=== PATIENT | female | born 1940 | race Caucasian/White ===

== ENCOUNTER 2018-04-10 19:17 | Observation (INO) | payer MEDICAID, MEDICARE ==
[~2018-04-10 19:17] MED LIST: Iopamidol 370 76% 50 ML VIAL FS ONE
[2018-04-10 19:54] LABS: #Basophils 0.1 thou/uL (0.0-0.2); #Eosinphils 0.6 thou/uL (0.0-0.7); #Lymphocytes 1.7 thou/uL (1.20-3.40); #Monocytes 0.4 thou/uL (0.11-0.59); #Neutrophils 4.6 thou/uL (1.40-6.50); %Eosinophils 8.9 % (0.0-10.0); %Lymphocytes 22.7 % (21.0-51.0); %Monocytes 5.1 % (0.0-10.0); %Neutrophils 62.4 % (42.0-75.0); Hemoglobin 10.3 g/dL (12.0-16.0); Mean Corpuscular HGB CONC 33.5 g/dL (32.0-36.0); Mean Corpuscular Hemoglobin 29.3 pg (27.0-31.0); Mean Corpuscular Volume 87.4 fL (78.0-98.0); Platelet Count 318 thou/uL (130-400); RBC Distribution Width 13.7 % (11.5-14.5); White Blood Cell (WBC) Count 7.3 thou/uL (4.8-10.8)
--- NOTE | 2018-04-10 20:12 | RAD ---
RADIOGRAPH CHEST 1 VIEW: 04/10/18 HISTORY: 77-year-old female with acute chest pain. FINDINGS: There is hyperinflation of the lungs, consistent with COPD. There is no evidence of air space densit y, pneumothorax, or pulmonary edema. The lateral costophrenic angles are sharp. There is no cardiome alethea or mediastinal widening. IMPRESSION: 1) No acute pulmonary findings. 2) Emphysema. titi [place] POS: JULIO
[2018-04-10 20:17] LABS: ALT (SGPT) 7 U/L (8-55); AST (SGOT) 16 U/L (5-34); Alkaline Phosphatase 52 U/L (40-150); Anion Gap 16 mmol/L (10-20); BUN (Urea Nitrogen) 18 mg/dL (9.8-20.1); Bilirubin, Total 0.3 mg/dL (0.2-1.2); CK (CPK) 66 U/L (29-168); Calc. Creatinine Clearance 0 mL/min (70-130); Calcium 9.2 mg/dL (7.8-10.44); Carbon Dioxide 25 mmol/L (23-31); Chloride 96 mmol/L (98-107); Estimated GFR-MDRD 65; Globulin 3.7 g/dL (2.4-3.5); Glucose 165 mg/dL (83-110); Lipase 59 U/L (8-78); Potassium 4.1 mmol/L (3.5-5.1); Protein, Total 7.7 g/dL (6.0-8.3); Sodium 133 mmol/L (136-145)
[2018-04-10 20:19] LABS: CKMB 1.3 ng/mL (0-6.6); Troponin I Less than 0.010 ng/mL (< 0.028)
[2018-04-10] MEDS ORDERED: Ondansetron ODT 4 MG TAB ONE ×2 (20:45→23:08)
[2018-04-10 20:59] LABS: Bilirubin Negative (Negative); Blood, Urine Negative (Negative); Clarity CLEAR (Clear); Glucose, Urine (Dipstick) Negative (Negative); Leukocyte Negative (Negative); Nitrite Negative (Negative); Protein, Urine (Dipstick) Negative (Neg-Trace); Specific Gravity, Urine 1.013 (1.002-1.036); Urobilinogen 0.2 mg/dL (0.2-1.0)
--- NOTE | 2018-04-10 22:50 | CT ---
CT ABDOMEN NONCONTRAST CT PELVIS NONCONTRAST: DATE: 04/10/18 TIME: 9:45 p.m. HISTORY: 77-year-old female with left lower quadrant pain and nausea. COMPARISON: None. TECHNIQUE: IV contrast: Not administered. Oral contrast: Administered. FINDINGS: Numerous diverticula throughout the descending colon and sigmoid colon, without evidence of acute div erticulitis. No abscess. A large amount of gas distending the distal sigmoid colon. Rectum is decompr essed. No small bowel dilation. Appendix not visualized. Atherosclerotic calcification, but no aneury sm, of abdominal aorta. 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 3 x 3 x 3.5 cm exophytic cyst protruding from lateral aspect of right r enal lower pole parenchyma. Abutting its superior edge, there is a much smaller 1 cm lateral mid pole cortical cyst. No renal calculi. No hydronephrosis. Decompressed urinary bladder. No pericholecystic edema/fat stranding. Within the limitations of a noncontrast scan, no major pathology identified inv olving bilateral adrenals, pancreas, liver, or spleen. 2 cm lesion exophytically protruding from medi al parenchyma of left renal upper pole with density of 25 HU (i.e. higher than serous fluid attenuati on). No ascites or pneumoperitoneum. Lung bases are grossly clear. Pedicle screws at lower lumbar spi ne along with laminectomy defects. IMPRESSION: 1. Colonic diverticulosis without diverticulitis. 2. Postsurgical changes of lumbar spine. 3. A 2 cm indeterminate lesion at the left renal upper pole. Ideally, this would be evaluated wi multiphase CT of the abdomen with and without contrast. However, if there is decreased GFR or othe r contraindication to iodinated contrast, further evaluation can begin with renal ultrasound, and/or serial followup noncontrast CTs of the abdomen, beginning in six months. POS: JULIO
[2018-04-10] MEDS ORDERED: traMADol HCl 50 MG TAB ONE (23:08)
[2018-04-11 00:09] LABS: Troponin I Less than 0.010 ng/mL (< 0.028)
[2018-04-11] MEDS ORDERED: Bisacodyl 5 MG TAB PO PRN (00:55)
[2018-04-11] MEDS ORDERED: Dextrose 50% Abboject 50 ML SYRINGE SLOW IVP PRN (00:55)
[2018-04-11] MEDS ORDERED: Ondansetron HCl/PF 4 MG/2 ML Vial IVP PRN (00:55)
[2018-04-11] MEDS ORDERED: Mag-Al 1200 mg/1200 mg/30 ML UDCUP PO PRN (00:55)
[2018-04-11] MEDS ORDERED: Ondansetron ODT 4 MG TAB PO PRN (00:55)
[2018-04-11] MEDS ORDERED: HumaLOG 300 UNITS/3 ML VIAL SC PRN ×2 (00:55)
[2018-04-11] MEDS ORDERED: Dextrose 5% in Water 1,000 ML IV PRN (00:55)
[2018-04-11] MEDS ORDERED: Milk Of Magnesia 30 ML UDCUP PO PRN (00:55)
[2018-04-11] MEDS ORDERED: Sodium Chloride 0.9% 1,000 ML IV SCH (00:55)
[2018-04-11 01:04] VITALS: BMI 23.6
[2018-04-11 03:15] LABS: Hemoglobin 9.7 g/dL (12.0-16.0); Red Blood Cell (RBC) Count 3.39 mill/uL (4.20-5.40); White Blood Cell (WBC) Count 6.6 thou/uL (4.8-10.8)
[2018-04-11 03:16] LABS: #Basophils 0.1 thou/uL (0.0-0.2); #Eosinphils 0.7 thou/uL (0.0-0.7); #Lymphocytes 2.3 thou/uL (1.20-3.40); #Monocytes 0.6 thou/uL (0.11-0.59); #Neutrophils 2.9 thou/uL (1.40-6.50); %Basophils 1.4 % (0.0-1.0); %Lymphocytes 34.5 % (21.0-51.0); %Monocytes 8.4 % (0.0-10.0); %Neutrophils 44.6 % (42.0-75.0); Mean Corpuscular HGB CONC 32.8 g/dL (32.0-36.0); Mean Corpuscular Hemoglobin 28.6 pg (27.0-31.0); Mean Corpuscular Volume 87.2 fL (78.0-98.0); Mean Platelet Volume 8.7 fL (7.4-10.4); Platelet Count 307 thou/uL (130-400); RBC Distribution Width 13.7 % (11.5-14.5)
[2018-04-11 03:26] LABS: Troponin I Less than 0.010 ng/mL (< 0.028)
[2018-04-11 03:28] LABS: Anion Gap 12 mmol/L (10-20); BUN (Urea Nitrogen) 14 mg/dL (9.8-20.1); Calc. Creatinine Clearance 57 mL/min (70-130); Calcium 9.3 mg/dL (7.8-10.44); Carbon Dioxide 28 mmol/L (23-31); Cardiac Risk 2.5 (Less than 4.5); Chloride 99 mmol/L (98-107); Cholesterol 138 mg/dl (< 200 Desired); Estimated GFR-MDRD 71; Glucose 130 mg/dL (83-110); HDL Cholesterol 56 mg/dL (>60 Neg Risk); LDL Cholesterol, Calculated 68 mg/dL; Potassium 3.7 mmol/L (3.5-5.1); Sodium 135 mmol/L (136-145); Triglycerides 72 mg/dL (Less than 150)
[2018-04-11] MEDS: Acetaminophen 325 MG TAB PO PRN ×2 (03:29→09:03)
--- NOTE | 2018-04-11 05:41 | HP ---
PRIMARY CARE PHYSICIAN: Dr. Bart Irvin. CHIEF COMPLAINT: Nausea and chest pain. HISTORY OF PRESENT ILLNESS: Ms. Gaitan is a pleasant 77-year-old female who has a history of hype rtension, diabetes mellitus, as well as coronary artery disease. She says that on yesterday she had a CT scan done just as a routine checkup and had to drink some contrast. She says that she went home and did not feel very well after drinking the contrast and started getting very nauseated. She says she drank a lot of water, thinking this would help it get better, but it did not, got progressively worse and she started dry heaving, but not really throwing up much. She says after the dry heaving, she started having some pain in her chest. It was in the middle part of her chest and radiated to he r left shoulder. She felt dizzy, lightheaded, clammy, and cold as well and as a result, she said she came to the hospital to try to see what was going on. She also says she felt a bit short of breath during this time. She says that she was given some medication in the emergency room which has helped the chest pain, but she continues to have some of the nausea and in fact, she says the pain in her c hest actually went away after the dry heaving stopped. The patient also admits to feeling constipate d off and on and also complaining of some back pain. She denies any PND or orthopnea, and no lower e xtremity edema. She says that she has had a stress test back in November and says everything was fin e. 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 She also says that she do es not remember what sort of symptoms led her to seek medical attention with regard to when she had a heart attack a few years ago, she says she just remembers waking up in the hospital 6 days later. REVIEW OF SYSTEMS: All systems were reviewed and are negative except for that mentioned in the histo ry of present illness. PAST MEDICAL HISTORY: Significant for diabetes mellitus, hypertension, COPD, coronary artery disease , and cerebrovascular disease. PAST SURGICAL HISTORY: She had right foot surgery, . She says she has had 3 back surgeries including a lumbar fusion, appendectomy, hysterectomy, and a coronary stent. ALLERGIES: AMBIEN. SOCIAL HISTORY: She is . She just recently moved to [place], [place] about 3 weeks ago. She is a former smoker. She denies any alcohol use. CODE STATUS: FULL CODE. FAMILY HISTORY: Significant for heart disease in her mother and also hypertension. CURRENT MEDICATIONS: As taken from the emergency room records include valsartan 320/25 one tablet on ce a day, amlodipine 5 mg daily, aspirin 81 mg a day, carvedilol 25 mg twice a day, metformin 500 mg twice daily, atorvastatin 40 mg daily, Januvia 100 mg daily, Dexilant 60 mg daily, vitamin B12 and fo lic acid 500 mcg/400 mcg daily, Advair Diskus inhaler daily, tizanidine 4 mg as needed and vitamin D 1000 international units daily. PHYSICAL EXAMINATION: GENERAL: She is alert and oriented. She appears to be in no acute distress. VITAL SIGNS: Blood pressure was 160/79, heart rate 61, respiratory rate is 16, temperature is 98.1. HEENT: Pupils are equal, round, and reactive. Extraocular muscles are intact. Her sclerae are anic teric. Throat: There is no erythema, no exudates. NECK: No adenopathy, no bruits. LUNGS: Clear to auscultation. There is no wheezing, no rales, no rhonchi. CARDIOVASCULAR: She has a normal S1 and S2. I did not appreciate an S3 or S4. No murmurs, clicks, no rubs. ABDOMEN: Obese, it is soft, nontender, nondistended. Positive for bowel sounds. There is no reboun d, no guarding, no organomegaly. EXTREMITIES: There is no clubbing, cyanosis, no edema. She does have significant sized nevus under the left eye and also on her neck, but no other skin lesions. NEUROLOGIC: The exam is nonfocal. LABORATORY AND DIAGNOSTIC DATA: EKG showed sinus rhythm, the rate was 85. There were no ST wave bunny nges. She had a CT scan of the abdomen and pelvis, which was negative other than some diverticulosis and a possible indeterminate lesion in the left upper pole of the kidney and post-surgical changes o f the lumbar spine. Chest x-ray showed some hyperexpansion of the lungs, but no effusions or pulmona ry infiltrates noted. The heart size is normal. Her white blood cell count was 7.3, hemoglobin 10.3 , hematocrit is 30.6, platelet count is 318,000. Sodium 133, potassium 4.1, chloride is 96, CO2 is 2 5, BUN of 18, creatinine 0.85, glucose is 165. Urinalysis was negative except for some trace ketones . ASSESSMENT AND PLAN: 1. This is a 77-year-old female who presented to the emergency room with complaints of nausea and dr maryanne sharp as well as chest pain. It is unclear the etiology of the nausea; however, when I come to s ee the patient, she seems to be relatively stable and also appears to be quite comfortable. I suspec t it may have been due to the contrast like she mentioned or could possibly be a viral gastroenteriti s. Also suspect that the chest pain may have been related to the dry heaving. She states that she h as had a recent stress test in November, which was about 4 months ago, she says it was on 12/10 to be exact and this was negative. Therefore, we will monitor an observation, place her on low dose or ge ntle hydration. Trend her cardiac enzymes. Reevaluate her in the a.m., and if she is improved, then likely she can be discharged home. 2. Regarding diabetes mellitus, we will continue her usual medications including the Januvia as well as placed on a sliding scale insulin. 3. Continue her antihypertensives and p.r.n. medications if needed and treat the nausea symptomatica lly.
[2018-04-11 06:16] LABS: Troponin I 0.015 ng/mL (< 0.028)
[2018-04-11] MEDS ORDERED: Enoxaparin Sodium 40 MG/0.4 ML SYRINGE SC SCH (09:00)
[2018-04-11 12:05] VITALS: BP 127/50; TEMP 98.5
--- NOTE | 2018-04-11 12:34 | DIS ---
DATE OF ADMISSION: 04/10/2018 DATE OF DISCHARGE: 04/11/2018 DISCHARGE DIAGNOSES: 1. Nausea and vomiting, resolved. 2. Chest pain secondarily to #1, resolved. 3. Diabetes mellitus type 2, stable. 4. Hypertension, stable. 5. Coronary artery disease, chronic and stable. CONSULTATIONS: None. PERTINENT LABORATORY DATA AND X-RAY FINDINGS: Basic metabolic profile within normal limits. LFTs wi thin normal limits. Troponin I negative x3. Total cholesterol 130, triglycerides 72, HDL 56, LDL 68 , lipase 59. CBC showed hemoglobin ranging between 9.7-10.3. Urinalysis showed trace ketones. Port able chest x-ray dated 04/10/2018 showed no acute cardiopulmonary process. Chronic changes consisten t with emphysema noted. CT of the abdomen and pelvis dated 04/10/2018 showed diverticulosis without evidence of diverticulitis. Postsurgical changes in the lumbar spine. A 2-cm indeterminate lesion i n the left upper pole of the kidney. HOSPITAL COURSE: Patient was observed on the telemetry unit after initially presenting with protract ed nausea and vomiting after apparently receiving intravenous IV contrast for CT of the chest and the n taking home regimen of metformin. The patient was given general supportive measures to include IV fluids and antiemetics. Supportive measures were successful in alleviating patient's symptoms and rebeca mckeon had complete resolution of all nausea, vomiting prior to discharge. The patient underwent meta bolic and radiographic screening showing no acute process. Current recommendations are to hold metfo rmin for approximately 48 hours after exposure to contrast media. Then resume her regular outpatient medication regimen after discharge. Overall, patient remained clinically stable throughout the hosp ital course with telemetry monitoring showing sinus mechanism without evidence of acute arrhythmia or dysrhythmia. I have examined the patient's time of discharge and discussed pertinent laboratory fin dings and followup instructions. The patient verbalizes understanding and agreement and ready for di ana 04/11/2018. DISCHARGE MEDICATIONS: 1. Amlodipine 5 mg one tab p.o. daily. 2. Enteric-coated aspirin 81 mg 1 tab p.o. daily. 3. Lipitor 40 mg p.o. at bedtime daily. 4. Coreg 25 mg p.o. b.i.d. 5. Vitamin D3 1000 units p.o. daily. 6. Vitamin B12 1000 mcg p.o. daily. 7. Dexilant 60 mg p.o. daily. 8. Advair Diskus one inhalation b.i.d. 9. Metformin 250 mg p.o. b.i.d., resume on 04/13/2018. 10. Tizanidine 2 mg p.o. p.r.n. muscle spasms. 11. Valsartan/HCTZ 320/25 mg 1 tab p.o. daily. FOLLOWUP: Patient may follow up with her primary care provider, Dr. Bart Irvin in [place], [place] within 7 days of discharge. CONDITION ON DISCHARGE: Stable. ACTIVITY: Ad bang. DIET: Heart healthy and ADA. CODE STATUS: FULL. DISPOSITION: Home 04/11/2018.
--- NOTE | 2018-04-12 13:31 | EKG ---
Test Reason : Blood Pressure : / mmHG Vent. Rate : 074 BPM Atrial Rate : 074 BPM P-R Int : 132 ms QRS Dur : 090 ms QT Int : 414 ms P-R-T Axes : 097 006 -45 degrees QTc Int : 459 ms Sinus rhythm with Fusion complexes Abnormal ECG Confirmed by MOON LINDO ([id number]), scientific editor INDRA GUARDADO ([id number]) on 04/12/2018 1:31:13 PM Referred By: Confirmed By:MOON LINDO
== END 2018-04-11 12:36 | disposition home or self-care (01) ==
LOC: ERS 19:17 → INTOOBSV 04-11 00:36 → 2SE 04-11 00:36
PROVIDERS: ADMIT Internal Medicine; ATTEND Internal Medicine
DX: R11.2 Nausea with vomiting, unspecified (principal); R07.9 Chest pain, unspecified; E11.9 Type 2 diabetes mellitus without complications; I10 Essential (primary) hypertension; I25.10 Atherosclerotic heart disease of native coronary artery without angina pectoris; J44.9 Chronic obstructive pulmonary disease, unspecified; Z87.891 Personal history of nicotine dependence; Z79.84 Long term (current) use of oral hypoglycemic drugs; Z79.899 Other long term (current) drug therapy; Z88.8 Allergy status to other drugs, medicaments and biological substances
CPT/HCPCS: 71045; 74176; 80048; 80053; 80061; 81003; 82550; 82553; 82962; 83690; 84484 ×4; 85025 ×2; 93005; 96360; 96361; 96372; 99285; G0378; 36415; 36416; A4216; J1650; Q0162

== ENCOUNTER 2019-05-06 23:03 | Observation (INO) | payer MEDICARE, MEDICAID ==
[2019-05-06 23:43] LABS: #Basophils 0.1 thou/uL (0.0-0.2); #Lymphocytes 2.6 thou/uL (1.20-3.40); #Monocytes 0.7 thou/uL (0.11-0.59); #Neutrophils 4.5 thou/uL (1.40-6.50); %Lymphocytes 29.7 % (21.0-51.0); %Monocytes 8.2 % (0.0-10.0); %Neutrophils 50.2 % (42.0-75.0); Hemoglobin 10.4 g/dL (12.0-16.0); Mean Corpuscular HGB CONC 34.5 g/dL (32.0-36.0); Mean Corpuscular Hemoglobin 31.2 pg (27.0-31.0); Mean Corpuscular Volume 90.4 fL (78.0-98.0); Platelet Count 348 thou/uL (130-400); RBC Distribution Width 12.9 % (11.5-14.5); Red Blood Cell (RBC) Count 3.33 mill/uL (4.20-5.40); White Blood Cell (WBC) Count 8.9 thou/uL (4.8-10.8)
[2019-05-07 00:05] LABS: ALT (SGPT) Less than 7 U/L (8-55); AST (SGOT) 13 U/L (5-34); Albumin 3.9 g/dL (3.4-4.8); Alkaline Phosphatase 63 U/L (40-150); Anion Gap 14 mmol/L (10-20); BUN (Urea Nitrogen) 15 mg/dL (9.8-20.1); Bilirubin, Total 0.2 mg/dL (0.2-1.2); Calc. Creatinine Clearance 0 mL/min (70-130); Carbon Dioxide 25 mmol/L (23-31); Chloride 95 mmol/L (98-107); Estimated GFR-MDRD 61; Globulin 2.9 g/dL (2.4-3.5); Glucose 169 mg/dL (83-110); Potassium 3.8 mmol/L (3.5-5.1); Protein, Total 6.8 g/dL (6.0-8.3); Sodium 130 mmol/L (136-145)
[2019-05-07] MEDS ORDERED: Ondansetron ODT 4 MG TAB ONE (00:53)
[2019-05-07] MEDS ORDERED: Acetaminophen 325 MG TAB ONE (00:53)
[2019-05-07 00:54] LABS: Phosphorus 4.2 mg/dL (2.3-4.7)
[2019-05-07 03:21] LABS: #Eosinphils 0.8 thou/uL (0.0-0.7); #Lymphocytes 2.1 thou/uL (1.20-3.40); #Monocytes 0.7 thou/uL (0.11-0.59); #Neutrophils 3.8 thou/uL (1.40-6.50); %Basophils 0.6 % (0.0-1.0); %Eosinophils 11.2 % (0.0-10.0); %Lymphocytes 27.9 % (21.0-51.0); %Monocytes 8.7 % (0.0-10.0); %Neutrophils 51.6 % (42.0-75.0); Hemoglobin 10.4 g/dL (12.0-16.0); Mean Corpuscular Hemoglobin 31.1 pg (27.0-31.0); Mean Corpuscular Volume 91.3 fL (78.0-98.0); Mean Platelet Volume 7.5 fL (7.4-10.4); Platelet Count 327 thou/uL (130-400); RBC Distribution Width 12.9 % (11.5-14.5); Red Blood Cell (RBC) Count 3.36 mill/uL (4.20-5.40); White Blood Cell (WBC) Count 7.4 thou/uL (4.8-10.8)
[2019-05-07 03:37] LABS: Anion Gap 12 mmol/L (10-20); BUN (Urea Nitrogen) 13 mg/dL (9.8-20.1); Calc. Creatinine Clearance 0 mL/min (70-130); Calcium 9.2 mg/dL (7.8-10.44); Carbon Dioxide 29 mmol/L (23-31); Chloride 94 mmol/L (98-107); Estimated GFR-MDRD 66; Glucose 139 mg/dL (83-110); Magnesium 1.1 mg/dL (1.6-2.6); Potassium 3.6 mmol/L (3.5-5.1); Sodium 131 mmol/L (136-145)
[2019-05-07 04:04] VITALS: BMI 23.6
[2019-05-07] MEDS ORDERED: Acetaminophen 325 MG TAB PO PRN (04:13)
[2019-05-07] MEDS ORDERED: Ondansetron PF 4 MG/2 ML Vial IVP PRN (04:13)
[2019-05-07] MEDS ORDERED: Senokot S 8.6-50 MG TAB PO PRN (04:13)
[2019-05-07] MEDS ORDERED: Ondansetron ODT 4 MG TAB PO PRN (04:13)
[2019-05-07] MEDS ORDERED: Acetaminophen 650 MG Suppository PR PRN (04:13)
[2019-05-07] MEDS ORDERED: Magnesium 2 GM/50 ML 2 GM in Premix Bag 1 BAG IVPB SCH (04:30)
[2019-05-07] MEDS ORDERED: Acetaminophen/Codeine 30-300mg Tablet PO PRN (04:41)
[2019-05-07] MEDS ORDERED: Dextrose 50% Abboject 50 ML SYRINGE SLOW IVP PRN (04:42)
[2019-05-07] MEDS ORDERED: Dextrose 5% in Water 1,000 ML IV PRN (04:42)
[2019-05-07] MEDS ORDERED: HumaLOG 300 UNITS/3 ML VIAL SC PRN ×2 (04:42)
--- NOTE | 2019-05-07 05:12 | HP ---
CHIEF COMPLAINT: Syncope/collapse. HISTORY OF PRESENT ILLNESS: Ms. Gaitan is a 78-year-old woman, who presents after a sudden collapse yesterday evening. The patient states she was lying in bed watching TV. She got up to answer her phone and the next thing she remembers is waking up on the floor, face down with her phone in her hand. The patient states she had banged her right cheek on a piece of furniture and had knocked over her pedestal fan. She had some difficulty standing and was able to get herself up by pulling on the sheet of the bed. She denies experiencing any dizziness, lightheadedness, chest pain, or shortness of breath prior to the episode. She states she had absolutely no warning signs. Since the fall, she reports having pain to the right side of her cheek and eyebrow. The patient denies having any headaches or blurred vision. She suffers from chronic back pain and has had multiple surgeries in the past with associated right lower extremity pain and numbness. The patient states this is unchanged. Denies any neck pain. No abdominal pain or cramping. No recent nausea or vomiting. Reports having a cough which is chronic and nonproductive. She is known to have COPD, but does not use any oxygen at home. She does not currently smoke. At this present time, the patient states apart from the discomfort due to her injury in the side of her face and chronic back pain, she is asymptomatic. PAST MEDICAL HISTORY: 1. Previous CVA in 2015. 2. MD in 2015. 3. COPD. 4. Chronic back pain with muscle spasms. 5. Diabetes mellitus. 6. Hyperlipidemia. 7. Hypertension. PAST SURGICAL HISTORY: 1. Right foot surgery. 2. . 3. Back surgery x3. 4. Appendectomy. 5. Hysterectomy. SOCIAL HISTORY: The patient denies any tobacco use at present. She quit smoking more than 10 years ago. Denies any alcohol use or illicit drug use. ALLERGIES: AMBIEN. CURRENT MEDICATIONS: 1. Amlodipine. 2. Aspirin. 3. Carvedilol. 4. Metformin. 5. Atorvastatin. 6. Januvia. 7. Dexilant. 8. Vitamin B12. 9. Tizanidine. PHYSICAL EXAMINATION: GENERAL: The patient appears well developed, well nourished, in no acute distress. VITAL SIGNS: Temperature 98.6, blood pressure 110/65, pulse 60, O2 saturation 95% on room air. HEENT: Notable bruising to the right zygomatic arch, tender to palpation. No obvious bone deformity. NECK: Supple. No cervical spine tenderness. Full range of motion. LUNGS: Clear to auscultation bilaterally. CARDIAC: Regular rate and rhythm. ABDOMEN: Soft, nontender, nondistended. Normoactive bowel sounds present. No guarding or rigidity. EXTREMITIES: No lower leg swelling or edema. The patient reports chronic pain in her legs. Range of motion limited in the right leg due to pain across her back. MUSCULOSKELETAL: The patient with lower thoracic and lumbar spine discomfort with minimal palpation, which she states is chronic and unchanged with this recent fall. SKIN: Normal, warm and dry. NEUROLOGIC: Alert and oriented x3. No neuro deficits. Speech normal. No tongue deviation. LABORATORY DATA: White count 8.9, hemoglobin 10.4, hematocrit 30.1, platelets 348. Sodium 130, potassium 3.8, BUN 15, creatinine 0.89, GFR 61, glucose 169, calcium 9, magnesium 1.4, total bilirubin 0.2, AST 13, ALT less than 7, alkaline phosphatase 63. Troponin 0.023. Albumin 3.9. IMAGING DATA: CT of the brain, per ED physician, this was negative. No official report available yet. IMPRESSION AND PLAN: Ms. Gaitan is a 78-year-old woman who is being referred for management of the following. 1. Syncope and collapse. The patient without any warning signs or associated symptoms. She has sustained head injury and has a bruise to the right zygomatic arch with tenderness. No obvious bone deformities. She underwent a CT of the brain, report pending, but per ED physician, it was deemed negative. We will check orthostatic BPs. No evidence of dehydration. BNP normal. We will add D- dimer. We will order a chest x-ray. We will also add on BNP and TSH. We will check urinalysis to assess for any underlying urinary infection. 2. Hypomagnesemia. We will replace magnesium and recheck electrolytes. 3. Coronary artery disease. We will resume home medications. We will continue to monitor vital signs. We will continue to trend troponins. We will order an echocardiogram as well as carotid Dopplers. Further brain imaging pending results of the CT of the brain. 4. Diabetes mellitus. We will resume home medications. Initiate insulin sliding scale. Monitor glucose. 5. Hypertension. We will resume home medications and monitor blood pressure. 6. Gastrointestinal prophylaxis. 7. Deep venous thrombosis prophylaxis with ALESSANDRA hose stockings. No mechanical SCDs given the chronic lower leg pain. Awaiting D-dimer as mentioned above. 8. Code status full. Surrogate decision maker is her son, Andrew Dimas. The patient's case to be discussed with attending for further recommendations. Job ID: [id number] [facility]
[2019-05-07 05:15] LABS: Bilirubin Negative (Negative); Blood, Urine Negative (Negative); Clarity Clear (Clear); Glucose, Urine (Dipstick) Normal (Negative); Leukocyte 75 Leu/uL (Negative); Nitrite Negative (Negative); Protein, Urine (Dipstick) Negative (Neg-Trace); RBC/HPF 0-3 HPF (0-3); Squamous Epithelial 0-3 HPF (0-3); Urobilinogen Normal mg/dL (Less than 2); WBC/HPF 0-3 HPF (0-3)
[2019-05-07 05:32] LABS: Bacteria/HPF 1+ HPF (None Seen)
[2019-05-07 05:36] LABS: Urine Culture Reflex Yes Yes
[2019-05-07 06:43] LABS: Folate (Folic Acid) 10.8 ng/mL (7.0-31.4)
--- NOTE | 2019-05-07 07:38 | CT ---
PRELIMINARY REPORT/[facility]/EMERGENCY AFTER HOURS PROCEDURE: EXAM: CT Head Without Contrast EXAM DATE/TIME: 05/07/2019 12:06 AM CLINICAL HISTORY: 78 years old, female; Injury or trauma; Fall; Initial encounter; Blunt trauma (contusions or hematoma s); With loss of consciousness; Not specified; Patient HX: PT stated that she was laying down in bed and woke up to answer the phone. PT stated that the next thing she knew she was lying on the floor an d did not remember getting there. TECHNIQUE: Imaging protocol: Computed tomography images of the head without contrast. COMPARISON: No relevant prior studies available. FINDINGS: Brain: No intracrainal hemorrhage. No midline shift. The brain parenchyma appears normal for age. Probable left occipital infarct Ventricles: No ventriculomegaly. Bones/joints: Unremarkable. No acute fracture. Sinuses: Visualized sinuses are unremarkable. No fluid levels. Mastoid air cells: Visualized mastoid air cells are well aerated. No mastoid effusion. Soft tissues: Unremarkable. IMPRESSION: No acute intracranial abnormality. Thank you for allowing us to participate in the care of your patient. Dictated and Authenticated by: Car Justin MD 05/07/2019 12:21 AM Central Time ([place] & [place]) FINAL REPORT EMERGNCY AFTER HOURS CT BRAIN WITHOUT CONTRAST: Date: 05/06/19 FINDINGS/IMPRESSION: I agree with the findings and impression given in the preliminary report per [facility] physician. No evide nce of acute intracranial abnormality.
[2019-05-07] MEDS ORDERED: Non-Formulary Item 1 EACH (Valsartan/Hydrochlorothiazide [Valsartan-Hctz 320-25 Mg Tab] 1 PO SCH (09:00)
[2019-05-07] MEDS ORDERED: tiZANidine HCl 4 MG TAB PO PRN (09:00)
[2019-05-07] MEDS ORDERED: Valsartan 80 MG TAB PO SCH (09:00)
[2019-05-07] MEDS ORDERED: Hydrochlorothiazide 25 MG TAB PO SCH (09:00)
--- NOTE | 2019-05-07 09:06 | RAD ---
CHEST 2 VIEWS: INDICATION: History of CVA, hypertension. COMPARISON: Prior exam dated 09/02/2005. FINDINGS: There is prominent COPD change. No acute airspace opacity, pleural effusion, or pneumothorax evident . No acute osseous abnormality evident. IMPRESSION: No acute abnormality. POS: BH
[2019-05-07] MEDS: Carvedilol 25 MG TAB PO SCH ×2 (09:22→20:42)
[2019-05-07] MEDS: metFORMIN 500 MG TAB PO SCH ×2 (09:22→17:47)
[2019-05-07] MEDS: Amlodipine 5 MG TAB PO SCH (09:26)
[2019-05-07] MEDS: Aspirin Chewable 81 MG TAB PO SCH (09:26)
[2019-05-07] MEDS: Atorvastatin Calcium 40 MG TAB PO SCH (09:26)
[2019-05-07] MEDS: Famotidine/PF 20 mg/2ml Vial SLOW IVP SCH ×2 (09:27→09:32)
--- NOTE | 2019-05-07 09:37 | ULT ---
BILATERAL CAROTID DUPLEX ULTRASOUND: DATE: 05/07/19 HISTORY: Syncope. TECHNIQUE: Hansen scale ultrasound with color flow and spectral Doppler imaging of the extracranial carotid artery systems performed bilaterally. FINDINGS: There is plaque formation on both sides. The peak systolic velocity in the right ICA measures 70 cm/second with an end-diastolic velocity of 1 7 cm/second and a systolic ratio of 0.92. The peak systolic velocity in the left ICA measures 75 cm/second with an end-diastolic velocity of 20 cm/second and a systolic ratio of 1.03. Flow in both vertebral arteries remains antegrade. IMPRESSION: No evidence of hemodynamically significant stenosis. POS: TPC
--- NOTE | 2019-05-07 18:00 | PDOC.HOSPP ---
- Subjective Subjective: no dizziness or other complaint - Objective Vital Signs & Weight: Vital Signs (12 hours) Temp Pulse Pulse Pulse Pulse Pulse Resp 05/07/19 15:06 98.1 F 64 16 05/07/19 11:56 98.0 F 05/07/19 11:30 61 05/07/19 10:58 61 67 74 72 05/07/19 09:26 68 05/07/19 08:41 64 72 BP BP BP BP BP BP BP 05/07/19 15:06 05/07/19 11:56 05/07/19 11:30 129/59 L 122/57 L 05/07/19 10:58 129/59 L 122/57 L 122/56 L 136/80 05/07/19 09:26 153/67 H 05/07/19 08:41 142/67 H 139/72 BP Pulse Ox 05/07/19 15:06 129/66 94 L 05/07/19 11:56 94 L 05/07/19 11:30 122/56 L 05/07/19 10:58 05/07/19 09:26 05/07/19 08:41 Weight Admit Weight 133 lb Weight 133 lb 1.6 oz I&O: 05/06/19 05/07/19 05/08/19 06:59 06:59 06:59 Output Total 250 Balance -250 Result Diagrams: 05/07/19 03:13 05/07/19 03:13 Additional Labs: Accuchecks 05/07/19 05/07/19 15:42 12:35 POC Glucose 146 H 198 H Radiology Reviewed by me: Yes (carotid US no stenosis) ROS - Review of Systems All systems: All other ROS were reviewed and found negative. - Medication Medications: Active Medications Generic Name Dose Route Start Last Admin Trade Name Freq PRN Reason Stop Dose Admin Acetaminophen/Codeine Phosphate 1 tab 05/07/19 04:41 05/07/19 04:54 Tylenol #3 PO 1 tab Q4HR PRN Administration Moderate Pain (4-6) Amlodipine Besylate 5 mg 05/07/19 09:00 05/07/19 09:26 Norvasc PO 5 mg DAILY MIGNON Administration Aspirin 81 mg 05/07/19 09:00 05/07/19 09:26 Aspirin Chewable PO 81 mg DAILY MIGNON Administration Atorvastatin Calcium 40 mg 05/07/19 09:00 05/07/19 09:26 Lipitor PO 40 mg DAILY MIGNON Administration Carvedilol 25 mg 05/07/19 09:00 05/07/19 09:22 Coreg PO 25 mg BID MIGNON Administration Famotidine 20 mg 05/07/19 09:00 05/07/19 09:32 Pepcid SLOW IVP Not Given Q12HR MIGNON Hydrochlorothiazide 25 mg 05/07/19 09:00 05/07/19 09:26 Hydrochlorothiazide PO 25 mg DAILY MIGNON Administration Metformin HCl 250 mg 05/07/19 08:00 05/07/19 17:47 Glucophage PO 250 mg BID-WM MIGNON Administration Ondansetron HCl 4 mg 05/07/19 04:13 05/07/19 11:50 Zofran Odt PO 4 mg Q6H PRN Administration Nausea/Vomiting Pantoprazole Sodium 40 mg 05/07/19 09:00 05/07/19 09:22 Protonix PO 40 mg DAILY MIGNON Administration Valsartan 320 mg 05/07/19 09:00 05/07/19 09:21 Diovan PO 320 mg DAILY MIGNON Administration - Exam Neck: no JVD Heart: RRR, no murmur Respiratory: CTAB, no wheezes, no rales Gastrointestinal: soft, normal bowel sounds Extremities: no edema Hosp A/P (1) Syncope Code(s): R55 - SYNCOPE AND COLLAPSE Status: Acute Qualifiers: Syncope type: unspecified Qualified Code(s): R55 - Syncope and collapse (2) CAD (coronary artery disease) Code(s): I25.10 - ATHSCL HEART DISEASE OF [place] CORONARY ARTERY W/O ANG PCTRS Status: Acute Qualifiers: Coronary Disease-Associated Artery/Lesion type: [place] artery [place] vs. transplanted heart: [place] heart Associated angina: without angina Qualified Code(s): I25.10 - Atherosclerotic heart disease of [place] coronary artery without angina pectoris (3) HTN (hypertension) Code(s): I10 - ESSENTIAL (PRIMARY) HYPERTENSION Status: Acute Qualifiers: Hypertension type: essential hypertension Qualified Code(s): I10 - Essential (primary) hypertension (4) DM type 2 (diabetes mellitus, type 2) Status: Acute Qualifiers: Diabetes mellitus usp insulin use: without intermodal customer service use Diabetes mellitus complication status: without complication Qualified Code(s): E11.9 - Type 2 diabetes mellitus without complications - Plan RAYA for syncope neg so far cont meds for htn, DM, etc accu/ss/metformin ECHO pending, if ok and she is stable may DC home
[2019-05-07] MEDS: Famotidine 20 MG TAB PO SCH (20:42)
[2019-05-08 05:19] LABS: #Basophils 0.1 thou/uL (0.0-0.2); #Eosinphils 0.9 thou/uL (0.0-0.7); #Lymphocytes 2.4 thou/uL (1.20-3.40); #Monocytes 0.6 thou/uL (0.11-0.59); #Neutrophils 3.5 thou/uL (1.40-6.50); %Basophils 1.1 % (0.0-1.0); %Eosinophils 11.6 % (0.0-10.0); %Monocytes 8.5 % (0.0-10.0); %Neutrophils 46.9 % (42.0-75.0); Mean Corpuscular HGB CONC 34.4 g/dL (32.0-36.0); Mean Corpuscular Hemoglobin 31.5 pg (27.0-31.0); Mean Corpuscular Volume 91.5 fL (78.0-98.0); Mean Platelet Volume 7.5 fL (7.4-10.4); Platelet Count 343 thou/uL (130-400); RBC Distribution Width 12.8 % (11.5-14.5); White Blood Cell (WBC) Count 7.4 thou/uL (4.8-10.8)
[2019-05-08 05:41] LABS: Anion Gap 13 mmol/L (10-20); BUN (Urea Nitrogen) 11 mg/dL (9.8-20.1); Calc. Creatinine Clearance 46 mL/min (70-130); Calcium 9.4 mg/dL (7.8-10.44); Carbon Dioxide 31 mmol/L (23-31); Chloride 94 mmol/L (98-107); Estimated GFR-MDRD 56; Glucose 140 mg/dL (83-110); Potassium 4.7 mmol/L (3.5-5.1); Sodium 133 mmol/L (136-145)
[2019-05-08] MEDS: Aspirin Chewable 81 MG TAB PO SCH (08:57)
[2019-05-08] MEDS: Atorvastatin Calcium 40 MG TAB PO SCH (08:57)
[2019-05-08] MEDS: Carvedilol 25 MG TAB PO SCH (08:57)
[2019-05-08] MEDS: Amlodipine 5 MG TAB PO SCH (08:57)
[2019-05-08] MEDS: metFORMIN 500 MG TAB PO SCH (08:58)
[2019-05-08] MEDS: Famotidine 20 MG TAB PO SCH (08:58)
[2019-05-08] MEDS ORDERED: Magnesium Sulfate 4 GM in Sodium Chloride 0.9% 250 ML 250 ML IVPB SCH (11:00)
[2019-05-08] MEDS ORDERED: Magnesium Sulfate 3 GM in Sodium Chloride 0.9% 250 ML 250 ML IVPB SCH ×2 (11:00→11:45)
[2019-05-08] MEDS ORDERED: Magnesium 2 GM/50 ML 2 GM in Premix Bag 1 BAG IVPB SCH (11:00)
[2019-05-08] MEDS ORDERED: Magnesium Sulfate 2 GM in Sodium Chloride 0.9% 250 ML 250 ML IVPB SCH (11:00)
[2019-05-08 12:04] VITALS: BP 135/62; TEMP 97.6
--- NOTE | 2019-05-08 15:12 | DIS ---
DATE OF ADMISSION: 05/07/2019 DATE OF DISCHARGE: 05/08/2019 PRIMARY CARE PHYSICIAN: Dr. Elo Mei. DISCHARGE DISPOSITION: Home. PRIMARY DISCHARGE DIAGNOSES: 1. Syncope due to orthostatic hypotension. 2. Hypomagnesemia. 3. Urinary tract infection. SECONDARY DISCHARGE DIAGNOSES: 1. Coronary artery disease. 2. Diabetes type 2. 3. Hypertension. PRIMARY PROCEDURE/OPERATION: None. RADIOLOGICAL INVESTIGATION: CT brain normal. Chest x-ray normal. Carotid Doppler negative. Echocardiography, diastolic dysfunction. SIGNIFICANT LABORATORY DATA: Hemoglobin 11.0. D-dimer 0.38. Creatinine 0.96, magnesium 1.5. Urinalysis suggestive UTI. Urine culture grew Streptococcus. DISCHARGE MEDICATIONS: 1. Tylenol No. 3 one tablet q.4 hourly p.r.n. 2. Amlodipine 5 mg daily. 3. Aspirin 81 mg daily. 4. Lipitor 40 mg p.o. daily. 5. Coreg 25 mg p.o. b.i.d. 6. Vitamin D3 1000 units p.o. daily. 7. Vitamin B12 1000 mcg p.o. daily. 8. Dexilant 60 mg daily. 9. Tizanidine 2 mg p.r.n. 10. Metformin 250 mg b.i.d. 11. Cipro 500 mg b.i.d. for 5 days. CONTRAINDICATION: None. CODE STATUS: Full code. INPATIENT BIOINFORMATICS DEVELOPER: None. ALLERGY: Ambien. DISCHARGE PLAN: Posthospital, the patient will follow up with primary care physician in one week. HOSPITAL COURSE: A 78-year-old female with above-mentioned medical problem, who was admitted by ULISES Martínez. Please see her H and P for further details. This patient was having dizziness and her dizziness and syncope were related with orthostatic hypotension. She had mild dehydration. She had abnormal magnesium, which was replaced. She was given IV fluid while in hospital. Her vitals were positive for orthostatic vitals. She had syncope workup with CT brain, chest x-ray, and carotid Doppler, was normal. Echocardiography showed diastolic dysfunction. Necessary of nonpharmacological measure for orthostatic hypotension was discussed with the patient. We discontinued losartan with hydrochlorothiazide which she was taking for blood pressure during this admission. We started Cipro for her urinary tract infection. The patient is stable for discharge later on today. I have seen and examined the patient at bedside today. Plan of care discussed with the patient in detail. Review of systems is negative. Her examination is normal. Job ID: [id number]
== END 2019-05-08 15:29 | disposition home or self-care (01) ==
LOC: ERS 23:03 → 2SW 05-07 02:11
PROVIDERS: ADMIT Hospitalist; ATTEND Hospitalist
DX: I95.1 Orthostatic hypotension (principal); E83.42 Hypomagnesemia; N39.0 Urinary tract infection, site not specified; B95.5 Unspecified streptococcus as the cause of diseases classified elsewhere; I25.10 Atherosclerotic heart disease of native coronary artery without angina pectoris; E11.9 Type 2 diabetes mellitus without complications; I10 Essential (primary) hypertension; I25.2 Old myocardial infarction; J44.9 Chronic obstructive pulmonary disease, unspecified; M54.9 Dorsalgia, unspecified; G89.29 Other chronic pain; E78.5 Hyperlipidemia, unspecified; Z87.891 Personal history of nicotine dependence; Z88.8 Allergy status to other drugs, medicaments and biological substances; Z79.82 Long term (current) use of aspirin; Z79.84 Long term (current) use of oral hypoglycemic drugs; Z79.899 Other long term (current) drug therapy
CPT/HCPCS: 70450; 71046; 80048 ×2; 80053; 81001; 82607; 82746; 82962 ×2; 83735 ×3; 83880; 84100; 84443; 84484; 85025 ×3; 85379; 87086; 93005; 93306; 93880; 96365; 96366; 97116; 97139; 97530 ×3; 99285; G0378 ×3; 36415; 36416; J3475; J7050; Q0162; S0028

== ENCOUNTER 2020-03-08 08:48 | Outpatient (CLI) | payer MEDICARE, MEDICAID ==
--- NOTE | 2020-03-08 09:46 | CT ---
CT lumbar spine noncontrast HISTORY: Low back pain. Recent fall. Left leg radiculopathy. FINDINGS: Images including the retroperitoneum show prominent calcification throughout the arterial s tructures. Cysts arise from the cortex of each kidney. Vertebral body heights are maintained. There is reversal of the normal lordotic curvature. T12-L1, L1-2: Osteophytosis of the facets. Central canal and neural foramina are patent. L2-3: Loss of disc space height. Gas disc phenomenon. Grade 1 degenerative spondylolisthesis. Posteri or pseudo-bulge of the disc and circumferential degenerative changes. Severe stenosis of the central canal. Mild bilateral foraminal stenoses (based on the axial images). L3-4: Disc space narrowing with gas disc phenomenon. Prominent posterior disc bulge. Circumferential degenerative changes. Severe stenosis of the central canal. Moderate stenosis of each neural foramen based on the axial images. L4-5: Postoperative changes with metallic fixation hardware and interbody fusion material. Beam harde rg artifact obscures detail. Central canal and neural foramina are favored to be patent. L5-S1: Disc space narrowing and gas disc phenomenon. Posterior disc protrusion with slight inferior e xtension. Circumferential degenerative changes with moderate to severe stenosis of the central canal. Far right and lateral protrusion of the disc extends into the each neural foramen, compressing the nerve roots. IMPRESSION : Postoperative and prominent degenerative changes. Nerve root compression greatest at the lumbosacral junction bilaterally. Clinical correlation regarding each L5 dermatome is required. Central canal stenosis most severe at the L3-4 level. Atherosclerosis
== END 2020-03-08 08:49 | disposition home or self-care (01) ==
LOC: TBSIIMAG 08:48
PROVIDERS: ATTEND Neurological Surgery
DX: M54.16 Radiculopathy, lumbar region (principal); M47.26 Other spondylosis with radiculopathy, lumbar region; M48.061 Spinal stenosis, lumbar region without neurogenic claudication; I70.90 Unspecified atherosclerosis; G54.4 Lumbosacral root disorders, not elsewhere classified
CPT/HCPCS: 72131

== ENCOUNTER 2020-03-15 09:08 | Outpatient (CLI) | payer MEDICARE, MEDICAID ==
--- NOTE | 2020-03-15 13:41 | MRI ---
MR OF THE LUMBAR SPINE WITHOUT IV CONTRAST: 03/15/20 INDICATION: History of lumbar radiculopathy. COMPARISON: CT of the lumbar spine without contrast dated 03/08/20. FINDINGS: The postoperative changes consistent with interbody fusion at L4-5 is stable appearing. There is batsheva d osseous incorporation of the interbody bone graft. There is stable grade I anterolisthesis of L2 on L3. There is a 2.7 cm cyst involving the superior pole of the left kidney. There is a 1.7 cm cyst involvi ng the right mid kidney. There is a 3.2 cm cyst involving the inferior pole of the right kidney. At L5-S1, there is a broad based bulge with loss of disc space height and facet osteoarthritic change inducing severe right and moderate to severe left neural foraminal narrowing. There is also very mil d central canal narrowing at this level due to facet hypertrophy and the broad based disc bulge. Ther e is moderate bilateral lateral recess narrowing due to the facet hypertrophy and broad based disc bu lge. At L4-5, there is a residual osteophyte complex but no appreciable central canal or neural foraminal narrowing. At L3-4, there is a broad based disc osteophyte complex and facet hypertrophy inducing mild central c anal narrowing with mild bilateral neural foraminal narrowing. At L2-3, there is a broad based bulge facet hypertrophy inducing mild central canal narrowing and mil d bilateral neural foraminal narrowing. At L1-2, there is no appreciable central canal or neural foraminal narrowing. At T12-L1, there is no appreciable central canal or neural foraminal narrowing. IMPRESSION: Severe right and moderate to severe left neural foraminal narrowing at L5-S1 due to broad based disc bulge and facet hypertrophy. The broad based bulge in addition to the facet hypertrophy also induces at least moderate bilateral lateral recess narrowing. Mild central canal narrowing and mild bilateral neural foraminal narrowing at L2-3 and L3-4. POS: PADMINI
== END 2020-03-15 09:09 | disposition home or self-care (01) ==
LOC: TBSIIMAG 09:08
PROVIDERS: ATTEND Neurological Surgery
DX: M47.26 Other spondylosis with radiculopathy, lumbar region (principal); M48.07 Spinal stenosis, lumbosacral region; M48.061 Spinal stenosis, lumbar region without neurogenic claudication
CPT/HCPCS: 72148

== ENCOUNTER 2020-03-31 06:29 | Outpatient (CLI) | payer MEDICARE, MEDICAID, OTHER ==
[2020-03-31 14:15] LABS: Hemoglobin 11.6 g/dL (12.0-16.0); Mean Corpuscular HGB CONC 32.6 g/dL (32.0-36.0); Mean Corpuscular Volume 91.8 fL (78.0-98.0); Mean Platelet Volume 8.3 fL (7.4-10.4); Platelet Count 414 thou/uL (130-400); RBC Distribution Width 13.6 % (11.5-14.5); Red Blood Cell (RBC) Count 3.86 mill/uL (4.20-5.40); White Blood Cell (WBC) Count 7.2 thou/uL (4.8-10.8)
[2020-03-31 14:46] LABS: Anion Gap 13 mmol/L (10-20); BUN (Urea Nitrogen) 8 mg/dL (9.8-20.1); Calc. Creatinine Clearance 0 mL/min (70-130); Calcium 8.9 mg/dL (7.8-10.44); Carbon Dioxide 26 mmol/L (23-31); Chloride 98 mmol/L (98-107); Estimated GFR-MDRD 67; Glucose 145 mg/dL (83-110); Potassium 4.3 mmol/L (3.5-5.1); Sodium 133 mmol/L (136-145)
[2020-04-01 14:25] LABS: SARS-CoV-2 MS2 Positive; SARS-CoV-2 N Gene Negative; SARS-CoV-2 S Gene Negative; SARS-CoV-2 orf1ab Negative
== END 2020-03-31 06:30 | disposition home or self-care (01) ==
LOC: LABBT 06:29
PROVIDERS: ATTEND Neurological Surgery
DX: Z01.812 Encounter for preprocedural laboratory examination (principal); Z11.59 Encounter for screening for other viral diseases; M54.16 Radiculopathy, lumbar region
CPT/HCPCS: 80048; 85027; U0003; 87635

== ENCOUNTER 2020-04-05 09:37 | Day surgery (SDC) | payer MEDICARE, MEDICAID ==
[2020-03-30 10:21] VITALS: BMI 21.9
--- NOTE | 2020-04-04 21:44 | HP ---
HISTORY OF PRESENT ILLNESS: Ms. Gaitan is a 79-year-old woman referred to us for evaluation of severe lower back pain and right lower extremity L5-S1 pain with associated numbness that has been ongoing. However, she has had two falls over the last six months and each time, her pain has worsened. At the present, the pain is constant and severe. She has notable exquisitely area to the right lower back. She does have history of heart replacement many years ago and worries that she may have damaged the hardware. CT scan of this reveals well appearing non damaged hardware in the lumbar spine with no signs of lucency. MRI reveals right-sided focal disk extrusion at L5 impacting the descending S1 nerve root matching her symptoms well. Exam is deferred for telehealth visit. PAST MEDICAL HISTORY: Hypercholesterolemia, chronic pain, diabetes, lung disease, history of CVA, asthma. PAST SURGICAL HISTORY: Appendectomy, hysterectomy, unspecified foot surgery, three identified back surgeries, heart catheterization. CURRENT MEDICATIONS: 1. Metformin. 2. Aspirin. 3. Tylenol No. 3. 4. Atorvastatin. 5. Amlodipine. 6. Dexilant. 7. Carvedilol. 8. Albuterol. ALLERGIES: NO KNOWN DRUG ALLERGIES. ASSESSMENT: Lumbar radiculopathy and disk herniation. PLAN: Dr. Angulo met with the patient, reviewed imaging, and advocated for L5 diskectomy. He explained the patient risks, benefits, and alternatives to the procedure. The patient expressed understanding and elected to move forward with surgery as discussed. I do believe that the patient is mentally competent and capable of making medical decisions for herself. We will move forward with surgery as planned. Job ID: [id number]
[2020-04-05] MEDS ORDERED: Thrombin 5000 UNITS/5 ML VIAL ONE (09:54)
[2020-04-05] MEDS ORDERED: EPINEPHrine 1 MG/ML AMP ONE (09:54)
[2020-04-05] MEDS ORDERED: Bupivacaine PF 0.5% 30 ML VIAL ONE (09:54)
[2020-04-05] MEDS ORDERED: Fentanyl 100 MCG/2 ML VIAL ONE (10:16)
[2020-04-05] MEDS ORDERED: EPHEDRINE 25 MG/5 ML SYRINGE ONE (11:22)
[2020-04-05] MEDS ORDERED: PROPOFOL 200 MG/20 ML VIAL ONE (11:22)
[2020-04-05] MEDS ORDERED: Metoclopramide HCl 10 MG/2 ML VIAL ONE (11:22)
[2020-04-05] MEDS ORDERED: Rocuronium Bromide 10 MG/ML (10ML VIAL) ONE (11:22)
[2020-04-05] MEDS ORDERED: Ondansetron PF 4 MG/2 ML Vial ONE (11:22)
[2020-04-05] MEDS ORDERED: Lidocaine 1% PF 5 ML VIAL ONE (11:22)
--- NOTE | 2020-04-05 14:50 | OP ---
DATE OF PROCEDURE: 04/05/2020 PUBLIC HEALTH INSPECTOR: No airline pilot/first officer. INDICATION: Pain. DIAGNOSIS: Right S1 radiculopathy. PROCEDURE PERFORMED: Reoperation of right L5 decompression and diskectomy. ANESTHESIA: General. DESCRIPTION OF PROCEDURE: The patient was brought into the operating room and placed under general anesthesia. She was flipped from the supine to prone position on the operating room table. A linear incision was planned at the lower aspect of the previously placed incision. After prepping and draping and after an appropriate preoperative pause, the incision was created. The soft tissues were swept right of midline. A self-retaining retractor was placed. Ectopic bone from the patient's prior operative procedure was identified and carefully removed. Prior laminar defect at the L5-S1 segment was identified and extended laterally and inferiorly using a high-speed cutting drill bit as well as 2, 3, and 4 mm Kerrisons. The S1 pedicle as well as L5 disk space as well as the descending S1 nerve root were identified. After decompressing the lateral recesses, an annulotomy was performed in the L5 disk and protuberant as well as slightly inferiorly migrated disk material was removed. The wound was then irrigated. Hemostasis was maintained throughout. The wound was then closed in anatomic layers and a pressure dressing was applied. There were no known procedural complications. Job ID: [id number]
--- NOTE | 2020-04-07 17:39 | EKG ---
Test Reason : PREOP Blood Pressure : / mmHG Vent. Rate : 063 BPM Atrial Rate : 063 BPM P-R Int : 132 ms QRS Dur : 120 ms QT Int : 450 ms P-R-T Axes : 078 -36 011 degrees QTc Int : 460 ms Normal sinus rhythm Left axis deviation Right bundle branch block Abnormal ECG When compared with ECG of 06-MAY-2019 23:15, Right bundle branch block is now Present Criteria for Septal infarct are no longer Present Confirmed by DR. Bennie ELLER ([id number]) on 04/07/2020 5:39:37 PM Referred By: NATALIIA Confirmed By:DR. Bennie ELLER
== END 2020-04-05 14:43 | disposition home or self-care (01) ==
LOC: SDC 09:37
PROVIDERS: ATTEND Neurological Surgery
PROC: 0SB20ZZ Excision of Lumbar Vertebral Disc, Open Approach (ICD-10-PCS; principal; 2020-04-05)
DX: M51.16 Intervertebral disc disorders with radiculopathy, lumbar region (principal); E78.00 Pure hypercholesterolemia, unspecified; G89.29 Other chronic pain; E11.9 Type 2 diabetes mellitus without complications; J45.909 Unspecified asthma, uncomplicated; Z86.73 Personal history of transient ischemic attack (TIA), and cerebral infarction without residual deficits; Z79.82 Long term (current) use of aspirin; Z79.84 Long term (current) use of oral hypoglycemic drugs; Z79.899 Other long term (current) drug therapy; Z88.8 Allergy status to other drugs, medicaments and biological substances
CPT/HCPCS: 76000; 93005; 93010; J0171; J0690; J2001; J2405; J2704; J2765; J3010; S0020

== ENCOUNTER 2020-04-16 21:23 | Emergency (ER) | payer MEDICARE, MEDICAID | END 2020-04-16 23:53 | disposition home or self-care (01) | LOC: ERS 21:23 | DX: T81.31XA Disruption of external operation (surgical) wound, not elsewhere classified, initial encounter (principal); L76.34 Postprocedural seroma of skin and subcutaneous tissue following other procedure; E11.9 Type 2 diabetes mellitus without complications; E78.5 Hyperlipidemia, unspecified; I10 Essential (primary) hypertension; Z86.73 Personal history of transient ischemic attack (TIA), and cerebral infarction without residual deficits; Z87.891 Personal history of nicotine dependence; Z79.899 Other long term (current) drug therapy; Z79.82 Long term (current) use of aspirin; Z79.84 Long term (current) use of oral hypoglycemic drugs ==

== ENCOUNTER 2020-04-27 05:44 | Outpatient (CLI) | payer MEDICARE, MEDICAID, OTHER ==
[2020-04-28 13:25] LABS: SARS-CoV-2 MS2 Positive; SARS-CoV-2 N Gene Negative; SARS-CoV-2 S Gene Negative; SARS-CoV-2 orf1ab Negative
== END 2020-04-27 05:45 | disposition home or self-care (01) ==
LOC: LABBT 05:44
PROVIDERS: ATTEND Internal Medicine Gastroenterology
DX: Z01.812 Encounter for preprocedural laboratory examination (principal); Z11.59 Encounter for screening for other viral diseases; K59.00 Constipation, unspecified; M54.30 Sciatica, unspecified side; J44.9 Chronic obstructive pulmonary disease, unspecified; I25.10 Atherosclerotic heart disease of native coronary artery without angina pectoris; Z86.010 Personal history of colon polyps
CPT/HCPCS: 87635; U0003

== ENCOUNTER 2020-05-02 09:57 | Day surgery (SDC) | payer MEDICARE, MEDICAID ==
[2020-04-25 15:03] VITALS: BMI 21.2
[2020-05-02] MEDS ORDERED: PROPOFOL 200 MG/20 ML VIAL ONE (12:41)
--- NOTE | 2020-05-02 14:12 | OP ---
DATE OF PROCEDURE: 05/02/2020 PREPROCEDURE DIAGNOSES: 1. Chronic constipation. 2. Personal history of colon polyps. POSTPROCEDURE DIAGNOSES: 1. A 7 mm flat polyp in the cecum, removed by cold snare polypectomy and submitted to Pathology. 2. A 7 mm polyp, sessile in the ascending colon, removed by cold snare polypectomy and submitted to Pathology. 3. flat polyp at the proximal transverse colon, removed with saline assisted cushion and hot snare polypectomy. Hemoclip was placed to help prevent bleeding or perforation. 4. Severe diverticulosis. RECOMMENDATIONS: 1. Await histopathology. 2. High-fiber diet. 3. Continue bowel regimen. 4. Repeat colonoscopy depending on pathology results when they are available and timing will be decided. ANESTHESIA: TIVA. PROCEDURE IN DETAIL: The patient was informed of the risk, benefits, and possible complications including perforation, reaction to medication, aspiration, informed consent was obtained. The patient was brought to the endoscopy suite, where she was sedated in gradual fashion. Once she was comfortable, rectal examination was performed, which was normal. The endoscope was advanced through the anal canal through the colon to the cecum, which was identified by the ileocecal valve and appendiceal orifice. There was a flat polyp, about 7 mm in size, near the appendiceal orifice in the cecum, which was removed by cold snare polypectomy and submitted to Pathology. There was forrest diverticulosis throughout the colon. In the distal ascending colon, there was another polyp about 7 to 8 mm, sessile in size, that was removed by cold snare polypectomy and submitted to Pathology. In the transverse colon proximally, there was sessile polyp that was removed after saline injection to raise it and then with a hot snare polypectomy and hemoclip was used x1 to close the defect to help prevent any risk of perforation, as she is quite frail at 79 years old. The scope was then slowly removed through the remainder of the colon, diverticulosis was seen, but no other masses or lesions. Retroflexed view was normal. The scope was removed. The patient tolerated the procedure well. There were no other complications. Job ID: [id number]
== END 2020-05-02 13:00 | disposition home or self-care (01) ==
LOC: SDC 09:57
PROVIDERS: ATTEND Internal Medicine Gastroenterology
PROC: 3E0H8GC Introduction of Other Therapeutic Substance into Lower GI, Via Natural or Artificial Opening Endoscopic (ICD-10-PCS; principal; 2020-05-02)
PROC: 0DBK8ZX Excision of Ascending Colon, Via Natural or Artificial Opening Endoscopic, Diagnostic (ICD-10-PCS; 2020-05-02)
PROC: 0DBL8ZX Excision of Transverse Colon, Via Natural or Artificial Opening Endoscopic, Diagnostic (ICD-10-PCS; 2020-05-02)
PROC: 0DBH8ZX Excision of Cecum, Via Natural or Artificial Opening Endoscopic, Diagnostic (ICD-10-PCS; 2020-05-02)
DX: D12.0 Benign neoplasm of cecum (principal); D12.2 Benign neoplasm of ascending colon; D12.3 Benign neoplasm of transverse colon; K57.30 Diverticulosis of large intestine without perforation or abscess without bleeding; K59.09 Other constipation; M54.30 Sciatica, unspecified side; I25.10 Atherosclerotic heart disease of native coronary artery without angina pectoris; K21.9 Gastro-esophageal reflux disease without esophagitis; M19.90 Unspecified osteoarthritis, unspecified site; J44.9 Chronic obstructive pulmonary disease, unspecified; F32.9 Major depressive disorder, single episode, unspecified; E11.9 Type 2 diabetes mellitus without complications; E78.5 Hyperlipidemia, unspecified; I10 Essential (primary) hypertension; I25.2 Old myocardial infarction; Z86.010 Personal history of colon polyps; Z87.891 Personal history of nicotine dependence; Z79.2 Long term (current) use of antibiotics; Z79.84 Long term (current) use of oral hypoglycemic drugs; Z79.899 Other long term (current) drug therapy; Z88.8 Allergy status to other drugs, medicaments and biological substances; Z95.5 Presence of coronary angioplasty implant and graft
CPT/HCPCS: 88305; J2704

== ENCOUNTER 2020-06-17 07:01 | Day surgery (SDC) | payer MEDICARE, MEDICAID ==
--- NOTE | 2020-06-16 22:56 | HP ---
HISTORY OF PRESENT ILLNESS: Ms. Gaitan is known to us for recent lumbar diskectomy, who returns now with symptoms very convincing for cervical myelopathy. She has had many recent falls and has weakness and numbness in her hands. New MRI of the cervical spine reveals rather severe stenosis of the cervical spine at C4-C5 centrally with proximal area of T2 signal change. I feel like this certainly explains the symptoms that she is experiencing. I feel this may very well need surgical intervention. PAST MEDICAL HISTORY: Hypercholesterolemia, chronic pain, diabetes, lung disease, history of CVA, and asthma. PAST SURGICAL HISTORY: Appendectomy, hysterectomy, unspecified foot surgery for lumbar decompression, and left heart catheterization. CURRENT MEDICATIONS: 1. Metformin. 2. Aspirin. 3. Tylenol 3. 4. Atorvastatin. 5. Amlodipine. 6. Dexilant. 7. Carvedilol. 8. Albuterol. ALLERGIES: NO KNOWN DRUG ALLERGIES. ASSESSMENT: Cervical myelopathy. PLAN: Dr. Angulo met with the patient, reviewed imaging, advocated for C4-C5 ACDF. He explained to the patient the risks, benefits, and alternatives to the procedure. The patient expressed understanding, elected to move forward with surgery as discussed. I do believe the patient is mentally competent and capable of making medical decisions for herself. We will move forward with surgery as planned. Job ID: [id number]
[2020-06-17] MEDS ORDERED: Fentanyl 250 MCG/5 ML VIAL ONE (09:18)
[2020-06-17] MEDS ORDERED: Lidocaine 1% PF 5 ML VIAL ONE (09:42)
[2020-06-17] MEDS ORDERED: Glycopyrrolate 0.2 MG/ML 5 ML SYRINGE ONE (09:42)
[2020-06-17] MEDS ORDERED: PROPOFOL 200 MG/20 ML VIAL ONE (09:42)
[2020-06-17] MEDS ORDERED: Rocuronium Bromide 10 MG/ML (10ML VIAL) ONE (09:42)
[2020-06-17] MEDS ORDERED: Ondansetron PF 4 MG/2 ML Vial ONE (09:42)
[2020-06-17] MEDS ORDERED: PHENYLEPHRINE-NS 100 MCG/ML 10 ML SYRINGE ONE (09:42)
[2020-06-17] MEDS ORDERED: EPHEDRINE 25 MG/5 ML SYRINGE ONE (09:42)
[2020-06-17] MEDS ORDERED: Morphine 2 MG/ML VIAL ONE ×2 (11:01→11:23)
[2020-06-17] MEDS ORDERED: Fentanyl 100 MCG/2 ML VIAL ONE (11:08)
[2020-06-17] MEDS ORDERED: Acetaminophen/Codeine 30-300mg Tablet ONE (13:06)
--- NOTE | 2020-06-21 11:24 | OP ---
DATE OF PROCEDURE: 06/17/2020 LOGISTICS COORDINATOR: Arden Grullon PA-C INDICATION: Prevent neurologic decline. DIAGNOSIS: Cervical spondylotic myelopathy. PROCEDURE PERFORMED: Anterior cervical diskectomy and fusion, C4-C5. ANESTHESIA: General. DESCRIPTION OF PROCEDURE: The patient was brought into the operating room and placed under general anesthesia. She was placed on table in supine position. A transverse incision was planned over the lateral aspect of the neck on the right. After prepping and draping and after an appropriate preoperative pause, the incision was created. The underlying platysma muscle was identified and incised. A blunt tissue plane anterior to the sternocleidomastoid muscle was used to gain access to the prevertebral space. Self-retaining retractors were placed in the wound for optimal exposure. After confirming the appropriate level with C-arm fluoroscopy, an annulotomy was performed in the C4-5 disk space. All disk material as well as anterior and posterior osteophytes were removed. After completing the decompression, a 7-mm lordotic PEEK cage packed with allograft and autograft material was placed in the interbody space. A separate plate was affixed in front of the spine using four fixed screws. Midline and lateral structures were then inspected and found to be free from significant trauma. The wound was irrigated. Hemostasis was maintained throughout. The wound was then closed in anatomic layers, and a pressure dressing was applied. There were no known procedural complications. Job ID: [id number]
== END 2020-06-17 14:47 | disposition home or self-care (01) ==
LOC: SDC 07:01
PROVIDERS: ATTEND Neurological Surgery
PROC: 0RG10A0 Fusion of Cervical Vertebral Joint with Interbody Fusion Device, Anterior Approach, Anterior Column, Open Approach (ICD-10-PCS; principal; 2020-06-17)
PROC: 0RT30ZZ Resection of Cervical Vertebral Disc, Open Approach (ICD-10-PCS; 2020-06-17)
DX: M47.12 Other spondylosis with myelopathy, cervical region (principal); M50.021 Cervical disc disorder at C4-C5 level with myelopathy; M48.02 Spinal stenosis, cervical region; M54.16 Radiculopathy, lumbar region; E78.00 Pure hypercholesterolemia, unspecified; J45.909 Unspecified asthma, uncomplicated; G89.29 Other chronic pain; E11.9 Type 2 diabetes mellitus without complications; Z86.73 Personal history of transient ischemic attack (TIA), and cerebral infarction without residual deficits; Z79.82 Long term (current) use of aspirin; Z79.84 Long term (current) use of oral hypoglycemic drugs; Z79.899 Other long term (current) drug therapy; Z88.8 Allergy status to other drugs, medicaments and biological substances; Z95.5 Presence of coronary angioplasty implant and graft
CPT/HCPCS: 20930; 20936; 22551; 22853; 76000; C1713 ×2; C1776 ×2; J2270; J0690; J2405; J2704; J3010

== ENCOUNTER 2020-07-07 11:21 | Outpatient (CLI) | payer MEDICARE, MEDICAID ==
--- NOTE | 2020-07-07 12:11 | CT ---
CT lumbar spine noncontrast: 07/07/2020 HISTORY: 79-year-old female with lumbar radiculopathy FINDINGS: Vertebral body heights are maintained. There is reversal of curvature, with mild kyphosis centered at L3-4. T12-L1: Mild disc space narrowing. No high-grade central or neural foraminal stenosis. L1-2: Disc space maintained. No high-grade central or neural foraminal stenosis. L2-3: Severe disc space narrowing. Vacuum disc phenomenon. Grade 1 anterolisthesis of L2 on L3 due to moderate bilateral facet DJD. Prominent diffuse disc bulge. Mild-moderate bilateral neural foraminal stenosis. Moderate to severe central spinal canal stenosis. L3-4: Moderate to severe disc space narrowing. Vacuum disc phenomenon. Diffuse disc bulge. Mild-moder ate bilateral neural foraminal stenosis. Moderate to severe central spinal canal stenosis. L4-5: Successful ankylosis of the L4 and L5 vertebral bodies across the disc space. Successful ankylo sis of bilateral posterior elements. Bilateral pedicle screws at L4 and L5 without evidence of loosening. Midline laminectomy defect. No central spinal canal stenosis. No high-grade neural foramin al stenosis. L5-S1: Right hemilaminotomy defect which actually involves a portion of the right facet joint space. Diffuse disc bulge. Superimposed right paracentral and lateral disc herniation. High-grade lateral recess stenosis, especially on the right, with possible impingement on right S1 nerve root. Moderate- severe central spinal canal stenosis. High-grade bilateral facet DJD. IMPRESSION: 1.) Lumbar spondylosis with multilevel high-grade degenerative disc disease and facet osteoarthrosis. 2.) Status post posterior lumbar interbody fusion and midline laminectomy at L4-5, with hardware, and with successful ankylosis of vertebrae. 3) several levels of high-grade Central and high-grade neural foraminal stenosis. 4) grade 1 spondylolisthesis at L2-3.
== END 2020-07-07 11:22 | disposition home or self-care (01) ==
LOC: TBSIIMAG 11:21
PROVIDERS: ATTEND Neurological Surgery
DX: M51.16 Intervertebral disc disorders with radiculopathy, lumbar region (principal); M47.26 Other spondylosis with radiculopathy, lumbar region; M43.16 Spondylolisthesis, lumbar region; M48.061 Spinal stenosis, lumbar region without neurogenic claudication; M48.07 Spinal stenosis, lumbosacral region; Z98.1 Arthrodesis status; Z98.890 Other specified postprocedural states
CPT/HCPCS: 72131

== ENCOUNTER 2020-08-12 06:39 | Outpatient (CLI) | payer MEDICARE, MEDICAID, OTHER ==
[2020-08-12 17:49] LABS: SARS-CoV-2 MS2 Positive; SARS-CoV-2 N Gene Negative; SARS-CoV-2 S Gene Negative; SARS-CoV-2 by NAA Not Detected (NotDetected); SARS-CoV-2 orf1ab Negative
== END 2020-08-12 06:40 | disposition home or self-care (01) ==
LOC: LABBT 06:39
PROVIDERS: ATTEND Neurological Surgery
DX: M51.16 Intervertebral disc disorders with radiculopathy, lumbar region (principal); Z20.828 Contact with and (suspected) exposure to other viral communicable diseases
CPT/HCPCS: 87635; U0003

== ENCOUNTER 2020-08-17 05:53 | Day surgery (SDC) | payer MEDICARE, MEDICAID ==
[2020-08-16 14:01] VITALS: BMI 20.9
--- NOTE | 2020-08-16 21:28 | HP ---
HISTORY OF PRESENT ILLNESS: Ms. Gaitan is a known to us from prior lumbar decompression and ACDF, who returns now with unfortunate recurrent radicular pattern of pain that fits well components of mostly L5 on the right lower extremity. New MRI reveals disk herniation to the right at L4-L5 that impacts the descending L5 nerve root. She hopes to discuss surgical intervention. PAST MEDICAL HISTORY: Hypercholesterolemia, chronic pain syndrome, diabetes, lung disease, CVA, asthma. PAST SURGICAL HISTORY: Appendectomy, hysterectomy, foot surgery, lumbar decompression, ACDF, and left heart catheterization. CURRENT MEDICATIONS: Metformin, aspirin, Tylenol 3, atorvastatin, amlodipine, Dexilant, carvedilol, albuterol. ALLERGIES: NO KNOWN DRUG ALLERGIES. ASSESSMENT: Lumbar radiculopathy. PLAN: Dr. Angulo met with the patient, reviewed imaging, advocated for reoperation of right L4-5 diskectomy. He explained to the patient the risks, benefits, and alternatives to the procedure. The patient expressed understanding and elected to move forward with surgery as discussed. I do believe the patient is mentally competent and capable of making medical decisions for herself. We will move forward with surgery as planned. Job ID: [id number]
[2020-08-17] MEDS ORDERED: Thrombin 5000 UNITS/5 ML VIAL ONE (06:10)
[2020-08-17] MEDS ORDERED: Bupivacaine PF 0.5% 30 ML VIAL ONE (06:10)
[2020-08-17] MEDS ORDERED: EPINEPHrine 1 MG/ML AMP ONE (06:10)
[2020-08-17] MEDS ORDERED: Fentanyl 100 MCG/2 ML VIAL ONE ×2 (06:43→08:35)
--- NOTE | 2020-08-17 08:25 | OP ---
DATE OF PROCEDURE: 08/17/2020 SOLUTIONS MARKET CONSULTANT: Arden Grullon PA-C INDICATION: Pain. DIAGNOSIS: Right L5 radiculopathy. PROCEDURE PERFORMED: Right L5 nerve root decompression and reoperation of right L4-L5, right L5 foraminotomy. ANESTHESIA: General. DESCRIPTION OF PROCEDURE: The patient was brought into the operating room and placed under general anesthesia. She was flipped from the supine to prone position on the operating room table. A linear incision was planned at the location of a prior incision. After prepping and draping and after an appropriate preoperative pause, the incision was created. The soft tissues were swept right of midline. A self-retaining retractor was placed and a C-arm image obtained to confirm the appropriate level. High-speed cutting drill bit as well as 2, 3, and 4 mm Kerrisons were used to further decompress the inferior aspect of the L4-L5 interface. The L5 nerve root was identified and tracked out laterally, where a more generous facetectomy was performed over the exiting nerve root. There was a foraminal disk bulge in the lateral recess, which extended intraforaminally as well. This was decompressed with an 11-blade knife and disk punches. At the completion of the procedure, the descending and exiting L5 nerve root were well decompressed. I could also visualize the descending S1 nerve root, which was also free of compression. The wound was irrigated. Hemostasis was maintained throughout. The wound was then closed in anatomic layers, and a pressure dressing was applied. There were no known procedural complications. Job ID: [id number]
[2020-08-17] MEDS ORDERED: Promethazine HCl 25 MG/ML VIAL ONE (08:51)
[2020-08-17] MEDS ORDERED: Rocuronium Bromide 10 MG/ML (10ML VIAL) ONE (09:07)
[2020-08-17] MEDS ORDERED: Dexamethasone 20 MG/5 ML VIAL ONE (09:07)
[2020-08-17] MEDS ORDERED: EPHEDRINE 25 MG/5 ML SYRINGE ONE (09:07)
[2020-08-17] MEDS ORDERED: Ondansetron PF 4 MG/2 ML Vial ONE (09:07)
[2020-08-17] MEDS ORDERED: PROPOFOL 200 MG/20 ML VIAL ONE (09:07)
[2020-08-17] MEDS ORDERED: Glycopyrrolate 0.2 MG/ML 5 ML SYRINGE ONE (09:07)
[2020-08-17] MEDS ORDERED: Acetaminophen/Codeine 30-300mg Tablet ONE (09:50)
== END 2020-08-17 11:55 | disposition home or self-care (01) ==
LOC: SDC 05:53
PROVIDERS: ATTEND Neurological Surgery
PROC: 01NB0ZZ Release Lumbar Nerve, Open Approach (ICD-10-PCS; principal; 2020-08-17)
PROC: 0SB20ZZ Excision of Lumbar Vertebral Disc, Open Approach (ICD-10-PCS; 2020-08-17)
DX: M51.16 Intervertebral disc disorders with radiculopathy, lumbar region (principal); E78.00 Pure hypercholesterolemia, unspecified; G89.4 Chronic pain syndrome; E11.9 Type 2 diabetes mellitus without complications; J45.909 Unspecified asthma, uncomplicated; Z86.73 Personal history of transient ischemic attack (TIA), and cerebral infarction without residual deficits; Z79.82 Long term (current) use of aspirin; Z79.84 Long term (current) use of oral hypoglycemic drugs; Z79.899 Other long term (current) drug therapy; Z88.8 Allergy status to other drugs, medicaments and biological substances; Z98.1 Arthrodesis status
CPT/HCPCS: 76000; J0171; J0690; J1100; J2405; J2550; J2704; J3010; S0020

== ENCOUNTER 2020-08-21 18:37 | Inpatient (IN) | payer MEDICARE, MEDICAID ==
[~2020-08-21 18:37] MED LIST changes: +Heparin 1,000 UNITS/ML VIAL ONE; -Iopamidol 370 76% 50 ML VIAL FS ONE; +Iopamidol-370 76% 500 ML 1 ML ONE
[2020-08-21] MEDS ORDERED: Acetaminophen 325 MG TAB ONE (19:10)
[2020-08-21 19:19] LABS: Bilirubin Negative (Negative); Blood, Urine Negative (Negative); Clarity Clear (Clear); Glucose, Urine (Dipstick) Normal (Negative); Ketone, Urine Negative (Negative); Leukocyte Negative Leu/uL (Negative); Nitrite Negative (Negative); Protein, Urine (Dipstick) Negative (Neg-Trace); Specific Gravity, Urine 1.012 (1.002-1.036); Urobilinogen Normal mg/dL (Less than 2); pH, Urine 7.5 (5.0-9.0)
[2020-08-21 19:24] LABS: Hemoglobin 11.1 g/dL (12.0-16.0); Mean Corpuscular HGB CONC 34.3 g/dL (32.0-36.0); Mean Corpuscular Hemoglobin 31.5 pg (27.0-31.0); Mean Corpuscular Volume 91.7 fL (78.0-98.0); Mean Platelet Volume 8.4 fL (7.4-10.4); Platelet Count 337 thou/uL (130-400); RBC Distribution Width 13.6 % (11.5-14.5); Red Blood Cell (RBC) Count 3.53 mill/uL (4.20-5.40); White Blood Cell (WBC) Count 14.4 thou/uL (4.8-10.8)
--- NOTE | 2020-08-21 19:24 | RAD ---
XR Chest 1 View Portable HISTORY: Fever COMPARISON: 05/07/2019 FINDINGS: The heart size is normal. The aorta is tortuous. The lungs are well expanded without focal areas of consolidation, pneumothorax or pleural effusions. IMPRESSION: No radiographic evidence of acute cardiopulmonary process.
[2020-08-21 19:42] LABS: Band 19 % (5-11); Lymphocytes 3 % (21-51); MDiff Complete? YES; Monocytes 2 % (0-10); Neutrophil 76 % (42-75); Platelet Morphology Comment Appears Adequate; Polychromasia SLIGHT = 2-3 cells (100X) (0-2/hpf)
[2020-08-21 19:45] LABS: ALT (SGPT) Less than 7 U/L (8-55); AST (SGOT) 9 U/L (5-34); Albumin 3.8 g/dL (3.4-4.8); Alkaline Phosphatase 55 U/L (40-110); Anion Gap 16 mmol/L (10-20); BUN (Urea Nitrogen) 12 mg/dL (9.8-20.1); Bilirubin, Total 0.4 mg/dL (0.2-1.2); Calc. Creatinine Clearance 0 mL/min (70-130); Calcium 8.7 mg/dL (7.8-10.44); Carbon Dioxide 24 mmol/L (23-31); Chloride 94 mmol/L (98-107); Estimated GFR-MDRD 75; Glucose 222 mg/dL (83-110); Potassium 4.1 mmol/L (3.5-5.1); Protein, Total 7.8 g/dL (6.0-8.3); Sodium 130 mmol/L (136-145)
[2020-08-21] MEDS ORDERED: Cefepime 2 GM VIAL ONE (20:59)
[2020-08-21] MEDS ORDERED: Vancomycin 1 GM/200 ML BAG ONE (20:59)
[2020-08-21] MEDS ORDERED: diphenhydrAMINE 50 MG/ML VIAL ONE (20:59)
--- NOTE | 2020-08-21 21:13 | CT ---
CT LUMBAR SPINE WITH CONTRAST: Date: 08-21-2020 Time: 8:20 p.m. History: 79-year-old female status post lumbar surgery four days ago presents with low back pain and fever. Ev aluate for abscess. Comparison: Noncontrast CT of 07-07-2020. FINDINGS: Vertebral body heights are maintained. There is reversal of curvature with mild kyphosis centered at L3-4. T12-L1: Mild disc space narrowing. No high grade central or neural foraminal stenosis. L1-2: Disc space maintained. No high grade central or neural foraminal stenosis. L2-3: Severe disc space narrowing. Vacuum disc phenomenon. Grade I anterolisthesis of L2 on L3 due to moderate bilateral facet DJD. Prominent diffuse disc bulge. Mild/moderate bilateral neural foraminal stenosis. Moderate to severe central spinal canal stenosis. L3-4: Moderate to severe disc space narrowing. Vacuum disc phenomenon. Diffuse disc bulge. Mild/moder ate bilateral neural foraminal stenosis. Moderate to severe central spinal canal stenosis. L4-5: Bilateral pedicle screws at L4 and L5. Successfully ankylosis of the L4 and L5 vertebral bodies across the obliterated disc space. Midline laminectomy defect. No central spinal canal stenosis. No high grade neural foraminal stenosis. L5-S1: Previously, there was a right hemilaminotomy defect. Now, there is a much wider right hemilami nectomy defect, with resection of the entire right lamina and resection of the entire right facet com plex. Filling that laminectomy surgical defect, there is a moderately large, approximately 2.5 x 2 x 2 cm post operative fluid collection containing multiple foci of gas. This fluid collection displaces the thecal sac to the left, resulting in a somewhat narrowed thecal sac. There is also circumferenti al thickening and enhancement of the zimmerman of the thecal sac. Again noted is the diffuse disc bulge. There was previously a superimposed right paracentral and righ t lateral disc herniation causing high grade right lateral recess stenosis. There is currently still soft tissue density material in the right lateral recess, but it is not possible to determine whether this is residual herniated disc material or post surgical granulation tissue. The appearance is elva lar to that of the previous study. Severe bilateral neural foraminal stenosis is unchanged. IMPRESSION: 1. New interval conversion of the previous right hemilaminotomy to a right hemilaminectomy and r ight facetectomy, at L5-S1. 2. There is a moderately large post operative fluid collection within that laminectomy defect, w hich now narrows and mildly displaces the enhancing thecal sac. Unfortunately, this soon after surger y, it is not possible to distinguish routine, expected post operative hematoma from abscess. 3. Severe bilateral neural foraminal stenosis at L5-S1 is unchanged. 4. High grade lumbar spondylosis with multilevel high grade degenerative disc disease and facet osteoarthrosis. 5. Old posterior lumbar interbody fusion and midline laminectomy at L4-5, with hardware and succ essful ankylosis of vertebral bodies. 6. No interval change superior to the L5 level, since 07-07-2020. POS: JIN
[2020-08-21] MEDS ORDERED: Dextrose 50% Abboject 50 ML SYRINGE SLOW IVP PRN (23:19)
[2020-08-21] MEDS ORDERED: Dextrose 5% in Water 1,000 ML IV PRN (23:19)
[2020-08-22] VITALS: BMI 20.9
--- NOTE | 2020-08-22 01:46 | HP ---
REASON FOR ADMISSION: Back pain and fever. HISTORY OF PRESENT ILLNESS: This is a 79-year-old female patient who this year had three spine surgeries, first one on her back, then on her neck, and then at some point, she fell and she re-injured her back, so approximately 5 days ago, she underwent another lumbosacral spine surgery. She was discharged home at some point, did report persistence of her back pain that started radiating to both of her lower extremities. She contacted the Neurosurgery team, they prescribed her a tapering dose of steroids, which she started taking, but continued to have pain and today, she reported feeling feverish and her temperature was 103.4. She was brought to the emergency room. The patient denies being more short of breath than usual. She has history of chronic obstructive pulmonary disease also. She did report dysuria, but her urinalysis was negative for an infection. PAST MEDICAL HISTORY: 1. COPD, not on home oxygen. 2. Asthma. 3. Diabetes, type 2. 4. High blood pressure. 5. High cholesterol. 6. Coronary artery disease, status post TX, status post stent. 7. 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 8. TIA. 9. Transient low blood pressure. 10. High cholesterol. 11. Appendectomy. 12. Hysterectomy. ALLERGIES: NO NOTE OF ANY DRUG ALLERGY. SOCIAL HISTORY: He quit smoking 8 years ago. Does not drink alcohol. FAMILY HISTORY: Reviewed, found to be negative for premature coronary artery disease. ALLERGIES: IV DYE. AMBIEN DOES MAKE HER HALLUCINATE. REVIEW OF SYSTEMS: All systems reviewed except the above mentioned, found to be negative. PHYSICAL EXAMINATION: GENERAL: Awake, alert, oriented, does not appear in distress. VITAL SIGNS: Her blood pressure is 125/64, heart rate of 80, saturating 95% on room air. Repeat blood pressure shows systolic of 100. HEENT: Head is nontraumatic, normocephalic. Pupils equal, reactive. Extraocular movements are intact. Nonicteric sclerae. Well injected conjunctivae. Oral mucosa normal. Nasal mucosa normal. NECK: Supple. No adenopathy. No murmur. Thyroid is not palpable. Trachea is midline. No supraclavicular adenopathy. S1, S2 distant. No murmur. No gallops. No friction rubs. No displacement of PMI. LUNGS: Clear to auscultation bilaterally. No wheezes, rhonchi, or crackles. ABDOMEN: Bowel sounds are positive. Nontender abdomen. No hepatosplenomegaly. No lower extremity edema. No cyanosis. Examination of the incisional site reveals a well-healing incision in the lumbosacral area. NEUROLOGIC: She is moving all four extremities. Cranial nerves appeared to be intact. LABORATORY DATA: Blood work shows a WBC of 14.4, hemoglobin of 11.1, platelets of 337, bands of 19%. Sodium 130, potassium 4.1, bicarb 24, BUN 12, creatinine 0.74, glucose 222. CRP 5.89. Urinalysis does not show any evidence of infection. COVID-[address] A [address] of the lumbar spine shows new interval conversion of the previous right hemilaminectomy to right hemilaminectomy and right facetectomy at L5-S1. There is moderately large postoperative fluid collection with that laminectomy defect, which now narrows and mildly displaces the enhancing thecal sac. Unfortunately, this is soon after surgery, it is not possible to distinguish routine, expected postoperative hematoma from abscess. Severe bilateral neuroforaminal stenosis at L5-S1, is unchanged. High-grade lumbar spondylosis with multilevel high-grade degenerative disk disease and facet osteoarthrosis. All posterior lumbar interbody fusion and midline laminectomy at L4-5 with hardware and successful ankylosis of vertebral body. No interval changes. Chest x-ray shows no acute cardiopulmonary process. ASSESSMENT AND PLAN: This is a 79-year-old female patient, who is presenting with postoperative back pain and fever. She was started on prednisone a couple of days ago. No obvious source for her fever except the fluid collection seen on the CT of the lumbosacral spine. 1. ID: The patient will be started on vancomycin and cefepime. Awaiting neurosurgery input in the morning. We will provide her with pain control. 2. Pulmonary: The patient has history of chronic obstructive pulmonary disease. We will resume her neb treatments. 3. The patient is diabetic. She will be on insulin sliding scale. 4. She has high blood pressure, but now her blood pressure is on the low side. We will reconcile her medication as per her vital signs. 5. For DVT prophylaxis, she will be on SCDs. 6. Reassess macrolide. The patient does have hyponatremia. I will start her on normal saline. 7. I did discuss with her code status. She wishes to be a full code. 8. I am awaiting her med rec to be done, so I can reconcile her medication. Job ID: [id number]
[2020-08-22] MEDS: HYDROcodone/Acetaminophen 5/325 mg Tablet PO PRN ×4 (04:06→20:42)
[2020-08-22 06:35] LABS: Anion Gap 13 mmol/L (10-20); BUN (Urea Nitrogen) 9 mg/dL (9.8-20.1); Calc. Creatinine Clearance 52 mL/min (70-130); Carbon Dioxide 27 mmol/L (23-31); Chloride 97 mmol/L (98-107); Estimated GFR-MDRD 76; Glucose 166 mg/dL (83-110); Potassium 3.7 mmol/L (3.5-5.1); Sodium 133 mmol/L (136-145)
[2020-08-22 06:49] LABS: #Monocytes 1.2 thou/uL (0.11-0.59); #Neutrophils 15.8 thou/uL (1.40-6.50); %Basophils 0.2 % (0.0-1.0); %Eosinophils 0.2 % (0.0-10.0); %Lymphocytes 5.4 % (21.0-51.0); %Monocytes 6.8 % (0.0-10.0); %Neutrophils 87.3 % (42.0-75.0); Hemoglobin 9.6 g/dL (12.0-16.0); Mean Corpuscular HGB CONC 33.8 g/dL (32.0-36.0); Mean Corpuscular Hemoglobin 31.3 pg (27.0-31.0); Mean Corpuscular Volume 92.5 fL (78.0-98.0); Mean Platelet Volume 8.6 fL (7.4-10.4); Platelet Count 311 thou/uL (130-400); RBC Distribution Width 13.8 % (11.5-14.5); Red Blood Cell (RBC) Count 3.05 mill/uL (4.20-5.40)
[2020-08-22] MEDS ORDERED: Non-Formulary Item 1 EACH (Tizanidine Hcl [Tizanidine Hcl] 2 MG Tablet) PO PRN (08:44)
--- NOTE | 2020-08-22 08:47 | PDOC.HOSPP ---
- Subjective Encounter Date: 08/22/20 - Objective Vital Signs & Weight: Vital Signs (12 hours) Temp Pulse Resp BP Pulse Ox 08/22/20 08:12 101 H 20 92 L 08/22/20 07:10 98.4 F 93 16 136/76 93 L 08/22/20 03:15 101.1 F H 90 16 123/69 94 L 08/21/20 23:10 98.6 F 77 16 161/69 H 94 L Weight Weight 118 lb Result Diagrams: 08/22/20 05:25 08/22/20 05:25 Additional Labs: Accuchecks 08/22/20 05:46 POC Glucose 180 H Hospitalist ROS - Medication Medications: Active Medications Generic Name Dose Route Start Last Admin Trade Name Freq PRN Reason Stop Dose Admin Hydrocodone Bitart/Acetaminophen 1 tab 08/21/20 23:14 08/22/20 04:06 Hydrocodone/Acetaminophen 5/325 Mg Tablet PO 1 tab Q4H PRN Administration Moderate Pain (4-6) Albuterol/Ipratropium 3 ml 08/21/20 23:20 08/22/20 08:12 Ipratropium/Albuterol Sulfate 3 Ml Neb NEB 3 ml [id number] PRN Administration SOB &/or Wheezing Hosp A/P (1) Sepsis Code(s): A41.9 - SEPSIS, UNSPECIFIED ORGANISM Status: Acute (2) Status post lumbar surgery Code(s): Z98.890 - OTHER SPECIFIED POSTPROCEDURAL STATES Status: Acute (3) CAD (coronary artery disease) Code(s): I25.10 - ATHSCL HEART DISEASE OF [place] CORONARY ARTERY W/O ANG PCTRS Status: Chronic Qualifiers: (4) DM type 2 (diabetes mellitus, type 2) Status: Chronic Qualifiers: (5) HTN (hypertension) Code(s): I10 - ESSENTIAL (PRIMARY) HYPERTENSION Status: Chronic Qualifiers: (6) COPD (chronic obstructive pulmonary disease) Status: Chronic (7) HLD (hyperlipidemia) Code(s): E78.5 - HYPERLIPIDEMIA, UNSPECIFIED Status: Chronic - Plan Patient on Cefepime and Vanc since 08/21/2020. Blood and Urine Cx pending. Continued fever spikes, elevated WBC. Concern for postop infection vs. Covid vs. other hospital acquired infection.
[2020-08-22] MEDS ORDERED: Non-Formulary Item 1 EACH (Cholecalciferol (Vitamin D3) [Vitamin D] 1000 UNIT Capsule) PO SCH (09:00)
[2020-08-22] MEDS ORDERED: FLU VACC QS2020-21(65YR UP)/PF 240 MCG/0.7 ML SYRINGE IM ONE (09:00)
[2020-08-22] MEDS ORDERED: Cefepime 2 GM in Sodium Chloride 0.9% 100 ML IVPB SCH (09:00)
[2020-08-22] MEDS ORDERED: Non-Formulary Item 1 EACH (Dexlansoprazole [Dexilant] 60 MG Cap.Dr.Bp) PO SCH (09:00)
[2020-08-22] MEDS ORDERED: Non-Formulary Item 1 EACH (Linaclotide [Linzess] 72 MCG Capsule) PO SCH (09:00)
[2020-08-22] MEDS ORDERED: Non-Formulary Item 1 EACH (Magnesium Oxide [Magnesium] 400 MG Capsule) PO SCH (09:00)
[2020-08-22] MEDS ORDERED: Vancomycin 1.5 GRAM/300 ML BAG 1.5 GM in Premix Bag 1 BAG IVPB SCH (09:00)
[2020-08-22] MEDS ORDERED: tiZANidine HCl 4 MG TAB PO PRN (09:18)
[2020-08-22] MEDS: Cyanocobalamin (Vitamin B-12) 1,000 MCG TAB PO SCH (09:32)
[2020-08-22] MEDS: Amlodipine 5 MG TAB PO SCH (09:32)
[2020-08-22] MEDS: Ascorbic Acid 500 mg Chewable Tablet PO SCH (09:32)
[2020-08-22] MEDS: Carvedilol 25 MG TAB PO SCH ×2 (09:32→20:44)
[2020-08-22] MEDS: Cholecalciferol 1,000 UNITS (25 MCG) TAB PO SCH (09:32)
[2020-08-22] MEDS: HumaLOG 300 UNITS/3 ML VIAL SC PRN ×2 (11:01→22:19)
[2020-08-22 12:37] LABS: SARS-CoV-2 MS2 Positive; SARS-CoV-2 N Gene Negative; SARS-CoV-2 S Gene Negative; SARS-CoV-2 by NAA Not Detected (NotDetected); SARS-CoV-2 orf1ab Negative
--- NOTE | 2020-08-22 12:52 | PDOC.HOSPP ---
- Subjective Encounter Date: 08/22/20 Encounter Time: 12:44 Subjective: post rececent NS procedure, now with MRSA bacteremia - Objective Vital Signs & Weight: Vital Signs (12 hours) Temp Pulse Resp BP Pulse Ox 08/22/20 10:36 101.4 F H 79 16 97/57 L 90 L 08/22/20 08:12 101 H 20 92 L 08/22/20 07:10 98.4 F 93 16 136/76 93 L 08/22/20 03:15 101.1 F H 90 16 123/69 94 L Weight Weight 118 lb Result Diagrams: 08/22/20 05:25 08/22/20 05:25 Additional Labs: Accuchecks 08/22/20 08/22/20 10:40 05:46 POC Glucose 203 H 180 H Hospitalist ROS - Medication Medications: Active Medications Generic Name Dose Route Start Last Admin Trade Name Freq PRN Reason Stop Dose Admin Hydrocodone Bitart/Acetaminophen 1 tab 08/21/20 23:14 08/22/20 09:44 Hydrocodone/Acetaminophen 5/325 Mg Tablet PO 1 tab Q4H PRN Administration Moderate Pain (4-6) Albuterol/Ipratropium 3 ml 08/21/20 23:20 08/22/20 08:12 Ipratropium/Albuterol Sulfate 3 Ml Neb NEB 3 ml [id number] PRN Administration SOB &/or Wheezing Amlodipine Besylate 5 mg 08/22/20 09:00 08/22/20 09:32 Amlodipine 5 Mg Tab PO 5 mg DAILY MIGNON Administration Ascorbic Acid 500 mg 08/22/20 09:00 08/22/20 09:32 Ascorbic Acid 500 Mg Chewable Tablet PO 500 mg DAILY MIGNON Administration Carvedilol 25 mg 08/22/20 09:00 08/22/20 09:32 Carvedilol 25 Mg Tab PO 25 mg BID MIGNON Administration Cholecalciferol 2,000 units 08/22/20 09:00 08/22/20 09:32 Cholecalciferol 1,000 Units (25 Mcg) Tab PO 2,000 units DAILY MIGNON Administration Cyanocobalamin 1,000 mcg 08/22/20 09:00 08/22/20 09:32 Cyanocobalamin (Vitamin B-12) 1,000 Mcg Tab PO 1,000 mcg DAILY MIGNON Administration Cefepime HCl 2 gm/ Sodium 100 mls @ 200 mls/hr 08/22/20 09:00 08/22/20 09:31 Chloride IVPB 100 mls 0900,2100 MIGNON Administration Insulin Human Lispro 0 units 08/21/20 23:19 08/22/20 11:01 Humalog 300 Units/3 Ml Vial SC 4 unit .MODERATE SLIDING SC PRN Administration Moderate Correctional Scale Pantoprazole Sodium 40 mg 08/22/20 09:00 08/22/20 09:32 Pantoprazole 40 Mg Tab PO 40 mg DAILY MIGNON Administration Tizanidine HCl 4 mg 08/22/20 09:18 08/22/20 10:15 Tizanidine Hcl 4 Mg Tab PO 4 mg PRN PRN Administration MUSCLE SPASM - Exam General Appearance: awake alert Neck: no JVD Heart: RRR, no murmur Respiratory: CTAB Gastrointestinal: soft, no splenomegaly Extremities: no edema Hosp A/P (1) Bacteremia due to Gram-positive bacteria Code(s): R78.81 - BACTEREMIA Status: Acute (2) Post op infection Code(s): T81.40XA - INFECTION FOLLOWING A PROCEDURE, UNSPECIFIED, INIT Status: Acute Qualifiers: Encounter type: initial encounter Postoperative infection type: unspecified type Qualified Code(s): T81.40XA - Infection following a procedure, unspecified, initial encounter (3) COPD (chronic obstructive pulmonary disease) Status: Chronic Qualifiers: Emphysema type: unspecified (4) HLD (hyperlipidemia) Code(s): E78.5 - HYPERLIPIDEMIA, UNSPECIFIED Status: Chronic (5) CAD (coronary artery disease) Code(s): I25.10 - ATHSCL HEART DISEASE OF [place] CORONARY ARTERY W/O ANG PCTRS Status: Chronic Qualifiers: Coronary Disease-Associated Artery/Lesion type: [place] artery [place] vs. transplanted heart: [place] heart Associated angina: without angina Qualified Code(s): I25.10 - Atherosclerotic heart disease of [place] coronary artery without angina pectoris (6) DM type 2 (diabetes mellitus, type 2) Status: Chronic Qualifiers: Diabetes mellitus longterm insulin use: with filler leaf cutter long use Diabetes mellitus complication status: without complication Qualified Code(s): E11.9 - Type 2 diabetes mellitus without complications; Z79.4 - director long term care (current) use of insulin (7) HTN (hypertension) Code(s): I10 - ESSENTIAL (PRIMARY) HYPERTENSION Status: Chronic Qualifiers: Hypertension type: essential hypertension - Plan cont iv vancomycin DC cefepimi await NS opinion cont home meds
[2020-08-22] MEDS ORDERED: Acetaminophen 325 MG TAB PO PRN (17:27)
[2020-08-22] MEDS: tiZANidine HCl 4 MG TAB PO PRN (19:19)
[2020-08-22] MEDS: metFORMIN 500 MG TAB PO SCH (20:37)
[2020-08-22] MEDS: Atorvastatin Calcium 40 MG TAB PO SCH (20:37)
[2020-08-22] MEDS: Vancomycin 1 GM in Premix Bag 1 BAG IVPB SCH (20:43)
[2020-08-23] MEDS: HYDROcodone/Acetaminophen 5/325 mg Tablet PO PRN ×5 (00:35→22:23)
[2020-08-23] MEDS: Ondansetron ODT 4 MG TAB PO PRN ×2 (04:14→16:54)
[2020-08-23] MEDS: HumaLOG 300 UNITS/3 ML VIAL SC PRN ×3 (05:51→21:20)
[2020-08-23] MEDS: Carvedilol 25 MG TAB PO SCH ×2 (08:39→20:47)
[2020-08-23] MEDS: Amlodipine 5 MG TAB PO SCH (08:39)
[2020-08-23] MEDS: Cholecalciferol 1,000 UNITS (25 MCG) TAB PO SCH (08:40)
[2020-08-23] MEDS: Ascorbic Acid 500 mg Chewable Tablet PO SCH (08:40)
[2020-08-23] MEDS: tiZANidine HCl 4 MG TAB PO PRN ×2 (08:40→20:47)
[2020-08-23] MEDS: Cyanocobalamin (Vitamin B-12) 1,000 MCG TAB PO SCH (08:40)
[2020-08-23] MEDS: metFORMIN 500 MG TAB PO SCH ×2 (08:41→20:46)
[2020-08-23] MEDS: Magnesium Oxide 400 MG TAB PO SCH (08:41)
--- NOTE | 2020-08-23 11:07 | PDOC.HOSPP ---
- Subjective Encounter Date: 08/23/20 Encounter Time: 10:54 Subjective: back pain. recent surgery. more alert. - Objective Vital Signs & Weight: Vital Signs (12 hours) Temp Pulse Resp BP Pulse Ox 08/23/20 07:38 98.8 F 76 18 105/68 94 L 08/23/20 04:03 98.8 F 69 14 110/70 94 L 08/22/20 23:55 98.8 F 77 16 104/68 94 L Weight Weight 118 lb I&O: 08/22/20 08/23/20 08/24/20 06:59 06:59 06:59 Intake Total 1260 Balance 1260 Result Diagrams: 08/22/20 05:25 08/22/20 05:25 Additional Labs: Accuchecks 08/23/20 08/22/20 08/22/20 05:23 21:01 15:28 POC Glucose 174 H 194 H 142 H Hospitalist ROS - Medication Medications: Active Medications Generic Name Dose Route Start Last Admin Trade Name Freq PRN Reason Stop Dose Admin Acetaminophen 650 mg 08/22/20 17:27 08/22/20 18:34 Acetaminophen 325 Mg Tab PO 650 mg Q6H PRN Administration Fever Hydrocodone Bitart/Acetaminophen 1 tab 08/21/20 23:14 08/23/20 05:09 Hydrocodone/Acetaminophen 5/325 Mg Tablet PO 1 tab Q4H PRN Administration Moderate Pain (4-6) Albuterol/Ipratropium 3 ml 08/21/20 23:20 08/22/20 08:12 Ipratropium/Albuterol Sulfate 3 Ml Neb NEB 3 ml [id number] PRN Administration SOB &/or Wheezing Amlodipine Besylate 5 mg 08/22/20 09:00 08/23/20 08:39 Amlodipine 5 Mg Tab PO Not Given DAILY MIGNON Ascorbic Acid 500 mg 08/22/20 09:00 08/23/20 08:40 Ascorbic Acid 500 Mg Chewable Tablet PO 500 mg DAILY MIGNON Administration Atorvastatin Calcium 40 mg 08/22/20 21:00 08/22/20 20:37 Atorvastatin Calcium 40 Mg Tab PO 40 mg HS MIGNON Administration Carvedilol 25 mg 08/22/20 09:00 08/23/20 08:39 Carvedilol 25 Mg Tab PO Not Given BID [facility] Cholecalciferol 2,000 units 08/22/20 09:00 08/23/20 08:40 Cholecalciferol 1,000 Units (25 Mcg) Tab PO 2,000 units DAILY MIGNON Administration Cyanocobalamin 1,000 mcg 08/22/20 09:00 08/23/20 08:40 Cyanocobalamin (Vitamin B-12) 1,000 Mcg Tab PO 1,000 mcg DAILY MIGNON Administration Vancomycin HCl 1 gm/ Device 200 mls @ 200 mls/hr 08/22/20 20:00 08/22/20 20:43 IVPB 200 mls 2000 MIGNON Administration Insulin Human Lispro 0 units 08/21/20 23:19 08/23/20 05:51 Humalog 300 Units/3 Ml Vial SC 2 unit .MODERATE SLIDING SC PRN Administration Moderate Correctional Scale Magnesium Oxide 400 mg 08/23/20 09:00 08/23/20 08:41 Magnesium Oxide 400 Mg Tab PO 400 mg DAILY MIGNON Administration Metformin HCl 250 mg 08/22/20 21:00 08/23/20 08:41 Metformin 500 Mg Tab PO 250 mg BID MIGNON Administration Ondansetron HCl 4 mg 08/22/20 17:27 08/23/20 04:14 Ondansetron Odt 4 Mg Tab PO 4 mg Q4H PRN Administration Nausea Pantoprazole Sodium 40 mg 08/22/20 09:00 08/23/20 08:40 Pantoprazole 40 Mg Tab PO 40 mg DAILY MIGNON Administration Sodium Chloride 10 ml 08/22/20 21:00 08/23/20 08:42 Flush - Normal Saline 10 Ml Syringe IVF 10 ml Q12HR MIGNON Administration Tizanidine HCl 4 mg 08/22/20 18:57 08/23/20 08:40 Tizanidine Hcl 4 Mg Tab PO 4 mg Q8H PRN Administration MUSCLE SPASM - Exam General Appearance: awake alert Neck: no JVD Heart: RRR, no murmur Respiratory: CTAB Gastrointestinal: soft, non-distended, normal bowel sounds Extremities: no edema Hosp A/P (1) Bacteremia due to Gram-positive bacteria Code(s): R78.81 - BACTEREMIA Status: Acute (2) Post op infection Code(s): T81.40XA - INFECTION FOLLOWING A PROCEDURE, UNSPECIFIED, INIT Status: Acute Qualifiers: Encounter type: initial encounter Postoperative infection type: unspecified type Qualified Code(s): T81.40XA - Infection following a procedure, unspecified, initial encounter (3) COPD (chronic obstructive pulmonary disease) Status: Chronic Qualifiers: Emphysema type: unspecified (4) HLD (hyperlipidemia) Code(s): E78.5 - HYPERLIPIDEMIA, UNSPECIFIED Status: Chronic (5) CAD (coronary artery disease) Code(s): I25.10 - ATHSCL HEART DISEASE OF [place] CORONARY ARTERY W/O ANG PCTRS Status: Chronic Qualifiers: Coronary Disease-Associated Artery/Lesion type: [place] artery [place] vs. transplanted heart: [place] heart Associated angina: without angina Qualified Code(s): I25.10 - Atherosclerotic heart disease of [place] coronary artery without angina pectoris (6) DM type 2 (diabetes mellitus, type 2) Status: Chronic Qualifiers: Diabetes mellitus retirement insulin use: with retirement use Diabetes mellitus complication status: without complication Qualified Code(s): E11.9 - Type 2 diabetes mellitus without complications; Z79.4 - prison (current) use of insulin (7) HTN (hypertension) Code(s): I10 - ESSENTIAL (PRIMARY) HYPERTENSION Status: Chronic Qualifiers: Hypertension type: essential hypertension - Plan cont iv vancomycin await NS opinion cont home meds iv Morphine for pain
[2020-08-23] MEDS ORDERED: Morphine 2 MG/ML VIAL SLOW IVP PRN (11:08)
--- NOTE | 2020-08-23 15:17 | PRG ---
DATE OF SERVICE: 08/23/2020 Ms. Gaitan is a pleasant 79-year-old woman, known to us for prior evaluations and surgeries of the neck and low back, most recently last Saturday for lumbar decompression, who unfortunately returned over the weekend for a fever around 104. She was admitted by the Hospitalist Service for further workup, but she did not have a UTI identified in the Emergency Department and thought this could potentially relate to surgery. She was found to be bacteremic with MRSA identified on the blood culture and was initially started on vancomycin. Neurosurgery was consulted for additional recommendations. I am seeing the patient at bedside. She reports significant pain in her lower back and bilateral lower extremities, particularly with movement. She does have trouble while admitted with receiving pain medication dosages secondary to the fact that she has been hypotensive. She does not have any fluids running in the IV at the moment. On examination, the patient is very tender to the lower back and dimas-incisional region and is very slow to move secondary to pain in the same site. Inspection of the incision reveals normal-appearing postoperative incision. Steri-Strips in place with typical blood within them, but not all this is dried. There is no fresh drainage. No obvious purulent material per incision. No erythema, but she is tender as you would expect being 6 days out from lumbar decompression. Neurosurgery recommendation is definitively nonsurgical at this time. We would recommend a consultation for Infectious Disease to consider appropriate antibiotic treatment via PICC line and ultimately turned towards discharge home and continuation of antibiotic therapy there. I do believe it would be reasonable to start her on a low rate of normal saline to provide pressure support, so that she is able to receive more consistent narcotic medications and muscle relaxers given her continued pain. I also think that there is a place for steroids as well in the treatment of her back pain as long as this is not a contraindication for her underlying infection. We will restart SCDs. Neurosurgery will continue to follow along with you. Job ID: [id number]
--- NOTE | 2020-08-23 15:54 | PDOC.BPN ---
- Brief Progress Note Encounter Date: 08/23/20 Encounter Time: 15:[address] Barba will be back tomorrow for consult
[2020-08-23] MEDS: Sodium Chloride 0.9% 1,000 ML IV SCH (16:55)
[2020-08-23 19:36] LABS: Vancomycin, Trough 9.5 ug/mL
[2020-08-23] MEDS: Atorvastatin Calcium 40 MG TAB PO SCH (20:46)
[2020-08-23] MEDS: Vancomycin 1 GM in Premix Bag 1 BAG IVPB SCH (20:47)
[2020-08-24] MEDS: HYDROcodone/Acetaminophen 5/325 mg Tablet PO PRN ×5 (02:09→20:32)
[2020-08-24] MEDS: Sodium Chloride 0.9% 1,000 ML IV SCH ×2 (05:24→09:12)
[2020-08-24] MEDS: HumaLOG 300 UNITS/3 ML VIAL SC PRN ×4 (06:04→20:32)
[2020-08-24] MEDS: metFORMIN 500 MG TAB PO SCH ×2 (09:08→20:31)
[2020-08-24] MEDS: Cyanocobalamin (Vitamin B-12) 1,000 MCG TAB PO SCH (09:09)
[2020-08-24] MEDS: Amlodipine 5 MG TAB PO SCH (09:10)
[2020-08-24] MEDS: Cholecalciferol 1,000 UNITS (25 MCG) TAB PO SCH (09:10)
[2020-08-24] MEDS: Magnesium Oxide 400 MG TAB PO SCH (09:10)
[2020-08-24] MEDS: Carvedilol 25 MG TAB PO SCH ×2 (09:10→20:32)
[2020-08-24] MEDS: Ascorbic Acid 500 mg Chewable Tablet PO SCH (09:11)
[2020-08-24] MEDS: tiZANidine HCl 4 MG TAB PO PRN ×2 (09:17→17:04)
--- NOTE | 2020-08-24 11:55 | PDOC.HOSPP ---
- Subjective Encounter Date: 08/24/20 Encounter Time: 11:53 Subjective: no fever, chills. cont to have pain in LL back - Objective Vital Signs & Weight: Vital Signs (12 hours) Temp Pulse Resp BP BP Pulse Ox 08/24/20 11:45 98.9 F 78 12 99/64 94 L 08/24/20 09:10 73 119/71 96 08/24/20 07:58 98.5 F 73 16 119/71 96 08/24/20 03:13 98.5 F 71 14 125/72 93 L Weight Weight 118 lb I&O: 08/23/20 08/24/20 08/25/20 06:59 06:59 06:59 Intake Total 1260 1580 Balance 1260 1580 Result Diagrams: 08/22/20 05:25 08/22/20 05:25 Additional Labs: Accuchecks 08/24/20 08/24/20 08/23/20 11:13 06:02 21:13 POC Glucose 230 H 177 H 199 H 08/23/20 08/23/20 15:50 12:49 POC Glucose 83 208 H Hospitalist ROS - Medication Medications: Active Medications Generic Name Dose Route Start Last Admin Trade Name Freq PRN Reason Stop Dose Admin Acetaminophen 650 mg 08/22/20 17:27 08/22/20 18:34 Acetaminophen 325 Mg Tab PO 650 mg Q6H PRN Administration Fever Hydrocodone Bitart/Acetaminophen 1 tab 08/21/20 23:14 08/24/20 11:29 Hydrocodone/Acetaminophen 5/325 Mg Tablet PO 1 tab Q4H PRN Administration Moderate Pain (4-6) Albuterol/Ipratropium 3 ml 08/21/20 23:20 08/23/20 19:45 Ipratropium/Albuterol Sulfate 3 Ml Neb NEB 3 ml [id number] PRN Administration SOB &/or Wheezing Amlodipine Besylate 5 mg 08/22/20 09:00 08/24/20 09:10 Amlodipine 5 Mg Tab PO 5 mg DAILY MIGNON Administration Ascorbic Acid 500 mg 08/22/20 09:00 08/24/20 09:11 Ascorbic Acid 500 Mg Chewable Tablet PO 500 mg DAILY MIGNON Administration Atorvastatin Calcium 40 mg 08/22/20 21:00 08/23/20 20:46 Atorvastatin Calcium 40 Mg Tab PO 40 mg HS MIGNON Administration Carvedilol 25 mg 08/22/20 09:00 08/24/20 09:10 Carvedilol 25 Mg Tab PO 25 mg BID MIGNON Administration Cholecalciferol 2,000 units 08/22/20 09:00 08/24/20 09:10 Cholecalciferol 1,000 Units (25 Mcg) Tab PO 2,000 units DAILY MIGNON Administration Cyanocobalamin 1,000 mcg 08/22/20 09:00 08/24/20 09:09 Cyanocobalamin (Vitamin B-12) 1,000 Mcg Tab PO 1,000 mcg DAILY MIGNON Administration Sodium Chloride 1,000 mls @ 75 mls/hr 08/23/20 16:00 08/24/20 09:12 Normal Saline 0.9% IV 1,000 mls .[id number] MIGNON Administration Insulin Human Lispro 0 units 08/21/20 23:19 08/24/20 11:29 Humalog 300 Units/3 Ml Vial SC 4 unit .MODERATE SLIDING SC PRN Administration Moderate Correctional Scale Magnesium Oxide 400 mg 08/23/20 09:00 08/24/20 09:10 Magnesium Oxide 400 Mg Tab PO 400 mg DAILY MIGNON Administration Metformin HCl 250 mg 08/22/20 21:00 08/24/20 09:08 Metformin 500 Mg Tab PO 250 mg BID MIGNON Administration Ondansetron HCl 4 mg 08/22/20 17:27 08/23/20 16:54 Ondansetron Odt 4 Mg Tab PO 4 mg Q4H PRN Administration Nausea Pantoprazole Sodium 40 mg 08/22/20 09:00 08/24/20 09:08 Pantoprazole 40 Mg Tab PO 40 mg DAILY MIGNON Administration Sodium Chloride 10 ml 08/22/20 21:00 08/24/20 09:11 Flush - Normal Saline 10 Ml Syringe IVF 10 ml Q12HR MIGNON Administration Tizanidine HCl 2 mg 08/23/20 19:17 08/24/20 09:17 Tizanidine Hcl 4 Mg Tab PO 2 mg [id number] PRN Administration Muscle Spasm - Exam General Appearance: awake alert Neck: no JVD Heart: RRR, no murmur Respiratory: CTAB Gastrointestinal: soft, normal bowel sounds Extremities: no edema Hosp A/P (1) Bacteremia due to Gram-positive bacteria Code(s): R78.81 - BACTEREMIA Status: Acute (2) Post op infection Code(s): T81.40XA - INFECTION FOLLOWING A PROCEDURE, UNSPECIFIED, INIT Status: Acute Qualifiers: Encounter type: initial encounter Postoperative infection type: unspecified type Qualified Code(s): T81.40XA - Infection following a procedure, unspecified, initial encounter (3) COPD (chronic obstructive pulmonary disease) Status: Chronic Qualifiers: Emphysema type: unspecified (4) HLD (hyperlipidemia) Code(s): E78.5 - HYPERLIPIDEMIA, UNSPECIFIED Status: Chronic (5) CAD (coronary artery disease) Code(s): I25.10 - ATHSCL HEART DISEASE OF [place] CORONARY ARTERY W/O ANG PCTRS Status: Chronic Qualifiers: Coronary Disease-Associated Artery/Lesion type: [place] artery [place] vs. transplanted heart: [place] heart Associated angina: without angina Qualified Code(s): I25.10 - Atherosclerotic heart disease of [place] coronary artery without angina pectoris (6) DM type 2 (diabetes mellitus, type 2) Status: Chronic Qualifiers: Diabetes mellitus jail insulin use: with continuous churn buttermaker use Diabetes mellitus complication status: without complication Qualified Code(s): E11.9 - Type 2 diabetes mellitus without complications; Z79.4 - senior living (current) use of insulin (7) HTN (hypertension) Code(s): I10 - ESSENTIAL (PRIMARY) HYPERTENSION Status: Chronic Qualifiers: Hypertension type: essential hypertension - Plan cont iv vancomycin Consult ID cont home meds iv Morphine for pain
[2020-08-24] MEDS: Ondansetron ODT 4 MG TAB PO PRN (12:40)
[2020-08-24 12:58] LABS: #Eosinphils 0.4 thou/uL (0.0-0.7); #Lymphocytes 0.8 thou/uL (1.20-3.40); #Monocytes 0.6 thou/uL (0.11-0.59); #Neutrophils 7.4 thou/uL (1.40-6.50); %Eosinophils 4.3 % (0.0-10.0); %Lymphocytes 8.2 % (21.0-51.0); %Monocytes 6.8 % (0.0-10.0); %Neutrophils 80.7 % (42.0-75.0); Hemoglobin 8.6 g/dL (12.0-16.0); Mean Corpuscular HGB CONC 32.8 g/dL (32.0-36.0); Mean Corpuscular Hemoglobin 30.7 pg (27.0-31.0); Mean Corpuscular Volume 93.8 fL (78.0-98.0); Mean Platelet Volume 8.4 fL (7.4-10.4); Platelet Count 263 thou/uL (130-400); RBC Distribution Width 13.6 % (11.5-14.5); Red Blood Cell (RBC) Count 2.81 mill/uL (4.20-5.40); White Blood Cell (WBC) Count 9.2 thou/uL (4.8-10.8)
[2020-08-24 13:31] LABS: ALT (SGPT) 8 U/L (8-55); AST (SGOT) 29 U/L (5-34); Albumin 2.8 g/dL (3.4-4.8); Alkaline Phosphatase 65 U/L (40-110); Anion Gap 10 mmol/L (10-20); BUN (Urea Nitrogen) 11 mg/dL (9.8-20.1); Bilirubin, Total 0.3 mg/dL (0.2-1.2); Calc. Creatinine Clearance 49 mL/min (70-130); Calcium 7.8 mg/dL (7.8-10.44); Carbon Dioxide 27 mmol/L (23-31); Chloride 97 mmol/L (98-107); Estimated GFR-MDRD 71; Globulin 3.2 g/dL (2.4-3.5); Glucose 234 mg/dL (83-110); Sodium 131 mmol/L (136-145)
[2020-08-24 13:47] LABS: Potassium 2.9 mmol/L (3.5-5.1)
[2020-08-24] MEDS: Vancomycin HCl 1.25 GM in Sodium Chloride 0.9% 250 ML 250 ML IVPB SCH (17:05)
--- NOTE | 2020-08-24 17:52 | CON ---
DATE OF CONSULTATION: 08/24/2020 REASON FOR CONSULTATION: Bacteremia. HISTORY OF PRESENT ILLNESS: A 79-year-old, history of COPD, type 2 diabetes, hypertension, and prior CVA, who underwent 3 spinal surgeries this year, one in the neck and two in the back. The last one was done just about a week ago and it consisted of a right L5 nerve root decompression reoperation with right L4-L5 and L5 foraminotomy, and now she comes back to the hospital with initially what she described as dysuria and then she noticed worsening pain in the lumbosacral area, particularly to the left side, which she did not have before. She started having a temperature elevation. They initially thought that she had a urinary tract infection, but urinalysis was completely normal on admission. No headaches. No visual symptoms, sore throat, odynophagia, or dysphagia. No cough, sputum production, or chest pain. No abdominal pain. No diarrhea. No other joint symptoms. No neurological symptoms. MEDICAL HISTORY: CVA, COPD, type 2 diabetes, hyperlipidemia, hypertension, coronary artery disease, prior stenting of coronary artery, , one C-spine surgery and two lower back surgeries, appendectomy, hysterectomy. One of the back surgeries was a fusion. SOCIAL HISTORY: Former smoker, quit more than 10 years before. ALLERGIES: AMBIEN WITH HALLUCINATIONS. IODINE CONTRAST WITH RASH. CURRENT MEDICATION LIST: Includes; 1. Inhaler. 2. Vitamin C. 3. Lipitor. 4. Coreg. 5. Warrior. 6. Insulin. 7. Magnesium oxide. 8. Medrol. 9. Vancomycin. PHYSICAL EXAMINATION: VITAL SIGNS: T-max 103.7. She has defervesced since then, but she is on steroids as well. BP 115/68, heart rate 79, respiratory rate 12, O2 saturation 93 to 96. GENERAL: She is in a little bit distress from the back pain, mostly on the left side of the lumbosacral spine paravertebral area. Peripheral IV access. She is voiding in the toilet. No lymphadenopathy. HEENT: Ocular movements conjugate. Oral cavity normal. NECK: Supple. LUNGS: Symmetric, clear breath sounds. HEART: S1 and S2, regular rate. ABDOMEN: Soft. Not distended or tender. No ascites. No bladder distention. MUSCULOSKELETAL: No other joint inflammatory process. No edema. Pulses 1+ in dorsalis pedis. NEUROLOGIC: Moving extremities equally except for the pain induced by moving the lower extremities in the lower back. She is awake, oriented, follows commands, in no distress. LABORATORY DATA: Urinalysis completely normal. White cell count was 14,000, down to 9.2; hemoglobin 8.6; platelets 263. Creatinine 0.78. Liver profile normal. Albumin 2.8. SARS-CoV not detected. 2 out of 2 sets of blood cultures positive for MRSA with DALE for vancomycin of 1. The lumbar spine CT with contrast showed a wider right hemilaminectomy defect with resection of the entire right lamina and resection of the entire right facet complex. There is a moderately large 2.5 x 2 x 2 cm postop fluid collection with multiple foci of gas displacing the thecal sac to the left, resulting in a narrowed thecal sac. There is circumferential thickening, enhancement of the zimmerman of the thecal sac. ASSESSMENT: Chronic obstructive pulmonary disease, prior CVA, multiple lumbar surgeries with most recent one to extend the laminectomy, and inflammatory process with fever, bacteremia due to methicillin-resistant Staphylococcus aureus. DISCUSSION: I did not find any other potential source for this bacteremia, so I think that the lumbosacral spine surgical site is very likely the source, even though from the outside, does not have any erythema or drainage, but that can be seen in cases early on in the infectious cycle. I would advise exploring the area in the likely scenario of an infected post laminectomy site. Continue vancomycin. I would advise discontinuation of corticosteroids as well since they inhibit leukocyte function and chemotaxis and the emphasis should be on control of the infection with antimicrobial and surgical I+D. Job ID: [id number] [facility]
[2020-08-24] MEDS: methylPREDNISolone 4 mg Tablet PO SCH (18:30)
[2020-08-24] MEDS: Atorvastatin Calcium 40 MG TAB PO SCH (20:31)
[2020-08-25] MEDS: HYDROcodone/Acetaminophen 5/325 mg Tablet PO PRN ×6 (00:41→23:08)
[2020-08-25] MEDS: tiZANidine HCl 4 MG TAB PO PRN ×3 (00:47→17:31)
[2020-08-25] MEDS: methylPREDNISolone 4 mg Tablet PO SCH ×4 (05:42→17:31)
[2020-08-25] MEDS: Linaclotide [Linzess] 72 MCG PO SCH (05:43)
[2020-08-25] MEDS: HumaLOG 300 UNITS/3 ML VIAL SC PRN ×4 (05:48→20:40)
[2020-08-25] MEDS: Magnesium Oxide 400 MG TAB PO SCH (08:42)
[2020-08-25] MEDS: Cholecalciferol 1,000 UNITS (25 MCG) TAB PO SCH (08:42)
[2020-08-25] MEDS: Carvedilol 25 MG TAB PO SCH ×2 (08:43→20:41)
[2020-08-25] MEDS: Amlodipine 5 MG TAB PO SCH (08:43)
[2020-08-25] MEDS: metFORMIN 500 MG TAB PO SCH ×2 (08:43→20:41)
[2020-08-25] MEDS: Ascorbic Acid 500 mg Chewable Tablet PO SCH (08:43)
[2020-08-25] MEDS: Cyanocobalamin (Vitamin B-12) 1,000 MCG TAB PO SCH (08:44)
[2020-08-25] MEDS ORDERED: Potassium Chloride 20 MEQ TAB PO SCH (11:00)
--- NOTE | 2020-08-25 11:03 | PDOC.HOSPP ---
- Subjective Encounter Date: 08/25/20 Encounter Time: 11:01 Subjective: no fever, pain, etc - Objective Vital Signs & Weight: Vital Signs (12 hours) Temp Pulse Resp BP BP Pulse Ox 08/25/20 08:43 69 124/63 08/25/20 08:05 98.2 F 69 16 124/63 97 08/25/20 07:44 67 18 98 08/25/20 05:50 97.5 F L 65 16 103/62 97 08/25/20 00:44 97.9 F 75 16 112/52 L 94 L Weight Weight 118 lb I&O: 08/24/20 08/25/20 08/26/20 06:59 06:59 06:59 Intake Total 1580 1600 Balance 1580 1600 Result Diagrams: 08/24/20 12:46 08/24/20 12:46 Additional Labs: Accuchecks 08/24/20 08/24/20 08/24/20 20:20 16:18 11:13 POC Glucose 202 H 173 H 230 H Hospitalist ROS - Medication Medications: Active Medications Generic Name Dose Route Start Last Admin Trade Name Freq PRN Reason Stop Dose Admin Acetaminophen 650 mg 08/22/20 17:27 08/22/20 18:34 Acetaminophen 325 Mg Tab PO 650 mg Q6H PRN Administration Fever Hydrocodone Bitart/Acetaminophen 1 tab 08/21/20 23:14 08/25/20 09:36 Hydrocodone/Acetaminophen 5/325 Mg Tablet PO 1 tab Q4H PRN Administration Moderate Pain (4-6) Albuterol/Ipratropium 3 ml 08/21/20 23:20 08/24/20 15:56 Ipratropium/Albuterol Sulfate 3 Ml Neb NEB 3 ml [id number] PRN Administration SOB &/or Wheezing Albuterol/Ipratropium 3 ml 08/24/20 18:30 08/25/20 07:44 Ipratropium/Albuterol Sulfate 3 Ml Neb NEB 3 ml TID-RT MIGNON Administration Amlodipine Besylate 5 mg 08/22/20 09:00 08/25/20 08:43 Amlodipine 5 Mg Tab PO 5 mg DAILY MIGNON Administration Ascorbic Acid 500 mg 08/22/20 09:00 08/25/20 08:43 Ascorbic Acid 500 Mg Chewable Tablet PO 500 mg DAILY MIGNON Administration Atorvastatin Calcium 40 mg 08/22/20 21:00 08/24/20 20:31 Atorvastatin Calcium 40 Mg Tab PO 40 mg HS MIGNON Administration Carvedilol 25 mg 08/22/20 09:00 08/25/20 08:43 Carvedilol 25 Mg Tab PO 25 mg BID MIGNON Administration Cholecalciferol 2,000 units 08/22/20 09:00 08/25/20 08:42 Cholecalciferol 1,000 Units (25 Mcg) Tab PO 2,000 units DAILY MIGNON Administration Cyanocobalamin 1,000 mcg 08/22/20 09:00 08/25/20 08:44 Cyanocobalamin (Vitamin B-12) 1,000 Mcg Tab PO 1,000 mcg DAILY MIGNON Administration Sodium Chloride 1,000 mls @ 75 mls/hr 08/23/20 16:00 08/24/20 09:12 Normal Saline 0.9% IV 1,000 mls .[id number] MIGNON Administration Vancomycin HCl 1.25 gm/ Sodium 250 mls @ 166.667 mls/hr 08/24/20 17:00 08/24/20 17:05 Chloride IVPB 250 mls 1700 MIGNON Administration Insulin Human Lispro 0 units 08/21/20 23:19 08/25/20 05:48 Humalog 300 Units/3 Ml Vial SC 4 unit .MODERATE SLIDING SC PRN Administration Moderate Correctional Scale Magnesium Oxide 400 mg 08/23/20 09:00 08/25/20 08:42 Magnesium Oxide 400 Mg Tab PO 400 mg DAILY MIGNON Administration Metformin HCl 250 mg 08/22/20 21:00 08/25/20 08:43 Metformin 500 Mg Tab PO 250 mg BID MIGNON Administration Methylprednisolone 4 mg 08/24/20 18:00 08/25/20 09:37 Methylprednisolone 4 Mg Tablet PO 08/27/20 18:01 4 mg 0600,1000,1400,1800 MIGNON Administration Morphine Sulfate 2 mg 08/23/20 11:08 08/24/20 12:46 Morphine 2 Mg/Ml Vial SLOW IVP 2 mg Q3H PRN Administration Moderate to Severe Pain (6-10) Ondansetron HCl 4 mg 08/22/20 17:27 08/24/20 12:40 Ondansetron Odt 4 Mg Tab PO 4 mg Q4H PRN Administration Nausea Pantoprazole Sodium 40 mg 08/22/20 09:00 08/25/20 08:43 Pantoprazole 40 Mg Tab PO 40 mg DAILY MIGNON Administration Linaclotide [Linzess 0 each 08/25/20 06:30 08/25/20 05:43 ] 72 Mcg PO 1 each 0630 MIGNON Administration Sodium Chloride 10 ml 08/22/20 21:00 08/25/20 09:16 Flush - Normal Saline 10 Ml Syringe IVF Not Given Q12HR MIGNON Tizanidine HCl 4 mg 08/24/20 16:15 08/25/20 08:42 Tizanidine Hcl 4 Mg Tab PO 4 mg TIDPRN PRN Administration Muscle Spasm - Exam General Appearance: awake alert Neck: no JVD Heart: RRR, no murmur Respiratory: CTAB Gastrointestinal: soft, normal bowel sounds Extremities: no edema Hosp A/P (1) Bacteremia due to Gram-positive bacteria Code(s): R78.81 - BACTEREMIA Status: Acute (2) Post op infection Code(s): T81.40XA - INFECTION FOLLOWING A PROCEDURE, UNSPECIFIED, INIT Status: Acute Qualifiers: Encounter type: initial encounter Postoperative infection type: unspecified type Qualified Code(s): T81.40XA - Infection following a procedure, unspeci fied, initial encounter (3) COPD (chronic obstructive pulmonary disease) Status: Chronic Qualifiers: Emphysema type: unspecified (4) HLD (hyperlipidemia) Code(s): E78.5 - HYPERLIPIDEMIA, UNSPECIFIED Status: Chronic (5) CAD (coronary artery disease) Code(s): I25.10 - ATHSCL HEART DISEASE OF [place] CORONARY ARTERY W/O ANG PCTRS Status: Chronic Qualifiers: Coronary Disease-Associated Artery/Lesion type: [place] artery [place] vs. transplanted heart: [place] heart Associated angina: without angina Qualified Code(s): I25.10 - Atherosclerotic heart disease of [place] coronary artery without angina pectoris (6) DM type 2 (diabetes mellitus, type 2) Status: Chronic Qualifiers: Diabetes mellitus remote computer terminal operator insulin use: with remote computer terminal operator use Diabetes mellitus complication status: without complication Qualified Code(s): E11.9 - Type 2 diabetes mellitus without complications; Z79.4 - intermediate accountant (current) use of insulin (7) HTN (hypertension) Code(s): I10 - ESSENTIAL (PRIMARY) HYPERTENSION Status: Chronic Qualifiers: Hypertension type: essential hypertension - Plan cont iv vancomycin have asked NS to review Dr Barba consult cont home meds iv Morphine for pain
--- NOTE | 2020-08-25 13:50 | PQF ---
CLINICAL DOCUMENTATION CLARIFICATION FORM: Dear Dr. Jackson Date: 08/25/2020 Please exercise your independent, professional judgment in responding to the clarification form. Clinical indicators are provided on the bottom of this form for your review. Please check appropriate box(es): [ x ] Sepsis due to post-operative infection laminectomy site [ ] Sepsis not due to post-operative infection laminectomy site. [ ] Sepsis due to other: [ ] Other diagnosis [ ] Unable to determine In addition, please specify: Present on Admission (POA): [ x ] Yes [ ] No [ ] Unable to determine For continuity of documentation, please document condition throughout progress notes and discharge summary. Thank You. To be completed by CDI/Coding staff for physician review: CLINICAL INDICATORS - SIGNS / SYMPTOMS / LABS / RESULTS AND LOCATION IN MR *ER Record 08/21: VS: BP 156/69, Pulse 103, Resp. 20; Temp 103.1, O2 sat 95 RA Doctor Notes: Pt met sepsis criteria due to fever, tachycardia, tachypnea, and elevated WBC. Diagnosis: sepsis unknown origin Additional: s/p recent laminectomy *08/22-08/25 pn (Manuel) A/P: Bacteremia due to Gram-positive bacteria Post op infection *08/24 Consult (Jameson) Lab: 2 out of 2 sets of blood cultures positive for MRSA Discussion: I did not find any other potential source for this bacteremia, so I think that the lumbosacral spine surgical site is very likely the source, RISK FACTORS / RESULTS AND LOCATION IN MR *ER Record 08/21: DX: Add: s/p recent laminectomy *H&P 08/21 (Zheng) PMH: COPD. Asthma. DM 2, CAD. *08/22 pn (Manuel) Bacteremia due to Gram-positive bacteria. Post op infection. TREATMENTS / RESULTS AND LOCATION IN MR *08/22 pn (Jackson) Plan cont IV vancomycin DC cefepime *ID Consult 08/24 Thank you, Deborah Mishra RN, [email or web address] This is a permanent part of the Medical Record [facility]
[2020-08-25] MEDS: Sodium Chloride 0.9% 1,000 ML IV SCH (14:28)
[2020-08-25] MEDS: Vancomycin HCl 1.25 GM in Sodium Chloride 0.9% 250 ML 250 ML IVPB SCH (17:30)
[2020-08-25] MEDS: Atorvastatin Calcium 40 MG TAB PO SCH (20:40)
[2020-08-26] MEDS: tiZANidine HCl 4 MG TAB PO PRN ×3 (01:07→17:01)
[2020-08-26] MEDS: Sodium Chloride 0.9% 1,000 ML IV SCH ×2 (02:37→11:25)
[2020-08-26] MEDS: HYDROcodone/Acetaminophen 5/325 mg Tablet PO PRN ×6 (04:13→22:28)
[2020-08-26] MEDS: methylPREDNISolone 4 mg Tablet PO SCH ×4 (07:36→18:51)
[2020-08-26] MEDS: Linaclotide [Linzess] 72 MCG PO SCH (07:37)
[2020-08-26] MEDS: HumaLOG 300 UNITS/3 ML VIAL SC PRN ×4 (07:38→20:58)
--- NOTE | 2020-08-26 07:52 | PRG ---
DATE OF SERVICE: 08/26/2020 SUBJECTIVE: I met with Ms. Gaitan again this morning and reviewed with her her symptoms and inspected her wound. She is sitting upright in the bed, alert and oriented. She does report axial back pain as well as pain radiating to the left hip. This has been a chronic problem for her and she is expected to have some of this pain given her recent surgery. She was admitted for septicemia. No known source has been determined at this point in time. She had imaging done of the lumbar spine upon admission, which shows no concerns in my view for an infectious process. I took off her Steri-Strips today and inspect her wound. It looks clean, dry, and intact and there appeared to be no obvious signs of infection at the skin level. I was unable to express anything significant deeply as well. I do not believe she needs another surgical procedure at this point in time. She would be best suited in her home environment and she is eager to get back. If the PICC line is warranted that should be placed and she can be discharged today ideally. We will continue to follow along closely with her and re-evaluate on an episodic basis. I appreciate the help of our hospitalist service and Infectious Disease colleagues. Job ID: [id number]
[2020-08-26] MEDS: Magnesium Oxide 400 MG TAB PO SCH (09:24)
[2020-08-26] MEDS: metFORMIN 500 MG TAB PO SCH ×2 (09:25→20:58)
[2020-08-26] MEDS: Ascorbic Acid 500 mg Chewable Tablet PO SCH (09:25)
[2020-08-26] MEDS: Carvedilol 25 MG TAB PO SCH ×2 (09:26→20:57)
[2020-08-26] MEDS: Cyanocobalamin (Vitamin B-12) 1,000 MCG TAB PO SCH (09:26)
[2020-08-26] MEDS: Cholecalciferol 1,000 UNITS (25 MCG) TAB PO SCH (09:26)
[2020-08-26] MEDS: Amlodipine 5 MG TAB PO SCH (09:27)
--- NOTE | 2020-08-26 10:47 | PDOC.HOSPP ---
- Subjective Encounter Date: 08/26/20 Encounter Time: 10:44 Subjective: doing well , ready to go home - Objective Vital Signs & Weight: Vital Signs (12 hours) Temp Pulse Resp BP BP Pulse Ox 08/26/20 09:27 65 162/78 H 08/26/20 08:15 65 16 98 08/26/20 07:20 97.5 F L 75 16 162/78 H 96 08/25/20 23:32 98.2 F 68 16 120/72 96 Weight Weight 118 lb I&O: 08/25/20 08/26/20 08/27/20 06:59 06:59 06:59 Intake Total 1600 2500 Balance 1600 2500 Result Diagrams: 08/24/20 12:46 08/24/20 12:46 Additional Labs: Accuchecks 08/26/20 08/26/20 08/25/20 05:54 02:45 23:34 POC Glucose 219 H 211 H 211 H 08/25/20 08/25/20 08/25/20 20:39 16:03 10:55 POC Glucose 241 H 191 H 307 H 08/25/20 05:48 POC Glucose 203 H Hospitalist ROS - Medication Medications: Active Medications Generic Name Dose Route Start Last Admin Trade Name Freq PRN Reason Stop Dose Admin Acetaminophen 650 mg 08/22/20 17:27 08/22/20 18:34 Acetaminophen 325 Mg Tab PO 650 mg Q6H PRN Administration Fever Hydrocodone Bitart/Acetaminophen 1 tab 08/21/20 23:14 08/26/20 07:34 Hydrocodone/Acetaminophen 5/325 Mg Tablet PO 1 tab Q4H PRN Administration Moderate Pain (4-6) Albuterol/Ipratropium 3 ml 08/21/20 23:20 08/24/20 15:56 Ipratropium/Albuterol Sulfate 3 Ml Neb NEB 3 ml [id number] PRN Administration SOB &/or Wheezing Albuterol/Ipratropium 3 ml 08/24/20 18:30 08/26/20 08:15 Ipratropium/Albuterol Sulfate 3 Ml Neb NEB 3 ml TID-RT MIGNON Administration Amlodipine Besylate 5 mg 08/22/20 09:00 08/26/20 09:27 Amlodipine 5 Mg Tab PO 5 mg DAILY MIGNON Administration Ascorbic Acid 500 mg 08/22/20 09:00 08/26/20 09:25 Ascorbic Acid 500 Mg Chewable Tablet PO 500 mg DAILY MIGNON Administration Atorvastatin Calcium 40 mg 08/22/20 21:00 08/25/20 20:40 Atorvastatin Calcium 40 Mg Tab PO 40 mg HS MIGNON Administration Carvedilol 25 mg 08/22/20 09:00 08/26/20 09:26 Carvedilol 25 Mg Tab PO 25 mg BID MIGNON Administration Cholecalciferol 2,000 units 08/22/20 09:00 08/26/20 09:26 Cholecalciferol 1,000 Units (25 Mcg) Tab PO 2,000 units DAILY MIGNON Administration Cyanocobalamin 1,000 mcg 08/22/20 09:00 08/26/20 09:26 Cyanocobalamin (Vitamin B-12) 1,000 Mcg Tab PO 1,000 mcg DAILY MIGNON Administration Sodium Chloride 1,000 mls @ 75 mls/hr 08/23/20 16:00 08/26/20 02:37 Normal Saline 0.9% IV Not Given .[id number] MIGNON Vancomycin HCl 1.25 gm/ Sodium 250 mls @ 166.667 mls/hr 08/24/20 17:00 08/25/20 17:30 Chloride IVPB 250 mls 1700 MIGNON Administration Insulin Human Lispro 0 units 08/21/20 23:19 08/26/20 07:38 Humalog 300 Units/3 Ml Vial SC 4 unit .MODERATE SLIDING SC PRN Administration Moderate Correctional Scale Magnesium Oxide 400 mg 08/23/20 09:00 08/26/20 09:24 Magnesium Oxide 400 Mg Tab PO 400 mg DAILY MIGNON Administration Metformin HCl 250 mg 08/22/20 21:00 08/26/20 09:25 Metformin 500 Mg Tab PO 250 mg BID MIGNON Administration Methylprednisolone 4 mg 08/24/20 18:00 08/26/20 09:24 Methylprednisolone 4 Mg Tablet PO 08/27/20 18:01 4 mg 0600,1000,1400,1800 MIGNON Administration Morphine Sulfate 2 mg 08/23/20 11:08 08/24/20 12:46 Morphine 2 Mg/Ml Vial SLOW IVP 2 mg Q3H PRN Administration Moderate to Severe Pain (6-10) Ondansetron HCl 4 mg 08/22/20 17:27 08/24/20 12:40 Ondansetron Odt 4 Mg Tab PO 4 mg Q4H PRN Administration Nausea Pantoprazole Sodium 40 mg 08/22/20 09:00 08/26/20 09:25 Pantoprazole 40 Mg Tab PO 40 mg DAILY MIGNON Administration Linaclotide [Linzess 0 each 08/25/20 06:30 08/26/20 07:37 ] 72 Mcg PO 1 each 0630 MIGNON Administration Sodium Chloride 10 ml 08/22/20 21:00 08/26/20 09:43 Flush - Normal Saline 10 Ml Syringe IVF Not Given Q12HR MIGNON Tizanidine HCl 4 mg 08/24/20 16:15 08/26/20 09:25 Tizanidine Hcl 4 Mg Tab PO 4 mg TIDPRN PRN Administration Muscle Spasm - Exam General Appearance: awake alert Neck: no JVD Heart: RRR, no murmur Respiratory: CTAB Gastrointestinal: soft, non-distended, normal bowel sounds Extremities: no edema Hosp A/P (1) Bacteremia due to Gram-positive bacteria Code(s): R78.81 - BACTEREMIA Status: Acute (2) Post op infection Code(s): T81.40XA - INFECTION FOLLOWING A PROCEDURE, UNSPECIFIED, INIT Status: Acute Qualifiers: Encounter type: initial encounter Postoperative infection type: unspecified type Qualified Code(s): T81.40XA - Infection following a procedure, unspecifie d, initial encounter (3) COPD (chronic obstructive pulmonary disease) Status: Chronic Qualifiers: Emphysema type: unspecified (4) HLD (hyperlipidemia) Code(s): E78.5 - HYPERLIPIDEMIA, UNSPECIFIED Status: Chronic (5) CAD (coronary artery disease) Code(s): I25.10 - ATHSCL HEART DISEASE OF [place] CORONARY ARTERY W/O ANG PCTRS Status: Chronic Qualifiers: Coronary Disease-Associated Artery/Lesion type: [place] artery [place] vs. 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
[2020-08-26 12:43] LABS: Anion Gap 15 mmol/L (10-20); BUN (Urea Nitrogen) 7 mg/dL (9.8-20.1); Calc. Creatinine Clearance 54 mL/min (70-130); Calcium 8.4 mg/dL (7.8-10.44); Carbon Dioxide 22 mmol/L (23-31); Chloride 100 mmol/L (98-107); Estimated GFR-MDRD 79; Glucose 173 mg/dL (83-110); Potassium 3.6 mmol/L (3.5-5.1); Sodium 133 mmol/L (136-145)
--- NOTE | 2020-08-26 14:52 | SPC ---
PICC PLACEMENT ULTRASOUND-GUIDED VENOUS ACCESS: (Peripherally inserted central catheter) DATE: 08/26/2020 HISTORY: 79-year-old female with septicemia requiring long-term IV antibiotics TECHNIQUE: Catheter caliber: 5 [place] Catheter trim length:47 cm Catheter lumen number:single Catheter tip location:right atrium Vein accessed:left basilic Total fluoroscopy time: 1.2 min. Dose area product: 2723 mGy*cm^2 Signed, informed consent was obtained. A tourniquet was applied at the proximal aspect of the arm. Th e arm was prepped and draped in the usual sterile fashion. A 25-gauge needle was used to applied buffered lidocaine superficially. The vein was punctured with a 21-gauge micropuncture needle under u ltrasound guidance. A 0.018 inch guidewire was advanced through the micropuncture needle and into the vein. Under fluoroscopic guidance, the guidewire was advanced to the superior vena cava. The PICC was flushed and trimmed to the appropriate length. The micropuncture needle was exchanged over the guidewire for a 5 [place] peel-away dilator sheath. The dilator was exchanged over the guidewire for t he PICC, which was then further advanced under fluoroscopy. The sheath and guidewire were removed. The PICC was flushed again and secured in place at the arm after adjustment of tip position. The fina ent tolerated the procedure well. There was no complication. IMPRESSION: Successful placement of PICC (peripherally inserted central catheter).
[2020-08-26] MEDS: Ondansetron ODT 4 MG TAB PO PRN (15:15)
[2020-08-26] MEDS: Vancomycin HCl 1.25 GM in Sodium Chloride 0.9% 250 ML 250 ML IVPB SCH (16:21)
[2020-08-26 16:57] LABS: Vancomycin, Trough 12.6 ug/mL
[2020-08-26] MEDS: Atorvastatin Calcium 40 MG TAB PO SCH (20:57)
[2020-08-27] MEDS: tiZANidine HCl 4 MG TAB PO PRN ×3 (00:34→18:05)
[2020-08-27] MEDS: Sodium Chloride 0.9% 1,000 ML IV SCH ×2 (00:35→14:36)
[2020-08-27] MEDS: HYDROcodone/Acetaminophen 5/325 mg Tablet PO PRN ×5 (02:44→20:18)
[2020-08-27] MEDS: HumaLOG 300 UNITS/3 ML VIAL SC PRN ×4 (05:44→20:18)
[2020-08-27] MEDS: methylPREDNISolone 4 mg Tablet PO SCH ×4 (05:45→17:20)
[2020-08-27] MEDS: Linaclotide [Linzess] 72 MCG PO SCH (05:46)
[2020-08-27] MEDS: metFORMIN 500 MG TAB PO SCH ×2 (08:20→20:17)
[2020-08-27] MEDS: Ascorbic Acid 500 mg Chewable Tablet PO SCH (08:20)
[2020-08-27] MEDS: Cholecalciferol 1,000 UNITS (25 MCG) TAB PO SCH (08:21)
[2020-08-27] MEDS: Magnesium Oxide 400 MG TAB PO SCH (08:21)
[2020-08-27] MEDS: Amlodipine 5 MG TAB PO SCH (08:21)
[2020-08-27] MEDS: Cyanocobalamin (Vitamin B-12) 1,000 MCG TAB PO SCH (08:21)
[2020-08-27] MEDS: Carvedilol 25 MG TAB PO SCH ×2 (08:21→20:18)
--- NOTE | 2020-08-27 15:32 | PDOC.HOSPP ---
- Subjective Encounter Date: 08/27/20 - Objective Vital Signs & Weight: Vital Signs (12 hours) Temp Pulse Resp BP BP Pulse Ox 08/27/20 12:52 65 16 96 08/27/20 08:21 66 152/88 H 08/27/20 08:12 66 16 95 08/27/20 08:00 96 08/27/20 07:45 97.9 F 67 16 152/78 H 96 08/27/20 04:33 97.8 F 67 66 H 135/74 97 Weight Weight 118 lb I&O: 08/26/20 08/27/20 08/28/20 06:59 06:59 06:59 Intake Total 2500 2175 Balance 2500 2175 Result Diagrams: 08/24/20 12:46 08/26/20 16:16 Additional Labs: Accuchecks 08/27/20 08/27/20 08/27/20 14:59 11:21 04:32 POC Glucose 199 H 240 H 226 H 08/26/20 08/26/20 20:42 15:34 POC Glucose 315 H 170 H Hospitalist ROS - Medication Medications: Active Medications Generic Name Dose Route Start Last Admin Trade Name Freq PRN Reason Stop Dose Admin Acetaminophen 650 mg 08/22/20 17:27 08/22/20 18:34 Acetaminophen 325 Mg Tab PO 650 mg Q6H PRN Administration Fever Hydrocodone Bitart/Acetaminophen 1 tab 08/21/20 23:14 08/27/20 12:28 Hydrocodone/Acetaminophen 5/325 Mg Tablet PO 1 tab Q4H PRN Administration Moderate Pain (4-6) Albuterol/Ipratropium 3 ml 08/21/20 23:20 08/24/20 15:56 Ipratropium/Albuterol Sulfate 3 Ml Neb NEB 3 ml [id number] PRN Administration SOB &/or Wheezing Albuterol/Ipratropium 3 ml 08/24/20 18:30 08/27/20 12:52 Ipratropium/Albuterol Sulfate 3 Ml Neb NEB 3 ml TID-RT MIGNON Administration Amlodipine Besylate 5 mg 08/22/20 09:00 08/27/20 08:21 Amlodipine 5 Mg Tab PO 5 mg DAILY MIGNON Administration Ascorbic Acid 500 mg 08/22/20 09:00 08/27/20 08:20 Ascorbic Acid 500 Mg Chewable Tablet PO 500 mg DAILY MIGNON Administration Atorvastatin Calcium 40 mg 08/22/20 21:00 08/26/20 20:57 Atorvastatin Calcium 40 Mg Tab PO 40 mg HS MIGNON Administration Carvedilol 25 mg 08/22/20 09:00 08/27/20 08:21 Carvedilol 25 Mg Tab PO 25 mg BID MIGNON Administration Cholecalciferol 2,000 units 08/22/20 09:00 08/27/20 08:21 Cholecalciferol 1,000 Units (25 Mcg) Tab PO 2,000 units DAILY MIGNON Administration Cyanocobalamin 1,000 mcg 08/22/20 09:00 08/27/20 08:21 Cyanocobalamin (Vitamin B-12) 1,000 Mcg Tab PO 1,000 mcg DAILY MIGNON Administration Sodium Chloride 1,000 mls @ 75 mls/hr 08/23/20 16:00 08/27/20 14:36 Normal Saline 0.9% IV 1,000 mls .[id number] MIGNON Administration Insulin Human Lispro 0 units 08/21/20 23:19 08/27/20 11:28 Humalog 300 Units/3 Ml Vial SC 4 unit .MODERATE SLIDING SC PRN Administration Moderate Correctional Scale Magnesium Oxide 400 mg 08/23/20 09:00 08/27/20 08:21 Magnesium Oxide 400 Mg Tab PO 400 mg DAILY MIGNON Administration Metformin HCl 250 mg 08/22/20 21:00 08/27/20 08:20 Metformin 500 Mg Tab PO 250 mg BID MIGNON Administration Methylprednisolone 4 mg 08/24/20 18:00 08/27/20 14:37 Methylprednisolone 4 Mg Tablet PO 08/27/20 18:01 4 mg 0600,1000,1400,1800 MIGNON Administration Morphine Sulfate 2 mg 08/23/20 11:08 08/24/20 12:46 Morphine 2 Mg/Ml Vial SLOW IVP 2 mg Q3H PRN Administration Moderate to Severe Pain (6-10) Ondansetron HCl 4 mg 08/22/20 17:27 08/26/20 15:15 Ondansetron Odt 4 Mg Tab PO 4 mg Q4H PRN Administration Nausea Pantoprazole Sodium 40 mg 08/22/20 09:00 08/27/20 08:20 Pantoprazole 40 Mg Tab PO 40 mg DAILY MIGNON Administration Linaclotide [Linzess 0 each 08/25/20 06:30 08/27/20 05:46 ] 72 Mcg PO 1 each 0630 MIGNON Administration Sodium Chloride 10 ml 08/22/20 21:00 08/27/20 08:22 Flush - Normal Saline 10 Ml Syringe IVF 10 ml Q12HR MIGNON Administration Tizanidine HCl 4 mg 08/24/20 16:15 08/27/20 10:34 Tizanidine Hcl 4 Mg Tab PO 4 mg TIDPRN PRN Administration Muscle Spasm - Exam General Appearance: awake alert ENT: normocephalic atraumatic Neck: supple, no JVD Respiratory: normal chest expansion, no tachypnea Extremities: no cyanosis, no clubbing Neurological: cranial nerve grossly intact, no focal deficits Hosp A/P (1) Sepsis Code(s): A41.9 - SEPSIS, UNSPECIFIED ORGANISM Status: Acute (2) MRSA bacteremia Code(s): R78.81 - BACTEREMIA; B95.62 - METHICILLIN RESIS STAPH INFCT CAUSING DISEASES CLASSD ELSWHR Status: Acute (3) COPD (chronic obstructive pulmonary disease) Status: Chronic Qualifiers: Emphysema type: unspecified (4) HLD (hyperlipidemia) Code(s): E78.5 - HYPERLIPIDEMIA, UNSPECIFIED Status: Chronic (5) DM type 2 (diabetes mellitus, type 2) Status: Chronic Qualifiers: 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 Plan is to treat the patient with IV vancomycin until October 04. The patient and her family would like to receive antibiotics at home. Case management to arrange for the antibiotics and home health.
[2020-08-27] MEDS: Vancomycin 1.5 GRAM/300 ML BAG 1.5 GM in Premix Bag 1 BAG IVPB SCH (16:10)
[2020-08-27] MEDS: Atorvastatin Calcium 40 MG TAB PO SCH (20:18)
[2020-08-28] MEDS: HYDROcodone/Acetaminophen 5/325 mg Tablet PO PRN ×6 (00:04→20:53)
[2020-08-28] MEDS: tiZANidine HCl 4 MG TAB PO PRN ×3 (01:31→19:33)
[2020-08-28] MEDS: Sodium Chloride 0.9% 1,000 ML IV SCH ×2 (04:40→08:51)
[2020-08-28] MEDS: Linaclotide [Linzess] 72 MCG PO SCH (05:20)
[2020-08-28] MEDS: HumaLOG 300 UNITS/3 ML VIAL SC PRN ×4 (05:27→22:21)
[2020-08-28] MEDS ORDERED: Clopidogrel Bisulfate 75 MG TAB ONE (06:47)
[2020-08-28] MEDS: Magnesium Oxide 400 MG TAB PO SCH (08:37)
[2020-08-28] MEDS: Cyanocobalamin (Vitamin B-12) 1,000 MCG TAB PO SCH (08:47)
[2020-08-28] MEDS: metFORMIN 500 MG TAB PO SCH ×2 (08:47→20:50)
[2020-08-28] MEDS: Ascorbic Acid 500 mg Chewable Tablet PO SCH (08:47)
[2020-08-28] MEDS: Cholecalciferol 1,000 UNITS (25 MCG) TAB PO SCH (08:47)
[2020-08-28] MEDS: methylPREDNISolone 4 mg Tablet PO SCH ×3 (08:48→20:51)
[2020-08-28] MEDS: Amlodipine 5 MG TAB PO SCH (09:02)
[2020-08-28] MEDS: Carvedilol 25 MG TAB PO SCH ×2 (09:03→20:51)
[2020-08-28] MEDS: Ondansetron ODT 4 MG TAB PO PRN (10:23)
--- NOTE | 2020-08-28 13:10 | PDOC.HOSPP ---
- Subjective Encounter Date: 08/28/20 - Objective Vital Signs & Weight: Vital Signs (12 hours) Temp Pulse Resp BP BP Pulse Ox 08/28/20 09:02 74 163/74 H 08/28/20 08:40 98.1 F 74 20 163/74 H 97 08/28/20 06:49 75 14 95 Weight Weight 118 lb I&O: 08/27/20 08/28/20 08/29/20 06:59 06:59 06:59 Intake Total 2175 2100 Balance 2175 2100 Result Diagrams: 08/24/20 12:46 08/26/20 16:16 Additional Labs: Accuchecks 08/28/20 08/27/20 08/27/20 05:26 20:17 14:59 POC Glucose 152 H 220 H 199 H Hospitalist ROS - Medication Medications: Active Medications Generic Name Dose Route Start Last Admin Trade Name Freq PRN Reason Stop Dose Admin Acetaminophen 650 mg 08/22/20 17:27 08/22/20 18:34 Acetaminophen 325 Mg Tab PO 650 mg Q6H PRN Administration Fever Hydrocodone Bitart/Acetaminophen 1 tab 08/21/20 23:14 08/28/20 08:50 Hydrocodone/Acetaminophen 5/325 Mg Tablet PO 1 tab Q4H PRN Administration Moderate Pain (4-6) Albuterol/Ipratropium 3 ml 08/21/20 23:20 08/24/20 15:56 Ipratropium/Albuterol Sulfate 3 Ml Neb NEB 3 ml [id number] PRN Administration SOB &/or Wheezing Albuterol/Ipratropium 3 ml 08/24/20 18:30 08/28/20 06:49 Ipratropium/Albuterol Sulfate 3 Ml Neb NEB 3 ml TID-RT MIGNON Administration Amlodipine Besylate 5 mg 08/22/20 09:00 08/28/20 09:02 Amlodipine 5 Mg Tab PO 5 mg DAILY MIGNON Administration Ascorbic Acid 500 mg 08/22/20 09:00 08/28/20 08:47 Ascorbic Acid 500 Mg Chewable Tablet PO 500 mg DAILY MIGNON Administration Atorvastatin Calcium 40 mg 08/22/20 21:00 08/27/20 20:18 Atorvastatin Calcium 40 Mg Tab PO 40 mg HS MIGNON Administration Carvedilol 25 mg 08/22/20 09:00 08/28/20 09:03 Carvedilol 25 Mg Tab PO 25 mg BID MIGNON Administration Cholecalciferol 2,000 units 08/22/20 09:00 08/28/20 08:47 Cholecalciferol 1,000 Units (25 Mcg) Tab PO 2,000 units DAILY MIGNON Administration Cyanocobalamin 1,000 mcg 08/22/20 09:00 08/28/20 08:47 Cyanocobalamin (Vitamin B-12) 1,000 Mcg Tab PO 1,000 mcg DAILY MIGNON Administration Sodium Chloride 1,000 mls @ 75 mls/hr 08/23/20 16:00 08/28/20 08:51 Normal Saline 0.9% IV 1,000 mls .[id number] MIGNON Administration Vancomycin HCl 1.5 gm/ Device 300 mls @ 166.667 mls/hr 08/27/20 17:00 08/27/20 16:10 IVPB 300 mls 1700 MIGNON Administration Insulin Human Lispro 0 units 08/21/20 23:19 08/28/20 11:37 Humalog 300 Units/3 Ml Vial SC 4 unit .MODERATE SLIDING SC PRN Administration Moderate Correctional Scale Magnesium Oxide 400 mg 08/23/20 09:00 08/28/20 08:37 Magnesium Oxide 400 Mg Tab PO 400 mg DAILY MIGNON Administration Metformin HCl 250 mg 08/22/20 21:00 08/28/20 08:47 Metformin 500 Mg Tab PO 250 mg BID MIGNON Administration Methylprednisolone 4 mg 08/28/20 09:00 08/28/20 08:48 Methylprednisolone 4 Mg Tablet PO 08/30/20 23:00 4 mg TID MIGNON Administration Morphine Sulfate 2 mg 08/23/20 11:08 08/24/20 12:46 Morphine 2 Mg/Ml Vial SLOW IVP 2 mg Q3H PRN Administration Moderate to Severe Pain (6-10) Ondansetron HCl 4 mg 08/22/20 17:27 08/28/20 10:23 Ondansetron Odt 4 Mg Tab PO 4 mg Q4H PRN Administration Nausea Pantoprazole Sodium 40 mg 08/22/20 09:00 08/28/20 08:47 Pantoprazole 40 Mg Tab PO Not Given DAILY MIGNON Linaclotide [Linzess 0 each 08/25/20 06:30 08/28/20 05:20 ] 72 Mcg PO 1 each 30 MIGNON Administration Sodium Chloride 10 ml 08/22/20 21:00 08/28/20 08:48 Flush - Normal Saline 10 Ml Syringe IVF 10 ml Q12HR MIGNON Administration Tizanidine HCl 4 mg 08/24/20 16:15 08/28/20 11:32 Tizanidine Hcl 4 Mg Tab PO 4 mg TIDPRN PRN Administration Muscle Spasm - Exam General Appearance: awake alert ENT: normocephalic atraumatic Neck: supple, no JVD Respiratory: normal chest expansion, no tachypnea Extremities: no cyanosis, no clubbing Hosp A/P (1) Sepsis Code(s): A41.9 - SEPSIS, UNSPECIFIED ORGANISM Status: Acute (2) MRSA bacteremia Code(s): R78.81 - BACTEREMIA; B95.62 - METHICILLIN RESIS STAPH INFCT CAUSING DISEASES CLASSD ELSWHR Status: Acute (3) COPD (chronic obstructive pulmonary disease) Status: Chronic Qualifiers: Emphysema type: unspecified (4) HLD (hyperlipidemia) Code(s): E78.5 - HYPERLIPIDEMIA, UNSPECIFIED Status: Chronic (5) DM type 2 (diabetes mellitus, type 2) Status: Chronic Qualifiers: 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 Plan is to treat the patient with IV vancomycin until October 04. The patient and her family would like to receive antibiotics at home. Case management to arrange for the antibiotics and home health for discharge tomorrow.
[2020-08-28] MEDS ORDERED: Dexlansoprazole [Dexilant] 60 MG Cap.Dr.Bp PO SCH (16:15)
[2020-08-28] MEDS: Vancomycin 1.5 GRAM/300 ML BAG 1.5 GM in Premix Bag 1 BAG IVPB SCH (16:18)
[2020-08-28] MEDS: Atorvastatin Calcium 40 MG TAB PO SCH (20:52)
[2020-08-29] MEDS: Sodium Chloride 0.9% 1,000 ML IV SCH ×3 (01:22→21:12)
[2020-08-29] MEDS: HYDROcodone/Acetaminophen 5/325 mg Tablet PO PRN ×6 (01:53→23:08)
[2020-08-29] MEDS: tiZANidine HCl 4 MG TAB PO PRN ×3 (04:06→21:00)
[2020-08-29] MEDS: HumaLOG 300 UNITS/3 ML VIAL SC PRN ×3 (04:20→17:16)
[2020-08-29] MEDS: Linaclotide [Linzess] 72 MCG PO SCH (06:10)
[2020-08-29 06:41] LABS: #Eosinphils 0.1 thou/uL (0.0-0.7); #Lymphocytes 1.9 thou/uL (1.20-3.40); #Monocytes 0.7 thou/uL (0.11-0.59); #Neutrophils 9.6 thou/uL (1.40-6.50); %Basophils 0.2 % (0.0-1.0); %Eosinophils 0.6 % (0.0-10.0); %Lymphocytes 15.7 % (21.0-51.0); %Monocytes 5.6 % (0.0-10.0); %Neutrophils 77.9 % (42.0-75.0); Mean Corpuscular HGB CONC 32.4 g/dL (32.0-36.0); Mean Corpuscular Hemoglobin 30.4 pg (27.0-31.0); Mean Corpuscular Volume 93.8 fL (78.0-98.0); Mean Platelet Volume 7.7 fL (7.4-10.4); Platelet Count 446 thou/uL (130-400); Red Blood Cell (RBC) Count 2.96 mill/uL (4.20-5.40); White Blood Cell (WBC) Count 12.3 thou/uL (4.8-10.8)
[2020-08-29 07:02] LABS: Anion Gap 12 mmol/L (10-20); BUN (Urea Nitrogen) 10 mg/dL (9.8-20.1); Calc. Creatinine Clearance 52 mL/min (70-130); Calcium 7.5 mg/dL (7.8-10.44); Carbon Dioxide 32 mmol/L (23-31); Chloride 99 mmol/L (98-107); Estimated GFR-MDRD 76; Glucose 129 mg/dL (83-110); Potassium 3.7 mmol/L (3.5-5.1); Sodium 139 mmol/L (136-145)
[2020-08-29] MEDS: metFORMIN 500 MG TAB PO SCH ×2 (08:34→21:02)
[2020-08-29] MEDS: Magnesium Oxide 400 MG TAB PO SCH (08:35)
[2020-08-29] MEDS: Carvedilol 25 MG TAB PO SCH ×2 (08:35→21:03)
[2020-08-29] MEDS: Cholecalciferol 1,000 UNITS (25 MCG) TAB PO SCH (08:36)
[2020-08-29] MEDS: methylPREDNISolone 4 mg Tablet PO SCH ×3 (08:36→21:02)
[2020-08-29] MEDS: Ascorbic Acid 500 mg Chewable Tablet PO SCH (08:36)
[2020-08-29] MEDS: Amlodipine 5 MG TAB PO SCH (08:37)
[2020-08-29] MEDS: Cyanocobalamin (Vitamin B-12) 1,000 MCG TAB PO SCH (08:37)
[2020-08-29] MEDS: Dexlansoprazole [Dexilant] 60 MG Cap.Dr.Bp PO SCH (08:38)
--- NOTE | 2020-08-29 15:14 | PDOC.HOSPP ---
- Subjective Encounter Date: 08/29/20 - Objective Vital Signs & Weight: Vital Signs (12 hours) Temp Pulse Resp BP BP Pulse Ox 08/29/20 14:14 65 18 95 08/29/20 11:30 98.7 F 83 18 115/73 95 08/29/20 08:37 76 132/76 08/29/20 07:31 76 16 95 08/29/20 07:27 98 F 68 18 132/72 98 08/29/20 04:30 98.3 F 71 16 136/80 92 L Weight Weight 118 lb I&O: 08/28/20 08/29/20 08/30/20 06:59 06:59 06:59 Intake Total 2100 1540 Balance 2100 1540 Result Diagrams: 08/29/20 06:20 08/29/20 06:20 Additional Labs: Accuchecks 08/29/20 08/29/20 08/28/20 11:29 04:19 22:18 POC Glucose 195 H 162 H 217 H 08/28/20 08/28/20 16:23 11:35 POC Glucose 268 H 245 H Hospitalist ROS - Medication Medications: Active Medications Generic Name Dose Route Start Last Admin Trade Name Freq PRN Reason Stop Dose Admin Acetaminophen 650 mg 08/22/20 17:27 08/22/20 18:34 Acetaminophen 325 Mg Tab PO 650 mg Q6H PRN Administration Fever Hydrocodone Bitart/Acetaminophen 1 tab 08/21/20 23:14 08/29/20 15:01 Hydrocodone/Acetaminophen 5/325 Mg Tablet PO 1 tab Q4H PRN Administration Moderate Pain (4-6) Albuterol/Ipratropium 3 ml 08/21/20 23:20 08/24/20 15:56 Ipratropium/Albuterol Sulfate 3 Ml Neb NEB 3 ml [id number] PRN Administration SOB &/or Wheezing Albuterol/Ipratropium 3 ml 08/24/20 18:30 08/29/20 14:14 Ipratropium/Albuterol Sulfate 3 Ml Neb NEB 3 ml TID-RT MIGNON Administration Amlodipine Besylate 5 mg 08/22/20 09:00 08/29/20 08:37 Amlodipine 5 Mg Tab PO 5 mg DAILY MIGNON Administration Ascorbic Acid 500 mg 08/22/20 09:00 08/29/20 08:36 Ascorbic Acid 500 Mg Chewable Tablet PO 500 mg DAILY MIGNON Administration Atorvastatin Calcium 40 mg 08/22/20 21:00 08/28/20 20:52 Atorvastatin Calcium 40 Mg Tab PO 40 mg HS MIGNON Administration Carvedilol 25 mg 08/22/20 09:00 08/29/20 08:35 Carvedilol 25 Mg Tab PO 25 mg BID MIGNON Administration Cholecalciferol 2,000 units 08/22/20 09:00 08/29/20 08:36 Cholecalciferol 1,000 Units (25 Mcg) Tab PO 2,000 units DAILY MIGNON Administration Cyanocobalamin 1,000 mcg 08/22/20 09:00 08/29/20 08:37 Cyanocobalamin (Vitamin B-12) 1,000 Mcg Tab PO 1,000 mcg DAILY MIGNON Administration Sodium Chloride 1,000 mls @ 75 mls/hr 08/23/20 16:00 08/29/20 01:22 Normal Saline 0.9% IV Not Given .[id number] MIGNON Vancomycin HCl 1.5 gm/ Device 300 mls @ 166.667 mls/hr 08/27/20 17:00 08/28/20 16:18 IVPB 300 mls 1700 MIGNON Administration Insulin Human Lispro 0 units 08/21/20 23:19 08/29/20 12:19 Humalog 300 Units/3 Ml Vial SC 2 unit .MODERATE SLIDING SC PRN Administration Moderate Correctional Scale Magnesium Oxide 400 mg 08/23/20 09:00 08/29/20 08:35 Magnesium Oxide 400 Mg Tab PO 400 mg DAILY MIGNON Administration Metformin HCl 250 mg 08/22/20 21:00 08/29/20 08:34 Metformin 500 Mg Tab PO 250 mg BID MIGNON Administration Methylprednisolone 4 mg 08/28/20 09:00 08/29/20 15:01 Methylprednisolone 4 Mg Tablet PO 08/30/20 23:00 4 mg TID MIGNON Administration Morphine Sulfate 2 mg 08/23/20 11:08 08/24/20 12:46 Morphine 2 Mg/Ml Vial SLOW IVP 2 mg Q3H PRN Administration Moderate to Severe Pain (6-10) Ondansetron HCl 4 mg 08/22/20 17:27 08/28/20 10:23 Ondansetron Odt 4 Mg Tab PO 4 mg Q4H PRN Administration Nausea Pantoprazole Sodium 40 mg 08/22/20 09:00 08/29/20 08:37 Pantoprazole 40 Mg Tab PO 40 mg DAILY MIGNON Administration Linaclotide [Linzess 0 each 08/25/20 06:30 08/29/20 06:10 ] 72 Mcg PO 1 each 0630 MIGNON Administration Dexlansoprazole [ 1 each 08/29/20 09:00 08/29/20 08:38 Dexilant] 60 Mg Cap. PO [address]Bp DAILY MIGNON Administration Sodium Chloride 10 ml 08/22/20 21:00 08/29/20 08:38 Flush - Normal Saline 10 Ml Syringe IVF 10 ml Q12HR MIGNON Administration Tizanidine HCl 4 mg 08/24/20 16:15 08/29/20 12:19 Tizanidine Hcl 4 Mg Tab PO 4 mg TIDPRN PRN Administration Muscle Spasm - Exam General Appearance: awake alert ENT: normocephalic atraumatic Neck: supple, no JVD Heart: RRR Respiratory: normal chest expansion, no tachypnea Gastrointestinal: soft Neurological: cranial nerve grossly intact, no focal deficits Hosp A/P (1) Sepsis Code(s): A41.9 - SEPSIS, UNSPECIFIED ORGANISM Status: Acute (2) MRSA bacteremia Code(s): R78.81 - BACTEREMIA; B95.62 - METHICILLIN RESIS STAPH INFCT CAUSING DISEASES CLASSD ELSWHR Status: Acute (3) COPD (chronic obstructive pulmonary disease) Status: Chronic Qualifiers: Emphysema type: unspecified (4) HLD (hyperlipidemia) Code(s): E78.5 - HYPERLIPIDEMIA, UNSPECIFIED Status: Chronic (5) DM type 2 (diabetes mellitus, type 2) Status: Chronic Qualifiers: Diabetes mellitus assisted insulin use: with assisted use Diabetes mellitus complication status: without complication Qualified Code(s): E11.9 - Type 2 diabetes mellitus without complications; Z79.4 - nursing home (current) use of insulin (6) HTN (hypertension) Code(s): I10 - ESSENTIAL (PRIMARY) HYPERTENSION Status: Chronic Qualifiers: Hypertension type: essential hypertension - Plan PICC line has been placed. Plan is to treat the patient with IV vancomycin until October 04. The patient and her family would like to receive antibiotics at home. Awaiting antibiotics to be set up for discharge.
[2020-08-29] MEDS: Vancomycin 1.5 GRAM/300 ML BAG 1.5 GM in Premix Bag 1 BAG IVPB SCH (17:15)
[2020-08-29 17:20] LABS: Vancomycin, Trough 17.5 ug/mL
[2020-08-29] MEDS: Atorvastatin Calcium 40 MG TAB PO SCH (21:03)
[2020-08-30] MEDS: HYDROcodone/Acetaminophen 5/325 mg Tablet PO PRN ×4 (03:00→15:26)
[2020-08-30] MEDS: tiZANidine HCl 4 MG TAB PO PRN ×2 (05:20→13:25)
[2020-08-30] MEDS: Linaclotide [Linzess] 72 MCG PO SCH (05:31)
[2020-08-30 06:11] LABS: #Eosinphils 0.1 thou/uL (0.0-0.7); #Lymphocytes 1.3 thou/uL (1.20-3.40); #Monocytes 0.4 thou/uL (0.11-0.59); #Neutrophils 7.5 thou/uL (1.40-6.50); %Basophils 0.1 % (0.0-1.0); %Eosinophils 0.6 % (0.0-10.0); %Lymphocytes 14.3 % (21.0-51.0); %Monocytes 4.8 % (0.0-10.0); %Neutrophils 80.3 % (42.0-75.0); Hemoglobin 8.8 g/dL (12.0-16.0); Mean Corpuscular HGB CONC 32.4 g/dL (32.0-36.0); Mean Corpuscular Hemoglobin 30.2 pg (27.0-31.0); Mean Corpuscular Volume 93.2 fL (78.0-98.0); Mean Platelet Volume 7.5 fL (7.4-10.4); Platelet Count 455 thou/uL (130-400); RBC Distribution Width 14.5 % (11.5-14.5); Red Blood Cell (RBC) Count 2.93 mill/uL (4.20-5.40); White Blood Cell (WBC) Count 9.3 thou/uL (4.8-10.8)
[2020-08-30] MEDS: HumaLOG 300 UNITS/3 ML VIAL SC PRN ×2 (06:19→12:26)
[2020-08-30 06:34] LABS: Anion Gap 16 mmol/L (10-20); BUN (Urea Nitrogen) 12 mg/dL (9.8-20.1); Calc. Creatinine Clearance 50 mL/min (70-130); Calcium 7.7 mg/dL (7.8-10.44); Carbon Dioxide 27 mmol/L (23-31); Chloride 99 mmol/L (98-107); Estimated GFR-MDRD 72; Glucose 177 mg/dL (83-110); Potassium 4.1 mmol/L (3.5-5.1); Sodium 138 mmol/L (136-145)
[2020-08-30] MEDS: Cholecalciferol 1,000 UNITS (25 MCG) TAB PO SCH (08:20)
[2020-08-30] MEDS: Cyanocobalamin (Vitamin B-12) 1,000 MCG TAB PO SCH (08:21)
[2020-08-30] MEDS: Amlodipine 5 MG TAB PO SCH (08:21)
[2020-08-30] MEDS: methylPREDNISolone 4 mg Tablet PO SCH ×2 (08:21→15:25)
[2020-08-30] MEDS: Ascorbic Acid 500 mg Chewable Tablet PO SCH (08:21)
[2020-08-30] MEDS: Carvedilol 25 MG TAB PO SCH (08:21)
[2020-08-30] MEDS: Magnesium Oxide 400 MG TAB PO SCH (08:21)
[2020-08-30] MEDS: metFORMIN 500 MG TAB PO SCH (08:22)
[2020-08-30] MEDS: Dexlansoprazole [Dexilant] 60 MG Cap.Dr.Bp PO SCH (08:25)
[2020-08-30 15:48] VITALS: BP 106/60; TEMP 98.3
[2020-08-30] MEDS: Vancomycin 1.5 GRAM/300 ML BAG 1.5 GM in Premix Bag 1 BAG IVPB SCH (16:42)
--- NOTE | 2020-08-31 02:20 | DIS ---
DATE OF ADMISSION: 08/21/2020 DATE OF DISCHARGE: 08/30/2020 DISCHARGE DIAGNOSES: 1. Sepsis. 2. Methicillin-resistant Staphylococcus Aureus bacteremia. 3. Chronic obstructive pulmonary disease. 4. Hyperlipidemia. 5. Diabetes mellitus type 2. 6. Hypertension. DISCHARGE MEDICATIONS: IV vancomycin with pharmacy to dose until October 04. Rest of the patient's discharge medications are unchanged. HISTORY OF PRESENT ILLNESS AND HOSPITAL COURSE: The patient is a 79-year-old female with past medical history of diabetes mellitus type 2, hypertension, hyperlipidemia, and cerebrovascular accident who presented to the hospital with complaints of back pain. The patient underwent three spinal surgeries this year and the latest one was a week prior to presentation. The patient was found to be septic on admission and was started on empiric IV antibiotics. Blood cultures were obtained, which showed growth of methicillin-resistant Staphylococcus aureus. ID was consulted and surgical site infection was contemplated as a source of the infection. Neurosurgery evaluated the patient and did not think that the surgical site was infected. The patient was managed with IV vancomycin, and ID recommended continuing management until the date mentioned above. At the time of discharge, the patient did not have any signs of sepsis. Job ID: [id number]
[2020-08-31] MEDS ORDERED: methylPREDNISolone 4 mg Tablet PO SCH (09:00)
[2020-09-02] MEDS ORDERED: methylPREDNISolone 4 mg Tablet PO SCH (09:00)
== END 2020-08-30 19:15 | disposition home or self-care (01) | DRG 862 ==
LOC: ERS 18:37 → SURG B 21:36
PROVIDERS: ADMIT Internal Medicine; ATTEND Internal Medicine
PROC: 02HV33Z Insertion of Infusion Device into Superior Vena Cava, Percutaneous Approach (ICD-10-PCS; principal; 2020-08-26)
PROC: B518ZZA Fluoroscopy of Superior Vena Cava, Guidance (ICD-10-PCS; 2020-08-26)
DX: T81.49XA Infection following a procedure, other surgical site, initial encounter (principal); A41.02 Sepsis due to Methicillin resistant Staphylococcus aureus; E87.1 Hypo-osmolality and hyponatremia; J44.9 Chronic obstructive pulmonary disease, unspecified; E11.9 Type 2 diabetes mellitus without complications; I25.10 Atherosclerotic heart disease of native coronary artery without angina pectoris; Z20.828 Contact with and (suspected) exposure to other viral communicable diseases; E78.00 Pure hypercholesterolemia, unspecified; Z90.49 Acquired absence of other specified parts of digestive tract; Z90.710 Acquired absence of both cervix and uterus; Z87.891 Personal history of nicotine dependence; Z88.8 Allergy status to other drugs, medicaments and biological substances; Z79.82 Long term (current) use of aspirin; Z79.899 Other long term (current) drug therapy; Z79.84 Long term (current) use of oral hypoglycemic drugs; Z79.51 Long term (current) use of inhaled steroids; Z86.73 Personal history of transient ischemic attack (TIA), and cerebral infarction without residual deficits; Z98.890 Other specified postprocedural states; I25.2 Old myocardial infarction; Z95.5 Presence of coronary angioplasty implant and graft
CPT/HCPCS: 36415; 36416; 36569; 71045; 72132; 80048; 80053; 80202; 81003; 82565; 83605; 85025; 85652; 86140; 87040; 87077; 87086; 87149; 87186; 87635; 93005; 94640; 96365; 96367; C1751; J0692; J1200; J1644; J2270; J3370; J3490; J7050; J7509; J7620; Q0162; Q9967; U0003

== ENCOUNTER 2020-09-09 17:59 | Inpatient (IN) | payer MEDICARE, MEDICAID ==
[2020-09-09 18:48] LABS: #Eosinphils 0.4 thou/uL (0.0-0.7); #Lymphocytes 1.5 thou/uL (1.20-3.40); #Monocytes 0.5 thou/uL (0.11-0.59); %Basophils 0.6 % (0.0-1.0); %Eosinophils 6.9 % (0.0-10.0); %Monocytes 9.5 % (0.0-10.0); Hemoglobin 9.2 g/dL (12.0-16.0); Mean Corpuscular HGB CONC 32.1 g/dL (32.0-36.0); Mean Corpuscular Hemoglobin 29.5 pg (27.0-31.0); Mean Corpuscular Volume 92.1 fL (78.0-98.0); Mean Platelet Volume 7.6 fL (7.4-10.4); Platelet Count 400 thou/uL (130-400); RBC Distribution Width 14.1 % (11.5-14.5); Red Blood Cell (RBC) Count 3.12 mill/uL (4.20-5.40); White Blood Cell (WBC) Count 5.5 thou/uL (4.8-10.8)
[2020-09-09 19:07] LABS: ALT (SGPT) Less than 7 U/L (8-55); AST (SGOT) 12 U/L (5-34); Albumin 3.5 g/dL (3.4-4.8); Alkaline Phosphatase 63 U/L (40-110); Anion Gap 15 mmol/L (10-20); BUN (Urea Nitrogen) 11 mg/dL (9.8-20.1); Bilirubin, Total 0.2 mg/dL (0.2-1.2); CRP (Inflammatory) 2.11 mg/dL (= or < 0.5); Calc. Creatinine Clearance 0 mL/min (70-130); Calcium 8.5 mg/dL (7.8-10.44); Carbon Dioxide 25 mmol/L (23-31); Chloride 102 mmol/L (98-107); Globulin 4.1 g/dL (2.4-3.5); Glucose 147 mg/dL (83-110); Magnesium 1.2 mg/dL (1.6-2.6); Potassium 3.8 mmol/L (3.5-5.1); Protein, Total 7.6 g/dL (6.0-8.3); Sodium 138 mmol/L (136-145)
--- NOTE | 2020-09-09 19:09 | RAD ---
PORTABLE CHEST: 09/09/20 PROVIDED CLINICAL HISTORY: Fever. COMPARISON: 08/21/20. Cardiac and mediastinal silhouette is unchanged in appearance. Vascular calcifications involves the a ortic arch. Left upper extremity PICC line is demonstrated, tip of which terminates in the expected l ocation off SVC. IMPRESSION: No evidence for an acute cardiopulmonary process. POS: DONAVAN
[2020-09-09] MEDS ORDERED: Sterile Water 10 ML VIAL IVP SCH (20:00)
[2020-09-09] MEDS ORDERED: Activase 2 MG VIAL CATH SCH (20:00)
--- NOTE | 2020-09-09 20:26 | MRI ---
MRI THORACIC SPINE 09/09/20 PROVIDED CLINICAL HISTORY: Sepsis with history of multiple spinal surgeries. FINDINGS: Comparison is made with examination dated 05/28/20. Thoracic alignment remains normal. Vertebral body heights are preserved. Degenerative changes are aga in seen involving the T7, T8 and T9 disc spaces. There is no disc space T2 hyperintensity. Regional m arrow signal appears unremarkable. There is a normal appearance to the thoracic spinal cord. There is no significant central canal or foraminal narrowing apparent. IMPRESSION: No evidence for acute process. POS: DONAVAN
--- NOTE | 2020-09-09 20:50 | MRI ---
MRI OF THE LUMBAR SPINE 09/09/20 PROVIDED CLINICAL HISTORY: Sepsis of unknown origin, multiple spinal surgeries. FINDINGS: Comparison is made with the CT examination dated 08/21/20 and the MR examination dated 05/28/20. Extensive postoperative changes involving the lower lumbar spine are redemonstrated, as described in detail on CT of 08/21/20. There is persistent fluid collection within the right paraspinal musculature posterior to L5-S1 measu ring at least 2.2 cm in AP dimension and 3.3 cm in craniocaudal dimension. There is a 1.6 cm mixed signal intensity but primarily T2 hyperintense structure within the epidural space anterior and anterior left lateral at the level of L5. This measures at least 2.1 cm in cranioc audal dimension. This produces mass effect upon the thecal sac and displaces the traversing left side d nerve roots. The thecal sac is severely compressed between the inferior aspects of this epidural mass and the para spinal fluid collection described above. There is extensive diminished signal intensity on T1 weighte d sequences and increased signal intensity on fluid sensitive sequences involving the left lamina of L5, extending to involve the left inferior articular facet and the superior articular facet of S1 lef t of midline. Severe bilateral foraminal narrowing at L5-S1 persists. Cranial to L5, significant interval change with respect to the prior MRI is not apparent. IMPRESSION: 1. Signal alteration involving the left lamina of L5 extending to involve the inferior articular facet of L5 and superior articular facet of S1, suspicious for osteomyelitis. 2. Epidural fluid collection within the anterior and anterior left lateral aspects of the spinal canal at L5 as described above suspicious for epidural abscess. 3. Fluid collection within the paraspinal soft tissues at L5, also suspicious for abscess. POS: DONAVAN
[2020-09-09] MEDS ORDERED: Cefepime 2 GM VIAL ONE (21:34)
[2020-09-09] MEDS ORDERED: Sodium Chloride 0.9% 100 ML ONE (21:35)
--- NOTE | 2020-09-09 22:10 | PDOC.HHP ---
Hospitalist HPI - History of Present Illness [facility] History of Present Illness: PCP: Dr. Mei The patient is a 79-year-old female with a past medical history significant for multiple spinal surgeries, CAD, DM 2, and COPD that presents to the emergency department for the above complaint. The patient recently underwent back surgery to her lumbar spine 08/[address] Angulo. Then on 09/20/2020, the patient was admitted to the hospital for sepsis with an unknown source. At that time, Dr. Angulo with neurosurgery felt that the surgical site was clean and the CT did not show confirmation of an abscess. Dr. Barba recommended IV antibiotics with outpatient follow up. Therefore, the patient was discharged home with vancomycin and PICC line in place. Patient reports that over the past several days she has had increased back pain with associated weakness to her lower extremities. Her family members contacted Dr. Barba, who recommended that the patient return to the hospital for further evaluation. The patient denies any saddle anesthesia, loss of function of bowel/bladder or fever/chills. Denies any abdominal pain, nausea, vomiting, diarrhea. Denies dysuria and hematuria. Den ies any chest pain, heart palpitations, lightheadedness or swelling to lower extremities. Denies any shortness of breath, wheezing or hemoptysis. ED Course: VITAL SIGNS SatSep 09, 2020 18:01 SRUTHI Duarte Jennifer BP: 142/72, Pulse: 72, Resp: 18, Temp: 98.7 (Oral), Pain: 10, O2 sat: 96 on (Room Air), Time: 09/09/2020 18:01. VITAL SIGNS SatSep 09, 2020 19:14 SRUTHI Knott Catherine BP: 169/91, Pulse: 74, Resp: 18, O2 sat: 96 on (Room Air), Time: 09/09/2020 19:14. VITAL SIGNS SatSep 09, 2020 21:31 SRUTHI Lopez Brianna BP: 99/51, Pulse: 61, Resp: 16, Pain: 7, O2 sat: 94 on (Room Air), Time: 09/09/2020 21:31. VITAL SIGNS SatSep 09, 2020 21:31 SRUTHI Lopez Brianna MAP: 67, Time: 09/09/2020 21:31. Medications: vancomycin intravenous 1 g IV Piggy Back Acknowledged 21:11 09/09/2020 cefepime injection 2 g IV Push Given 21:42 09/09/2020 acetaminophen-codeine 1 tab(s) Oral Given 21:02 09/09/2020 Cathflo Activase 2 mg IV Push Given 20:55 09/09/2020 tiZANidine 4 mg Oral Given 20:53 09/09/2020 Hospitalist ROS - Review of Systems All other systems reviewed; all pertinent +/- noted in HPI/Subj - Medication Medications: Medication Instructions Recorded Confirmed Type Amlodipine Besylate [amLODIPine 5 mg PO DAILY 04/11/18 08/22/20 History Besylate] Aspirin Chewable [Aspirin Chewable 1 tab PO DAILY 04/11/18 08/22/20 History Tablet] Atorvastatin Calcium [Lipitor] 40 mg PO HS 04/11/18 08/22/20 History Carvedilol [Coreg] 25 mg PO BID 04/11/18 08/22/20 History Cholecalciferol (Vitamin D3) 2,000 unit PO DAILY 04/11/18 08/22/20 History [Vitamin D] Cyanocobalamin (Vitamin B-12) 1,000 mcg PO DAILY 04/11/18 08/22/20 History [Vitamin B-12] Dexlansoprazole [Dexilant] 1 cap PO DAILY 04/11/18 08/22/20 History metFORMIN [Glucophage] 250 mg PO BID #0 04/11/18 08/22/20 Rx tiZANidine HCl [Tizanidine HCl] 4 mg PO PRN PRN 04/11/18 08/22/20 History Albuterol Sulfate [Albuterol 1 applic PO TID 03/30/20 08/22/20 History Sulfate Neb] Acetaminophen With Codeine 1 tab PO Q6HR 08/16/20 08/22/20 History [Acetaminophen/Codeine #4] Ascorbic Acid [Vitamin C] 500 mg PO DAILY 08/16/20 08/22/20 History Linaclotide [Linzess] 72 mcg PO DAILY 08/16/20 08/22/20 History Magnesium Oxide [Magnesium] 400 mg PO DAILY 08/16/20 08/22/20 History methylPREDNISolone [Medrol] 1 tab PO ASDIR 08/24/20 08/24/20 History Vancomycin 1.5 GRAM/300 ML BAG 1.5 gm IVPB 1700 bag 08/30/20 Rx [Vancomycin 1.5 Gram/300 ml Bag] Allergies zolpidem [From Ambien] Allergy (Verified 04/25/20 14:55) morphine Adverse Reaction (Verified 08/25/20 03:20) Hospitalist History - Past Medical History Source: patient, family, RN notes reviewed Cardiac: reports: CAD (X1 stent), HTN, Hyperlipidemia Pulmonary: reports: COPD NODULIZER: reports: TIA Gastrointestinal: reports: GERD Endocrine: reports: Diabetes (Type II) - Past Surgical History Past Surgical History: reports: Appendectomy, , Hysterectomy, Other (CAD x1, right foot, back surgeries x4, neck surgery) - Family History Other Family History: Noncontributory to this case - Social History Smoking Status: Former smoker (Quit greater than 10 years ago) Alcohol: reports: None Drugs: reports: none Living Situation: With Family Occupation: Does not work Activity level: uses cane/walker - Exam General Appearance: NAD, awake alert. negative: ill appearing Eye: PERRL, anicteric sclera ENT: normocephalic atraumatic Neck: supple, symmetric Heart: RRR, no murmur, no gallops, no rubs, normal peripheral pulses Respiratory: CTAB, no wheezes, no rales, no ronchi, normal chest expansion, no tachypnea Gastrointestinal: soft, non-tender, non-distended, normal bowel sounds, no guarding, no rigidity Extremities: no cyanosis, no edema Skin: no rashes Neurological: cranial nerve grossly intact Neurological - other findings: HSNE thoracic and lumbar spine intact Psychiatric: normal affect, A&O x 3 Hospitalist Results - Labs Result Diagrams: 09/09/20 18:33 09/09/20 18:33 Lab results: WBC 5.5 thou/uL (4.8-10.8) 09/09/20 18:33 Hgb 9.2 g/dL (12.0-16.0) L 09/09/20 18:33 Hct 28.7 % (36.0-47.0) L 09/09/20 18:33 MCV 92.1 fL (78.0-98.0) 09/09/20 18:33 Plt Count 400 thou/uL (130-400) 09/09/20 18:33 Neutrophils % 55.0 % (42.0-75.0) 09/09/20 18:33 ESR Westergren 82 mm/hr (Less than 30) H 09/09/20 18:33 Sodium 138 mmol/L (136-145) 09/09/20 18:33 Potassium 3.8 mmol/L (3.5-5.1) 09/09/20 18:33 Chloride 102 mmol/L (98-107) 09/09/20 18:33 Carbon Dioxide 25 mmol/L (23-31) 09/09/20 18:33 BUN 11 mg/dL (9.8-20.1) 09/09/20 18:33 Creatinine 1.10 mg/dL (0.6-1.1) 09/09/20 18:33 Glucose 147 mg/dL (83-110) H 09/09/20 18:33 Lactic Acid 1.3 mmol/L (0.5-2.2) 09/09/20 18:33 Calcium 8.5 mg/dL (7.8-10.44) 09/09/20 18:33 Total Bilirubin 0.2 mg/dL (0.2-1.2) 09/09/20 18:33 AST 12 U/L (5-34) 09/09/20 18:33 ALT Less than 7 U/L (8-55) L 09/09/20 18:33 Alkaline Phosphatase 63 U/L (40-110) 09/09/20 18:33 C-Reactive Protein 2.11 mg/dL (= or < 0.5) H 09/09/20 18:33 Serum Total Protein 7.6 g/dL (6.0-8.3) 09/09/20 18:33 Albumin 3.5 g/dL (3.4-4.8) 09/09/20 18:33 - Radiology Interpretation Other Status: report reviewed by me Additional Comment: MRI Lumbar spine IMPRESSION: 1. Signal alteration involving the left lamina of L5 extending to involve the inferior articular facet of L5 and superior articular facet of S1, suspicious for osteomyelitis. 2. Epidural fluid collection within the anterior and anterior left lateral aspects of the spinal canal at L5 as described above suspicious for epidural abscess. 3. Fluid collection within the paraspinal soft tissues at L5, also suspicious for abscess. MRI Thoracic spine: IMPRESSION: No evidence for acute process. Chest x-ray Status: report reviewed by me Additional Comment: IMPRESSION: No evidence for an acute cardiopulmonary process. Hospitalist H&P A/P - Problem (1) Abscess in epidural space of lumbar spine Code(s): G06.1 - INTRASPINAL ABSCESS AND GRANULOMA Status: Acute (2) Osteomyelitis of lumbar spine Code(s): M46.26 - OSTEOMYELITIS OF VERTEBRA, LUMBAR REGION Status: Acute (3) Back pain Code(s): M54.9 - DORSALGIA, UNSPECIFIED Status: Chronic (4) Hypomagnesemia Code(s): E83.42 - HYPOMAGNESEMIA Status: Acute (5) CAD (coronary artery disease) Code(s): I25.10 - ATHSCL HEART DISEASE OF [place] CORONARY ARTERY W/O ANG PCTRS Status: Chronic (6) HTN (hypertension) Code(s): I10 - ESSENTIAL (PRIMARY) HYPERTENSION Status: Chronic (7) HLD (hyperlipidemia) Code(s): E78.5 - HYPERLIPIDEMIA, UNSPECIFIED Status: Chronic (8) DM2 (diabetes mellitus, type 2) Status: Chronic (9) COPD (chronic obstructive pulmonary disease) Status: Chronic - Plan Plan: 79/F with PMH recent back surgery presents for increasing back pain. Admit to medical floor, inpatient status. Expected length of stay greater than 2 midnights. Presented stable vital signs MRI lumbar spine suspicious for OM and SEA at L5 MRI thoracic spine no acute process CXR no acute process ESR 82, CRP 2.11, LA 1.3, WBC 5.5 Blood/urine CX pending MG 1.2, BG 147 #Abscess in epidural space of lumbar spine Neurosurgery consulted in ED. Agreed to see tomorrow. Recommend vancomycin and cefepime IVPB. N.p.o. IV maintenance fluids. Tylenol with codeine and tizanidine for analgesia scheduled per patient request. Zofran as needed Consult ID #Osteomyelitis of lumbar spine Plan as per problem #1 #Back pain Likely due to problem #1 and #2 #Hypomagnesia Acute on chronic. Presented mag 1.2 Give 2 g mag IVPB Restart home Mag-Ox dosing. #CAD Chronic, stable. Takes Coreg and aspirin at home. Restart home medications #HTN Presented normotensive. Restart home dose Norvasc and Coreg. #HLD Restart home dose atorvastatin #DM2 Takes metformin at home. Hold home dose Metformin. Mild ISS. Every 6 Accu-Cheks. #COPD Chronic, stable. Restart home medications. SCDs for DVT prophylaxis. Protonix for GI prophylaxis. Full code. Family contact is Consuelo Waldron at [phone]. Discussed the case with Dr. Abdiel Escudero.
[2020-09-09] MEDS ORDERED: Bisacodyl 5 MG TAB PO PRN (22:53)
[2020-09-09] MEDS ORDERED: Acetaminophen 325 MG TAB PO PRN (22:53)
[2020-09-09] MEDS ORDERED: Senokot S 8.6-50 MG TAB PO PRN (22:53)
[2020-09-09] MEDS ORDERED: Calcium Carbonate 500 MG ChewTAB PO PRN (22:53)
[2020-09-09] MEDS ORDERED: Ondansetron ODT 4 MG TAB PO PRN (22:53)
[2020-09-09] MEDS ORDERED: Vancomycin 1 GM/200 ML BAG ONE (23:01)
[2020-09-09] MEDS ORDERED: HumaLOG 300 UNITS/3 ML VIAL SC PRN (23:21)
[2020-09-09] MEDS ORDERED: Dextrose 50% Abboject 50 ML SYRINGE SLOW IVP PRN (23:21)
[2020-09-09] MEDS ORDERED: Dextrose 5% in Water 1,000 ML IV PRN (23:21)
[2020-09-09] MEDS ORDERED: Magnesium 2 GM/50 ML 2 GM in Premix Bag 1 BAG IVPB SCH (23:30)
[2020-09-10] MEDS: Sodium Chloride 0.9% 1,000 ML IV SCH ×3 (01:08→15:09)
[2020-09-10] MEDS: Acetaminophen/Codeine 30-300mg Tablet PO SCH ×5 (01:09→23:51)
[2020-09-10 01:26] VITALS: BMI 20.5
[2020-09-10] MEDS: tiZANidine HCl 4 MG TAB PO SCH ×3 (05:36→20:49)
[2020-09-10 05:59] LABS: #Eosinphils 0.3 thou/uL (0.0-0.7); #Lymphocytes 1.2 thou/uL (1.20-3.40); #Monocytes 0.4 thou/uL (0.11-0.59); #Neutrophils 3.6 thou/uL (1.40-6.50); %Basophils 0.3 % (0.0-1.0); %Eosinophils 5.3 % (0.0-10.0); %Lymphocytes 22.5 % (21.0-51.0); %Monocytes 7.6 % (0.0-10.0); %Neutrophils 64.4 % (42.0-75.0); Hemoglobin 9.3 g/dL (12.0-16.0); Mean Corpuscular HGB CONC 32.4 g/dL (32.0-36.0); Mean Corpuscular Hemoglobin 29.8 pg (27.0-31.0); Mean Corpuscular Volume 91.9 fL (78.0-98.0); Mean Platelet Volume 7.6 fL (7.4-10.4); Platelet Count 393 thou/uL (130-400); RBC Distribution Width 14.1 % (11.5-14.5); Red Blood Cell (RBC) Count 3.13 mill/uL (4.20-5.40); White Blood Cell (WBC) Count 5.5 thou/uL (4.8-10.8)
[2020-09-10 06:11] LABS: Anion Gap 14 mmol/L (10-20); BUN (Urea Nitrogen) 10 mg/dL (9.8-20.1); Calc. Creatinine Clearance 42 mL/min (70-130); Calcium 8.4 mg/dL (7.8-10.44); Carbon Dioxide 26 mmol/L (23-31); Chloride 103 mmol/L (98-107); Glucose 141 mg/dL (83-110); Potassium 3.7 mmol/L (3.5-5.1); Sodium 139 mmol/L (136-145)
[2020-09-10] MEDS: Linaclotide [Linzess] 72 MCG Capsule PO SCH (08:13)
[2020-09-10] MEDS: Magnesium Oxide 400 MG TAB PO SCH (08:14)
[2020-09-10] MEDS: Cyanocobalamin (Vitamin B-12) 1,000 MCG TAB PO SCH (08:14)
[2020-09-10] MEDS: Cholecalciferol 1,000 UNITS (25 MCG) TAB PO SCH (08:14)
[2020-09-10] MEDS: Aspirin Chewable 81 MG TAB PO SCH ×2 (08:14→09:06)
[2020-09-10] MEDS: Ascorbic Acid 500 mg Chewable Tablet PO SCH (08:14)
[2020-09-10] MEDS: Carvedilol 25 MG TAB PO SCH ×2 (08:15→20:49)
[2020-09-10] MEDS: Pantoprazole 40 MG VIAL IVP SCH (08:16)
--- NOTE | 2020-09-10 08:33 | CON ---
DATE OF CONSULTATION: 09/10/2020 HISTORY OF PRESENT ILLNESS: The patient is a 79-year-old female with a past medical history of multiple prior lumbar spinal surgeries, coronary artery disease, type 2 diabetes, COPD, who is known to Dr. Angulo's service for a revision of her decompression at L4-L5 on 08/17/2020, who subsequently developed bacteremia on 08/22/2020. She returned to the hospital at that time and was found to have fever and MRSA bacteremia. She was evaluated by ID as well as Dr. Angulo's team and they decided to treat with long-term IV vancomycin. It was felt by the IV team that since there was no clear etiology that this could represent a spinal infection. The patient since has been getting IV vancomycin at home, but she has continued to have progression of her back and particularly left leg pain. She reports she has gotten significantly weaker in the legs and was previously walking across the house, but now is only able to tolerate standing for a short period of time. She denies any fever or incisional issues. She came to the ER [facility] and had a new MRI, which shows suspicion for progression of infectious changes at L4-L5 with epidural abscess, osteomyelitis, and diskitis. She was admitted to the medical team, and cefepime was added to her IV regimen. Neurosurgery was consulted for evaluation. PAST MEDICAL HISTORY: Coronary artery disease, diabetes, COPD, and multiple prior lumbar surgeries. FAMILY HISTORY: Noncontributory. SOCIAL HISTORY: She does not smoke, drink, or use any drugs. PHYSICAL EXAMINATION: VITAL SIGNS: Stable, afebrile. GENERAL: Comfortable. A and O x4. HEAD: Normocephalic, atraumatic. EYES: PERRLA. Extraocular movements intact. ENT: Protection, intact, moist. She has normal voice. NECK: Nontender. Free active range of motion. No meningismus. No nuchal rigidity. CARDIAC: Regular rate and rhythm. PULMONARY: Symmetric chest expansion. MUSCULOSKELETAL: Free active range of motion of all extremities. No focal motor weakness in the bed. She has good strength in the bed. NEUROLOGIC: A and O x4. No gross motor deficits in the bed as I did not attempt to ambulate the patient. ASSESSMENT AND PLAN: The patient has progressive back and left claudicatory leg pain in the setting of recent spinal surgery and diagnosis of methicillin-resistant Staphylococcus aureus bacteremia. She is getting IV vancomycin, but she has had progression of her back pain and some new worrisome changes at L4-L5 concerning for increased infectious process. I have discussed these changes with Dr. Du. He will also review and meet with the family. Job ID: [id number]
[2020-09-10] MEDS: Albuterol Sulfate 1.25 MG/3 ML NEB NEB SCH ×3 (08:55→18:47)
[2020-09-10] MEDS: Cefepime 2 GM in Sodium Chloride 0.9% 100 ML IVPB SCH ×2 (10:09→20:49)
[2020-09-10] MEDS: Amlodipine 5 MG TAB PO SCH (10:35)
[2020-09-10] MEDS ORDERED: Fentanyl 100 MCG/2 ML VIAL ONE ×2 (11:28→14:17)
[2020-09-10 12:20] LABS: SARS-CoV-2 NAA Rapid Test Not Detected (NotDetected)
[2020-09-10] MEDS ORDERED: Sodium Chloride 0.9% 10 ML ONE (12:25)
[2020-09-10] MEDS ORDERED: PROPOFOL 200 MG/20 ML VIAL ONE (12:45)
[2020-09-10] MEDS ORDERED: Glycopyrrolate 0.2 MG/ML 5 ML SYRINGE ONE (12:45)
[2020-09-10] MEDS ORDERED: ePHEDrine 50 MG/ML VIAL ONE (12:45)
[2020-09-10] MEDS ORDERED: Lidocaine 1% PF 5 ML VIAL ONE (12:45)
[2020-09-10] MEDS ORDERED: Ondansetron PF 4 MG/2 ML Vial ONE (12:45)
[2020-09-10] MEDS ORDERED: Rocuronium Bromide 10 MG/ML (10ML VIAL) ONE (12:45)
--- NOTE | 2020-09-10 12:55 | PRG ---
DATE OF SERVICE: 09/10/2020 The patient was seen and examined. I agree with Shelli Adamson's evaluation on 09/10/2020. The patient is a 79-year-old woman, who has had a prior lumbar fusion elsewhere some time ago and then on the 17 of August, underwent additional decompression at the L5 level by Dr. Angulo. She did well from that procedure, but then was readmitted with bacteremia of an unknown source. She was started on IV vancomycin. Over the past week, she has had progressive issues with back pain, bilateral leg pain, right greater than left in a radicular pattern, and a feeling of weakness, which has now resulted in her walking poorly with a walker. Her wound looks good. Currently, she is afebrile without white count, but does have elevated sedimentation rate and C-reactive protein. The patient's MRI lumbar spine reveals fluid collections at the left L5 pedicle level and at the right L5 deep wound level surrounding prior screw. IMPRESSION AND PLAN: The patient has had recent sepsis and is on IV antibiotics. She has a progressive neurologic deterioration in the lower extremities as well as back pain and imaging that is suspicious for infection. I have recommended exploration to sample for any infection, washout, infection should it exist and consider removal of hardware should we identify any infection. I discussed the indications, risks, benefits, and alternatives of the procedure with the patient and her daughter. All of their questions were answered and they wished to proceed. Job ID: [id number]
[2020-09-10] MEDS ORDERED: Ondansetron HCl/PF 4 MG/2 ML Vial IVP PRN (14:05)
[2020-09-10] MEDS ORDERED: Promethazine HCl 25 MG/ML VIAL IM PRN (14:05)
[2020-09-10] MEDS ORDERED: Promethazine HCl 25 MG/ML VIAL SLOW IVP PRN (14:05)
--- NOTE | 2020-09-10 14:16 | OP ---
DATE OF PROCEDURE: 09/10/2020 MANAGER COLLEGE: Juan Diego. PROCEDURES PERFORMED: Wound exploration and evacuation of abscess via laminectomy, attempted removal of hardware, exploration of spinal fusion L4-5. DESCRIPTION OF PROCEDURE: The patient was brought to the operating room and intubated. She was rolled in a prone position on gel-filled chest rolls. The previous incision was reopened. We exposed the right-sided hardware and beneath the right L5 screw, identified a pocket of semi-purulent material. Two swabs from this region were sent for microbiology. This was then completely evacuated and debrided and extensively irrigated. Similarly on the left, we followed the left L5 screw along the left L5 pedicle to try to identify the pocket of epidural abscess here. The material was not liquid, but more granular and this was also debrided. After we had identified the infectious material, we fully explored the L4-5 area and the fusion seemed to be quite solid. In fact, the hardware was large encased by bone. We attempted then to remove the hardware and we were able to remove the inferior right L5 nut, but could not remove the superior right L4 nut. At this point, given the encasement of hardware with bone and the inability to remove the locking nuts, we aborted further attempts at hardware removal. After extensively irrigated area in the wound with bacitracin irrigation, vancomycin powder was applied with particular attention to the infectious cavities and the wound was closed in anatomic layers over a drain. Job ID: [id number]
--- NOTE | 2020-09-10 15:38 | PDOC.HOSPP ---
- Subjective Encounter Date: 09/10/20 Encounter Time: 15:30 Subjective: Patient returned from the OR. Doing well. Her daughter at bedside. normotensive. - Objective Vital Signs & Weight: Vital Signs (12 hours) Temp Pulse Resp BP BP Pulse Ox 09/10/20 14:45 97.9 F 66 18 136/74 95 09/10/20 10:35 64 104/60 09/10/20 08:55 64 18 99 09/10/20 07:18 98.2 F 65 17 104/60 93 L 09/10/20 04:55 97.8 F 71 16 145/78 H 94 L Weight Weight 116 lb 3.2 oz Result Diagrams: 09/10/20 05:45 09/10/20 05:45 Additional Labs: Accuchecks 09/10/20 04:53 POC Glucose 144 H Hospitalist ROS - Medication Medications: Active Medications Generic Name Dose Route Start Last Admin Trade Name Freq PRN Reason Stop Dose Admin Acetaminophen/Codeine Phosphate 1 tab 09/09/20 23:59 09/10/20 12:00 Acetaminophen/Codeine 30-300mg Tablet PO Not Given Q6HR MINGON Albuterol Sulfate 0.63 mg 09/10/20 06:30 09/10/20 12:44 Albuterol Sulfate 1.25 Mg/3 Ml Neb NEB Not Given TID-RT MIGNON Amlodipine Besylate 5 mg 09/10/20 09:00 09/10/20 10:35 Amlodipine 5 Mg Tab PO Not Given DAILY MIGNON Ascorbic Acid 500 mg 09/10/20 09:00 09/10/20 08:14 Ascorbic Acid 500 Mg Chewable Tablet PO 500 mg DAILY MIGNON Administration Carvedilol 25 mg 09/10/20 09:00 09/10/20 08:15 Carvedilol 25 Mg Tab PO 25 mg BID MIGNON Administration Cholecalciferol 2,000 units 09/10/20 09:00 09/10/20 08:14 Cholecalciferol 1,000 Units (25 Mcg) Tab PO 2,000 units DAILY MIGNON Administration Cyanocobalamin 1,000 mcg 09/10/20 09:00 09/10/20 08:14 Cyanocobalamin (Vitamin B-12) 1,000 Mcg Tab PO 1,000 mcg DAILY MIGNON Administration Sodium Chloride 1,000 mls @ 90 mls/hr 09/09/20 23:00 09/10/20 15:09 Normal Saline 0.9% IV 1,000 mls .Q11H7M MIGNON Administration Cefepime HCl 2 gm/ Sodium 100 mls @ 200 mls/hr 09/10/20 10:00 09/10/20 10:09 Chloride IVPB 100 mls Q12H MIGNON Administration Magnesium Oxide 400 mg 09/10/20 09:00 09/10/20 08:14 Magnesium Oxide 400 Mg Tab PO 400 mg DAILY MIGNON Administration Pantoprazole Sodium 40 mg 09/10/20 09:00 09/10/20 08:16 Pantoprazole 40 Mg Vial IVP 40 mg DAILY MIGNON Administration Linaclotide [Linzess 0 each 09/10/20 09:00 09/10/20 08:13 ] 72 Mcg Capsule PO 1 each DAILY MIGNON Administration Tizanidine HCl 4 mg 09/10/20 06:00 09/10/20 15:07 Tizanidine Hcl 4 Mg Tab PO 4 mg Q8HR MIGNON Administration - Exam General Appearance: NAD, awake alert Eye: PERRL ENT: normocephalic atraumatic Neck: supple Heart: RRR, normal peripheral pulses Respiratory: CTAB, normal chest expansion Gastrointestinal: soft, normal bowel sounds Neurological - other findings: She has drain from the back. Psychiatric: A&O x 3 Hosp A/P - Plan (1) Abscess in epidural space of lumbar spine Code(s): G06.1 - INTRASPINAL ABSCESS AND GRANULOMA Status: Acute (2) Osteomyelitis of lumbar spine Code(s): M46.26 - OSTEOMYELITIS OF [place], LUMBAR REGION Status: Acute (3) Back pain Code(s): M54.9 - DORSALGIA, UNSPECIFIED Status: Chronic (4) Hypomagnesemia Code(s): E83.42 - HYPOMAGNESEMIA Status: Acute (5) CAD (coronary artery disease) Code(s): I25.10 - ATHSCL HEART DISEASE OF [place] CORONARY ARTERY W/O ANG PCTRS Status: Chronic (6) HTN (hypertension) Code(s): I10 - ESSENTIAL (PRIMARY) HYPERTENSION Status: Chronic (7) HLD (hyperlipidemia) Code(s): E78.5 - HYPERLIPIDEMIA, UNSPECIFIED Status: Chronic (8) DM2 (diabetes mellitus, type 2) Status: Chronic (9) COPD (chronic obstructive pulmonary disease) Status: Chronic MRI lumbar spine suspicious for OM and SEA at L5 MRI thoracic spine no acute process Status post abscess removal via laminectomy Attempt of hardware removal and exploration of spinal fusion at L4 and L5 Wound irrigation with bacitracin and vancomycin powder. Drain placement. -On vancomycin and cefepime. -ID is following with us. --Pain control and stool softener -Physical therapy consult placed. Hypertension -Currently she is normotensive. -We will add as needed hydralazine to keep her systolic below 160. Type 2 diabetes mellitus -She is on sliding scale insulin -currently her blood glucose seems to be in good range. dispo - Patient lives with the daughter. She has a service dog. Seems keen on preferentially going home as she states that her service dog needs her and she needs him.
[2020-09-10] MEDS ORDERED: Senokot S 8.6-50 MG TAB PO PRN (15:40)
[2020-09-10] MEDS ORDERED: hydrALAZINE 20 MG/ML VIAL SLOW IVP PRN (15:43)
--- NOTE | 2020-09-10 17:40 | CON ---
DATE OF CONSULTATION: 09/10/2020 REASON FOR CONSULT: Weakness in lower extremities, general malaise. Recent MRSA bacteremia with a suspicion of lumbosacral spine infection. HISTORY OF PRESENT ILLNESS: A 79-year-old whom we had evaluated recently on August 24. History of COPD, type 2 diabetes, hypertension, prior CVA, had previous spinal surgeries, one in the neck and two in the back, last one just about a week before I saw her and it basically was a decompression and reoperation with right L4-L5 and L5 foraminotomy. She developed dysuria and then worsening pain in lumbosacral area left side with fever, turned out to have abnormalities on CT, although they were not conclusive. They could potentially reflect infection. She had 2/2 sets of blood cultures positive for MRSA and she was given vancomycin. The patient decided against surgical intervention and she was released on IV vancomycin through a PICC line and yesterday the daughter called me because the patient was having weakness in lower extremities, general malaise, and having a decline in her overall health. So I directed her to come to the emergency room. She had a lumbar spine MRI which demonstrated signal alteration in lamina of L5 extending to the inferior articular facet of L5, suspicious for osteomyelitis, epidural fluid collection within the anterior and anterior left lateral aspect of the spinal canal of L5 and paraspinal soft tissues suspicious for epidural abscess and paraspinal abscess. Thoracic spine MRI was not remarkable. Initial findings included white cell count 5.5, hemoglobin 9.2. Differential was normal. Sedimentation rate 82. Creatinine 1.1. Liver profile normal. CRP 2.11. SARS-CoV RT PCR negative. Two sets of blood cultures thus far no growth. She went for surgical debridement under Dr. Du's care and the surgical report reviewed. The right side hardware was exposed and beneath the right L5 screw there was a pocket of semipurulent material. This was evacuated. On the left side, left L5 screw along the left L5 pedicle, there was a pocket of epidural abscess here as well, and some of the hardware was removed, some was not possible due to encasement by bone. The superior right L4 nut was not removed specifically. Further attempts at hardware removal were aborted because of this finding. The Gram stain from the fluid and the cultures are pending. No organism was seen in either sample, moderate WBCs were present. Cultures are pending. Currently, Ms. Gaitan is first postop day. She is awake, alert, feels cold but no headaches. No shortness of breath or cough. No abdominal pain. Voiding without difficulty. She has good sensation in the perineal area and lower extremities. PAST MEDICAL HISTORY: COPD, CVA, type 2 diabetes, hyperlipidemia, hypertension, coronary artery disease with stenting, , C-spine surgery and 2 lower back surgeries, most recent one a couple weeks ago, appendectomy, hysterectomy. SOCIAL HISTORY: Former smoker, quit more than 10 years ago. ALLERGIES: AMBIEN, NOT TRUE ALLERGY, BUT LOGGING SPECIALIST SIDE EFFECTS, AND IODINE CONTRAST WITH RASH. FAMILY HISTORY: Noncontributory. MEDICATIONS: At the moment, she is receiving 1. Norvasc. 2. Coreg. 3. Cefepime. 4. Vancomycin. PHYSICAL EXAMINATION: VITAL SIGNS: T-max 98.2, blood pressure 130/70, heart rate 66, respirations 18, and O2 saturation 95. SKIN: She has a PICC line in place with normal-appearing exit site. No Pacheco catheter. Somewhat pale in appearance. HEENT: Ocular movements conjugate. Pupils are equal. Oral cavity is somewhat dry. NECK: Supple. No jugular venous distention. LUNGS: Symmetric clear breath sounds. HEART: S1, S2. Regular rate. No S3 or S4. ABDOMEN: Soft, not distended or tender. No ascites. No bladder distention. The back area is dressed. Dressing not removed at this point. She is just immediate postop. EXTREMITIES: Good strength in lower extremities. Plantar responses are flexor. No clonus. Knee reflexes are 1+. LABORATORY DATA: The labs have been reviewed above. ASSESSMENT AND PLAN: Type 2 diabetes, chronic obstructive pulmonary disease, prior cerebrovascular accident, recent LS fusion with postop infection due to MRSA, status post debridement with evidence of epidural abscess. The patient will continue on vancomycin. I think we can probably discontinue cefepime. We will wait for the final results of cultures obtained from the site. She will need to restart her to vancomycin treatment; today would be the day one, so the end date of therapy will be October 23 approximately. Weekly labs. Following completion of IV therapy, then assuming resolution of CRP elevation, then we will transition to oral therapy with doxycycline and rifampin for probably 2 or 3 months and then suppressive doxycycline from then on. Job ID: [id number]
[2020-09-10] MEDS: HYDROcodone/Acetaminophen 5/325 mg Tablet PO PRN (19:39)
[2020-09-10] MEDS: Atorvastatin Calcium 40 MG TAB PO SCH (20:49)
[2020-09-10] MEDS ORDERED: Vancomycin 1 GM in Premix Bag 1 BAG IVPB SCH ×2 (21:00→23:00)
[2020-09-10] MEDS ORDERED: Vancomycin HCl 750 MG in Sodium Chloride 0.9% 250 ML 250 ML IVPB SCH (23:00)
[2020-09-11] MEDS: Ondansetron PF 4 MG/2 ML Vial IVP PRN ×2 (04:47→11:30)
[2020-09-11] MEDS: Acetaminophen/Codeine 30-300mg Tablet PO SCH ×4 (05:51→19:55)
[2020-09-11] MEDS: tiZANidine HCl 4 MG TAB PO SCH ×3 (05:53→21:09)
[2020-09-11] MEDS: Sodium Chloride 0.9% 1,000 ML IV SCH ×2 (06:22→19:52)
[2020-09-11 07:23] LABS: Anion Gap 13 mmol/L (10-20); BUN (Urea Nitrogen) 10 mg/dL (9.8-20.1); Calc. Creatinine Clearance 44 mL/min (70-130); Calcium 7.9 mg/dL (7.8-10.44); Carbon Dioxide 22 mmol/L (23-31); Chloride 102 mmol/L (98-107); Glucose 154 mg/dL (83-110); Potassium 3.7 mmol/L (3.5-5.1); Sodium 133 mmol/L (136-145)
[2020-09-11] MEDS: Albuterol Sulfate 1.25 MG/3 ML NEB NEB SCH ×3 (07:53→19:34)
[2020-09-11] MEDS: Linaclotide [Linzess] 72 MCG Capsule PO SCH (09:30)
[2020-09-11] MEDS: Ascorbic Acid 500 mg Chewable Tablet PO SCH (09:31)
[2020-09-11] MEDS: Carvedilol 25 MG TAB PO SCH ×2 (09:31→19:52)
[2020-09-11] MEDS: Cyanocobalamin (Vitamin B-12) 1,000 MCG TAB PO SCH (09:31)
[2020-09-11] MEDS: Magnesium Oxide 400 MG TAB PO SCH (09:31)
[2020-09-11] MEDS: Cholecalciferol 1,000 UNITS (25 MCG) TAB PO SCH (09:32)
[2020-09-11] MEDS: Pantoprazole 40 MG VIAL IVP SCH (09:32)
[2020-09-11] MEDS: Cefepime 2 GM in Sodium Chloride 0.9% 100 ML IVPB SCH ×2 (09:32→21:09)
--- NOTE | 2020-09-11 09:39 | PRG ---
DATE OF SERVICE: 09/11/2020 SUBJECTIVE: The patient is now postoperative day #1, status post exploration of her lumbar incision with washout of epidural abscess and attempted removal of hardware. She had a JASON drain placed overnight, but it had minimal output. She reports her pain is well-controlled with p.o. medication, she is tolerating regular diet, and she is voiding appropriately. She has been afebrile overnight. Cultures are currently pending. Gram stain was notable for multiple wbcs and no organism. She has been evaluated by ID, Dr. Barba and he is recommending that we can continue her current vancomycin treatment until approximately October 23 and then they will transition to oral regimen of doxycycline and rifampin for the next few months and then ultimately doxycycline from then on. OBJECTIVE: On exam this morning, she is afebrile. She is moving all 4s easily in the bed. Incision is clean, dry, and intact. There is scant amount of blood in the JASON drain. PLAN: We will go ahead and remove her JASON drain. We will continue to work on pain control mobilization. We will defer to ID and Medicine for long-term antibiotic plan. Job ID: [id number]
[2020-09-11] MEDS: Amlodipine 5 MG TAB PO SCH (09:56)
--- NOTE | 2020-09-11 10:14 | PRG ---
DATE OF SERVICE: 09/11/2020 Ms. Gaitan is resting comfortably in bed. She has good leg strength in bed. She has not had meaningful ambulation since surgery. At surgery, we found purulent fluid collection associated with right L5. Gram stain thus far has been negative. We are waiting final cultures. Bacteriology may be limited given the preoperative IV vancomycin. Dr. Barba is involved and will modify plans for antibiotics depending on final bacteriology. Hardware could not be removed. We will continue to mobilize. Job ID: [id number]
--- NOTE | 2020-09-11 13:31 | PDOC.HOSPP ---
- Subjective Encounter Date: 09/11/20 Encounter Time: 11:30 Subjective: Patient is nauseated. Daughter at bedside. Following with physical therapy. Drain in place. Mild hyponatremia. Lumbar spine swab no organisms seen. Blood cultures negative x48 hours. - Objective Vital Signs & Weight: Vital Signs (12 hours) Temp Pulse Resp BP BP Pulse Ox 09/11/20 12:13 99.4 F 78 18 156/83 H 95 09/11/20 09:56 69 110/66 09/11/20 08:21 98.2 F 69 20 112/68 100 09/11/20 07:53 70 18 94 L 09/11/20 06:00 98.2 F 84 18 148/68 H 94 L 09/11/20 02:00 60 131/70 Weight Weight 116 lb 3.2 oz I&O: 09/10/20 09/11/20 09/12/20 06:59 06:59 06:59 Output Total 0 0 Balance 0 0 Result Diagrams: 09/10/20 05:45 09/11/20 06:51 Additional Labs: Accuchecks 09/11/20 09/11/20 09/10/20 11:37 02:13 21:10 POC Glucose 124 H 142 H 164 H Hospitalist ROS - Medication Medications: Active Medications Generic Name Dose Route Start Last Admin Trade Name Freq PRN Reason Stop Dose Admin Acetaminophen/Codeine Phosphate 1 tab 09/09/20 23:59 09/11/20 11:35 Acetaminophen/Codeine 30-300mg Tablet PO 1 tab Q6HR MIGNON Administration Hydrocodone Bitart/Acetaminophen 1 tab 09/10/20 15:37 09/10/20 19:39 Hydrocodone/Acetaminophen 5/325 Mg Tablet PO 1 tab Q6H PRN Administration Pain Albuterol Sulfate 0.63 mg 09/10/20 06:30 09/11/20 07:53 Albuterol Sulfate 1.25 Mg/3 Ml Neb NEB 0.63 mg TID-RT MIGNON Administration Amlodipine Besylate 5 mg 09/10/20 09:00 09/11/20 09:56 Amlodipine 5 Mg Tab PO Not Given DAILY MIGNON Ascorbic Acid 500 mg 09/10/20 09:00 09/11/20 09:31 Ascorbic Acid 500 Mg Chewable Tablet PO 500 mg DAILY MIGNON Administration Atorvastatin Calcium 40 mg 09/10/20 21:00 09/10/20 20:49 Atorvastatin Calcium 40 Mg Tab PO 40 mg HS MIGNON Administration Carvedilol 25 mg 09/10/20 09:00 09/11/20 09:31 Carvedilol 25 Mg Tab PO 25 mg BID MIGNON Administration Cholecalciferol 2,000 units 09/10/20 09:00 09/11/20 09:32 Cholecalciferol 1,000 Units (25 Mcg) Tab PO 2,000 units DAILY MIGNON Administration Cyanocobalamin 1,000 mcg 09/10/20 09:00 09/11/20 09:31 Cyanocobalamin (Vitamin B-12) 1,000 Mcg Tab PO 1,000 mcg DAILY MIGNON Administration Sodium Chloride 1,000 mls @ 90 mls/hr 09/09/20 23:00 09/11/20 06:22 Normal Saline 0.9% IV 1,000 mls .Q11H7M MIGNON Administration Cefepime HCl 2 gm/ Sodium 100 mls @ 200 mls/hr 09/10/20 10:00 09/11/20 09:32 Chloride IVPB 100 mls Q12H MIGNON Administration Vancomycin HCl 1 gm/ Device 200 mls @ 200 mls/hr 09/10/20 23:00 09/10/20 22:31 IVPB 200 mls 2300 MIGNON Administration Magnesium Oxide 400 mg 09/10/20 09:00 09/11/20 09:31 Magnesium Oxide 400 Mg Tab PO 400 mg DAILY MIGNON Administration Ondansetron HCl 4 mg 09/09/20 22:53 09/11/20 11:30 Ondansetron Pf 4 Mg/2 Ml Vial IVP 4 mg Q6H PRN Administration Nausea/Vomiting Pantoprazole Sodium 40 mg 09/10/20 09:00 09/11/20 09:32 Pantoprazole 40 Mg Vial IVP 40 mg DAILY MIGNON Administration Linaclotide [Linzess 0 each 09/10/20 09:00 09/11/20 09:30 ] 72 Mcg Capsule PO 1 each DAILY MIGNON Administration Tizanidine HCl 4 mg 09/10/20 06:00 09/11/20 05:53 Tizanidine Hcl 4 Mg Tab PO 4 mg Q8HR MIGNON Administration - Exam General Appearance: NAD, awake alert Eye: PERRL Eye - other findings: She has drain from the back. ENT: normocephalic atraumatic Neck: supple Heart: RRR, normal peripheral pulses Respiratory: CTAB, normal chest expansion Gastrointestinal: soft, normal bowel sounds Neurological: no new deficit Musculoskeletal: generalized weakness Psychiatric: A&O x 3 Hosp A/P - Plan (1) Abscess in epidural space of lumbar spine Code(s): G06.1 - INTRASPINAL ABSCESS AND GRANULOMA Status: Acute (2) Osteomyelitis of lumbar spine Code(s): M46.26 - OSTEOMYELITIS OF [place], LUMBAR REGION Status: Acute (3) Back pain Code(s): M54.9 - DORSALGIA, UNSPECIFIED Status: Chronic (4) Hypomagnesemia Code(s): E83.42 - HYPOMAGNESEMIA Status: Acute (5) CAD (coronary artery disease) Code(s): I25.10 - ATHSCL HEART DISEASE OF [place] CORONARY ARTERY W/O ANG PCTRS Status: Chronic (6) HTN (hypertension) Code(s): I10 - ESSENTIAL (PRIMARY) HYPERTENSION Status: Chronic (7) HLD (hyperlipidemia) Code(s): E78.5 - HYPERLIPIDEMIA, UNSPECIFIED Status: Chronic (8) DM2 (diabetes mellitus, type 2) Status: Chronic (9) COPD (chronic obstructive pulmonary disease) Status: Chronic MRI lumbar spine suspicious for OM and SEA at L5 MRI thoracic spine no acute process Status post abscess removal via laminectomy Attempt of hardware removal and exploration of spinal fusion at L4 and L5 Wound irrigation with bacitracin and vancomycin powder. Drain placement. -On vancomycin and cefepime. -ID is following with us. --Pain control and stool softener -Physical therapy consult placed. Hypertension -Currently she is normotensive. -We will add as needed hydralazine to keep her systolic below 160. Type 2 diabetes mellitus -She is on sliding scale insulin -currently her blood glucose seems to be in good range. Following with physical therapy. Drain in place. Mild hyponatremia. Lumbar spine swab no organisms seen. Blood cultures negative x48 hours. dispo - Patient lives with the daughter. Home with home health versus rehab.
[2020-09-11] MEDS: Atorvastatin Calcium 40 MG TAB PO SCH (19:52)
[2020-09-11] MEDS ORDERED: Cefepime 2 GM in Sodium Chloride 0.9% 100 ML IVPB SCH (22:00)
[2020-09-11 22:41] LABS: Vancomycin, Trough 30.1 ug/mL
[2020-09-12] MEDS: Acetaminophen/Codeine 30-300mg Tablet PO SCH ×4 (01:03→17:53)
[2020-09-12] MEDS: Sodium Chloride 0.9% 1,000 ML IV SCH ×2 (04:21→17:08)
[2020-09-12] MEDS: Ondansetron PF 4 MG/2 ML Vial IVP PRN (04:25)
[2020-09-12] MEDS: tiZANidine HCl 4 MG TAB PO SCH ×3 (05:17→23:03)
[2020-09-12 05:54] LABS: #Eosinphils 0.4 thou/uL (0.0-0.7); #Monocytes 0.5 thou/uL (0.11-0.59); #Neutrophils 4.3 thou/uL (1.40-6.50); %Basophils 0.4 % (0.0-1.0); %Eosinophils 6.8 % (0.0-10.0); %Lymphocytes 15.3 % (21.0-51.0); %Monocytes 7.5 % (0.0-10.0); Hemoglobin 7.7 g/dL (12.0-16.0); Mean Corpuscular HGB CONC 33.4 g/dL (32.0-36.0); Mean Corpuscular Hemoglobin 30.7 pg (27.0-31.0); Mean Corpuscular Volume 92.1 fL (78.0-98.0); Mean Platelet Volume 8.2 fL (7.4-10.4); Platelet Count 248 thou/uL (130-400); RBC Distribution Width 14.1 % (11.5-14.5); Red Blood Cell (RBC) Count 2.49 mill/uL (4.20-5.40); White Blood Cell (WBC) Count 6.2 thou/uL (4.8-10.8)
[2020-09-12] MEDS: Albuterol Sulfate 1.25 MG/3 ML NEB NEB SCH ×3 (07:14→19:36)
[2020-09-12] MEDS: Carvedilol 25 MG TAB PO SCH ×2 (08:20→23:03)
[2020-09-12] MEDS: Magnesium Oxide 400 MG TAB PO SCH (08:20)
[2020-09-12] MEDS: Cholecalciferol 1,000 UNITS (25 MCG) TAB PO SCH (08:20)
[2020-09-12] MEDS: Amlodipine 5 MG TAB PO SCH (08:20)
[2020-09-12] MEDS: Pantoprazole 40 MG VIAL IVP SCH (08:20)
[2020-09-12] MEDS: Ascorbic Acid 500 mg Chewable Tablet PO SCH (08:20)
[2020-09-12] MEDS: Cyanocobalamin (Vitamin B-12) 1,000 MCG TAB PO SCH (08:20)
[2020-09-12] MEDS: Linaclotide [Linzess] 72 MCG Capsule PO SCH (08:21)
[2020-09-12] MEDS: Cefepime 2 GM in Sodium Chloride 0.9% 100 ML IVPB SCH (11:55)
--- NOTE | 2020-09-12 13:29 | PDOC.HOSPP ---
- Subjective Encounter Date: 09/12/20 Encounter Time: 11:50 Subjective: Patient seen this morning. She has adequate hydration. She is trying to have a regular lunch this morning. Yesterday she had a almost no p.o. intake. She looks better today. Daughter at bedside. Drain at the back in place. - Objective Vital Signs & Weight: Vital Signs (12 hours) Temp Pulse Resp BP Pulse Ox 09/12/20 08:00 96 09/12/20 07:49 98.8 F 77 20 136/71 96 09/12/20 07:14 73 20 95 09/12/20 04:00 98.8 F 74 20 153/75 H 94 L Weight Weight 116 lb 3.2 oz I&O: 09/11/20 09/12/20 09/13/20 06:59 06:59 06:59 Output Total 0 0 Balance 0 0 Result Diagrams: 09/12/20 05:20 09/11/20 06:51 Additional Labs: Accuchecks 09/12/20 09/12/20 09/11/20 12:18 05:31 20:12 POC Glucose 180 H 129 H 120 H 09/11/20 09/10/20 16:42 15:58 POC Glucose 132 H 133 H Hospitalist ROS - Medication Medications: Active Medications Generic Name Dose Route Start Last Admin Trade Name Freq PRN Reason Stop Dose Admin Acetaminophen/Codeine Phosphate 1 tab 09/09/20 23:59 09/12/20 11:55 Acetaminophen/Codeine 30-300mg Tablet PO 1 tab Q6HR MIGNON Administration Hydrocodone Bitart/Acetaminophen 1 tab 09/10/20 15:37 09/10/20 19:39 Hydrocodone/Acetaminophen 5/325 Mg Tablet PO 1 tab Q6H PRN Administration Pain Albuterol Sulfate 0.63 mg 09/10/20 06:30 09/12/20 07:14 Albuterol Sulfate 1.25 Mg/3 Ml Neb NEB 0.63 mg TID-RT MIGNON Administration Amlodipine Besylate 5 mg 09/10/20 09:00 09/12/20 08:20 Amlodipine 5 Mg Tab PO 5 mg DAILY MIGNON Administration Ascorbic Acid 500 mg 09/10/20 09:00 09/12/20 08:20 Ascorbic Acid 500 Mg Chewable Tablet PO 500 mg DAILY MIGNON Administration Atorvastatin Calcium 40 mg 09/10/20 21:00 09/11/20 19:52 Atorvastatin Calcium 40 Mg Tab PO 40 mg HS MIGNON Administration Carvedilol 25 mg 09/10/20 09:00 09/12/20 08:20 Carvedilol 25 Mg Tab PO 25 mg BID MIGNON Administration Cholecalciferol 2,000 units 09/10/20 09:00 09/12/20 08:20 Cholecalciferol 1,000 Units (25 Mcg) Tab PO 2,000 units DAILY MIGNON Administration Cyanocobalamin 1,000 mcg 09/10/20 09:00 09/12/20 08:20 Cyanocobalamin (Vitamin B-12) 1,000 Mcg Tab PO 1,000 mcg DAILY MIGNON Administration Sodium Chloride 1,000 mls @ 90 mls/hr 09/09/20 23:00 09/12/20 04:21 Normal Saline 0.9% IV 1,000 mls .Q11H7M MIGNON Administration Cefepime HCl 2 gm/ Sodium 100 mls @ 200 mls/hr 09/10/20 10:00 09/12/20 11:55 Chloride IVPB 100 mls Q12H MIGNON Administration Magnesium Oxide 400 mg 09/10/20 09:00 09/12/20 08:20 Magnesium Oxide 400 Mg Tab PO 400 mg DAILY MIGNON Administration Ondansetron HCl 4 mg 09/11/20 13:29 09/12/20 04:25 Ondansetron Pf 4 Mg/2 Ml Vial IVP 4 mg Q4H PRN Administration Nausea/Vomiting Pantoprazole Sodium 40 mg 09/10/20 09:00 09/12/20 08:20 Pantoprazole 40 Mg Vial IVP 40 mg DAILY MIGNON Administration Linaclotide [Linzess 0 each 09/10/20 09:00 09/12/20 08:21 ] 72 Mcg Capsule PO 1 each DAILY MIGNON Administration Senna/Docusate Sodium 2 tab 09/09/20 22:53 09/12/20 08:26 Senokot S 8.6-50 Mg Tab PO 2 tab BID PRN Administration Constipation Tizanidine HCl 4 mg 09/10/20 06:00 09/12/20 05:17 Tizanidine Hcl 4 Mg Tab PO 4 mg Q8HR MIGNON Administration - Exam General Appearance: NAD, awake alert Eye: PERRL ENT: normocephalic atraumatic Neck: supple Heart: RRR Respiratory: CTAB, normal chest expansion Gastrointestinal: soft, normal bowel sounds Neurological: cranial nerve grossly intact, no new deficit Psychiatric: A&O x 3 Hosp A/P - Plan (1) Abscess in epidural space of lumbar spine Code(s): G06.1 - INTRASPINAL ABSCESS AND GRANULOMA Status: Acute (2) Osteomyelitis of lumbar spine Code(s): M46.26 - OSTEOMYELITIS OF [place], LUMBAR REGION Status: Acute (3) Back pain Code(s): M54.9 - DORSALGIA, UNSPECIFIED Status: Chronic (4) Hypomagnesemia Code(s): E83.42 - HYPOMAGNESEMIA Status: Acute (5) CAD (coronary artery disease) Code(s): I25.10 - ATHSCL HEART DISEASE OF [place] CORONARY ARTERY W/O ANG PCTRS Status: Chronic (6) HTN (hypertension) Code(s): I10 - ESSENTIAL (PRIMARY) HYPERTENSION Status: Chronic (7) HLD (hyperlipidemia) Code(s): E78.5 - HYPERLIPIDEMIA, UNSPECIFIED Status: Chronic (8) DM2 (diabetes mellitus, type 2) Status: Chronic (9) COPD (chronic obstructive pulmonary disease) Status: Chronic MRI lumbar spine suspicious for OM and SEA at L5 MRI thoracic spine no acute process Status post abscess removal via laminectomy Attempt of hardware removal and exploration of spinal fusion at L4 and L5 Wound irrigation with bacitracin and vancomycin powder. Drain placement. -On vancomycin and cefepime. -ID is following with us. --Pain control and stool softener -Physical therapy consult placed. Hypertension -Currently she is normotensive. -We will add as needed hydralazine to keep her systolic below 160. Type 2 diabetes mellitus -She is on sliding scale insulin -currently her blood glucose seems to be in good range. Following with physical therapy. Drain in place. Mild hyponatremia. Lumbar spine swab no organisms seen. Blood cultures negative x48 hours. dispo - Patient lives with the daughter. Home with home health versus rehab. We will discontinue cefepime once the culture results are finalized.; Gram stain shows staph aureus. vancomycin started yesterday --we will continue that until October 23. Routine weekly labs including CBC CMP, ESR and CRP and vancomycin trough. Plan to transition IV vancomycin after roughly 10 weeks to doxy and the rifampin for 3 months followed by doxycycline for chronic suppression with the current diagnosis of osteomyelitis of the lumbar spine and epidural abscess around the area. We will place case management to work with placement versus home IV antibiotic infusion. Physical therapy is working with the patient.
[2020-09-12] MEDS ORDERED: Cefepime 2 GM in Sodium Chloride 0.9% 100 ML IVPB SCH ×2 (14:00→23:00)
--- NOTE | 2020-09-12 16:29 | PRG ---
DATE OF SERVICE: 09/12/2020 SUBJECTIVE: The patient does not appear to be in distress. No genitourinary symptoms. No abdominal pain. Back pain, moderate. No dyspnea. OBJECTIVE: VITAL SIGNS: She has been afebrile, actually had 1 episode of 100.5 yesterday, O2 sats 97% on room air, pulse 74, and respirations 20. SKIN: Dry surgical incision. LUNGS: Clear. HEART: S1 and S2, regular rate. ABDOMEN: Soft. Not distended or tender. EXTREMITIES: Moves extremities equally. NEUROLOGIC: Cognitive function intact. LABORATORY DATA: White cell count 6.2, hemoglobin 7.7, platelets 248. Creatinine 0.87. We have Staph aureus growing from the lumbar swab one of the samples. It is going to be the same organism identified as MRSA in beginning in August. The patient is currently on cefepime and vancomycin. We will go ahead and discontinue cefepime. Continue vancomycin as previously. Trough was elevated, so the dose was adjusted by the Pharmacy. So, we are starting all over again the treatment and the end date will be, I think, we will treat her for another 8 weeks or so, so we have the end of October, weekly labs. Job ID: [id number]
[2020-09-12] MEDS: HumaLOG 300 UNITS/3 ML VIAL SC PRN (17:08)
[2020-09-12 22:15] LABS: Vancomycin, Random 20.8 ug/mL (See Comment)
[2020-09-12] MEDS ORDERED: Vancomycin 1 GM in Premix Bag 1 BAG IVPB SCH (23:00)
[2020-09-12] MEDS: Atorvastatin Calcium 40 MG TAB PO SCH (23:03)
[2020-09-12] MEDS: HYDROcodone/Acetaminophen 5/325 mg Tablet PO PRN (23:03)
[2020-09-13] MEDS: Acetaminophen/Codeine 30-300mg Tablet PO SCH ×3 (00:19→12:41)
[2020-09-13] MEDS: Sodium Chloride 0.9% 1,000 ML IV SCH ×2 (04:10→17:32)
[2020-09-13] MEDS: tiZANidine HCl 4 MG TAB PO SCH ×3 (06:33→21:07)
[2020-09-13] MEDS: Albuterol Sulfate 1.25 MG/3 ML NEB NEB SCH (08:22)
[2020-09-13 09:15] LABS: Anion Gap 13 mmol/L (10-20); BUN (Urea Nitrogen) 8 mg/dL (9.8-20.1); Calc. Creatinine Clearance 42 mL/min (70-130); Carbon Dioxide 24 mmol/L (23-31); Chloride 104 mmol/L (98-107); Glucose 189 mg/dL (83-110); Sodium 138 mmol/L (136-145)
[2020-09-13 09:18] LABS: #Eosinphils 0.6 thou/uL (0.0-0.7); #Lymphocytes 1.1 thou/uL (1.20-3.40); #Monocytes 0.3 thou/uL (0.11-0.59); #Neutrophils 3.2 thou/uL (1.40-6.50); %Basophils 0.9 % (0.0-1.0); %Eosinophils 10.8 % (0.0-10.0); %Lymphocytes 21.1 % (21.0-51.0); %Neutrophils 61.3 % (42.0-75.0); Hemoglobin 8.6 g/dL (12.0-16.0); Mean Corpuscular HGB CONC 32.5 g/dL (32.0-36.0); Mean Corpuscular Hemoglobin 30.3 pg (27.0-31.0); Mean Corpuscular Volume 93.2 fL (78.0-98.0); Mean Platelet Volume 8.3 fL (7.4-10.4); Platelet Count 241 thou/uL (130-400); Red Blood Cell (RBC) Count 2.83 mill/uL (4.20-5.40); White Blood Cell (WBC) Count 5.2 thou/uL (4.8-10.8)
[2020-09-13 09:21] LABS: Potassium 2.6 mmol/L (3.5-5.1)
[2020-09-13] MEDS: Cyanocobalamin (Vitamin B-12) 1,000 MCG TAB PO SCH (10:27)
[2020-09-13] MEDS: Cholecalciferol 1,000 UNITS (25 MCG) TAB PO SCH (10:27)
[2020-09-13] MEDS: Magnesium Oxide 400 MG TAB PO SCH (10:29)
[2020-09-13] MEDS: Carvedilol 25 MG TAB PO SCH ×2 (10:30→21:01)
[2020-09-13] MEDS: Amlodipine 5 MG TAB PO SCH (10:36)
[2020-09-13] MEDS: Pantoprazole 40 MG VIAL IVP SCH (10:39)
[2020-09-13] MEDS: Ascorbic Acid 500 mg Chewable Tablet PO SCH (10:39)
[2020-09-13] MEDS: Linaclotide [Linzess] 72 MCG Capsule PO SCH (10:40)
[2020-09-13] MEDS: Potassium Chloride 20 MEQ TAB PO SCH ×3 (11:11→17:30)
[2020-09-13] MEDS: Vancomycin HCl 500 MG in Sodium Chloride 0.9% 100 ML IVPB SCH (11:12)
--- NOTE | 2020-09-13 15:36 | PDOC.HOSPP ---
- Subjective Encounter Date: 09/13/20 Encounter Time: 10:30 Subjective: Patient appears valid. However she had an episode of hallucinations and disorientation yesterday afternoon. There was a concern about the tizanidine adverse effect. Patient is taking tizanidine for a while. The frequency seems to be 3 times daily but uncertain. - Objective Vital Signs & Weight: Vital Signs (12 hours) Temp Pulse Pulse Resp BP BP Pulse Ox 09/13/20 11:40 98.2 F 71 20 175/91 H 95 09/13/20 09:05 69 142/66 H 09/13/20 08:22 69 16 94 L 09/13/20 08:21 98.3 F 69 18 166/78 H 94 L 09/13/20 08:00 94 L 09/13/20 06:00 98.0 F 71 20 155/74 H 95 Weight Weight 116 lb 3.2 oz I&O: 09/12/20 09/13/20 09/14/20 06:59 06:59 06:59 Intake Total 1800 Output Total 0 Balance 0 1800 Result Diagrams: 09/13/20 08:46 09/13/20 08:46 Additional Labs: Accuchecks 09/13/20 09/12/20 09/12/20 05:06 20:21 16:35 POC Glucose 131 H 208 H 175 H Hospitalist ROS - Medication Medications: Active Medications Generic Name Dose Route Start Last Admin Trade Name Freq PRN Reason Stop Dose Admin Acetaminophen/Codeine Phosphate 1 tab 09/09/20 23:59 09/13/20 12:41 Acetaminophen/Codeine 30-300mg Tablet PO Not Given Q6HR MIGNON Hydrocodone Bitart/Acetaminophen 1 tab 09/10/20 15:37 09/12/20 23:03 Hydrocodone/Acetaminophen 5/325 Mg Tablet PO 1 tab Q6H PRN Administration Pain Amlodipine Besylate 5 mg 09/10/20 09:00 09/13/20 10:36 Amlodipine 5 Mg Tab PO 5 mg DAILY MIGNON Administration Ascorbic Acid 500 mg 09/10/20 09:00 09/13/20 10:39 Ascorbic Acid 500 Mg Chewable Tablet PO Not Given DAILY MIGNON Atorvastatin Calcium 40 mg 09/10/20 21:00 09/12/20 23:03 Atorvastatin Calcium 40 Mg Tab PO 40 mg HS MIGNON Administration Carvedilol 25 mg 09/10/20 09:00 09/13/20 10:30 Carvedilol 25 Mg Tab PO 25 mg BID MIGNON Administration Cholecalciferol 2,000 units 09/10/20 09:00 09/13/20 10:27 Cholecalciferol 1,000 Units (25 Mcg) Tab PO 2,000 units DAILY MIGNON Administration Cyanocobalamin 1,000 mcg 09/10/20 09:00 09/13/20 10:27 Cyanocobalamin (Vitamin B-12) 1,000 Mcg Tab PO 1,000 mcg DAILY MIGNON Administration Sodium Chloride 1,000 mls @ 90 mls/hr 09/09/20 23:00 09/13/20 04:10 Normal Saline 0.9% IV 1,000 mls .Q11H7M MIGNON Administration Vancomycin HCl 500 mg/ Sodium 100 mls @ 100 mls/hr 09/13/20 09:00 09/13/20 11:12 Chloride IVPB 100 mls Q24HR@0900 MIGNON Administration Insulin Human Lispro 0 units 09/09/20 23:21 09/12/20 17:08 Humalog 300 Units/3 Ml Vial SC 2 unit .MILD SLIDING SCALE PRN Administration Mild Correctional Scale Magnesium Oxide 400 mg 09/10/20 09:00 09/13/20 10:29 Magnesium Oxide 400 Mg Tab PO 400 mg DAILY MIGNON Administration Ondansetron HCl 4 mg 09/11/20 13:29 09/12/20 04:25 Ondansetron Pf 4 Mg/2 Ml Vial IVP 4 mg Q4H PRN Administration Nausea/Vomiting Pantoprazole Sodium 40 mg 09/10/20 09:00 09/13/20 10:39 Pantoprazole 40 Mg Vial IVP 40 mg DAILY MIGNON Administration Linaclotide [Linzess 0 each 09/10/20 09:00 09/13/20 10:40 ] 72 Mcg Capsule PO 1 each DAILY MIGNON Administration Potassium Chloride 40 meq 09/13/20 10:00 09/13/20 13:39 Potassium Chloride 20 Meq Tab PO 09/13/20 18:01 40 meq 1000,1400,1800,2200 MIGNON Administration Senna/Docusate Sodium 2 tab 09/09/20 22:53 09/12/20 08:26 Senokot S 8.6-50 Mg Tab PO 2 tab BID PRN Administration Constipation Tizanidine HCl 4 mg 09/10/20 06:00 09/13/20 13:39 Tizanidine Hcl 4 Mg Tab PO 4 mg Q8HR MIGNON Administration - Exam General Appearance: NAD, awake alert Eye: PERRL, anicteric sclera Neck: supple Heart: RRR Respiratory: CTAB, normal chest expansion Gastrointestinal: soft, normal bowel sounds Neurological: no focal deficits Psychiatric: A&O x 3 Hosp A/P - Plan (1) Abscess in epidural space of lumbar spine Code(s): G06.1 - INTRASPINAL ABSCESS AND GRANULOMA Status: Acute (2) Osteomyelitis of lumbar spine Code(s): M46.26 - OSTEOMYELITIS OF [place], LUMBAR REGION Status: Acute (3) Back pain Code(s): M54.9 - DORSALGIA, UNSPECIFIED Status: Chronic (4) Hypomagnesemia Code(s): E83.42 - HYPOMAGNESEMIA Status: Acute (5) CAD (coronary artery disease) Code(s): I25.10 - ATHSCL HEART DISEASE OF [place] CORONARY ARTERY W/O ANG PCTRS Status: Chronic (6) HTN (hypertension) Code(s): I10 - ESSENTIAL (PRIMARY) HYPERTENSION Status: Chronic (7) HLD (hyperlipidemia) Code(s): E78.5 - HYPERLIPIDEMIA, UNSPECIFIED Status: Chronic (8) DM2 (diabetes mellitus, type 2) Status: Chronic (9) COPD (chronic obstructive pulmonary disease) Status: Chronic MRI lumbar spine suspicious for OM and SEA at L5 MRI thoracic spine no acute process Status post abscess removal via laminectomy Attempt of hardware removal and exploration of spinal fusion at L4 and L5 Wound irrigation with bacitracin and vancomycin powder. Drain placement. -On vancomycin and cefepime. -ID is following with us. --Pain control and stool softener -Physical therapy consult placed. Hypertension -Currently she is normotensive. -We will add as needed hydralazine to keep her systolic below 160. Type 2 diabetes mellitus -She is on sliding scale insulin -currently her blood glucose seems to be in good range. Following with physical therapy. Drain in place. Mild hyponatremia. Lumbar spine swab no organisms seen. Blood cultures negative x48 hours. dispo - Patient lives with the daughter. Home with home health versus rehab. We will discontinue cefepime once the culture results are finalized.; Gram s tain shows staph aureus. vancomycin started yesterday --we will continue that until October 23. Routine weekly labs including CBC CMP, ESR and CRP and vancomycin trough. Plan to transition IV vancomycin after roughly 10 weeks to doxy and the rifampin for 3 months followed by doxycycline for chronic suppression with the current diagnosis of osteomyelitis of the lumbar spine and epidural abscess around the area. We will place case management to work with placement versus home IV antibiotic i nfusion. Physical therapy is working with the patient. 1st Supratherapeutic on vancomycin dose. -On hold vancomycin. Pharmacy is adjusting.--I talked to the pharmacist around 3:30PM to follow-up on Vanco. -It is scheduled daily dose. Patient has a good family support including one of the daughter as being a nurse for several years. Needs weekly visit of IV nursing for PICC line dressing change.she has a left arm PICC line. Pending neurosurgery as well as infectious disease clearance. -
--- NOTE | 2020-09-13 16:19 | PRG ---
DATE OF SERVICE: 09/13/2020 She is postop day 4 following lumbar wound washout, but continues to struggle with significant lower back and radicular pain. She is a little more confused today than she typically has been in the times that I have seen her before. I am not sure if some of this is related to just hospital-based delirium or there is more of a component of sepsis to this. She has also undergone two rather close and sequence lumbar decompressions with general anesthesia events. All of these things are likely factors in her mental state. I would like to see her mobilize a little more than she has. Plan now is to continue PICC line antibiotics for another 8 weeks and then continue oral prophylactic antibiotics indefinitely. The patient and surrogate decision maker at bedside advocate for better pain control. She did have [place] ordered, but this was discontinued. I think it is reasonable to restart this and discontinue the home medication Tylenol 3. There is request for steroids. My concern though is that given her infectious state, it is likely not a good time to start that, but we could consider something like a more potent anti-inflammatory, but we will defer to primary team for specific recommendation. Again, would encourage additional ambulation, but the patient will need assistance to do so both getting in and out of bed and while walking. We will continue to follow along. Job ID: [id number]
[2020-09-13] MEDS: Ondansetron PF 4 MG/2 ML Vial IVP PRN (17:30)
[2020-09-13] MEDS: HYDROcodone/Acetaminophen 5/325 mg Tablet PO PRN ×2 (17:31→23:46)
[2020-09-13 18:16] LABS: Potassium 3.9 mmol/L (3.5-5.1)
[2020-09-13] MEDS: Albuterol Sulfate 1.25 MG/3 ML NEB NEB PRN (20:01)
[2020-09-13] MEDS: Atorvastatin Calcium 40 MG TAB PO SCH (21:00)
[2020-09-14] MEDS: Sodium Chloride 0.9% 1,000 ML IV SCH ×2 (03:00→15:14)
[2020-09-14] MEDS: HYDROcodone/Acetaminophen 5/325 mg Tablet PO PRN ×3 (05:50→19:16)
[2020-09-14] MEDS: Linaclotide [Linzess] 72 MCG Capsule PO SCH (05:52)
[2020-09-14] MEDS: tiZANidine HCl 4 MG TAB PO SCH ×3 (06:06→21:12)
[2020-09-14 06:13] LABS: #Basophils 0.1 thou/uL (0.0-0.2); #Eosinphils 0.9 thou/uL (0.0-0.7); #Lymphocytes 1.9 thou/uL (1.20-3.40); #Monocytes 0.5 thou/uL (0.11-0.59); #Neutrophils 3.3 thou/uL (1.40-6.50); %Basophils 0.9 % (0.0-1.0); %Eosinophils 13.7 % (0.0-10.0); %Lymphocytes 28.5 % (21.0-51.0); %Monocytes 7.3 % (0.0-10.0); %Neutrophils 49.7 % (42.0-75.0); Hemoglobin 8.2 g/dL (12.0-16.0); Mean Corpuscular HGB CONC 32.2 g/dL (32.0-36.0); Platelet Count 336 thou/uL (130-400); RBC Distribution Width 14.1 % (11.5-14.5); Red Blood Cell (RBC) Count 2.74 mill/uL (4.20-5.40); White Blood Cell (WBC) Count 6.7 thou/uL (4.8-10.8)
[2020-09-14 06:35] LABS: Anion Gap 13 mmol/L (10-20); BUN (Urea Nitrogen) 6 mg/dL (9.8-20.1); Calc. Creatinine Clearance 46 mL/min (70-130); Carbon Dioxide 23 mmol/L (23-31); Chloride 106 mmol/L (98-107); Glucose 136 mg/dL (83-110); Sodium 138 mmol/L (136-145)
[2020-09-14] MEDS: Albuterol Sulfate 1.25 MG/3 ML NEB NEB PRN ×3 (06:47→19:15)
[2020-09-14] MEDS: Vancomycin HCl 500 MG in Sodium Chloride 0.9% 100 ML IVPB SCH (08:29)
[2020-09-14] MEDS: Cyanocobalamin (Vitamin B-12) 1,000 MCG TAB PO SCH (08:30)
[2020-09-14] MEDS: Cholecalciferol 1,000 UNITS (25 MCG) TAB PO SCH (08:30)
[2020-09-14] MEDS: Amlodipine 5 MG TAB PO SCH (08:31)
[2020-09-14] MEDS: Carvedilol 25 MG TAB PO SCH ×2 (08:31→21:12)
[2020-09-14] MEDS: Magnesium Oxide 400 MG TAB PO SCH (08:31)
[2020-09-14] MEDS: Ascorbic Acid 500 mg Chewable Tablet PO SCH (08:31)
[2020-09-14] MEDS: Pantoprazole 40 MG VIAL IVP SCH (08:38)
--- NOTE | 2020-09-14 13:57 | PDOC.HOSPP ---
- Subjective Encounter Date: 09/14/20 Encounter Time: 10:50 Subjective: Patient appears well she is mentally at baseline I do not see any sign of confusion at this time. But per family member she was " little goofy ". Discussed with them the medical complexity and she is doing better overall and improving. - Objective Vital Signs & Weight: Vital Signs (12 hours) Temp Pulse Resp BP BP BP Pulse Ox 09/14/20 13:25 97.5 F L 71 18 121/71 95 09/14/20 13:20 72 16 96 09/14/20 08:36 98.4 F 62 18 105/64 94 L 09/14/20 08:31 70 160/72 H 09/14/20 08:00 94 L 09/14/20 06:47 67 16 95 09/14/20 04:00 98.4 F 74 15 146/80 H 94 L Weight Weight 116 lb 3.2 oz I&O: 09/13/20 09/14/20 09/15/20 06:59 06:59 06:59 Intake Total 3650 Balance 3650 Result Diagrams: 09/14/20 06:00 09/14/20 06:00 Additional Labs: Accuchecks 09/14/20 09/14/20 09/13/20 11:30 05:09 19:11 POC Glucose 246 H 125 H 248 H 09/13/20 16:36 POC Glucose 149 H Hospitalist ROS - Medication Medications: Active Medications Generic Name Dose Route Start Last Admin Trade Name Freq PRN Reason Stop Dose Admin Hydrocodone Bitart/Acetaminophen 1 tab 09/13/20 15:49 09/14/20 12:38 Hydrocodone/Acetaminophen 5/325 Mg Tablet PO 1 tab Q6H PRN Administration moderate pain Albuterol Sulfate 0.63 mg 09/13/20 08:45 09/14/20 13:20 Albuterol Sulfate 1.25 Mg/3 Ml Neb NEB 0.63 mg TID-RT PRN Administration SOB &/or Wheezing Amlodipine Besylate 5 mg 09/10/20 09:00 09/14/20 08:31 Amlodipine 5 Mg Tab PO 5 mg DAILY MIGONN Administration Ascorbic Acid 500 mg 09/10/20 09:00 09/14/20 08:31 Ascorbic Acid 500 Mg Chewable Tablet PO 500 mg DAILY MIGNON Administration Atorvastatin Calcium 40 mg 09/10/20 21:00 09/13/20 21:00 Atorvastatin Calcium 40 Mg Tab PO 40 mg HS MIGNON Administration Carvedilol 25 mg 09/10/20 09:00 09/14/20 08:31 Carvedilol 25 Mg Tab PO 25 mg BID MIGNON Administration Cholecalciferol 2,000 units 09/10/20 09:00 09/14/20 08:30 Cholecalciferol 1,000 Units (25 Mcg) Tab PO 2,000 units DAILY MIGNON Administration Cyanocobalamin 1,000 mcg 09/10/20 09:00 09/14/20 08:30 Cyanocobalamin (Vitamin B-12) 1,000 Mcg Tab PO 1,000 mcg DAILY MIGNON Administration Sodium Chloride 1,000 mls @ 90 mls/hr 09/09/20 23:00 09/14/20 03:00 Normal Saline 0.9% IV 1,000 mls .Q11H7M MIGNON Administration Vancomycin HCl 500 mg/ Sodium 100 mls @ 100 mls/hr 09/13/20 09:00 09/14/20 08:29 Chloride IVPB 100 mls Q24HR@0900 MIGNON Administration Insulin Human Lispro 0 units 09/09/20 23:21 09/12/20 17:08 Humalog 300 Units/3 Ml Vial SC 2 unit .MILD SLIDING SCALE PRN Administration Mild Correctional Scale Insulin Human Lispro 0 units 09/09/20 23:21 09/13/20 21:07 Humalog 300 Units/3 Ml Vial SC 2 unit .BEDTIME SLIDING SC PRN Administration Bedtime Correctional Scale Magnesium Oxide 400 mg 09/10/20 09:00 09/14/20 08:31 Magnesium Oxide 400 Mg Tab PO 400 mg DAILY MIGNON Administration Ondansetron HCl 4 mg 09/11/20 13:29 09/13/20 17:30 Ondansetron Pf 4 Mg/2 Ml Vial IVP 4 mg Q4H PRN Administration Nausea/Vomiting Pantoprazole Sodium 40 mg 09/10/20 09:00 09/14/20 08:38 Pantoprazole 40 Mg Vial IVP 40 mg DAILY MIGNON Administration Senna/Docusate Sodium 2 tab 09/09/20 22:53 09/12/20 08:26 Senokot S 8.6-50 Mg Tab PO 2 tab BID PRN Administration Constipation Tizanidine HCl 4 mg 09/10/20 06:00 09/14/20 06:06 Tizanidine Hcl 4 Mg Tab PO 4 mg Q8HR MIGNON Administration - Exam General Appearance: NAD, awake alert Eye: PERRL ENT: normocephalic atraumatic Neck: supple Heart: RRR Respiratory: CTAB, normal chest expansion Gastrointestinal: soft, normal bowel sounds Neurological: no focal deficits Psychiatric: A&O x 3 Hosp A/P - Plan (1) Abscess in epidural space of lumbar spine Code(s): G06.1 - INTRASPINAL ABSCESS AND GRANULOMA Status: Acute (2) Osteomyelitis of lumbar spine Code(s): M46.26 - OSTEOMYELITIS OF [place], LUMBAR REGION Status: Acute (3) Back pain Code(s): M54.9 - DORSALGIA, UNSPECIFIED Status: Chronic (4) Hypomagnesemia Code(s): E83.42 - HYPOMAGNESEMIA Status: Acute (5) CAD (coronary artery disease) Code(s): I25.10 - ATHSCL HEART DISEASE OF [place] CORONARY ARTERY W/O ANG PCTRS Status: Chronic (6) HTN (hypertension) Code(s): I10 - ESSENTIAL (PRIMARY) HYPERTENSION Status: Chronic (7) HLD (hyperlipidemia) Code(s): E78.5 - HYPERLIPIDEMIA, UNSPECIFIED Status: Chronic (8) DM2 (diabetes mellitus, type 2) Status: Chronic (9) COPD (chronic obstructive pulmonary disease) Status: Chronic MRI lumbar spine suspicious for OM and SEA at L5 MRI thoracic spine no acute process Status post abscess removal via laminectomy Attempt of hardware removal and exploration of spinal fusion at L4 and L5 Wound irrigation with bacitracin and vancomycin powder. Drain placement. -On vancomycin and cefepime. -ID is following with us. --Pain control and stool softener -Physical therapy consult placed. Hypertension -Currently she is normotensive. -We will add as needed hydralazine to keep her systolic below 160. Type 2 diabetes mellitus -She is on sliding scale insulin -currently her blood glucose seems to be in good range. Following with physical therapy. Drain in place. Mild hyponatremia. Lumbar spine swab no organisms seen. Blood cultures negative x48 hours. dispo - Patient lives with the daughter. Home with home health versus rehab. We will discontinue cefepime once the culture results are finalized.; Gram stain shows staph aureus. vancomycin started yesterday --we will continue that until October 23. Routine weekly labs including CBC CMP, ESR and CRP and vancomycin trough. Plan to transition IV vancomycin after roughly 10 weeks to doxy and the rifampin for 3 months followed by doxycycline for chronic suppression with the current diagnosis of osteomyelitis of the lumbar spine and epidural abscess around the area. We will place case management to work with placement versus home IV antibiotic infusion. Physical therapy is working with the patient. 1st Supratherapeutic on vancomycin dose. -On hold vancomycin. Pharmacy is adjusting.--I talked to the pharmacist around 3:30PM to follow-up on Vanco. -It is scheduled daily dose. Patient has a good family support including one of the daughter as being a nurse for several years. Needs weekly visit of IV nursing for PICC line dressing dami calabrese.she has a left arm PICC line. Pending neurosurgery as well as infectious disease clearance. 2nd Pain is controlled with the [place]. He should be able to discharge her in a day or 2. I do not see labile mentation today that requires any further medical work-up. Electrolyte panels are in the normal range except the magnesium and we will follow-up on that. Her blood glucose is slightly high but that is controlled with the sliding scale insulin.
[2020-09-14] MEDS ORDERED: Magnesium 2 GM/50 ML 2 GM in Premix Bag 1 BAG IVPB SCH (14:15)
--- NOTE | 2020-09-14 16:02 | PRG ---
DATE OF SERVICE: 09/14/2020 Ms. Gaitan this morning looks much more alert and energetic. She is also appearing to be somewhat more comfortable. She got her tizanidine late yesterday evening and this seems to have helped. We will continue to work toward mobilization from our standpoint. She can be discharged home at any point, but would certainly like to see her mobilize a more before doing so. Again, we will defer to primary team's recommendations there. We will continue to follow. Job ID: [id number]
--- NOTE | 2020-09-14 16:22 | PRG ---
DATE OF SERVICE: 09/14/2020 SUBJECTIVE: Feeling better, was able to do some PT, walked a few steps I think. Voiding without difficulty. Had some respiratory issues due to her COPD and had to have inhalers. OBJECTIVE: VITAL SIGNS: T-max 99, blood pressure 120/71, heart rate 71, respiratory rate 18, and O2 saturation 95, the lowest O2 saturation 94, she is on room air. GENERAL: Does not appear in distress. HEENT: Somewhat pale conjunctivae. LUNGS: Symmetric air entry. No wheezing. HEART: S1 and S2, regular rate. ABDOMEN: Soft. Not distended or tender. No ascites. No bladder distention. EXTREMITIES: Moves all extremities equally. LABORATORY DATA: White cell count 6.7, hemoglobin 8.2, platelets 336. Creatinine 0.83. Lumbar swab with MRSA as expected. ASSESSMENT AND DISCUSSION: Type 2 diabetes, chronic obstructive pulmonary disease, prior CVA, recent LS fusion with postop infection due to methicillin-resistant Staphylococcus aureus with bacteremia, debridement with evidence of epidural abscess. The patient to continue vancomycin. The end date of therapy October 23 approximately. Weekly labs. Job ID: [id number]
[2020-09-14] MEDS: Atorvastatin Calcium 40 MG TAB PO SCH (21:12)
[2020-09-15] MEDS: HYDROcodone/Acetaminophen 5/325 mg Tablet PO PRN ×4 (01:36→18:33)
[2020-09-15] MEDS: Sodium Chloride 0.9% 1,000 ML IV SCH ×3 (01:45→18:33)
[2020-09-15] MEDS: Albuterol Sulfate 1.25 MG/3 ML NEB NEB PRN ×3 (05:37→21:04)
[2020-09-15] MEDS: tiZANidine HCl 4 MG TAB PO SCH ×3 (05:40→21:31)
[2020-09-15] MEDS: Linaclotide [Linzess] 72 MCG Capsule PO SCH (05:56)
[2020-09-15 07:46] LABS: Anion Gap 12 mmol/L (10-20); BUN (Urea Nitrogen) 5 mg/dL (9.8-20.1); Calc. Creatinine Clearance 49 mL/min (70-130); Calcium 7.7 mg/dL (7.8-10.44); Carbon Dioxide 24 mmol/L (23-31); Chloride 104 mmol/L (98-107); Glucose 163 mg/dL (83-110); Potassium 3.1 mmol/L (3.5-5.1); Sodium 137 mmol/L (136-145)
[2020-09-15] MEDS: Cholecalciferol 1,000 UNITS (25 MCG) TAB PO SCH (08:12)
[2020-09-15] MEDS: Ascorbic Acid 500 mg Chewable Tablet PO SCH (08:12)
[2020-09-15] MEDS: Magnesium Oxide 400 MG TAB PO SCH (08:13)
[2020-09-15] MEDS: Amlodipine 5 MG TAB PO SCH (08:13)
[2020-09-15] MEDS: Carvedilol 25 MG TAB PO SCH ×2 (08:13→21:29)
[2020-09-15] MEDS: Pantoprazole 40 MG VIAL IVP SCH (08:13)
[2020-09-15] MEDS: Cyanocobalamin (Vitamin B-12) 1,000 MCG TAB PO SCH (08:13)
[2020-09-15] MEDS: Vancomycin HCl 500 MG in Sodium Chloride 0.9% 100 ML IVPB SCH ×2 (09:37→10:10)
[2020-09-15] MEDS: Vancomycin HCl 750 MG in Sodium Chloride 0.9% 250 ML 250 ML IVPB SCH (10:41)
[2020-09-15] MEDS: Potassium Chloride 20 MEQ TAB PO SCH ×2 (12:37→17:24)
--- NOTE | 2020-09-15 13:06 | PRG ---
DATE OF SERVICE: 09/15/2020 Ms. Gaitan this morning continues to look better and better both from a cognitive standpoint and from a level of comfort. She has walked more on physical therapy. From Neurosurgery standpoint, she is cleared to go home at any point as soon as Medicine is comfortable. It appears that we were battling a little bit of hyperkalemia and they are wanting to trend this more to ensure that she does not go home and bounce right back. My anticipation is she will likely go home before the start of the weekend. Job ID: [id number]
[2020-09-15] MEDS ORDERED: Magnesium 2 GM/50 ML 2 GM in Premix Bag 1 BAG IVPB SCH (14:45)
--- NOTE | 2020-09-15 14:49 | PDOC.HOSPP ---
- Subjective Encounter Date: 09/15/20 Encounter Time: 12:10 Subjective: Patient seen this morning. She is quite cheerful mood. Vancomycin trough is around 13. We will continue with the 750 mg IV daily until October 23 approximately. Potassium is on the low side. Being replaced. - Objective Vital Signs & Weight: Vital Signs (12 hours) Temp Pulse Resp BP BP Pulse Ox 09/15/20 14:01 64 18 95 09/15/20 08:10 97.9 F 64 16 131/62 95 09/15/20 06:07 153/85 H 09/15/20 05:37 71 12 94 L 09/15/20 05:14 98.3 F 68 18 165/76 H 94 L Weight Weight 116 lb 3.2 oz I&O: 09/14/20 09/15/20 09/16/20 06:59 06:59 06:59 Intake Total 3650 1850 Balance 3650 1850 Result Diagrams: 09/14/20 06:00 09/15/20 06:10 Additional Labs: Accuchecks 09/15/20 09/15/20 09/14/20 11:30 05:19 20:47 POC Glucose 152 H 133 H 175 H 09/14/20 16:45 POC Glucose 154 H Hospitalist ROS - Medication Medications: Active Medications Generic Name Dose Route Start Last Admin Trade Name Freq PRN Reason Stop Dose Admin Hydrocodone Bitart/Acetaminophen 1 tab 09/13/20 15:49 09/15/20 12:41 Hydrocodone/Acetaminophen 5/325 Mg Tablet PO 1 tab Q6H PRN Administration moderate pain Albuterol Sulfate 0.63 mg 09/13/20 08:45 09/15/20 14:01 Albuterol Sulfate 1.25 Mg/3 Ml Neb NEB 0.63 mg TID-RT PRN Administration SOB &/or Wheezing Amlodipine Besylate 5 mg 09/10/20 09:00 09/15/20 08:13 Amlodipine 5 Mg Tab PO 5 mg DAILY MIGNON Administration Ascorbic Acid 500 mg 09/10/20 09:00 09/15/20 08:12 Ascorbic Acid 500 Mg Chewable Tablet PO 500 mg DAILY MIGNON Administration Atorvastatin Calcium 40 mg 09/10/20 21:00 09/14/20 21:12 Atorvastatin Calcium 40 Mg Tab PO 40 mg HS MIGNON Administration Carvedilol 25 mg 09/10/20 09:00 09/15/20 08:13 Carvedilol 25 Mg Tab PO 25 mg BID MIGNON Administration Cholecalciferol 2,000 units 09/10/20 09:00 09/15/20 08:12 Cholecalciferol 1,000 Units (25 Mcg) Tab PO 2,000 units DAILY MIGNON Administration Cyanocobalamin 1,000 mcg 09/10/20 09:00 09/15/20 08:13 Cyanocobalamin (Vitamin B-12) 1,000 Mcg Tab PO 1,000 mcg DAILY MIGNON Administration Sodium Chloride 1,000 mls @ 90 mls/hr 09/09/20 23:00 09/15/20 11:24 Normal Saline 0.9% IV Not Given .Q11H7M MIGNON Vancomycin HCl 750 mg/ Sodium 250 mls @ 250 mls/hr 09/15/20 10:00 09/15/20 10:41 Chloride IVPB 250 mls 1000 MIGNON Administration Insulin Human Lispro 0 units 09/09/20 23:21 09/12/20 17:08 Humalog 300 Units/3 Ml Vial SC 2 unit .MILD SLIDING SCALE PRN Administration Mild Correctional Scale Insulin Human Lispro 0 units 09/09/20 23:21 09/13/20 21:07 Humalog 300 Units/3 Ml Vial SC 2 unit .BEDTIME SLIDING SC PRN Administration Bedtime Correctional Scale Magnesium Oxide 400 mg 09/10/20 09:00 09/15/20 08:13 Magnesium Oxide 400 Mg Tab PO 400 mg DAILY MIGNON Administration Ondansetron HCl 4 mg 09/11/20 13:29 09/13/20 17:30 Ondansetron Pf 4 Mg/2 Ml Vial IVP 4 mg Q4H PRN Administration Nausea/Vomiting Pantoprazole Sodium 40 mg 09/10/20 09:00 09/15/20 08:13 Pantoprazole 40 Mg Vial IVP 40 mg DAILY MIGNON Administration Linaclotide [Linzess 0 each 09/15/20 06:00 09/15/20 05:56 ] 72 Mcg Capsule PO 1 each 0600 MIGNON Administration Potassium Chloride 40 meq 09/15/20 13:00 09/15/20 12:37 Potassium Chloride 20 Meq Tab PO 09/15/20 17:01 40 meq Q4HR MIGNON Administration Senna/Docusate Sodium 2 tab 09/09/20 22:53 09/12/20 08:26 Senokot S 8.6-50 Mg Tab PO 2 tab BID PRN Administration Constipation Sodium Chloride 10 ml 09/09/20 20:00 09/15/20 08:14 Flush - Normal Saline 10 Ml Syringe IVF 10 ml PRN PRN Administration Saline Flush Tizanidine HCl 4 mg 09/10/20 06:00 09/15/20 14:26 Tizanidine Hcl 4 Mg Tab PO 2 mg Q8HR MIGNON Administration - Exam General Appearance: NAD, awake alert Eye: PERRL ENT: normocephalic atraumatic Neck: supple Heart: RRR Respiratory: CTAB Gastrointestinal: soft, normal bowel sounds Neurological: no new deficit Psychiatric: A&O x 3 Hosp A/P - Plan (1) Abscess in epidural space of lumbar spine Code(s): G06.1 - INTRASPINAL ABSCESS AND GRANULOMA Status: Acute (2) Osteomyelitis of lumbar spine Code(s): M46.26 - OSTEOMYELITIS OF [place], LUMBAR REGION Status: Acute (3) Back pain Code(s): M54.9 - DORSALGIA, UNSPECIFIED Status: Chronic (4) Hypomagnesemia Code(s): E83.42 - HYPOMAGNESEMIA Status: Acute (5) CAD (coronary artery disease) Code(s): I25.10 - ATHSCL HEART DISEASE OF [place] CORONARY ARTERY W/O ANG PCTRS Status: Chronic (6) HTN (hypertension) Code(s): I10 - ESSENTIAL (PRIMARY) HYPERTENSION Status: Chronic (7) HLD (hyperlipidemia) Code(s): E78.5 - HYPERLIPIDEMIA, UNSPECIFIED Status: Chronic (8) DM2 (diabetes mellitus, type 2) Status: Chronic (9) COPD (chronic obstructive pulmonary disease) Status: Chronic MRI lumbar spine suspicious for OM and SEA at L5 MRI thoracic spine no acute process Status post abscess removal via laminectomy Attempt of hardware removal and exploration of spinal fusion at L4 and L5 Wound irrigation with bacitracin and vancomycin powder. Drain placement. -On vancomycin and cefepime. -ID is following with us. --Pain control and stool softener -Physical therapy consult placed. Hypertension -Currently she is normotensive. -We will add as needed hydralazine to keep her systolic below 160. Type 2 diabetes mellitus -She is on sliding scale insulin -currently her blood glucose seems to be in good range. Following with physical therapy. Drain in place. Mild hyponatremia. Lumbar spine swab no organisms seen. Blood cultures negative x48 hours. dispo - Patient lives with the daughter. Home with home health versus rehab. We will discontinue cefepime once the culture results are finalized.; Gram stain shows staph aureus. vancomycin started yesterday --we will continue that until October 23. Routine weekly labs including CBC CMP, ESR and CRP and vancomycin trough. Plan to transition IV vancomycin after roughly 10 weeks to doxy and the rifampin for 3 months followed by doxycycline for chronic suppression with the current diagnosis of osteomyelitis of the lumbar spine and epidural abscess around the area. We will place case management to work with placement versus home IV antibiotic infusion. Physical therapy is working with the patient. 1st Supratherapeutic on vancomycin dose. -On hold vancomycin. Pharmacy is adjusting.--I talked to the pharmacist around 3:30PM to follow-up on Vanco. -It is scheduled daily dose. Patient has a good family support including one of the daughter as being a nurse for several years. Needs weekly visit of IV nursing for PICC line dressing change.she has a left arm PICC line. Pending neurosurgery as well as infectious disease clearance. 3rd Pain is controlled with the [place]. sHe should be able to discharge her in a day or 2. I do not see labile mentation today that requires any further medical work-up. Hypomagnesemia and hypokalemia---- being replaced. Her blood glucose is slightly high but that is controlled with the sliding scale insulin. We will check her electrolyte panel tomorrow morning if it is normalized plan to discharge her tomorrow with the home nursing for PICC line dressing change once a week as family is able to do IV infusion daily. IV vancomycin for roughly 10 weeks and doxy and the rifampin for 3 months followed by doxycycline for chronic suppression of osteomyelitis of the lumbar spine.
[2020-09-15] MEDS: HumaLOG 300 UNITS/3 ML VIAL SC PRN (17:24)
[2020-09-15] MEDS: Ondansetron PF 4 MG/2 ML Vial IVP PRN (18:32)
[2020-09-15] MEDS: Atorvastatin Calcium 40 MG TAB PO SCH (21:29)
[2020-09-16] MEDS: Sodium Chloride 0.9% 1,000 ML IV SCH ×2 (00:51→05:30)
[2020-09-16] MEDS: HYDROcodone/Acetaminophen 5/325 mg Tablet PO PRN ×3 (00:52→12:42)
[2020-09-16] MEDS: Albuterol Sulfate 1.25 MG/3 ML NEB NEB PRN ×2 (04:49→13:04)
[2020-09-16] MEDS: Linaclotide [Linzess] 72 MCG Capsule PO SCH (05:28)
[2020-09-16] MEDS: tiZANidine HCl 4 MG TAB PO SCH ×2 (05:29→14:18)
[2020-09-16 06:36] LABS: Anion Gap 12 mmol/L (10-20); BUN (Urea Nitrogen) 4 mg/dL (9.8-20.1); Calc. Creatinine Clearance 46 mL/min (70-130); Calcium 7.9 mg/dL (7.8-10.44); Carbon Dioxide 25 mmol/L (23-31); Chloride 103 mmol/L (98-107); Glucose 150 mg/dL (83-110); Magnesium 1.6 mg/dL (1.6-2.6); Potassium 3.9 mmol/L (3.5-5.1); Sodium 136 mmol/L (136-145)
[2020-09-16] MEDS: Cyanocobalamin (Vitamin B-12) 1,000 MCG TAB PO SCH (07:50)
[2020-09-16] MEDS: Ascorbic Acid 500 mg Chewable Tablet PO SCH (07:50)
[2020-09-16] MEDS: Amlodipine 5 MG TAB PO SCH (07:50)
[2020-09-16] MEDS: Cholecalciferol 1,000 UNITS (25 MCG) TAB PO SCH (07:51)
[2020-09-16] MEDS: Carvedilol 25 MG TAB PO SCH (07:51)
[2020-09-16] MEDS: Pantoprazole 40 MG VIAL IVP SCH (07:51)
[2020-09-16] MEDS: Vancomycin HCl 750 MG in Sodium Chloride 0.9% 250 ML 250 ML IVPB SCH (08:52)
[2020-09-16] MEDS ORDERED: Magnesium 2 GM/50 ML 2 GM in Premix Bag 1 BAG IVPB SCH (09:45)
--- NOTE | 2020-09-16 13:21 | PDOC.DS.DS ---
Provider - Provider Date of Admission: 09/09/20 21:51 Admitting Provider: Major Sharma Primary Care Physician: Unknown Course - Hospital Course Pertinent Studies: 89-year-old female presented with (1) Abscess in epidural space of lumbar spine Code(s): G06.1 - INTRASPINAL ABSCESS AND GRANULOMA Status: Acute (2) Osteomyelitis of lumbar spine Code(s): M46.26 - OSTEOMYELITIS OF [place], LUMBAR REGION Status: Acute (3) Back pain Code(s): M54.9 - DORSALGIA, UNSPECIFIED Status: Chronic (4) Hypomagnesemia Code(s): E83.42 - HYPOMAGNESEMIA Status: Acute (5) CAD (coronary artery disease) Code(s): I25.10 - ATHSCL HEART DISEASE OF [place] CORONARY ARTERY W/O ANG PCTRS Status: Chronic (6) HTN (hypertension) Code(s): I10 - ESSENTIAL (PRIMARY) HYPERTENSION Status: Chronic (7) HLD (hyperlipidemia) Code(s): E78.5 - HYPERLIPIDEMIA, UNSPECIFIED Status: Chronic (8) DM2 (diabetes mellitus, type 2) Status: Chronic (9) COPD (chronic obstructive pulmonary disease) Status: Chronic Status post abscess removal via laminectomy Attempt of hardware removal and exploration of spinal fusion at L4 and L5 Wound irrigation with bacitracin and vancomycin powder. Drain placement. - Hypertension -Currently she is normotensive. -We will add as needed hydralazine to keep her systolic below 160. Routine weekly labs including CBC CMP, ESR and CRP and vancomycin trough. Plan to transition IV vancomycin after roughly 10 weeks to doxy and the rifampin for 3 months followed by doxycycline for chronic suppression with the current diagnosis of osteomyelitis of the lumbar spine Patient has a good family support including one of the daughter as being a nurse for several years. Needs weekly visit of IV nursing for PICC line dressing change.she has a left arm PICC line. Pending neurosurgery as well as infectious disease clearance. Next week labs ordered. Has to be followed with infectious disease clinic Dr. Barba. The lab results have to be reported to him. Follow with Dr. Arden Du neurosurgery in 2 to 3 weeks time. Follow with Dr. Barba per their clinic appointment. Home IV infusion nursing to change the PICC line dressing has been arranged via rn field case manager. Discharge time over 30 minutes Resuscitation Status: 09/09/20 22:53 Resuscitation Status Routine Co-Sign Provider: Resuscitation Status: FULL: Full Resuscitation Discussed with: patient - Labs Lab Results: 09/14/20 06:00 09/16/20 06:00 Abnormal Lab Results - Last 48 hrs 09/15/20 06:10: Potassium 3.1 L, BUN 5 L, Calcium 7.7 L 09/16/20 06:00: BUN 4 L Microbiology - Entire Visit 09/10/20 13:12 Lumbar - Organism 2 Bacterial Culture - Final 09/10/20 13:12 Lumbar - Organism 2 Anaerobic Culture - Final NO ANAEROBES ISOLATED IN 5 DAYS 09/09/20 18:32 Venous blood - Right Arm Blood Culture - Final NO GROWTH IN 5 DAYS 09/09/20 18:31 Venous blood - Left Arm Blood Culture - Final NO GROWTH IN 5 DAYS 09/10/20 13:13 Lumbar - Swab Bacterial Culture - Final Methicillin resistant S.aureus 09/10/20 13:13 Lumbar - Swab Anaerobic Culture - Final - Physical Exam Vitals: Vital Signs (12 hours) Temp Pulse Resp BP BP Pulse Ox 09/16/20 13:04 74 18 97 09/16/20 12:45 172/72 H 09/16/20 07:58 97.6 F 68 18 164/76 H 96 09/16/20 04:50 98.1 F 89 18 167/83 H 96 09/16/20 04:49 84 12 95 Weight Weight 116 lb 3.2 oz Physical Exam: The patient was seen and examined on the day of discharge. Patient doing well. She has no acute complaints. Daughter is asking about iron supplement. Her hemoglobin is 8.2. Discharge plan discussed. Plan - Discharge Medications Prescriptions: Vancomycin HCl in Dextrose 5 % [Vancomycin 750 mg/150 ml Bag] 750 mg IV DAILY 42 Days #42 [email or web address] Home Medications: Medication Instructions Recorded Confirmed Type Amlodipine Besylate [amLODIPine 5 mg PO DAILY 04/11/18 09/10/20 History Besylate] Aspirin Chewable [Aspirin Chewable 1 tab PO DAILY 04/11/18 09/10/20 History Tablet] Atorvastatin Calcium [Lipitor] 40 mg PO HS 04/11/18 09/10/20 History Carvedilol [Coreg] 25 mg PO BID 04/11/18 09/10/20 History Cholecalciferol (Vitamin D3) 2,000 unit PO DAILY 04/11/18 09/10/20 History [Vitamin D] Cyanocobalamin (Vitamin B-12) 1,000 mcg PO DAILY 04/11/18 09/10/20 History [Vitamin B-12] Dexlansoprazole [Dexilant] 1 cap PO DAILY 04/11/18 09/10/20 History metFORMIN [Glucophage] 250 mg PO BID #0 04/11/18 09/10/20 Rx tiZANidine HCl [Tizanidine HCl] 4 mg PO PRN PRN 04/11/18 09/10/20 History Albuterol Sulfate [Albuterol 1 applic PO TID 03/30/20 09/10/20 History Sulfate Neb] Acetaminophen With Codeine 1 tab PO Q6HR 08/16/20 09/10/20 History [Acetaminophen/Codeine #4] Ascorbic Acid [Vitamin C] 500 mg PO DAILY 08/16/20 09/10/20 History Linaclotide [Linzess] 72 mcg PO DAILY 08/16/20 09/10/20 History Magnesium Oxide [Magnesium] 400 mg PO DAILY 08/16/20 09/10/20 History methylPREDNISolone [Medrol] 1 tab PO ASDIR 08/24/20 09/10/20 History Vancomycin HCl in Dextrose 5 % 750 mg IV DAILY 42 Days #42 09/15/20 Rx [Vancomycin 750 mg/150 ml Bag] [email or web address] Allergies: Iodinated Contrast Media Allergy (Verified 09/10/20 01:37) zolpidem [From Ambien] Allergy (Verified 04/25/20 14:55) morphine Adverse Reaction (Verified 08/25/20 03:20) - Discharge Instructions Activity:: Activity as Tolerated - Follow up Plan Referrals: [facility] [Outside] Arden Du MD [Active] - Freddie Barba MD [Active] - Unknown,Unknown [Primary Care Provider] - Disposition: HOME HEALTH Quality - Care Measures CORE MEASURES:: N/A
[2020-09-16 18:51] VITALS: BP 160/75; TEMP 98.2
--- NOTE | 2020-09-19 03:35 | PQF ---
CLINICAL DOCUMENTATION CLARIFICATION FORM: Dear : Omari Boone Date / Time: 09/19/20 1562 Please exercise your independent, professional judgment in responding to the clarification form. Clinical indicators are provided on the bottom of this form for your review Please check appropriate box(es): [ ] Encephalopathy: Etiology: [ ] Metabolic [ ] Toxic [ ] Drug induced: [ ] Unspecified [ ] Other (please specify) ___multifactorial as explained in my progress note[ fifth one [ ] Transient Alteration of Awareness [ ] Other diagnosis, please specify: [ ] Unable to determine In addition, please specify: Present on Admission (POA): [ ] Yes [ ] No [ ] Unable to determine Physician Signature: Date/Time: For continuity of documentation, please document condition throughout progress notes and discharge summary. Thank You. To be completed by CDI/Coding staff for physician review: Present Clinical Indicators - Signs / Symptoms / Labs Results and Location in Medical Record [X] WBC 5.5, Plt count 400, Neutrophils 55.0, Lactic acid 1.3 Laboratory 09/09 [X] BP 151/81, Pulse 68, Resp 16, temp 98.2 Vital signs 09/09 [X] Had a epidose pf hallucinations and disorientation yesterday. There was a concern of tizanidine adverse effect HPN p1 09/13 Dr Boone [X] Alessandro not sure if some of this related to just hospital based delirium or there is more component of Sepsis PN p1 09/13 Dr Grullon [X] She has also undergone two rather close and sequence lumbar decompression with general anesthesia event. 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 H&P p5 09/09 Jose AMBULANCE DISPATCHER-C [X] Hypomagnesia HP 09/09 [X] Hyponatremia PN 09/11 Present Treatments Results and Location in Medical Record [X] IV Bacitracin 09587 units DEC 22 [X] IV Cefepime 2 gm DEC 22 [X] IVF NS 1L DEC 22 [X] IV Vancomycin 1 gm DEC 22 [X] Neurosurgery consult Consult Dr Adamson 09/10 [X] ID Consult Consult Dr Barba [X] Evacuation of abscess Operative report Dr Du 09/10 [X] Monitor and replacement of electrolytes 09/09 CDS/Hadoop Architect Signature: Gwendolyn Crow Phone #: ext [phone] Date/Time: 09/19/2020 0334 This is a permanent part of the Medical Record [facility]
--- NOTE | 2020-09-19 03:36 | PQF ---
CLINICAL DOCUMENTATION CLARIFICATION FORM: Dear : Omari Boone Date / Time: 09/19/20 7163 Please exercise your independent, professional judgment in responding to the clarification form. Clinical indicators are provided on the bottom of this form for your review Please check appropriate box(es): [ ] Abscess of Epidural space of Lumbar spines is a postoperative infection complication of spinal surgery [ ] Abscess of Epidural space of Lumbar spines is not related to spinal surgery [ ] Other diagnosis, please specify [x ] Unable to determine Physician Signature: Date/Time: For continuity of documentation, please document condition throughout progress notes and discharge summary. Thank You. To be completed by CDI/Coding staff for physician review: Present Clinical Indicators - Signs / Symptoms / Labs Results and Location in Medical Record [X] WBC 5.5, Plt count 400, Neutrophils 55.0, Lactic acid 1.3 Laboratory 09/09 [X] Lumbar swab : MRSA Microbiology 09/10 [X] Lumbar Spine MRI : Epidural fluid collection within the anterior aspects of the spinal canal at L5 as described above suspicious for epidural abscess Imaging Dr Perez 09/09 [X] BP 151/81, Pulse 68, Resp 16, temp 98.2 Vital signs 09/09 [X] pt recently underwent back surgery to her lumbar spine 08/2020 H&P p5 09/09 Jose CONTINUOUS IMPROVEMENT SPECIALIST-C [X] 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 H&P p5 09/09 Jose CONTINUOUS IMPROVEMENT SPECIALIST-C [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 H&P p5 09/09 Jose CONTINUOUS IMPROVEMENT SPECIALIST-C [X] The pt had progressive back and left claudicatory leg pain in the setting of recent spinal surgery and diagnosis of MRSA bacteremia Consult Dr Adamson 09/10 Present Risk Factors Results and Location in Medical Record [X] 79 year-old Female H&P p1 09/09 Jose CONTINUOUS IMPROVEMENT SPECIALIST-C [X] HTN H&P p1 09/09 Jose CONTINUOUS IMPROVEMENT SPECIALIST-C [X] DM H&P p1 09/09 Jose CONTINUOUS IMPROVEMENT SPECIALIST-C [X] Former Smoker H&P p1 09/09 Jose CONTINUOUS IMPROVEMENT SPECIALIST-C [X] s/p lumbar spine surgery H&P p5 09/09 Jose CONTINUOUS IMPROVEMENT SPECIALIST-C Present Treatments Results and Location in Medical Record [X] IV Bacitracin 45168 units DEC 22 [X] IV Cefepime 2 gm DEC 22 [X] IVF NS 1L DEC 22 [X] IV Vancomycin 1 gm DEC 22 [X] Neurosurgery consult Consult Dr Adamson 09/10 [X] Evacuation of abscess Operative report Dr Du 09/10 CDS/Eye Physician Signature: Gwendolyn Crow Phone #: [phone] Date/Time: 09/19/2020 0335 This is a permanent part of the Medical Record [facility]
--- NOTE | 2020-09-19 03:37 | PQF ---
CLINICAL DOCUMENTATION CLARIFICATION FORM: Dear : Omari Boone Date / Time: 09/19/20 5136 Please exercise your independent, professional judgment in responding to the clarification form. Clinical indicators are provided on the bottom of this form for your review Please check appropriate box(es) to clarify if the following diagnosis has been ruled in our ruled out: Sepsis [ ] Ruled in diagnosis [ ] Continue to treat [ ] Resolved [ ] Ruled out diagnosis [ ] Improving [ x ] Cannot rule out diagnosis [ ] Other diagnosis, please specify [ ] Unable to determine In addition, please specify: Present on Admission (POA): [ ] Yes [ ] No [ ] Unable to determine Physician Signature: Date/Time: For continuity of documentation, please document condition throughout progress notes and discharge summary. Thank You. 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
== END 2020-09-16 17:37 | disposition home health service (06) | DRG 28 ==
LOC: ERS 17:59 → T4-B 21:51
PROVIDERS: ADMIT Internal Medicine; ATTEND Internal Medicine
PROC: [UNRECOGNIZED PROCEDURE] (principal; 2020-09-10)
PROC: 0QP004Z Removal of Internal Fixation Device from Lumbar Vertebra, Open Approach (ICD-10-PCS; 2020-09-10)
DX: G06.1 Intraspinal abscess and granuloma (principal); A41.9 Sepsis, unspecified organism; M46.26 Osteomyelitis of vertebra, lumbar region; E87.1 Hypo-osmolality and hyponatremia; G93.49 Other encephalopathy; E83.42 Hypomagnesemia; Z20.828 Contact with and (suspected) exposure to other viral communicable diseases; I25.10 Atherosclerotic heart disease of native coronary artery without angina pectoris; I10 Essential (primary) hypertension; E78.5 Hyperlipidemia, unspecified; E11.9 Type 2 diabetes mellitus without complications; J44.9 Chronic obstructive pulmonary disease, unspecified; B95.62 Methicillin resistant Staphylococcus aureus infection as the cause of diseases classified elsewhere; E78.00 Pure hypercholesterolemia, unspecified; E87.6 Hypokalemia; Z98.1 Arthrodesis status; Z79.899 Other long term (current) drug therapy; Z79.84 Long term (current) use of oral hypoglycemic drugs; Z79.82 Long term (current) use of aspirin; I25.2 Old myocardial infarction; Z95.5 Presence of coronary angioplasty implant and graft; Z90.49 Acquired absence of other specified parts of digestive tract; Z90.710 Acquired absence of both cervix and uterus; Z87.891 Personal history of nicotine dependence; Z86.73 Personal history of transient ischemic attack (TIA), and cerebral infarction without residual deficits
CPT/HCPCS: 36415; 36416; 71045; 72146; 72148; 80048; 80053; 80202; 83605; 83735; 85025; 85652; 86140; 87040; 87070; 87077; 87186; 87205; 94640; 96365; 96375; C9113; J0692; J2405; J2704; J2997; J3010; J3370; J3475; J3490; J7050; U0002

== ENCOUNTER 2020-12-21 09:55 | Outpatient (CLI) | payer MEDICARE, MEDICAID | END 2020-12-21 09:56 | disposition home or self-care (01) | LOC: CT 09:55 | DX: M54.5 Low back pain (principal); M47.816 Spondylosis without myelopathy or radiculopathy, lumbar region; Z98.1 Arthrodesis status; Z98.890 Other specified postprocedural states | CPT/HCPCS: 72131 ==

== ENCOUNTER 2022-02-17 19:54 | Emergency (ER) | payer MEDICARE, MEDICAID ==
[2022-02-17] MEDS ORDERED: Ondansetron PF 4 MG/2 ML Vial ONE ×2 (20:18→23:30)
[2022-02-17 20:53] LABS: Bacteria/HPF None Seen HPF (None Seen); Bilirubin Negative (Negative); Blood, Urine Negative (Negative); Clarity Clear (Clear); Glucose, Urine (Dipstick) 30 mg/dL (Negative); Ketone, Urine Negative (Negative); Leukocyte Negative Leu/uL (Negative); Mucous/LPF Rare LPF (<2+); Nitrite Negative (Negative); Protein, Urine (Dipstick) 100 mg/dL (Neg-Trace); RBC/HPF 0-3 HPF (0-3); Specific Gravity, Urine 1.027 (1.002-1.036); Squamous Epithelial None Seen HPF (0-3); Urobilinogen Normal mg/dL (Less than 2); WBC/HPF 0-3 HPF (0-3)
[2022-02-17] MEDS ORDERED: HYDROcodone/Acetaminophen 10/325 mg Tablet ONE (21:06)
[2022-02-17 21:18] LABS: #Basophils 0.1 thou/uL (0.0-0.2); #Eosinphils 0.9 thou/uL (0.0-0.7); #Lymphocytes 2.4 thou/uL (1.20-3.40); #Monocytes 0.5 thou/uL (0.11-0.59); #Neutrophils 4.1 thou/uL (1.40-6.50); %Basophils 1.3 % (0.0-1.0); %Eosinophils 11.7 % (0.0-10.0); %Lymphocytes 29.7 % (21.0-51.0); %Monocytes 6.7 % (0.0-10.0); %Neutrophils 50.6 % (42.0-75.0); Hemoglobin 10.2 g/dL (12.0-16.0); MDiff Complete? YES; Mean Corpuscular HGB CONC 31.6 g/dL (32.0-36.0); Mean Corpuscular Hemoglobin 29.2 pg (27.0-31.0); Mean Corpuscular Volume 92.4 fL (78.0-98.0); Mean Platelet Volume 9.6 fL (7.4-10.4); Platelet Clumps SLIGHT; Platelet Count 196 thou/uL (130-400); Platelet Morphology Comment PLT clumps seen-ADEQ; RBC Distribution Width 14.4 % (11.5-14.5); Red Blood Cell (RBC) Count 3.49 mill/uL (4.20-5.40)
[2022-02-17 21:45] LABS: Albumin 3.7 g/dL (3.4-4.8)
[2022-02-17 21:46] LABS: Chloride 107 mmol/L (98-107); Potassium 3.9 mmol/L (3.5-5.1); Sodium 140 mmol/L (136-145)
[2022-02-17 21:47] LABS: Calcium 8.4 mg/dL (7.8-10.44)
[2022-02-17 21:48] LABS: Globulin 3.2 g/dL (2.4-3.5); Glucose 190 mg/dL (83-110); Protein, Total 6.9 g/dL (5.8-8.1)
[2022-02-17 21:49] LABS: Anion Gap 16 mmol/L (10-20); Carbon Dioxide 21 mmol/L (23-31)
[2022-02-17 21:50] LABS: Bilirubin, Total 0.3 mg/dL (0.2-1.2)
[2022-02-17 21:51] LABS: Alkaline Phosphatase 47 U/L (40-110); Calc. Creatinine Clearance 0 mL/min (70-130)
[2022-02-17 21:52] LABS: BUN (Urea Nitrogen) 13 mg/dL (9.8-20.1)
[2022-02-17 21:53] LABS: AST (SGOT) 14 U/L (5-34)
[2022-02-17 21:54] LABS: ALT (SGPT) Less than 7 U/L (8-55); CK (CPK) 58 U/L (29-168)
== END 2022-02-18 00:24 | disposition home or self-care (01) ==
LOC: ERS 19:54
DX: R11.2 Nausea with vomiting, unspecified (principal); R19.7 Diarrhea, unspecified; I10 Essential (primary) hypertension; I25.2 Old myocardial infarction; E11.9 Type 2 diabetes mellitus without complications; J44.9 Chronic obstructive pulmonary disease, unspecified; E78.00 Pure hypercholesterolemia, unspecified; E78.5 Hyperlipidemia, unspecified; Z79.82 Long term (current) use of aspirin; Z79.51 Long term (current) use of inhaled steroids; Z79.84 Long term (current) use of oral hypoglycemic drugs; Z79.899 Other long term (current) drug therapy; Z86.73 Personal history of transient ischemic attack (TIA), and cerebral infarction without residual deficits; Z87.891 Personal history of nicotine dependence
CPT/HCPCS: 36415; 51701; 71045; 74176; 80053; 81003; 81015; 82550; 84484; 85025; 93005; 96374; J2405

== ENCOUNTER 2022-04-21 12:51 | Inpatient (IN) | payer OTHER, MEDICAID ==
[2022-04-21] MEDS ORDERED: HYDROcodone/Acetaminophen 5/325 mg Tablet ONE (13:47)
[2022-04-21] MEDS ORDERED: Ondansetron PF 4 MG/2 ML Vial IVP PRN (14:12)
[2022-04-21] MEDS ORDERED: Promethazine HCl 25 MG/ML VIAL IM PRN (14:12)
[2022-04-21] MEDS ORDERED: Morphine 2 MG/ML VIAL SLOW IVP PRN (14:12)
[2022-04-21] MEDS ORDERED: hydrALAZINE 20 MG/ML VIAL SLOW IVP PRN (14:12)
[2022-04-21] MEDS ORDERED: Acetaminophen 325 MG TAB PO SCH (14:15)
[2022-04-21] MEDS ORDERED: Dextrose 5% in Water 1,000 ML IV PRN (14:16)
[2022-04-21] MEDS ORDERED: Dextrose 50% Abboject 50 ML SYRINGE SLOW IVP PRN (14:16)
[2022-04-21 14:24] LABS: #Basophils 0.1 thou/uL (0.0-0.2); #Eosinphils 0.9 thou/uL (0.0-0.7); #Lymphocytes 1.5 thou/uL (1.20-3.40); #Monocytes 0.5 thou/uL (0.11-0.59); #Neutrophils 6.6 thou/uL (1.40-6.50); %Basophils 0.7 % (0.0-1.0); %Eosinophils 9.3 % (0.0-10.0); %Lymphocytes 15.2 % (21.0-51.0); %Monocytes 5.3 % (0.0-10.0); %Neutrophils 69.6 % (42.0-75.0); Hemoglobin 10.3 g/dL (12.0-16.0); Mean Corpuscular HGB CONC 31.4 g/dL (32.0-36.0); Mean Corpuscular Hemoglobin 29.2 pg (27.0-31.0); Mean Corpuscular Volume 93.2 fL (78.0-98.0); Mean Platelet Volume 9.2 fL (7.4-10.4); Platelet Count 250 thou/uL (130-400); RBC Distribution Width 14.9 % (11.5-14.5); Red Blood Cell (RBC) Count 3.51 mill/uL (4.20-5.40); White Blood Cell (WBC) Count 9.6 thou/uL (4.8-10.8)
[2022-04-21 14:32] LABS: PTT 25.3 sec (22.9-36.1); Prothrombin Time 13.6 sec (12.0-14.7)
[2022-04-21 14:39] LABS: ALT (SGPT) 9 U/L (8-55); AST (SGOT) 12 U/L (5-34); Albumin 3.6 g/dL (3.4-4.8); Alkaline Phosphatase 50 U/L (40-110); Anion Gap 15 mmol/L (10-20); BUN (Urea Nitrogen) 17 mg/dL (9.8-20.1); Bilirubin, Total 0.3 mg/dL (0.2-1.2); Calc. Creatinine Clearance 0 mL/min (70-130); Calcium 8.2 mg/dL (7.8-10.44); Carbon Dioxide 27 mmol/L (23-31); Chloride 102 mmol/L (98-107); Estimated GFR 59; Globulin 3.2 g/dL (2.4-3.5); Glucose 229 mg/dL (83-110); Potassium 3.6 mmol/L (3.5-5.1); Protein, Total 6.8 g/dL (5.8-8.1); Sodium 140 mmol/L (136-145)
[2022-04-21] MEDS ORDERED: Acetaminophen 500 MG TAB PO SCH (14:45)
[2022-04-21] MEDS: Acetaminophen 325 MG TAB PO SCH ×2 (17:55→23:24)
[2022-04-21] MEDS: Sodium Chloride 0.9% 1,000 ML IV SCH (17:56)
[2022-04-21 20:36] VITALS: BMI 22.6
[2022-04-21] MEDS ORDERED: Famotidine/PF 20 mg/2ml Vial SLOW IVP SCH (21:00)
[2022-04-21] MEDS: Acetaminophen/Codeine 30-300mg Tablet PO PRN (21:39)
[2022-04-22 02:10] LABS: Bacteria/HPF None Seen HPF (None Seen); Bilirubin Negative (Negative); Blood, Urine Negative (Negative); Clarity Clear (Clear); Glucose, Urine (Dipstick) Normal (Negative); Ketone, Urine Negative (Negative); Leukocyte Negative Leu/uL (Negative); Nitrite Negative (Negative); Protein, Urine (Dipstick) Negative (Neg-Trace); RBC/HPF 0-3 HPF (0-3); Specific Gravity, Urine 1.012 (1.002-1.036); Squamous Epithelial 0-3 HPF (0-3); Urobilinogen Normal mg/dL (Less than 2); WBC/HPF 0-3 HPF (0-3); pH, Urine 7.5 (5.0-9.0)
[2022-04-22 02:11] LABS: Urine Culture Reflex No No
[2022-04-22 02:30] LABS: SARS-CoV-2 NAA Rapid Test DETECTED (NotDetected)
[2022-04-22] MEDS: Sodium Chloride 0.9% 1,000 ML IV SCH ×3 (03:50→21:20)
[2022-04-22] MEDS: Acetaminophen 325 MG TAB PO SCH ×3 (05:41→18:52)
[2022-04-22 05:49] LABS: #Eosinphils 1.3 thou/uL (0.0-0.7); #Lymphocytes 1.4 thou/uL (1.20-3.40); #Monocytes 0.5 thou/uL (0.11-0.59); #Neutrophils 6.5 thou/uL (1.40-6.50); %Basophils 0.5 % (0.0-1.0); %Eosinophils 13.6 % (0.0-10.0); %Lymphocytes 14.5 % (21.0-51.0); %Monocytes 5.2 % (0.0-10.0); %Neutrophils 66.4 % (42.0-75.0); Hemoglobin 11.8 g/dL (12.0-16.0); Mean Corpuscular HGB CONC 32.7 g/dL (32.0-36.0); Mean Corpuscular Hemoglobin 29.9 pg (27.0-31.0); Mean Corpuscular Volume 91.5 fL (78.0-98.0); Mean Platelet Volume 9.4 fL (7.4-10.4); Platelet Count 276 thou/uL (130-400); RBC Distribution Width 14.8 % (11.5-14.5); Red Blood Cell (RBC) Count 3.93 mill/uL (4.20-5.40); White Blood Cell (WBC) Count 9.7 thou/uL (4.8-10.8)
[2022-04-22 06:15] LABS: Anion Gap 16 mmol/L (10-20); BUN (Urea Nitrogen) 9 mg/dL (9.8-20.1); Calc. Creatinine Clearance 54 mL/min (70-130); Calcium 8.5 mg/dL (7.8-10.44); Carbon Dioxide 26 mmol/L (23-31); Chloride 97 mmol/L (98-107); Estimated GFR 80; Glucose 191 mg/dL (83-110); Potassium 3.5 mmol/L (3.5-5.1); Sodium 135 mmol/L (136-145)
[2022-04-22 06:18] LABS: Magnesium 0.9 mg/dL (1.6-2.6)
[2022-04-22] MEDS ORDERED: Albuterol Sulfate 2.5 mg/3 ml Neb NEB SCH (06:30)
[2022-04-22] MEDS ORDERED: Magnesium 2 GM/50 ML(in water) 4 GM in Premix Bag 1 BAG IVPB SCH (07:00)
[2022-04-22] MEDS ORDERED: Albuterol 200 PUFF (6.7GM INHALER) INH PRN (07:28)
[2022-04-22] MEDS ORDERED: Albuterol 200 PUFF (6.7GM INHALER) INH SCH (07:45)
[2022-04-22] MEDS ORDERED: Magnesium Sulfate In Water 4 GM in Premix Bag 1 BAG IVPB SCH (08:00)
[2022-04-22] MEDS ORDERED: Potassium Chloride 20 MEQ TAB PO SCH (08:00)
[2022-04-22] MEDS: Polyethylene Glycol 3350 17 GM Packet PO SCH (09:20)
[2022-04-22] MEDS: Amlodipine 5 MG TAB PO SCH ×2 (09:21→09:25)
[2022-04-22] MEDS: Carvedilol 25 MG TAB PO SCH ×2 (09:25→21:18)
[2022-04-22] MEDS: Senokot S 8.6-50 MG TAB PO SCH ×2 (09:25→21:19)
[2022-04-22] MEDS: Acetaminophen/Codeine 30-300mg Tablet PO PRN ×2 (09:53→21:17)
[2022-04-22] MEDS ORDERED: ceFAZolin 2 GM/Dextrose 50 ML 2 GM in Premix Bag 1 BAG IVPB SCH ×2 (11:00→22:00)
[2022-04-22] MEDS ORDERED: fentaNYL Citrate/PF 100 MCG/2 ML SYRINGE ONE (12:53)
[2022-04-22] MEDS ORDERED: Phenylephrine 10 MG/ML VIAL ONE ×2 (12:53→13:24)
[2022-04-22] MEDS ORDERED: Lidocaine 1% PF 5 ML VIAL ONE (13:24)
[2022-04-22] MEDS ORDERED: Ondansetron PF 4 MG/2 ML Vial ONE (13:24)
[2022-04-22] MEDS ORDERED: PROPOFOL 200 MG/20 ML VIAL ONE (13:24)
[2022-04-22] MEDS ORDERED: ePHEDrine 50 MG/ML VIAL ONE (13:24)
[2022-04-22] MEDS ORDERED: Dexamethasone 20 MG/5 ML VIAL ONE (13:24)
[2022-04-22] MEDS ORDERED: Rocuronium Bromide 10 MG/ML (10ML VIAL) ONE (13:24)
[2022-04-22] MEDS ORDERED: Fentanyl 100 MCG/2 ML VIAL ONE (14:17)
[2022-04-22] MEDS ORDERED: SUGAMMADEX SODIUM 200 MG/2 ML VIAL ONE (14:24)
[2022-04-22] MEDS: Albuterol 200 PUFF (6.7GM INHALER) INH SCH ×2 (18:53→19:09)
[2022-04-22 19:21] LABS: Anion Gap 15 mmol/L (10-20); BUN (Urea Nitrogen) 10 mg/dL (9.8-20.1); Calc. Creatinine Clearance 46 mL/min (70-130); Calcium 8.2 mg/dL (7.8-10.44); Carbon Dioxide 26 mmol/L (23-31); Chloride 99 mmol/L (98-107); Estimated GFR 66; Glucose 227 mg/dL (83-110); Magnesium 2.3 mg/dL (1.6-2.6); Phosphorus 3.4 mg/dL (2.3-4.7); Potassium 4.5 mmol/L (3.5-5.1); Sodium 135 mmol/L (136-145)
[2022-04-22] MEDS: Atorvastatin Calcium 40 MG TAB PO SCH (21:17)
[2022-04-22] MEDS: Famotidine/PF 20 mg/2ml Vial SLOW IVP SCH (21:19)
[2022-04-22] MEDS: CEFAZOLIN 2 GM in Sodium Chloride 0.9% 100 ML IVPB SCH (21:20)
[2022-04-22] MEDS: Insulin Regular 300 UNITS/3 ML VIAL SC PRN (21:49)
[2022-04-23] MEDS: Acetaminophen 325 MG TAB PO SCH ×4 (00:44→17:50)
[2022-04-23] MEDS: Acetaminophen/Codeine 30-300mg Tablet PO PRN ×3 (05:43→21:55)
[2022-04-23] MEDS: CEFAZOLIN 2 GM in Sodium Chloride 0.9% 100 ML IVPB SCH (05:43)
[2022-04-23] MEDS: Amlodipine 10 MG TAB PO SCH (08:24)
[2022-04-23] MEDS: Senokot S 8.6-50 MG TAB PO SCH ×2 (08:25→21:55)
[2022-04-23] MEDS: Polyethylene Glycol 3350 17 GM Packet PO SCH (08:26)
[2022-04-23] MEDS: Aspirin 81 mg Enteric Coated Tablet PO SCH ×2 (08:26→21:55)
[2022-04-23] MEDS: Carvedilol 25 MG TAB PO SCH ×2 (08:26→21:55)
[2022-04-23] MEDS: Insulin Regular 300 UNITS/3 ML VIAL SC PRN (11:09)
[2022-04-23] MEDS ORDERED: Sodium Chloride 0.9% 1,000 ML IV SCH (13:00)
[2022-04-23] MEDS: Albuterol 200 PUFF (6.7GM INHALER) INH SCH ×3 (13:57→18:06)
[2022-04-23] MEDS: Atorvastatin Calcium 40 MG TAB PO SCH (21:55)
[2022-04-23] MEDS: Famotidine/PF 20 mg/2ml Vial SLOW IVP SCH (21:55)
[2022-04-24] MEDS: Acetaminophen 325 MG TAB PO SCH ×2 (00:20→05:21)
[2022-04-24] MEDS: Acetaminophen/Codeine 30-300mg Tablet PO PRN (05:22)
[2022-04-24] MEDS: Albuterol 200 PUFF (6.7GM INHALER) INH SCH ×3 (05:22→18:10)
[2022-04-24 05:52] LABS: Anion Gap 14 mmol/L (10-20); BUN (Urea Nitrogen) 11 mg/dL (9.8-20.1); Calc. Creatinine Clearance 49 mL/min (70-130); Calcium 8.2 mg/dL (7.8-10.44); Carbon Dioxide 22 mmol/L (23-31); Chloride 106 mmol/L (98-107); Estimated GFR 72; Glucose 166 mg/dL (83-110); Magnesium 1.7 mg/dL (1.6-2.6); Phosphorus 2.6 mg/dL (2.3-4.7); Potassium 4.4 mmol/L (3.5-5.1); Sodium 138 mmol/L (136-145)
[2022-04-24] MEDS: Aspirin 81 mg Enteric Coated Tablet PO SCH ×2 (09:39→21:52)
[2022-04-24] MEDS: Amlodipine 10 MG TAB PO SCH (09:39)
[2022-04-24] MEDS: Senokot S 8.6-50 MG TAB PO SCH ×2 (09:39→21:52)
[2022-04-24] MEDS: Polyethylene Glycol 3350 17 GM Packet PO SCH (09:40)
[2022-04-24] MEDS: Carvedilol 25 MG TAB PO SCH ×2 (09:40→21:53)
[2022-04-24] MEDS: Acetaminophen/Codeine 30-300mg Tablet PO SCH ×3 (11:31→23:59)
[2022-04-24] MEDS: Insulin Regular 300 UNITS/3 ML VIAL SC PRN (12:34)
[2022-04-24] MEDS ORDERED: HYDROcodone/Acetaminophen 10/325 mg Tablet PO PRN (13:41)
[2022-04-24] MEDS ORDERED: Ibuprofen 800 MG TAB PO PRN (20:44)
[2022-04-24] MEDS: Atorvastatin Calcium 40 MG TAB PO SCH (21:51)
[2022-04-24] MEDS: tiZANidine HCl 4 MG TAB PO PRN (21:51)
[2022-04-24] MEDS: Gabapentin 100 MG CAP PO SCH (21:52)
[2022-04-24] MEDS: Famotidine 20 MG TAB PO SCH (21:52)
[2022-04-25] MEDS: Insulin Regular 300 UNITS/3 ML VIAL SC PRN ×2 (06:13→12:43)
[2022-04-25] MEDS: Acetaminophen/Codeine 30-300mg Tablet PO SCH ×3 (06:13→17:39)
[2022-04-25] MEDS: Senokot S 8.6-50 MG TAB PO SCH ×2 (08:46→20:57)
[2022-04-25] MEDS: Gabapentin 100 MG CAP PO SCH ×3 (08:47→20:56)
[2022-04-25] MEDS: Aspirin 81 mg Enteric Coated Tablet PO SCH ×2 (08:47→20:56)
[2022-04-25] MEDS: Amlodipine 10 MG TAB PO SCH (08:47)
[2022-04-25] MEDS: Acetaminophen/Codeine 30-300mg Tablet PO PRN ×2 (08:47→20:57)
[2022-04-25] MEDS: Carvedilol 25 MG TAB PO SCH ×2 (08:47→20:56)
[2022-04-25] MEDS: Albuterol 200 PUFF (6.7GM INHALER) INH SCH ×3 (08:48→17:39)
[2022-04-25] MEDS: Polyethylene Glycol 3350 17 GM Packet PO SCH (08:48)
[2022-04-25] MEDS: Famotidine 20 MG TAB PO SCH (20:56)
[2022-04-25] MEDS: Atorvastatin Calcium 40 MG TAB PO SCH (20:56)
[2022-04-25] MEDS: tiZANidine HCl 4 MG TAB PO PRN (20:57)
[2022-04-26] MEDS: Acetaminophen/Codeine 30-300mg Tablet PO SCH ×5 (00:18→23:22)
[2022-04-26] MEDS: Polyethylene Glycol 3350 17 GM Packet PO SCH (09:28)
[2022-04-26] MEDS: Gabapentin 100 MG CAP PO SCH ×3 (09:28→20:01)
[2022-04-26] MEDS: Amlodipine 10 MG TAB PO SCH (09:29)
[2022-04-26] MEDS: Albuterol 200 PUFF (6.7GM INHALER) INH SCH ×3 (09:29→18:37)
[2022-04-26] MEDS: Carvedilol 25 MG TAB PO SCH ×2 (09:29→20:01)
[2022-04-26] MEDS: Senokot S 8.6-50 MG TAB PO SCH ×2 (09:29→20:01)
[2022-04-26] MEDS: Aspirin 81 mg Enteric Coated Tablet PO SCH ×2 (09:29→20:00)
[2022-04-26] MEDS: Insulin Regular 300 UNITS/3 ML VIAL SC PRN (13:54)
[2022-04-26] MEDS: Famotidine 20 MG TAB PO SCH (20:00)
[2022-04-26] MEDS: Atorvastatin Calcium 40 MG TAB PO SCH (20:00)
[2022-04-26] MEDS: metFORMIN 500 MG TAB PO SCH (20:01)
[2022-04-26] MEDS: Acetaminophen/Codeine 30-300mg Tablet PO PRN (20:01)
[2022-04-26] MEDS: tiZANidine HCl 4 MG TAB PO PRN (20:02)
[2022-04-27] MEDS: Acetaminophen/Codeine 30-300mg Tablet PO SCH ×2 (05:34→10:28)
[2022-04-27] MEDS: Senokot S 8.6-50 MG TAB PO SCH (08:46)
[2022-04-27] MEDS: metFORMIN 500 MG TAB PO SCH (08:47)
[2022-04-27] MEDS: Gabapentin 100 MG CAP PO SCH ×2 (08:47→15:41)
[2022-04-27] MEDS: Aspirin 81 mg Enteric Coated Tablet PO SCH (08:48)
[2022-04-27] MEDS: Carvedilol 25 MG TAB PO SCH (08:49)
[2022-04-27] MEDS: Amlodipine 10 MG TAB PO SCH (08:51)
[2022-04-27] MEDS: Polyethylene Glycol 3350 17 GM Packet PO SCH (08:51)
[2022-04-27] MEDS ORDERED: Linaclotide [Linzess] 72 MCG Capsule PO SCH (09:00)
[2022-04-27] MEDS ORDERED: Magnesium Oxide 400 MG TAB PO SCH (09:00)
[2022-04-27] MEDS: tiZANidine HCl 4 MG TAB PO PRN (15:42)
[2022-04-27 16:05] VITALS: BP 116/73; TEMP 98.2
== END 2022-04-27 16:45 | disposition home or self-care (01) | DRG 521 ==
LOC: ERS 12:51 → SURG A 14:12
PROVIDERS: ADMIT Surgery; ATTEND Surgery
PROC: 0SRS0JA Replacement of Left Hip Joint, Femoral Surface with Synthetic Substitute, Uncemented, Open Approach (ICD-10-PCS; principal; 2022-04-22)
DX: S72.012A Unspecified intracapsular fracture of left femur, initial encounter for closed fracture (principal); U07.1 COVID-19; E87.1 Hypo-osmolality and hyponatremia; Z20.822 Contact with and (suspected) exposure to COVID-19; J44.9 Chronic obstructive pulmonary disease, unspecified; E78.00 Pure hypercholesterolemia, unspecified; E11.9 Type 2 diabetes mellitus without complications; I11.0 Hypertensive heart disease with heart failure; W18.30XA Fall on same level, unspecified, initial encounter; K21.9 Gastro-esophageal reflux disease without esophagitis; I25.10 Atherosclerotic heart disease of native coronary artery without angina pectoris; E83.42 Hypomagnesemia; I50.9 Heart failure, unspecified; Z98.890 Other specified postprocedural states; Z79.82 Long term (current) use of aspirin; I25.2 Old myocardial infarction; Z86.73 Personal history of transient ischemic attack (TIA), and cerebral infarction without residual deficits; Z90.49 Acquired absence of other specified parts of digestive tract; Z90.710 Acquired absence of both cervix and uterus; Z87.891 Personal history of nicotine dependence; Z91.041 Radiographic dye allergy status; Z88.5 Allergy status to narcotic agent; Z88.8 Allergy status to other drugs, medicaments and biological substances; Z79.84 Long term (current) use of oral hypoglycemic drugs; Z79.899 Other long term (current) drug therapy; Z79.51 Long term (current) use of inhaled steroids
CPT/HCPCS: 36415; 36416; 70450; 71045; 72125; 72170; 80048; 80053; 81001; 83605; 83735; 84100; 84484; 85014; 85018; 85025; 85610; 85730; 93005; 94760; C1713; C1776; G0390; J0690; J1100; J1815; J2370; J2405; J2704; J3010; J3475; J3490; J7050; S0028; U0002

== ENCOUNTER 2022-06-10 17:55 | Inpatient (IN) | payer OTHER, MEDICAID ==
[~2022-06-10 17:55] MED LIST changes: -Heparin 1,000 UNITS/ML VIAL ONE
[2022-06-10] MEDS ORDERED: diphenhydrAMINE 50 MG/ML VIAL ONE (18:02)
[2022-06-10] MEDS ORDERED: Famotidine/PF 20 mg/2ml Vial ONE (18:02)
[2022-06-10] MEDS ORDERED: methylPREDNISolone Sod Succ 40 MG VIAL ONE (18:02)
[2022-06-10] MEDS ORDERED: Labetalol HCl 100 MG/20 ML VIAL ONE (18:33)
[2022-06-10 18:35] LABS: #Basophils 0.1 thou/uL (0.0-0.2); #Eosinphils 0.8 thou/uL (0.0-0.7); #Lymphocytes 3.7 thou/uL (1.20-3.40); #Monocytes 0.9 thou/uL (0.11-0.59); #Neutrophils 11.4 thou/uL (1.40-6.50); %Basophils 0.4 % (0.0-1.0); %Eosinophils 4.9 % (0.0-10.0); %Monocytes 5.5 % (0.0-10.0); %Neutrophils 67.1 % (42.0-75.0); Hemoglobin 10.5 g/dL (12.0-16.0); Mean Corpuscular HGB CONC 31.5 g/dL (32.0-36.0); Mean Corpuscular Volume 95.4 fL (78.0-98.0); Mean Platelet Volume 9.1 fL (7.4-10.4); Platelet Count 318 thou/uL (130-400); RBC Distribution Width 14.8 % (11.5-14.5); Red Blood Cell (RBC) Count 3.51 mill/uL (4.20-5.40)
[2022-06-10 18:49] LABS: ALT (SGPT) 10 U/L (8-55); AST (SGOT) 16 U/L (5-34); Albumin 4.2 g/dL (3.4-4.8); Alkaline Phosphatase 64 U/L (40-110); Anion Gap 25 mmol/L (10-20); BUN (Urea Nitrogen) 10 mg/dL (9.8-20.1); Bilirubin, Total 0.2 mg/dL (0.2-1.2); CK (CPK) 50 U/L (29-168); Calc. Creatinine Clearance 0 mL/min (70-130); Calcium 9.1 mg/dL (7.8-10.44); Carbon Dioxide 15 mmol/L (23-31); Chloride 103 mmol/L (98-107); Estimated GFR 54; Globulin 3.8 g/dL (2.4-3.5); Glucose 152 mg/dL (83-110); Potassium 4.1 mmol/L (3.5-5.1); Sodium 139 mmol/L (136-145)
[2022-06-10] MEDS ORDERED: Tenecteplase 50 MG - STEMI KIT ONE (19:08)
[2022-06-10] MEDS ORDERED: Bisacodyl 10 MG SUPP PR PRN (20:13)
[2022-06-10] MEDS ORDERED: HumaLOG 300 UNITS/3 ML VIAL SC PRN (20:13)
[2022-06-10] MEDS ORDERED: Labetalol HCl 100 MG/20 ML VIAL SLOW IVP PRN (20:13)
[2022-06-10] MEDS ORDERED: Dextrose 5% in Water 1,000 ML IV PRN (20:13)
[2022-06-10] MEDS ORDERED: Dextrose 50% Abboject 50 ML SYRINGE SLOW IVP PRN (20:13)
[2022-06-10] MEDS ORDERED: Ondansetron PF 4 MG/2 ML Vial IVP PRN (20:13)
[2022-06-10] MEDS ORDERED: Lorazepam (BATCHED) 2 MG/ML SYR SLOW IVP PRN (20:33)
[2022-06-10 20:42] LABS: PTT 21.9 sec (22.9-36.1)
[2022-06-10 20:46] LABS: Bacteria/HPF None Seen HPF (None Seen); Bilirubin Negative (Negative); Blood, Urine Negative (Negative); Clarity Clear (Clear); Glucose, Urine (Dipstick) Normal (Negative); Ketone, Urine Negative (Negative); Leukocyte Negative Leu/uL (Negative); Nitrite Negative (Negative); Protein, Urine (Dipstick) 30 mg/dL (Neg-Trace); RBC/HPF 0-3 HPF (0-3); Specific Gravity, Urine 1.016 (1.002-1.036); Squamous Epithelial None Seen HPF (0-3); Urobilinogen Normal mg/dL (Less than 2); WBC/HPF 0-3 HPF (0-3); pH, Urine 5.5 (5.0-9.0)
[2022-06-10] MEDS ORDERED: cefTRIAXone\\ROCEPHIN 1 GM in Sodium Chloride 0.9% 100 ML IVPB SCH (21:00)
[2022-06-10 21:08] LABS: SARS-CoV-2 NAA Rapid Test DETECTED (NotDetected)
[2022-06-10 21:44] VITALS: BMI 20.5
[2022-06-10] MEDS ORDERED: Dexamethasone 10 MG/ML VIAL SLOW IVP SCH (21:45)
[2022-06-10 22:10] LABS: Amphetamine Not Detected (NotDetected); Barbiturates Screen Not Detected (NotDetected); Benzodiazepine Screen Not Detected (NotDetected); Cocaine Metabolite Screen Not Detected (NotDetected); Methadone Not Detected (NotDetected); Methamphetamine Not Detected (NotDetected); Opiate Screen Not Detected (NotDetected); Oxycodone Screen Not Detected (NotDetected); Phencyclidine (PCP) Not Detected (NotDetected); THC/Cannabinoid Screen Not Detected (NotDetected); Tricyclic Screen Not Detected (NotDetected)
[2022-06-10] MEDS: Lactated Ringer's 1,000 ML IV SCH (22:17)
[2022-06-10] MEDS: Atorvastatin Calcium 40 MG TAB PO SCH (22:19)
[2022-06-10] MEDS: Famotidine/PF 20 mg/2ml Vial SLOW IVP SCH (22:22)
[2022-06-10] MEDS: Fosphenytoin Sodium 100 MG in Sodium Chloride 0.9% 50 ML IVPB SCH (22:28)
[2022-06-10] MEDS ORDERED: HYDROcodone/Acetaminophen 5/325 mg Tablet PO SCH (23:45)
[2022-06-11] MEDS ORDERED: Labetalol HCl 100 MG/20 ML VIAL SLOW IVP PRN (07:02)
[2022-06-11] MEDS ORDERED: Magnesium 2 GM/50 ML(in water) 2 GM in Premix Bag 1 BAG IVPB SCH ×2 (07:15→10:45)
[2022-06-11] MEDS ORDERED: HumaLOG 300 UNITS/3 ML VIAL SC PRN (07:31)
[2022-06-11] MEDS: Sodium Bicarbonate Tab 325 MG TAB PO SCH ×2 (08:05→20:24)
[2022-06-11] MEDS: Lactated Ringer's 1,000 ML IV SCH ×2 (08:12→16:34)
[2022-06-11] MEDS ORDERED: Electrolyte Replacement Protocol 1 EACH FS SCH (08:15)
[2022-06-11] MEDS ORDERED: Electrolyte Replacement Protocol FS PRN (08:30)
[2022-06-11] MEDS ORDERED: Clopidogrel Bisulfate 75 MG TAB PO SCH (09:00)
[2022-06-11] MEDS ORDERED: Aspirin 81 mg Enteric Coated Tablet PO SCH (09:00)
[2022-06-11] MEDS ORDERED: Enoxaparin Sodium 30 MG/0.3 ML SYRINGE SC SCH (09:00)
[2022-06-11] MEDS ORDERED: Dexamethasone 10 MG/ML VIAL SLOW IVP SCH (09:00)
[2022-06-11 09:04] LABS: Lactic Acid 1.8 mmol/L (0.5-2.2)
[2022-06-11 09:08] LABS: Anion Gap 19 mmol/L (10-20); BUN (Urea Nitrogen) 10 mg/dL (9.8-20.1); Calc. Creatinine Clearance 39 mL/min (70-130); Calcium 8.9 mg/dL (7.8-10.44); Carbon Dioxide 23 mmol/L (23-31); Chloride 99 mmol/L (98-107); Estimated GFR 61; Glucose 190 mg/dL (83-110); Magnesium 1.1 mg/dL (1.6-2.6); Sodium 137 mmol/L (136-145)
[2022-06-11] MEDS ORDERED: Electrolyte Replacement Protocol 1 EACH FS ONE (10:15)
[2022-06-11] MEDS: HYDROcodone/Acetaminophen 10/325 mg Tablet PO PRN ×2 (11:42→17:09)
[2022-06-11] MEDS: Fosphenytoin Sodium 100 MG in Sodium Chloride 0.9% 50 ML IVPB SCH (12:17)
[2022-06-11 19:56] LABS: Anion Gap 22 mmol/L (10-20); BUN (Urea Nitrogen) 10 mg/dL (9.8-20.1); Calc. Creatinine Clearance 36 mL/min (70-130); Calcium 9.1 mg/dL (7.8-10.44); Carbon Dioxide 23 mmol/L (23-31); Chloride 97 mmol/L (98-107); Estimated GFR 56; Glucose 226 mg/dL (83-110); Potassium 3.7 mmol/L (3.5-5.1); Sodium 138 mmol/L (136-145)
[2022-06-11] MEDS: Atorvastatin Calcium 40 MG TAB PO SCH (20:15)
[2022-06-11] MEDS: Carvedilol 6.25 MG TAB PO SCH (20:15)
[2022-06-11] MEDS: Famotidine/PF 20 mg/2ml Vial SLOW IVP SCH (20:21)
[2022-06-11] MEDS ORDERED: levETIRAcetam in NS 500 MG in Premix Bag 1 BAG IVPB SCH (21:00)
[2022-06-11] MEDS ORDERED: levETIRAcetam 500 MG/5 ML VIAL SLOW IVP SCH (21:00)
[2022-06-12] MEDS: Lactated Ringer's 1,000 ML IV SCH (02:16)
[2022-06-12 03:55] LABS: #Basophils 0.1 thou/uL (0.0-0.2); #Eosinphils 0.2 thou/uL (0.0-0.7); #Lymphocytes 1.8 thou/uL (1.20-3.40); #Monocytes 0.9 thou/uL (0.11-0.59); #Neutrophils 7.5 thou/uL (1.40-6.50); %Basophils 0.8 % (0.0-1.0); %Eosinophils 1.9 % (0.0-10.0); %Lymphocytes 17.2 % (21.0-51.0); %Monocytes 8.8 % (0.0-10.0); %Neutrophils 71.3 % (42.0-75.0); Hemoglobin 11.1 g/dL (12.0-16.0); Mean Corpuscular HGB CONC 33.1 g/dL (32.0-36.0); Mean Corpuscular Hemoglobin 31.3 pg (27.0-31.0); Mean Corpuscular Volume 94.4 fL (78.0-98.0); Mean Platelet Volume 8.8 fL (7.4-10.4); Platelet Count 270 thou/uL (130-400); RBC Distribution Width 14.9 % (11.5-14.5); Red Blood Cell (RBC) Count 3.56 mill/uL (4.20-5.40); White Blood Cell (WBC) Count 10.5 thou/uL (4.8-10.8)
[2022-06-12 04:08] LABS: Phosphorus 2.9 mg/dL (2.3-4.7)
[2022-06-12 04:11] LABS: Anion Gap 18 mmol/L (10-20); BUN (Urea Nitrogen) 11 mg/dL (9.8-20.1); Calc. Creatinine Clearance 44 mL/min (70-130); Carbon Dioxide 24 mmol/L (23-31); Chloride 99 mmol/L (98-107); Estimated GFR 71; Glucose 156 mg/dL (83-110); Magnesium 2.1 mg/dL (1.6-2.6); Potassium 3.3 mmol/L (3.5-5.1); Sodium 138 mmol/L (136-145)
[2022-06-12] MEDS ORDERED: Potassium Chloride 20 MEQ TAB PO SCH (08:00)
[2022-06-12] MEDS ORDERED: metFORMIN 500 MG TAB PO SCH (08:00)
[2022-06-12] MEDS: Multivit, Therapeutic 1 TAB PO SCH (08:51)
[2022-06-12] MEDS: DULoxetine 60 MG CAP PO SCH (08:51)
[2022-06-12] MEDS: Cyanocobalamin (Vitamin B-12) 1,000 MCG TAB PO SCH (08:51)
[2022-06-12] MEDS: Aspirin 81 mg Enteric Coated Tablet PO SCH (08:52)
[2022-06-12] MEDS: Clopidogrel Bisulfate 75 MG TAB PO SCH (08:52)
[2022-06-12] MEDS: Carvedilol 6.25 MG TAB PO SCH (08:52)
[2022-06-12] MEDS: Enoxaparin Sodium 30 MG/0.3 ML SYRINGE SC SCH (08:57)
[2022-06-12] MEDS: HYDROcodone/Acetaminophen 10/325 mg Tablet PO PRN (09:00)
[2022-06-12] MEDS ORDERED: Clopidogrel Bisulfate 75 MG TAB PO SCH ×2 (09:00)
[2022-06-12] MEDS ORDERED: levETIRAcetam 500 MG TAB PO SCH (09:00)
[2022-06-12] MEDS ORDERED: Promethazine HCl 25 MG/ML VIAL IM PRN (11:11)
[2022-06-12] MEDS ORDERED: Promethazine HCl 25 MG/ML VIAL IM SCH (11:15)
[2022-06-12 12:06] LABS: Syphilis Antibody Nonreactive (Nonreactive); Syphilis Antibody Index 0.09 S/CO (<1.00 Non-Reactive)
[2022-06-12] MEDS ORDERED: Sodium Chloride 0.45% 1,000 ML IV SCH (12:45)
[2022-06-12 15:41] LABS: ANA Symphony (Qualitative) Negative (Negative); ANA Symphony (Quantitative) 0.5 Ratio (< 0.7 Negative); CCP IgG Antibody 2.6 EliAU/mL (<7 Negative); Rheumatoid Factor IgA Antibody 6.8 IU/mL (<14 Negative); Rheumatoid Factor IgM Antibody Less than 0.5 IU/mL (<3.5 Negative); dsDNA IgG Antibody 0.9 IU/mL (<10 Negative)
[2022-06-12 17:05] LABS: Anion Gap 17 mmol/L (10-20); BUN (Urea Nitrogen) 10 mg/dL (9.8-20.1); Calc. Creatinine Clearance 41 mL/min (70-130); Calcium 9.1 mg/dL (7.8-10.44); Carbon Dioxide 24 mmol/L (23-31); Chloride 98 mmol/L (98-107); Estimated GFR 64; Glucose 180 mg/dL (83-110); Potassium 4.4 mmol/L (3.5-5.1); Sodium 135 mmol/L (136-145)
[2022-06-12] MEDS ORDERED: levETIRAcetam in NS 500 MG in Premix Bag 1 BAG IVPB SCH (21:00)
[2022-06-12] MEDS: Atorvastatin Calcium 40 MG TAB PO SCH (21:02)
[2022-06-12] MEDS: levETIRAcetam 500 MG/5 ML VIAL SLOW IVP SCH (21:02)
[2022-06-12] MEDS: Carvedilol 25 MG TAB PO SCH (21:02)
[2022-06-12] MEDS: Metoclopramide HCl 10 MG/2 ML VIAL IVP SCH (21:02)
[2022-06-12] MEDS: Famotidine 20 MG TAB PO SCH (21:02)
[2022-06-13 04:35] LABS: #Basophils 0.1 thou/uL (0.0-0.2); #Eosinphils 0.4 thou/uL (0.0-0.7); #Lymphocytes 1.7 thou/uL (1.20-3.40); #Monocytes 0.8 thou/uL (0.11-0.59); #Neutrophils 6.6 thou/uL (1.40-6.50); %Basophils 0.5 % (0.0-1.0); %Eosinophils 4.1 % (0.0-10.0); %Lymphocytes 17.5 % (21.0-51.0); %Monocytes 8.4 % (0.0-10.0); %Neutrophils 69.5 % (42.0-75.0); Hemoglobin 10.5 g/dL (12.0-16.0); Mean Corpuscular HGB CONC 33.7 g/dL (32.0-36.0); Mean Corpuscular Hemoglobin 31.6 pg (27.0-31.0); Mean Corpuscular Volume 93.6 fL (78.0-98.0); Mean Platelet Volume 9.1 fL (7.4-10.4); Platelet Count 252 thou/uL (130-400); RBC Distribution Width 14.6 % (11.5-14.5); Red Blood Cell (RBC) Count 3.31 mill/uL (4.20-5.40); White Blood Cell (WBC) Count 9.4 thou/uL (4.8-10.8)
[2022-06-13 04:45] LABS: Anion Gap 15 mmol/L (10-20); BUN (Urea Nitrogen) 15 mg/dL (9.8-20.1); Calc. Creatinine Clearance 36 mL/min (70-130); Calcium 9.1 mg/dL (7.8-10.44); Carbon Dioxide 26 mmol/L (23-31); Chloride 95 mmol/L (98-107); Estimated GFR 55; Glucose 181 mg/dL (83-110); Magnesium 1.6 mg/dL (1.6-2.6); Sodium 132 mmol/L (136-145)
[2022-06-13] MEDS ORDERED: Magnesium 2 GM/50 ML(in water) 2 GM in Premix Bag 1 BAG IVPB SCH (06:15)
[2022-06-13] MEDS ORDERED: Magnesium 2 GM/50 ML BAG (IN WATER) ONE (06:50)
[2022-06-13] MEDS: Cyanocobalamin (Vitamin B-12) 1,000 MCG TAB PO SCH (10:30)
[2022-06-13] MEDS: Aspirin 81 mg Enteric Coated Tablet PO SCH (10:30)
[2022-06-13] MEDS: Enoxaparin Sodium 30 MG/0.3 ML SYRINGE SC SCH (10:30)
[2022-06-13] MEDS: Multivit, Therapeutic 1 TAB PO SCH (10:30)
[2022-06-13] MEDS: Clopidogrel Bisulfate 75 MG TAB PO SCH (10:30)
[2022-06-13] MEDS: Carvedilol 25 MG TAB PO SCH ×2 (10:30→22:07)
[2022-06-13] MEDS: DULoxetine 60 MG CAP PO SCH (10:30)
[2022-06-13] MEDS: hydrALAZINE 20 MG/ML VIAL SLOW IVP PRN (10:37)
[2022-06-13] MEDS: Metoclopramide HCl 10 MG/2 ML VIAL IVP SCH ×2 (10:38→22:06)
[2022-06-13] MEDS: levETIRAcetam 500 MG/5 ML VIAL SLOW IVP SCH ×2 (10:38→22:06)
[2022-06-13] MEDS ORDERED: Electrolyte Replacement Protocol 1 EACH FS PRN (16:00)
[2022-06-13] MEDS ORDERED: Sodium Chloride 0.9% 1,000 ML IV SCH ×2 (16:00)
[2022-06-13] MEDS: Atorvastatin Calcium 40 MG TAB PO SCH (22:06)
[2022-06-13] MEDS: Bisacodyl 10 MG SUPP PR SCH (22:07)
[2022-06-13] MEDS: Famotidine 20 MG TAB PO SCH (22:07)
[2022-06-14] MEDS: hydrALAZINE 20 MG/ML VIAL SLOW IVP PRN (00:05)
[2022-06-14 05:19] LABS: #Eosinphils 0.3 thou/uL (0.0-0.7); #Lymphocytes 1.5 thou/uL (1.20-3.40); #Monocytes 0.7 thou/uL (0.11-0.59); #Neutrophils 6.5 thou/uL (1.40-6.50); %Basophils 0.2 % (0.0-1.0); %Eosinophils 3.2 % (0.0-10.0); %Lymphocytes 16.9 % (21.0-51.0); %Neutrophils 71.7 % (42.0-75.0); Hemoglobin 10.4 g/dL (12.0-16.0); Mean Corpuscular HGB CONC 33.6 g/dL (32.0-36.0); Mean Corpuscular Hemoglobin 31.4 pg (27.0-31.0); Mean Corpuscular Volume 93.5 fL (78.0-98.0); Platelet Count 287 thou/uL (130-400); RBC Distribution Width 14.7 % (11.5-14.5); Red Blood Cell (RBC) Count 3.32 mill/uL (4.20-5.40)
[2022-06-14 05:38] LABS: Anion Gap 21 mmol/L (10-20); BUN (Urea Nitrogen) 19 mg/dL (9.8-20.1); Calc. Creatinine Clearance 44 mL/min (70-130); Calcium 8.9 mg/dL (7.8-10.44); Carbon Dioxide 18 mmol/L (23-31); Chloride 99 mmol/L (98-107); Estimated GFR 70; Glucose 177 mg/dL (83-110); Magnesium 1.7 mg/dL (1.6-2.6); Potassium 4.5 mmol/L (3.5-5.1); Sodium 133 mmol/L (136-145)
[2022-06-14 05:50] LABS: Phosphorus 3.7 mg/dL (2.3-4.7)
[2022-06-14] MEDS ORDERED: Magnesium Sulfate 4 GM in Sodium Chloride 0.9% 250 ML 250 ML IVPB SCH (06:15)
[2022-06-14] MEDS: HumaLOG 300 UNITS/3 ML VIAL SC PRN (06:35)
[2022-06-14] MEDS ORDERED: Magnesium Sulfate In Water 4 GM in Premix Bag 1 BAG IVPB SCH (08:00)
[2022-06-14] MEDS: Aspirin 81 mg Enteric Coated Tablet PO SCH (08:16)
[2022-06-14] MEDS: Carvedilol 25 MG TAB PO SCH ×2 (08:16→21:34)
[2022-06-14] MEDS: Cyanocobalamin (Vitamin B-12) 1,000 MCG TAB PO SCH (08:16)
[2022-06-14] MEDS: Amlodipine 5 MG TAB PO SCH (08:16)
[2022-06-14] MEDS: Atorvastatin Calcium 40 MG TAB PO SCH (08:16)
[2022-06-14] MEDS: Clopidogrel Bisulfate 75 MG TAB PO SCH (08:16)
[2022-06-14] MEDS: Multivit, Therapeutic 1 TAB PO SCH (08:16)
[2022-06-14] MEDS: DULoxetine 60 MG CAP PO SCH (08:16)
[2022-06-14] MEDS: Metoclopramide HCl 10 MG/2 ML VIAL IVP SCH ×2 (08:17→21:34)
[2022-06-14] MEDS: Enoxaparin Sodium 30 MG/0.3 ML SYRINGE SC SCH (08:17)
[2022-06-14] MEDS: levETIRAcetam 500 MG/5 ML VIAL SLOW IVP SCH ×2 (08:17→21:34)
[2022-06-14] MEDS ORDERED: Sodium Bicarbonate 75 MEQ in Sodium Chloride 0.45% 1,000 ML IV SCH (09:00)
[2022-06-14] MEDS ORDERED: Sodium Bicarbonate Tab 325 MG TAB PO SCH (09:00)
[2022-06-14] MEDS ORDERED: Sodium Chloride 0.9% 500 ML IV SCH (11:00)
[2022-06-14] MEDS ORDERED: Ketorolac Tromethamine 30 MG/ML VIAL IVP PRN (18:52)
[2022-06-14] MEDS: Bisacodyl 10 MG SUPP PR SCH (21:33)
[2022-06-14] MEDS: Famotidine 20 MG TAB PO SCH (21:34)
[2022-06-15 06:41] LABS: Magnesium 1.9 mg/dL (1.6-2.6)
[2022-06-15] MEDS: HumaLOG 300 UNITS/3 ML VIAL SC PRN (07:03)
[2022-06-15 07:09] LABS: Anion Gap 20 mmol/L (10-20); BUN (Urea Nitrogen) 15 mg/dL (9.8-20.1); Calc. Creatinine Clearance 46 mL/min (70-130); Calcium 8.6 mg/dL (7.8-10.44); Carbon Dioxide 24 mmol/L (23-31); Chloride 95 mmol/L (98-107); Estimated GFR 75; Glucose 161 mg/dL (83-110); Potassium 4.5 mmol/L (3.5-5.1); Sodium 134 mmol/L (136-145)
[2022-06-15] MEDS ORDERED: Magnesium 2 GM/50 ML(in water) 2 GM in Premix Bag 1 BAG IVPB SCH (08:00)
[2022-06-15] MEDS: Aspirin 81 mg Enteric Coated Tablet PO SCH (10:18)
[2022-06-15] MEDS: Multivit, Therapeutic 1 TAB PO SCH (10:19)
[2022-06-15] MEDS: Clopidogrel Bisulfate 75 MG TAB PO SCH (10:20)
[2022-06-15] MEDS: levETIRAcetam 500 MG/5 ML VIAL SLOW IVP SCH ×2 (10:20→21:38)
[2022-06-15] MEDS: DULoxetine 60 MG CAP PO SCH (10:20)
[2022-06-15] MEDS: Amlodipine 5 MG TAB PO SCH (10:20)
[2022-06-15] MEDS: Enoxaparin Sodium 40 MG/0.4 ML SYRINGE SC SCH (10:21)
[2022-06-15] MEDS: Carvedilol 25 MG TAB PO SCH ×2 (10:21→21:38)
[2022-06-15] MEDS: Cyanocobalamin (Vitamin B-12) 1,000 MCG TAB PO SCH (10:21)
[2022-06-15] MEDS: Metoclopramide HCl 10 MG/2 ML VIAL IVP SCH ×2 (10:22→21:37)
[2022-06-15] MEDS: Atorvastatin Calcium 40 MG TAB PO SCH (10:24)
[2022-06-15] MEDS ORDERED: Atorvastatin Calcium 40 MG TAB PO SCH (21:00)
[2022-06-15] MEDS: Famotidine 20 MG TAB PO SCH (21:37)
[2022-06-15] MEDS: Bisacodyl 10 MG SUPP PR SCH (21:51)
[2022-06-16 04:55] VITALS: TEMP 98.1
[2022-06-16 05:57] LABS: Anion Gap 15 mmol/L (10-20); BUN (Urea Nitrogen) 15 mg/dL (9.8-20.1); Calc. Creatinine Clearance 45 mL/min (70-130); Calcium 8.5 mg/dL (7.8-10.44); Carbon Dioxide 27 mmol/L (23-31); Chloride 95 mmol/L (98-107); Estimated GFR 73; Glucose 199 mg/dL (83-110); Magnesium 1.9 mg/dL (1.6-2.6); Potassium 3.3 mmol/L (3.5-5.1); Sodium 134 mmol/L (136-145)
[2022-06-16] MEDS ORDERED: Potassium Chloride 20 MEQ TAB PO SCH (08:00)
[2022-06-16] MEDS ORDERED: Magnesium 2 GM/50 ML(in water) 2 GM in Premix Bag 1 BAG IVPB SCH (08:00)
[2022-06-16 08:08] LABS: Anion Gap 14 mmol/L (10-20); BUN (Urea Nitrogen) 14 mg/dL (9.8-20.1); Calc. Creatinine Clearance 47 mL/min (70-130); Calcium 8.4 mg/dL (7.8-10.44); Carbon Dioxide 27 mmol/L (23-31); Chloride 95 mmol/L (98-107); Estimated GFR 77; Glucose 198 mg/dL (83-110); Potassium 3.3 mmol/L (3.5-5.1); Sodium 133 mmol/L (136-145)
[2022-06-16] MEDS: Multivit, Therapeutic 1 TAB PO SCH (09:22)
[2022-06-16] MEDS: levETIRAcetam 500 MG/5 ML VIAL SLOW IVP SCH (09:22)
[2022-06-16] MEDS: DULoxetine 60 MG CAP PO SCH (09:22)
[2022-06-16] MEDS: Aspirin 81 mg Enteric Coated Tablet PO SCH (09:22)
[2022-06-16] MEDS: Metoclopramide HCl 10 MG/2 ML VIAL IVP SCH (09:22)
[2022-06-16] MEDS: Cyanocobalamin (Vitamin B-12) 1,000 MCG TAB PO SCH (09:22)
[2022-06-16] MEDS: Amlodipine 5 MG TAB PO SCH (09:23)
[2022-06-16] MEDS: Clopidogrel Bisulfate 75 MG TAB PO SCH (09:23)
[2022-06-16] MEDS: Enoxaparin Sodium 40 MG/0.4 ML SYRINGE SC SCH (09:23)
[2022-06-16] MEDS: Carvedilol 25 MG TAB PO SCH (09:23)
[2022-06-16 16:23] VITALS: BP 102/60
== END 2022-06-16 17:28 | DRG 61 ==
LOC: ERS 17:55 → CCU 20:27 → NEURO 06-13 12:06
PROVIDERS: ADMIT Internal Medicine; ATTEND Internal Medicine
PROC: 3E03317 Introduction of Other Thrombolytic into Peripheral Vein, Percutaneous Approach (ICD-10-PCS; principal; 2022-06-10)
PROC: 8E0ZXY6 Isolation (ICD-10-PCS; 2022-06-10)
PROC: 0D9670Z Drainage of Stomach with Drainage Device, Via Natural or Artificial Opening (ICD-10-PCS; 2022-06-12)
DX: I63.9 Cerebral infarction, unspecified (principal); G93.41 Metabolic encephalopathy; U07.1 COVID-19; E87.2 Acidosis; E87.1 Hypo-osmolality and hyponatremia; K56.7 Ileus, unspecified; I65.22 Occlusion and stenosis of left carotid artery; I10 Essential (primary) hypertension; R47.01 Aphasia; J44.9 Chronic obstructive pulmonary disease, unspecified; I25.10 Atherosclerotic heart disease of native coronary artery without angina pectoris; K21.9 Gastro-esophageal reflux disease without esophagitis; D63.8 Anemia in other chronic diseases classified elsewhere; D72.829 Elevated white blood cell count, unspecified; E11.65 Type 2 diabetes mellitus with hyperglycemia; R56.9 Unspecified convulsions; E78.00 Pure hypercholesterolemia, unspecified; I16.0 Hypertensive urgency; R35.89 Other polyuria; R29.724 NIHSS score 24; E83.42 Hypomagnesemia; E87.6 Hypokalemia; M54.9 Dorsalgia, unspecified; G89.29 Other chronic pain; I25.2 Old myocardial infarction; Z95.5 Presence of coronary angioplasty implant and graft; Z90.710 Acquired absence of both cervix and uterus; Z98.890 Other specified postprocedural states; Z87.891 Personal history of nicotine dependence; Z88.8 Allergy status to other drugs, medicaments and biological substances; Z91.041 Radiographic dye allergy status; Z79.899 Other long term (current) drug therapy; Z79.84 Long term (current) use of oral hypoglycemic drugs; Z79.51 Long term (current) use of inhaled steroids; Z88.6 Allergy status to analgesic agent; Z79.52 Long term (current) use of systemic steroids; Z90.89 Acquired absence of other organs
CPT/HCPCS: 36415; 36416; 51702; 70450; 70496; 70498; 71045; 74018; 80048; 80053; 80306; 81003; 81015; 82550; 83036; 83090; 83520; 83605; 83735; 83930; 83935; 84100; 84145; 84146; 84300; 84443; 84484; 85025; 85610; 85730; 86038; 86140; 86200; 86225; 86780; 93005; 93010; 93306; 95712; 95819; 95957; 96374; 96375; 96376; J0360; J0696; J1100; J1200; J1650; J1815; J1885; J1953; J2405; J2550; J2765; J2920; J3101; J3475; J3490; J7030; J7050; J7120; Q2009; Q9967; S0028; U0002

== ENCOUNTER 2022-09-02 17:09 | Inpatient (IN) | payer OTHER, MEDICAID ==
[2022-09-02] MEDS ORDERED: methylPREDNISolone Sod Succ/PF 125 MG/2 ML VIAL ONE (17:50)
[2022-09-02 17:54] LABS: #Basophils 0.1 thou/uL (0.0-0.2); #Eosinphils 0.2 thou/uL (0.0-0.7); #Monocytes 1.1 thou/uL (0.11-0.59); #Neutrophils 10.5 thou/uL (1.40-6.50); %Basophils 0.4 % (0.0-1.0); %Eosinophils 1.7 % (0.0-10.0); %Lymphocytes 14.5 % (21.0-51.0); %Monocytes 7.6 % (0.0-10.0); %Neutrophils 75.8 % (42.0-75.0); Mean Corpuscular HGB CONC 31.6 g/dL (32.0-36.0); Mean Corpuscular Hemoglobin 30.4 pg (27.0-31.0); Mean Platelet Volume 8.2 fL (7.4-10.4); Platelet Count 452 10x3/uL (130-400); RBC Distribution Width 15.2 % (11.5-14.5); Red Blood Cell (RBC) Count 3.31 mill/uL (4.20-5.40); White Blood Cell (WBC) Count 13.8 10x3/uL (4.8-10.8)
[2022-09-02 18:19] LABS: Bacteria/HPF None Seen HPF (None Seen); Bilirubin Negative (Negative); Blood, Urine Negative (Negative); Clarity Clear (Clear); Glucose, Urine (Dipstick) Normal (Negative); Ketone, Urine Negative (Negative); Leukocyte Negative Leu/uL (Negative); Nitrite Negative (Negative); Protein, Urine (Dipstick) 30 mg/dL (Neg-Trace); RBC/HPF 0-3 HPF (0-3); Specific Gravity, Urine 1.015 (1.002-1.036); Squamous Epithelial None Seen HPF (0-3); Urobilinogen Normal mg/dL (Less than 2); WBC/HPF 0-3 HPF (0-3); pH, Urine 6.5 (5.0-9.0)
[2022-09-02 18:20] LABS: ALT (SGPT) Less than 7 U/L (8-55); AST (SGOT) 9 U/L (5-34); Albumin 3.6 g/dL (3.4-4.8); Alkaline Phosphatase 56 U/L (40-110); Anion Gap 18 mmol/L (10-20); BUN (Urea Nitrogen) 10 mg/dL (9.8-20.1); Bilirubin, Total 0.8 mg/dL (0.2-1.2); CK (CPK) 19 U/L (29-168); Calc. Creatinine Clearance 0 mL/min (70-130); Calcium 8.6 mg/dL (7.8-10.44); Carbon Dioxide 25 mmol/L (23-31); Chloride 99 mmol/L (98-107); Estimated GFR 75; Globulin 4.4 g/dL (2.4-3.5); Glucose 215 mg/dL (83-110); Sodium 138 mmol/L (136-145)
[2022-09-02 18:24] LABS: Magnesium 0.8 mg/dL (1.6-2.6)
[2022-09-02] MEDS ORDERED: Magnesium 2 GM/50 ML BAG (IN WATER) ONE (18:29)
[2022-09-02] MEDS ORDERED: Famotidine/PF 20 mg/2ml Vial ONE (18:51)
[2022-09-02] MEDS ORDERED: diphenhydrAMINE 50 MG/ML VIAL ONE (18:51)
[2022-09-02 20:45] LABS: Lactic Acid 1.3 mmol/L (0.5-2.2)
[2022-09-02 22:44] LABS: Troponin I Less than 0.010 ng/mL (< 0.028)
[2022-09-03] MEDS ORDERED: Guaifenesin DM 100-10/5 ML UDCUP PO PRN (00:09)
[2022-09-03] MEDS ORDERED: Albuterol Sulfate 2.5 mg/3 ml Neb NEB PRN (00:09)
[2022-09-03] MEDS ORDERED: Acetaminophen 325 MG TAB PO PRN (00:09)
[2022-09-03] MEDS ORDERED: Ondansetron ODT 4 MG TAB PO PRN (00:09)
[2022-09-03] MEDS ORDERED: Ondansetron PF 4 MG/2 ML Vial IVP PRN (00:09)
[2022-09-03] MEDS ORDERED: Dextrose 50% Abboject 50 ML SYRINGE SLOW IVP PRN (00:24)
[2022-09-03] MEDS ORDERED: Dextrose 5% in Water 1,000 ML IV PRN (00:24)
[2022-09-03] MEDS ORDERED: Insulin Regular 300 UNITS/3 ML VIAL SC PRN (00:24)
[2022-09-03] MEDS ORDERED: Enoxaparin Sodium 60 MG/0.6 ML SYRINGE SC SCH (00:30)
[2022-09-03] MEDS ORDERED: Enoxaparin Sodium 60 MG/0.6 ML SYRINGE ONE (00:46)
[2022-09-03] MEDS ORDERED: Electrolyte Replacement Protocol 1 EACH FS SCH (01:45)
[2022-09-03 02:21] LABS: Troponin I Less than 0.010 ng/mL (< 0.028)
[2022-09-03] MEDS ORDERED: Magnesium 2 GM/50 ML(in water) 2 GM in Premix Bag 1 BAG IVPB SCH (04:00)
[2022-09-03 05:21] VITALS: BMI 17.5
[2022-09-03] MEDS: cefTRIAXone\\ROCEPHIN 1 GM in Sodium Chloride 0.9% 100 ML IVPB SCH (05:46)
[2022-09-03] MEDS: HYDROcodone/Acetaminophen 10/325 mg Tablet PO PRN ×3 (06:02→20:46)
[2022-09-03] MEDS: Insulin Regular 300 UNITS/3 ML VIAL SC PRN ×3 (06:04→17:24)
[2022-09-03] MEDS ORDERED: methylPREDNISolone Sod Succ 40 MG VIAL IVP SCH (09:00)
[2022-09-03] MEDS: Enoxaparin Sodium 40 MG/0.4 ML SYRINGE SC SCH ×2 (10:16→20:46)
[2022-09-03 10:43] LABS: #Lymphocytes 0.7 thou/uL (1.20-3.40); #Monocytes 0.4 thou/uL (0.11-0.59); #Neutrophils 8.3 thou/uL (1.40-6.50); %Basophils 0.1 % (0.0-1.0); %Eosinophils 0.1 % (0.0-10.0); %Lymphocytes 7.4 % (21.0-51.0); %Monocytes 4.1 % (0.0-10.0); %Neutrophils 88.3 % (42.0-75.0); Hemoglobin 9.1 g/dL (12.0-16.0); Mean Corpuscular HGB CONC 31.8 g/dL (32.0-36.0); Mean Corpuscular Hemoglobin 30.5 pg (27.0-31.0); Mean Corpuscular Volume 95.9 fl (78.0-98.0); Mean Platelet Volume 8.5 fL (7.4-10.4); Platelet Count 356 10x3/uL (130-400); Red Blood Cell (RBC) Count 2.99 mill/uL (4.20-5.40); White Blood Cell (WBC) Count 9.3 10x3/uL (4.8-10.8)
[2022-09-03 10:59] LABS: Anion Gap 14 mmol/L (10-20); BUN (Urea Nitrogen) 13 mg/dL (9.8-20.1); Calc. Creatinine Clearance 38 mL/min (70-130); Calcium 8.3 mg/dL (7.8-10.44); Carbon Dioxide 24 mmol/L (23-31); Chloride 101 mmol/L (98-107); Estimated GFR 71; Glucose 260 mg/dL (83-110); Magnesium 2.3 mg/dL (1.6-2.6); Phosphorus 2.6 mg/dL (2.3-4.7); Potassium 3.3 mmol/L (3.5-5.1); Sodium 136 mmol/L (136-145)
[2022-09-03] MEDS ORDERED: Potassium Chloride 20 MEQ TAB PO SCH (12:00)
[2022-09-03] MEDS: metFORMIN 500 MG TAB PO SCH (15:20)
[2022-09-03] MEDS: Carvedilol 25 MG TAB PO SCH (15:20)
[2022-09-03 16:42] LABS: Potassium 3.9 mmol/L (3.5-5.1)
[2022-09-04] MEDS: cefTRIAXone\\ROCEPHIN 1 GM in Sodium Chloride 0.9% 100 ML IVPB SCH (00:39)
[2022-09-04 04:21] LABS: #Lymphocytes 0.8 thou/uL (1.20-3.40); #Monocytes 0.4 thou/uL (0.11-0.59); #Neutrophils 10.4 thou/uL (1.40-6.50); %Eosinophils 0.1 % (0.0-10.0); %Lymphocytes 6.8 % (21.0-51.0); %Monocytes 3.3 % (0.0-10.0); %Neutrophils 89.9 % (42.0-75.0); Hemoglobin 9.2 g/dL (12.0-16.0); Mean Corpuscular HGB CONC 31.3 g/dL (32.0-36.0); Mean Corpuscular Hemoglobin 30.5 pg (27.0-31.0); Mean Corpuscular Volume 97.4 fl (78.0-98.0); Mean Platelet Volume 8.4 fL (7.4-10.4); Platelet Count 380 10x3/uL (130-400); RBC Distribution Width 15.1 % (11.5-14.5); Red Blood Cell (RBC) Count 3.03 mill/uL (4.20-5.40); White Blood Cell (WBC) Count 11.6 10x3/uL (4.8-10.8)
[2022-09-04 04:39] LABS: Phosphorus 3.1 mg/dL (2.3-4.7)
[2022-09-04 04:48] LABS: Anion Gap 13 mmol/L (10-20); BUN (Urea Nitrogen) 17 mg/dL (9.8-20.1); Calc. Creatinine Clearance 41 mL/min (70-130); Calcium 8.6 mg/dL (7.8-10.44); Carbon Dioxide 26 mmol/L (23-31); Chloride 99 mmol/L (98-107); Estimated GFR 77; Glucose 184 mg/dL (83-110); Magnesium 1.9 mg/dL (1.6-2.6); Potassium 4.3 mmol/L (3.5-5.1); Sodium 134 mmol/L (136-145)
[2022-09-04] MEDS ORDERED: Magnesium 2 GM/50 ML(in water) 2 GM in Premix Bag 1 BAG IVPB SCH (08:00)
[2022-09-04] MEDS ORDERED: DULoxetine 60 MG CAP PO SCH (09:00)
[2022-09-04] MEDS ORDERED: Amlodipine 5 MG TAB PO SCH (09:00)
[2022-09-04] MEDS ORDERED: Atorvastatin Calcium 40 MG TAB PO SCH (09:00)
[2022-09-04] MEDS: Enoxaparin Sodium 40 MG/0.4 ML SYRINGE SC SCH (09:11)
[2022-09-04] MEDS: HYDROcodone/Acetaminophen 10/325 mg Tablet PO PRN (09:12)
[2022-09-04] MEDS: Carvedilol 25 MG TAB PO SCH (09:13)
[2022-09-04] MEDS: metFORMIN 500 MG TAB PO SCH (09:13)
[2022-09-04 12:04] VITALS: BP 120/62; TEMP 97.4
== END 2022-09-04 15:26 | disposition home or self-care (01) | DRG 190 ==
LOC: ERS 17:09 → ERHOLD 21:58 → 2NO 09-03 05:10 → OBSVTOIN 09-03 13:32
PROVIDERS: ADMIT Internal Medicine; ATTEND Internal Medicine
DX: J44.1 Chronic obstructive pulmonary disease with (acute) exacerbation (principal); I26.93 Single subsegmental thrombotic pulmonary embolism without acute cor pulmonale; S22.069A Unspecified fracture of T7-T8 vertebra, initial encounter for closed fracture; E44.0 Moderate protein-calorie malnutrition; R65.10 Systemic inflammatory response syndrome (SIRS) of non-infectious origin without acute organ dysfunction; Z68.1 Body mass index [BMI] 19.9 or less, adult; Z20.822 Contact with and (suspected) exposure to COVID-19; E11.9 Type 2 diabetes mellitus without complications; I10 Essential (primary) hypertension; E83.42 Hypomagnesemia; K21.9 Gastro-esophageal reflux disease without esophagitis; E86.0 Dehydration; E78.2 Mixed hyperlipidemia; Z86.73 Personal history of transient ischemic attack (TIA), and cerebral infarction without residual deficits; Z91.041 Radiographic dye allergy status; Z88.5 Allergy status to narcotic agent; Z88.8 Allergy status to other drugs, medicaments and biological substances; Z79.84 Long term (current) use of oral hypoglycemic drugs; Z79.51 Long term (current) use of inhaled steroids; Z79.899 Other long term (current) drug therapy; I25.2 Old myocardial infarction; Z90.49 Acquired absence of other specified parts of digestive tract; Z90.710 Acquired absence of both cervix and uterus; W19.XXXA Unspecified fall, initial encounter
CPT/HCPCS: 36415; 36416; 71045; 71275; 80048; 80053; 81003; 81015; 82550; 83605; 83735; 84100; 84443; 84484; 85025; 85379; 87040; 93005; 94640; 94760; J0696; J1200; J1650; J1815; J2405; J2920; J2930; J3475; J3490; J7620; Q9967; S0028; U0003; U0005

== ENCOUNTER 2022-10-10 19:52 | Inpatient (IN) | payer OTHER, MEDICAID ==
[2022-10-10 20:25] LABS: #Basophils 0.1 thou/uL (0.0-0.2); #Eosinphils 0.7 thou/uL (0.0-0.7); #Lymphocytes 2.2 thou/uL (1.20-3.40); #Monocytes 0.9 thou/uL (0.11-0.59); #Neutrophils 4.8 thou/uL (1.40-6.50); %Eosinophils 8.4 % (0.0-10.0); %Lymphocytes 25.1 % (21.0-51.0); %Monocytes 10.2 % (0.0-10.0); %Neutrophils 55.3 % (42.0-75.0); Hemoglobin 9.3 g/dL (12.0-16.0); Mean Corpuscular HGB CONC 31.3 g/dL (32.0-36.0); Mean Corpuscular Hemoglobin 30.8 pg (27.0-31.0); Mean Corpuscular Volume 98.3 fl (78.0-98.0); Mean Platelet Volume 8.3 fL (7.4-10.4); Platelet Count 318 10x3/uL (130-400); RBC Distribution Width 14.2 % (11.5-14.5); White Blood Cell (WBC) Count 8.6 10x3/uL (4.8-10.8)
[2022-10-10 20:52] LABS: ALT (SGPT) Less than 7 U/L (8-55); AST (SGOT) 12 U/L (5-34); Albumin 3.3 g/dL (3.4-4.8); Alkaline Phosphatase 47 U/L (40-110); Anion Gap 14 mmol/L (10-20); BUN (Urea Nitrogen) 20 mg/dL (9.8-20.1); Bilirubin, Total 0.3 mg/dL (0.2-1.2); Calc. Creatinine Clearance 0 mL/min (70-130); Calcium 8.2 mg/dL (7.8-10.44); Carbon Dioxide 27 mmol/L (23-31); Chloride 102 mmol/L (98-107); Estimated GFR 53; Globulin 2.9 g/dL (2.4-3.5); Glucose 149 mg/dL (83-110); Potassium 5.3 mmol/L (3.5-5.1); Protein, Total 6.2 g/dL (5.8-8.1); Sodium 138 mmol/L (136-145)
[2022-10-10] MEDS ORDERED: Levofloxacin 500 mg/D5W 100 ml Premix Bag ONE (23:43)
[2022-10-10] MEDS ORDERED: methylPREDNISolone Sod Succ/PF 125 MG/2 ML VIAL ONE (23:43)
[2022-10-11 01:39] LABS: Troponin I Less than 0.010 ng/mL (< 0.028)
[2022-10-11] MEDS ORDERED: Apixaban 5 MG TAB PO SCH (03:15)
[2022-10-11 06:11] LABS: Troponin I Less than 0.010 ng/mL (< 0.028)
[2022-10-11] MEDS ORDERED: Acetaminophen 325 MG TAB PO PRN (06:22)
[2022-10-11] MEDS ORDERED: Ondansetron PF 4 MG/2 ML Vial IVP PRN (06:22)
[2022-10-11 06:47] LABS: Hemoglobin 9.5 g/dL (12.0-16.0); Mean Corpuscular HGB CONC 30.9 g/dL (32.0-36.0); Mean Corpuscular Hemoglobin 30.5 pg (27.0-31.0); Mean Corpuscular Volume 98.6 fl (78.0-98.0); Mean Platelet Volume 8.3 fL (7.4-10.4); Platelet Count 299 10x3/uL (130-400); RBC Distribution Width 14.2 % (11.5-14.5); Red Blood Cell (RBC) Count 3.11 mill/uL (4.20-5.40); White Blood Cell (WBC) Count 4.9 10x3/uL (4.8-10.8)
[2022-10-11 07:02] LABS: Anion Gap 11 mmol/L (10-20); BUN (Urea Nitrogen) 19 mg/dL (9.8-20.1); Calc. Creatinine Clearance 38 mL/min (70-130); Carbon Dioxide 25 mmol/L (23-31); Chloride 103 mmol/L (98-107); Estimated GFR 65; Glucose 165 mg/dL (83-110); Potassium 5.2 mmol/L (3.5-5.1); Sodium 134 mmol/L (136-145)
[2022-10-11 07:27] LABS: Band 1 % (5-11); Lymphocytes 16 % (21-51); MDiff Complete? YES; Neutrophil 83 % (42-75); Platelet Morphology Comment Appears Adequate; Polychromasia SLIGHT = 2-3 cells (100X) (0-2/hpf)
[2022-10-11] MEDS ORDERED: HumaLOG 300 UNITS/3 ML VIAL SC PRN ×2 (08:10)
[2022-10-11] MEDS ORDERED: Dextrose 50% Abboject 50 ML SYRINGE SLOW IVP PRN (08:10)
[2022-10-11] MEDS ORDERED: Dextrose 5% in Water 1,000 ML IV PRN (08:10)
[2022-10-11] MEDS ORDERED: methylPREDNISolone Sod Succ 40 MG VIAL ONE ×2 (08:36→16:31)
[2022-10-11] MEDS: methylPREDNISolone Sod Succ 40 MG VIAL IVP SCH ×2 (08:42→16:40)
[2022-10-11 09:26] LABS: SARS-CoV-2 NAA Rapid Test Not Detected (NotDetected)
[2022-10-11] MEDS: metFORMIN 500 MG TAB PO SCH (19:57)
[2022-10-11 20:03] VITALS: BMI 16.8
[2022-10-11] MEDS: Apixaban 5 MG TAB PO SCH (22:50)
[2022-10-12] MEDS: methylPREDNISolone Sod Succ 40 MG VIAL IVP SCH ×3 (00:03→17:27)
[2022-10-12 05:02] LABS: #Lymphocytes 0.5 thou/uL (1.20-3.40); #Monocytes 0.1 thou/uL (0.11-0.59); #Neutrophils 5.5 thou/uL (1.40-6.50); %Basophils 0.3 % (0.0-1.0); %Eosinophils 0.2 % (0.0-10.0); %Lymphocytes 7.5 % (21.0-51.0); %Monocytes 2.2 % (0.0-10.0); %Neutrophils 89.8 % (42.0-75.0); Hemoglobin 8.7 g/dL (12.0-16.0); Mean Corpuscular HGB CONC 31.9 g/dL (32.0-36.0); Mean Corpuscular Hemoglobin 30.6 pg (27.0-31.0); Mean Corpuscular Volume 95.9 fl (78.0-98.0); Mean Platelet Volume 8.4 fL (7.4-10.4); Platelet Count 346 10x3/uL (130-400); RBC Distribution Width 14.5 % (11.5-14.5); Red Blood Cell (RBC) Count 2.85 mill/uL (4.20-5.40); White Blood Cell (WBC) Count 6.1 10x3/uL (4.8-10.8)
[2022-10-12] MEDS ORDERED: HYDROcodone/Acetaminophen 5/325 mg Tablet PO SCH (05:15)
[2022-10-12 05:19] LABS: Anion Gap 13 mmol/L (10-20); BUN (Urea Nitrogen) 22 mg/dL (9.8-20.1); Calc. Creatinine Clearance 35 mL/min (70-130); Calcium 8.5 mg/dL (7.8-10.44); Carbon Dioxide 26 mmol/L (23-31); Chloride 102 mmol/L (98-107); Estimated GFR 63; Glucose 233 mg/dL (83-110); Potassium 4.3 mmol/L (3.5-5.1); Sodium 137 mmol/L (136-145)
[2022-10-12] MEDS: Apixaban 5 MG TAB PO SCH ×2 (09:34→21:59)
[2022-10-12] MEDS: metFORMIN 500 MG TAB PO SCH ×2 (09:34→17:27)
[2022-10-12] MEDS ORDERED: HumaLOG 300 UNITS/3 ML VIAL SC PRN (18:33)
[2022-10-12] MEDS ORDERED: Electrolyte Replacement Protocol 1 EACH FS PRN (18:45)
[2022-10-12] MEDS: Doxycycline 100 MG CAP PO SCH (21:58)
[2022-10-12] MEDS: Folic Acid 1 MG TAB PO SCH (21:59)
[2022-10-12] MEDS: Cyanocobalamin (Vitamin B-12) 1,000 MCG TAB PO SCH (21:59)
[2022-10-12] MEDS: Multivit, Therapeutic 1 TAB PO SCH (22:00)
[2022-10-13 04:57] LABS: Reticulocyte Count 2.2 % (0.5-1.5)
[2022-10-13 05:29] LABS: Anion Gap 20 mmol/L (10-20); BUN (Urea Nitrogen) 18 mg/dL (9.8-20.1); Calc. Creatinine Clearance 39 mL/min (70-130); Calcium 8.8 mg/dL (7.8-10.44); Carbon Dioxide 22 mmol/L (23-31); Chloride 101 mmol/L (98-107); Estimated GFR 72; Glucose 153 mg/dL (83-110); Potassium 3.8 mmol/L (3.5-5.1); Sodium 139 mmol/L (136-145)
[2022-10-13] MEDS ORDERED: Magnesium Sulfate In Water 4 GM in Premix Bag 1 BAG IVPB SCH (06:00)
[2022-10-13 07:16] LABS: Band 1 % (5-11); Hemoglobin 8.8 g/dL (12.0-16.0); Lymphocytes 13 % (21-51); MDiff Complete? YES; Mean Corpuscular HGB CONC 33.7 g/dL (32.0-36.0); Mean Corpuscular Hemoglobin 32.2 pg (27.0-31.0); Mean Corpuscular Volume 95.5 fl (78.0-98.0); Mean Platelet Volume 8.4 fL (7.4-10.4); Monocytes 4 % (0-10); Neutrophil 82 % (42-75); Platelet Count 366 10x3/uL (130-400); RBC Distribution Width 14.5 % (11.5-14.5); Red Blood Cell (RBC) Count 2.73 mill/uL (4.20-5.40); White Blood Cell (WBC) Count 7.1 10x3/uL (4.8-10.8)
[2022-10-13 10:03] LABS: Phosphorus 2.8 mg/dL (2.3-4.7)
[2022-10-13] MEDS: metFORMIN 500 MG TAB PO SCH ×2 (11:26→17:19)
[2022-10-13] MEDS: Apixaban 5 MG TAB PO SCH ×2 (11:26→20:26)
[2022-10-13] MEDS: Doxycycline 100 MG CAP PO SCH ×2 (11:26→20:25)
[2022-10-13] MEDS: predniSONE 20 MG TAB PO SCH ×2 (11:26→17:19)
[2022-10-13] MEDS: HYDROcodone/Acetaminophen 5/325 mg Tablet PO PRN (17:19)
[2022-10-13] MEDS: Carvedilol 3.125 MG TAB PO SCH (20:25)
[2022-10-13] MEDS: Multivit, Therapeutic 1 TAB PO SCH (20:27)
[2022-10-13] MEDS: Cyanocobalamin (Vitamin B-12) 1,000 MCG TAB PO SCH (20:27)
[2022-10-13] MEDS: Folic Acid 1 MG TAB PO SCH (20:27)
[2022-10-13] MEDS: Melatonin 3 MG TAB PO SCH (20:27)
[2022-10-14] MEDS: HYDROcodone/Acetaminophen 5/325 mg Tablet PO PRN ×4 (00:22→22:00)
[2022-10-14 05:22] LABS: Anion Gap 17 mmol/L (10-20); BUN (Urea Nitrogen) 20 mg/dL (9.8-20.1); Calc. Creatinine Clearance 34 mL/min (70-130); Calcium 8.5 mg/dL (7.8-10.44); Carbon Dioxide 24 mmol/L (23-31); Chloride 99 mmol/L (98-107); Estimated GFR 62; Glucose 162 mg/dL (83-110); Magnesium 1.8 mg/dL (1.6-2.6); Sodium 136 mmol/L (136-145)
[2022-10-14] MEDS ORDERED: Magnesium 2 GM/50 ML(in water) 2 GM in Premix Bag 1 BAG IVPB SCH (08:00)
[2022-10-14] MEDS: predniSONE 20 MG TAB PO SCH (09:07)
[2022-10-14] MEDS: Doxycycline 100 MG CAP PO SCH ×2 (09:07→22:01)
[2022-10-14] MEDS: metFORMIN 500 MG TAB PO SCH ×2 (09:08→16:53)
[2022-10-14] MEDS: Apixaban 5 MG TAB PO SCH ×2 (09:08→22:01)
[2022-10-14] MEDS: Carvedilol 3.125 MG TAB PO SCH ×2 (09:08→22:01)
[2022-10-14] MEDS ORDERED: Albuterol Sulfate 2.5 mg/3 ml Neb ONE (18:26)
[2022-10-14] MEDS: Melatonin 3 MG TAB PO SCH (22:00)
[2022-10-14] MEDS: Folic Acid 1 MG TAB PO SCH (22:01)
[2022-10-14] MEDS: Multivit, Therapeutic 1 TAB PO SCH (22:01)
[2022-10-14] MEDS: Cyanocobalamin (Vitamin B-12) 1,000 MCG TAB PO SCH (22:01)
[2022-10-15] MEDS ORDERED: predniSONE 20 MG TAB PO SCH (08:00)
[2022-10-15] MEDS: Apixaban 5 MG TAB PO SCH (08:44)
[2022-10-15] MEDS: metFORMIN 500 MG TAB PO SCH (08:44)
[2022-10-15] MEDS: Doxycycline 100 MG CAP PO SCH (08:44)
[2022-10-15] MEDS: Carvedilol 3.125 MG TAB PO SCH (08:44)
[2022-10-15] MEDS: HYDROcodone/Acetaminophen 5/325 mg Tablet PO PRN (08:49)
[2022-10-15 12:29] VITALS: BP 151/70; TEMP 98.2
== END 2022-10-15 14:40 | disposition home or self-care (01) | DRG 189 ==
LOC: ERS 19:52 → ERHOLD 23:24 → 2NO 10-11 18:03
PROVIDERS: ADMIT Internal Medicine; ATTEND Internal Medicine
DX: J96.01 Acute respiratory failure with hypoxia (principal); J44.1 Chronic obstructive pulmonary disease with (acute) exacerbation; E87.1 Hypo-osmolality and hyponatremia; E44.0 Moderate protein-calorie malnutrition; Z68.1 Body mass index [BMI] 19.9 or less, adult; E11.22 Type 2 diabetes mellitus with diabetic chronic kidney disease; E11.65 Type 2 diabetes mellitus with hyperglycemia; T38.0X5A Adverse effect of glucocorticoids and synthetic analogues, initial encounter; E87.5 Hyperkalemia; E83.42 Hypomagnesemia; I25.10 Atherosclerotic heart disease of native coronary artery without angina pectoris; N18.30 Chronic kidney disease, stage 3 unspecified; I12.9 Hypertensive chronic kidney disease with stage 1 through stage 4 chronic kidney disease, or unspecified chronic kidney disease; D63.1 Anemia in chronic kidney disease; Z86.711 Personal history of pulmonary embolism; Z79.01 Long term (current) use of anticoagulants; Z88.5 Allergy status to narcotic agent; Z88.8 Allergy status to other drugs, medicaments and biological substances; Z91.041 Radiographic dye allergy status; Z91.012 Allergy to eggs; Z79.899 Other long term (current) drug therapy; Z87.891 Personal history of nicotine dependence
CPT/HCPCS: 36415; 36416; 71045; 80048; 80053; 83735; 83880; 84100; 84484; 85025; 85046; 93005; 96374; 96375; J1815; J1956; J2920; J2930; J3475; J7512; J7611; J7620; U0002

== ENCOUNTER 2022-11-05 08:36 | Outpatient (CLI) | payer OTHER, MEDICAID | END 2022-11-05 08:37 | disposition home or self-care (01) | LOC: RAD 08:36 | PROVIDERS: ATTEND Family Medicine | DX: S22.061A Stable burst fracture of T7-T8 vertebra, initial encounter for closed fracture (principal) | CPT/HCPCS: 72072 ==

== ENCOUNTER 2022-11-27 14:17 | Emergency (ER) | payer OTHER, MEDICAID ==
[2022-11-27 15:21] LABS: #Eosinphils 1.5 thou/uL (0.0-0.7); #Monocytes 0.5 thou/uL (0.11-0.59); #Neutrophils 2.5 thou/uL (1.40-6.50); %Basophils 0.7 % (0.0-1.0); %Eosinophils 23.2 % (0.0-10.0); %Lymphocytes 30.7 % (21.0-51.0); %Monocytes 7.8 % (0.0-10.0); %Neutrophils 37.6 % (42.0-75.0); Hemoglobin 8.9 g/dL (12.0-16.0); Mean Corpuscular HGB CONC 31.8 g/dL (32.0-36.0); Mean Corpuscular Volume 91.4 fl (78.0-98.0); Platelet Count 286 10x3/uL (130-400); RBC Distribution Width 14.7 % (11.5-14.5); Red Blood Cell (RBC) Count 3.06 mill/uL (4.20-5.40); White Blood Cell (WBC) Count 6.5 10x3/uL (4.8-10.8)
[2022-11-27 15:35] LABS: INR-International Normal Ratio 1.2; PTT 28.9 sec (22.9-36.1); Prothrombin Time 15.5 sec (12.0-14.7)
[2022-11-27 15:44] LABS: ALT (SGPT) Less than 7 U/L (8-55); AST (SGOT) 12 U/L (5-34); Albumin 3.6 g/dL (3.4-4.8); Alkaline Phosphatase 52 U/L (40-110); Anion Gap 14 mmol/L (10-20); BUN (Urea Nitrogen) 10 mg/dL (9.8-20.1); Bilirubin, Total 0.2 mg/dL (0.2-1.2); Calc. Creatinine Clearance 0 mL/min (70-130); Calcium 8.3 mg/dL (7.8-10.44); Carbon Dioxide 27 mmol/L (23-31); Chloride 103 mmol/L (98-107); Estimated GFR 75; Globulin 2.5 g/dL (2.4-3.5); Glucose 136 mg/dL (83-110); Potassium 4.2 mmol/L (3.5-5.1); Protein, Total 6.1 g/dL (5.8-8.1); Sodium 140 mmol/L (136-145)
[2022-11-27] MEDS ORDERED: HYDROcodone/Acetaminophen 5/325 mg Tablet ONE (17:57)
== END 2022-11-27 18:33 | disposition home or self-care (01) ==
LOC: ERS 14:17
DX: M25.552 Pain in left hip (principal); E11.9 Type 2 diabetes mellitus without complications; E78.5 Hyperlipidemia, unspecified; I10 Essential (primary) hypertension; J44.9 Chronic obstructive pulmonary disease, unspecified; W06.XXXA Fall from bed, initial encounter; Z87.891 Personal history of nicotine dependence
CPT/HCPCS: 36415; 71046; 72072; 72100; 72170; 80053; 84484; 85025; 85610; 85730; 93005

== ENCOUNTER 2023-08-05 14:18 | Inpatient (IN) | payer OTHER, MEDICAID ==
[~2023-08-05 14:18] MED LIST changes: -Iopamidol-370 76% 500 ML 1 ML ONE; +Iopamidol-370 76% 500 ML MDV (1 ML CHARGE) ONE
[2023-08-05] MEDS ORDERED: Ondansetron PF 4 MG/2 ML Vial ONE (14:45)
[2023-08-05] MEDS ORDERED: Famotidine/PF 20 mg/2ml Vial ONE (14:49)
[2023-08-05] MEDS ORDERED: diphenhydrAMINE 25 MG CAP ONE (14:49)
[2023-08-05] MEDS ORDERED: diphenhydrAMINE 50 MG/ML VIAL ONE (14:49)
[2023-08-05] MEDS ORDERED: methylPREDNISolone Sod Succ/PF 125 MG/2 ML VIAL ONE (14:49)
[2023-08-05 14:50] LABS: #Basophils 0.1 thou/uL (0.0-0.2); #Eosinphils 0.5 thou/uL (0.0-0.7); #Monocytes 0.5 thou/uL (0.11-0.59); #Neutrophils 3.1 thou/uL (1.40-6.50); %Basophils 1.5 % (0.0-1.0); %Eosinophils 6.1 % (0.0-10.0); %Lymphocytes 49.7 % (21.0-51.0); %Monocytes 6.3 % (0.0-10.0); %Neutrophils 36.2 % (42.0-75.0); Hematocrit 31.9 % (36.0-47.0); Hemoglobin 9.6 g/dL (12.0-16.0); Mean Corpuscular HGB CONC 30.1 g/dL (32.0-36.0); Mean Corpuscular Hemoglobin 27.7 pg (27.0-31.0); Mean Corpuscular Volume 91.9 fl (78.0-98.0); Mean Platelet Volume 10.1 fL (7.4-10.4); Platelet Count 495 10x3/uL (130-400); RBC Distribution Width 17.9 % (11.5-14.5); Red Blood Cell (RBC) Count 3.47 mill/uL (4.20-5.40); White Blood Cell (WBC) Count 8.6 10x3/uL (4.8-10.8)
[2023-08-05] MEDS ORDERED: methylPREDNISolone Sod Succ 40 MG VIAL ONE (14:51)
[2023-08-05 15:05] LABS: ALT (SGPT) Less than 7 U/L (8-55); AST (SGOT) 17 U/L (5-34); Albumin 4.8 g/dL (3.4-4.8); Alkaline Phosphatase 50 U/L (40-110); Anion Gap 27 mmol/L (10-20); BUN (Urea Nitrogen) 9 mg/dL (9.8-20.1); Bilirubin, Total 0.3 mg/dL (0.2-1.2); Calc. Creatinine Clearance 0 mL/min (70-130); Calcium 8.8 mg/dL (7.8-10.44); Carbon Dioxide 14 mmol/L (23-31); Chloride 97 mmol/L (98-107); Estimated GFR 69; Globulin 2.9 g/dL (2.4-3.5); Glucose 197 mg/dL (83-110); Potassium 4.5 mmol/L (3.5-5.1); Protein, Total 7.7 g/dL (5.8-8.1); Sodium 133 mmol/L (136-145)
[2023-08-05 15:10] LABS: Troponin I Less than 0.010 ng/mL (< 0.028)
[2023-08-05] MEDS ORDERED: LEVETIRACETAM IVPB SCH (15:15)
[2023-08-05] MEDS ORDERED: SODIUM CHLORIDE 0.9% IVPB SCH (15:15)
[2023-08-05] MEDS ORDERED: Dextrose 5% in Water 1,000 ML IV PRN (17:38)
[2023-08-05] MEDS ORDERED: Acetaminophen 650 MG Suppository PR PRN (17:38)
[2023-08-05] MEDS ORDERED: HumaLOG 300 UNITS/3 ML VIAL SC PRN (17:38)
[2023-08-05] MEDS ORDERED: Labetalol HCl 100 MG/20 ML VIAL SLOW IVP PRN (17:38)
[2023-08-05] MEDS ORDERED: Dextrose 50% Abboject 50 ML SYRINGE SLOW IVP PRN (17:38)
[2023-08-05] MEDS ORDERED: Glucagon 1 MG/ML KIT IM PRN (17:38)
[2023-08-05] MEDS ORDERED: Ondansetron ODT 4 MG TAB PO PRN (17:38)
[2023-08-05] MEDS ORDERED: Ipratropium/Albuterol 3 ML NEB NEB PRN (17:38)
[2023-08-05] MEDS ORDERED: Acetaminophen 325 MG TAB PO PRN (17:38)
[2023-08-05] MEDS ORDERED: Lorazepam 2 MG/ML VIAL SLOW IVP PRN (17:38)
[2023-08-05] MEDS ORDERED: Ondansetron PF 4 MG/2 ML Vial IVP PRN (17:38)
[2023-08-05] MEDS ORDERED: Lactated Ringer's 1,000 ML IV SCH (17:45)
[2023-08-05 18:37] VITALS: BMI 19.3
[2023-08-05] MEDS ORDERED: Magnesium 2 GM/50 ML(in water) 2 GM in Premix 1 BAG IVPB SCH (19:15)
[2023-08-05 19:20] LABS: Actual Bicarbonate (HCO3v) 23.3 mEq/L (22-28); Base Excess -3.4 mEq/L (-2.0 to +3.0); Calcium, Ionized (venous) 1.06 mmol/L (1.16-1.32); Chloride (VBG) 96 mmol/L (98-106); Hematocrit-VBG 31 % (36.0-47.0); Hemoglobin (Hb) 10.6 g/dL (11.7-16.1); Potassium (VBG) 3.97 mmol/L (3.70-5.30); Sodium 135 mmol/L (133-146); pH (venous) 7.291 (7.32-7.43)
[2023-08-05] MEDS ORDERED: Magnesium 2 GM/50 ML BAG (IN WATER) ONE (19:25)
[2023-08-05 20:03] LABS: Bacteria/HPF None Seen HPF (None Seen); Bilirubin Negative (Negative); Blood, Urine Negative (Negative); CAUTI Indications for Culture Alt mental st,lethar; Clarity Clear (Clear); Glucose, Urine (Dipstick) Normal (Negative); Ketone, Urine Negative (Negative); Leukocyte Negative Leu/uL (Negative); Nitrite Negative (Negative); Protein, Urine (Dipstick) Negative (Neg-Trace); RBC/HPF None Seen HPF (0-3); Specific Gravity, Urine 1.025 (1.002-1.036); Squamous Epithelial None Seen HPF (0-3); Urobilinogen Normal mg/dL (Less than 2); WBC/HPF 0-3 HPF (0-3)
[2023-08-05 20:06] LABS: Urine Culture Reflex No No
[2023-08-05] MEDS: Atorvastatin Calcium 40 MG TAB PO SCH (22:38)
[2023-08-06 04:07] LABS: #Monocytes 0.3 thou/uL (0.11-0.59); #Neutrophils 3.1 thou/uL (1.40-6.50); %Basophils 0.6 % (0.0-1.0); %Lymphocytes 28.6 % (21.0-51.0); %Monocytes 5.4 % (0.0-10.0); Hematocrit 27.2 % (36.0-47.0); Hemoglobin 8.6 g/dL (12.0-16.0); Mean Corpuscular HGB CONC 31.6 g/dL (32.0-36.0); Mean Corpuscular Hemoglobin 27.3 pg (27.0-31.0); Mean Platelet Volume 10.3 fL (7.4-10.4); Platelet Count 454 10x3/uL (130-400); RBC Distribution Width 18.1 % (11.5-14.5); Red Blood Cell (RBC) Count 3.15 mill/uL (4.20-5.40); White Blood Cell (WBC) Count 4.8 10x3/uL (4.8-10.8)
[2023-08-06 04:16] LABS: Hemoglobin A1c 6.4 % (4.0-6.0)
[2023-08-06 04:36] LABS: Anion Gap 17 mmol/L (10-20); BUN (Urea Nitrogen) 7 mg/dL (9.8-20.1); Calc. Creatinine Clearance 38 mL/min (70-130); Calcium 8.7 mg/dL (7.8-10.44); Carbon Dioxide 26 mmol/L (23-31); Chloride 97 mmol/L (98-107); Estimated GFR 70; Glucose 141 mg/dL (83-110); Potassium 3.8 mmol/L (3.5-5.1); Sodium 136 mmol/L (136-145)
[2023-08-06 04:37] LABS: Cardiac Risk 2.1 (Less than 4.5); Cholesterol 136 mg/dl (< 200 Desired); HDL Cholesterol 64 mg/dL (>60 Neg Risk); LDL Cholesterol, Calculated 60 mg/dL; Magnesium 1.8 mg/dL (1.6-2.6); Triglycerides 58 mg/dL (Less than 150)
[2023-08-06 05:19] LABS: Mean Corpuscular Volume 86.3 fl (78.0-98.0)
[2023-08-06] MEDS ORDERED: Aspirin Chewable 81 MG TAB ONE (08:42)
[2023-08-06] MEDS: Aspirin 81 mg Enteric Coated Tablet PO SCH ×2 (09:21→12:01)
[2023-08-06] MEDS ORDERED: levETIRAcetam 500 MG/5 ML VIAL SLOW IVP SCH ×3 (11:30→21:00)
[2023-08-06] MEDS: Lactated Ringer's 1,000 ML IV SCH (16:24)
[2023-08-06] MEDS: Atorvastatin Calcium 40 MG TAB PO SCH (21:45)
[2023-08-07 05:08] LABS: #Basophils 0.1 thou/uL (0.0-0.2); #Eosinphils 0.4 thou/uL (0.0-0.7); #Monocytes 0.6 thou/uL (0.11-0.59); #Neutrophils 4.1 thou/uL (1.40-6.50); %Basophils 0.9 % (0.0-1.0); %Eosinophils 5.6 % (0.0-10.0); %Lymphocytes 29.8 % (21.0-51.0); %Monocytes 8.6 % (0.0-10.0); Hematocrit 26.5 % (36.0-47.0); Hemoglobin 8.1 g/dL (12.0-16.0); Mean Corpuscular HGB CONC 30.6 g/dL (32.0-36.0); Mean Corpuscular Hemoglobin 27.5 pg (27.0-31.0); Mean Corpuscular Volume 89.8 fl (78.0-98.0); Mean Platelet Volume 10.2 fL (7.4-10.4); Platelet Count 407 10x3/uL (130-400); Red Blood Cell (RBC) Count 2.95 mill/uL (4.20-5.40); White Blood Cell (WBC) Count 7.5 10x3/uL (4.8-10.8)
[2023-08-07 05:38] LABS: ALT (SGPT) 9 U/L (8-55); AST (SGOT) 17 U/L (5-34); Albumin 4.2 g/dL (3.4-4.8); Alkaline Phosphatase 41 U/L (40-110); Anion Gap 16 mmol/L (10-20); BUN (Urea Nitrogen) 8 mg/dL (9.8-20.1); Bilirubin, Total 0.3 mg/dL (0.2-1.2); Calc. Creatinine Clearance 38 mL/min (70-130); Calcium 8.9 mg/dL (7.8-10.44); Carbon Dioxide 28 mmol/L (23-31); Chloride 101 mmol/L (98-107); Estimated GFR 69; Globulin 2.8 g/dL (2.4-3.5); Glucose 125 mg/dL (83-110); Magnesium 1.6 mg/dL (1.6-2.6); Potassium 3.7 mmol/L (3.5-5.1); Sodium 141 mmol/L (136-145)
[2023-08-07] MEDS: levETIRAcetam 500 MG/5 ML VIAL SLOW IVP SCH ×2 (06:01→21:23)
[2023-08-07] MEDS ORDERED: Lorazepam 2 MG/ML VIAL SLOW IVP SCH (08:45)
[2023-08-07] MEDS ORDERED: DEXLANSOPRAZOLE 60 MG PO SCH (09:00)
[2023-08-07] MEDS: Apixaban 5 MG TAB PO SCH ×2 (10:31→20:14)
[2023-08-07] MEDS: Aspirin 81 mg Enteric Coated Tablet PO SCH (10:31)
[2023-08-07] MEDS: Folic Acid 1 MG TAB PO SCH ×2 (18:45→18:46)
[2023-08-07] MEDS: levETIRAcetam 500 MG TAB PO SCH (18:46)
[2023-08-07] MEDS: Lactated Ringer's 1,000 ML IV SCH ×2 (18:49→18:52)
[2023-08-07] MEDS: Atorvastatin Calcium 40 MG TAB PO SCH (20:14)
[2023-08-08 02:12] LABS: #Basophils 0.1 thou/uL (0.0-0.2); #Eosinphils 0.6 thou/uL (0.0-0.7); #Monocytes 0.6 thou/uL (0.11-0.59); #Neutrophils 2.8 thou/uL (1.40-6.50); %Basophils 1.1 % (0.0-1.0); %Eosinophils 9.7 % (0.0-10.0); %Lymphocytes 38.5 % (21.0-51.0); %Monocytes 8.3 % (0.0-10.0); %Neutrophils 42.2 % (42.0-75.0); Hemoglobin 8.2 g/dL (12.0-16.0); Mean Corpuscular HGB CONC 30.4 g/dL (32.0-36.0); Mean Corpuscular Hemoglobin 27.2 pg (27.0-31.0); Mean Corpuscular Volume 89.7 fl (78.0-98.0); Platelet Count 366 10x3/uL (130-400); RBC Distribution Width 17.9 % (11.5-14.5); Red Blood Cell (RBC) Count 3.01 mill/uL (4.20-5.40); White Blood Cell (WBC) Count 6.6 10x3/uL (4.8-10.8)
[2023-08-08 02:35] LABS: Anion Gap 15 mmol/L (10-20); BUN (Urea Nitrogen) 7 mg/dL (9.8-20.1); Calc. Creatinine Clearance 37 mL/min (70-130); Carbon Dioxide 28 mmol/L (23-31); Chloride 100 mmol/L (98-107); Estimated GFR 68; Glucose 129 mg/dL (83-110); Magnesium 1.4 mg/dL (1.6-2.6); Potassium 3.7 mmol/L (3.5-5.1); Sodium 139 mmol/L (136-145)
[2023-08-08] MEDS: levETIRAcetam 500 MG TAB PO SCH ×2 (05:45→18:05)
[2023-08-08] MEDS ORDERED: Magnesium 2 GM/50 ML(in water) 2 GM in Premix 1 BAG IVPB SCH (05:45)
[2023-08-08] MEDS: Folic Acid 1 MG TAB PO SCH ×2 (08:48→18:05)
[2023-08-08] MEDS: Aspirin 81 mg Enteric Coated Tablet PO SCH (08:48)
[2023-08-08] MEDS: Apixaban 5 MG TAB PO SCH ×2 (08:48→20:22)
[2023-08-08] MEDS: HumaLOG 300 UNITS/3 ML VIAL SC PRN (14:49)
[2023-08-08] MEDS: Atorvastatin Calcium 40 MG TAB PO SCH (20:22)
[2023-08-08] MEDS: Magnesium Oxide 400 MG TAB PO SCH (20:22)
[2023-08-09] MEDS: levETIRAcetam 500 MG TAB PO SCH ×2 (05:19→17:12)
[2023-08-09 05:42] LABS: Anion Gap 14 mmol/L (10-20); BUN (Urea Nitrogen) 10 mg/dL (9.8-20.1); Calc. Creatinine Clearance 32 mL/min (70-130); Calcium 8.9 mg/dL (7.8-10.44); Carbon Dioxide 28 mmol/L (23-31); Chloride 98 mmol/L (98-107); Estimated GFR 56; Glucose 126 mg/dL (83-110); Magnesium 1.8 mg/dL (1.6-2.6); Sodium 136 mmol/L (136-145)
[2023-08-09] MEDS ORDERED: FLU VACC QS2023(65UP)/MF59C/PF 60 MCG/0.5 ML SYRINGE IM ONE (09:00)
[2023-08-09] MEDS: Folic Acid 1 MG TAB PO SCH ×2 (10:24→17:12)
[2023-08-09] MEDS: Apixaban 5 MG TAB PO SCH ×2 (10:24→20:14)
[2023-08-09] MEDS: Magnesium Oxide 400 MG TAB PO SCH ×2 (10:25→20:14)
[2023-08-09] MEDS: Aspirin 81 mg Enteric Coated Tablet PO SCH (10:25)
[2023-08-09] MEDS: HYDROcodone/Acetaminophen 5/325 mg Tablet PO PRN (17:11)
[2023-08-09] MEDS: HumaLOG 300 UNITS/3 ML VIAL SC PRN (18:25)
[2023-08-09] MEDS: Atorvastatin Calcium 40 MG TAB PO SCH (20:14)
[2023-08-10] MEDS: levETIRAcetam 500 MG TAB PO SCH ×2 (05:28→18:40)
[2023-08-10] MEDS: HumaLOG 300 UNITS/3 ML VIAL SC PRN ×2 (05:30→18:41)
[2023-08-10] MEDS: HYDROcodone/Acetaminophen 5/325 mg Tablet PO PRN ×4 (05:34→21:43)
[2023-08-10] MEDS: Folic Acid 1 MG TAB PO SCH ×2 (10:27→16:52)
[2023-08-10] MEDS: Magnesium Oxide 400 MG TAB PO SCH ×2 (10:27→21:39)
[2023-08-10] MEDS: Apixaban 5 MG TAB PO SCH ×2 (10:27→21:39)
[2023-08-10] MEDS: Aspirin 81 mg Enteric Coated Tablet PO SCH (10:27)
[2023-08-10] MEDS ORDERED: Polyethylene Glycol 3350 17 GM Packet PO SCH (19:45)
[2023-08-10] MEDS: Atorvastatin Calcium 40 MG TAB PO SCH (21:39)
[2023-08-11] MEDS: levETIRAcetam 500 MG TAB PO SCH ×2 (05:47→17:33)
[2023-08-11] MEDS: HYDROcodone/Acetaminophen 5/325 mg Tablet PO PRN ×3 (05:51→22:37)
[2023-08-11] MEDS: Folic Acid 1 MG TAB PO SCH ×2 (10:59→17:33)
[2023-08-11] MEDS: Magnesium Oxide 400 MG TAB PO SCH ×2 (11:00→21:12)
[2023-08-11] MEDS: Apixaban 5 MG TAB PO SCH ×2 (11:00→21:12)
[2023-08-11] MEDS: HumaLOG 300 UNITS/3 ML VIAL SC PRN ×2 (12:45→21:12)
[2023-08-11] MEDS: Atorvastatin Calcium 40 MG TAB PO SCH (21:12)
[2023-08-12] MEDS: levETIRAcetam 500 MG TAB PO SCH ×2 (05:25→17:22)
[2023-08-12] MEDS: HYDROcodone/Acetaminophen 5/325 mg Tablet PO PRN ×2 (09:10→20:46)
[2023-08-12] MEDS: Magnesium Oxide 400 MG TAB PO SCH ×2 (09:10→20:45)
[2023-08-12] MEDS: Folic Acid 1 MG TAB PO SCH ×2 (09:11→17:22)
[2023-08-12] MEDS: Apixaban 5 MG TAB PO SCH ×2 (09:11→20:46)
[2023-08-12] MEDS: HumaLOG 300 UNITS/3 ML VIAL SC PRN (12:26)
[2023-08-12] MEDS ORDERED: Polyethylene Glycol 3350 17 GM Packet PO PRN (13:58)
[2023-08-12] MEDS ORDERED: Carvedilol 3.125 MG TAB PO SCH (17:00)
[2023-08-12] MEDS: Atorvastatin Calcium 40 MG TAB PO SCH (20:46)
[2023-08-12] MEDS ORDERED: Multivit, Therapeutic 1 TAB PO SCH (21:00)
[2023-08-12] MEDS ORDERED: metFORMIN 500 MG TAB PO SCH (21:00)
[2023-08-13] MEDS: HYDROcodone/Acetaminophen 5/325 mg Tablet PO PRN (05:09)
[2023-08-13] MEDS: levETIRAcetam 500 MG TAB PO SCH (05:09)
[2023-08-13] MEDS ORDERED: Linaclotide [Linzess] 72 MCG Capsule PO SCH (07:30)
[2023-08-13 08:24] VITALS: BP 147/80; TEMP 98.5
[2023-08-13] MEDS ORDERED: Cyanocobalamin (Vitamin B-12) 1,000 MCG TAB PO SCH (09:00)
[2023-08-13] MEDS ORDERED: Amlodipine 5 MG TAB PO SCH (09:00)
[2023-08-13] MEDS ORDERED: DULoxetine 30 MG CAP PO SCH (09:00)
== END 2023-08-13 08:40 | DRG 70 ==
LOC: ERS 14:18 → ERHOLD 17:28 → 2SE 08-06 14:53 → OBSVTOIN 08-08 09:02
PROVIDERS: ADMIT Internal Medicine; ATTEND Nurse Practitioner Family
PROC: 4A043R1 Measurement of Venous Saturation, Peripheral, Percutaneous Approach (ICD-10-PCS; 2023-08-05)
PROC: 4A00X4Z Measurement of Central Nervous Electrical Activity, External Approach (ICD-10-PCS; principal; 2023-08-06)
DX: G93.41 Metabolic encephalopathy (principal); I26.93 Single subsegmental thrombotic pulmonary embolism without acute cor pulmonale; E87.20 Acidosis, unspecified; J44.1 Chronic obstructive pulmonary disease with (acute) exacerbation; G40.909 Epilepsy, unspecified, not intractable, without status epilepticus; I25.10 Atherosclerotic heart disease of native coronary artery without angina pectoris; E11.9 Type 2 diabetes mellitus without complications; I10 Essential (primary) hypertension; I69.398 Other sequelae of cerebral infarction; E78.5 Hyperlipidemia, unspecified; Z88.5 Allergy status to narcotic agent; Z88.8 Allergy status to other drugs, medicaments and biological substances; Z91.012 Allergy to eggs; Z79.899 Other long term (current) drug therapy; Z98.891 History of uterine scar from previous surgery; Z90.49 Acquired absence of other specified parts of digestive tract; Z90.710 Acquired absence of both cervix and uterus; Z87.891 Personal history of nicotine dependence; Z79.84 Long term (current) use of oral hypoglycemic drugs; Z79.01 Long term (current) use of anticoagulants; D63.8 Anemia in other chronic diseases classified elsewhere
CPT/HCPCS: 36415; 36416; 70450; 70496; 70498; 70551; 71045; 80048; 80053; 80061; 81001; 82010; 82805; 83036; 83605; 83735; 83880; 84146; 84443; 84484; 85025; 87040; 87086; 93005; 93010; 93306; 95711; 95819; 95957; 96361; 96365; 96375; 96376; G0378; J1200; J1815; J1953; J2405; J2920; J2930; J3475; J7050; J7120; Q0162; Q9967; S0028

== ENCOUNTER 2023-12-10 15:38 | Inpatient (IN) | payer OTHER, MEDICAID ==
[2023-12-10 17:10] LABS: #Eosinphils 0.1 thou/uL (0.0-0.7); #Monocytes 0.3 thou/uL (0.11-0.59); %Basophils 0.4 % (0.0-1.0); %Eosinophils 1.3 % (0.0-10.0); %Lymphocytes 21.3 % (21.0-51.0); %Monocytes 5.9 % (0.0-10.0); %Neutrophils 70.7 % (42.0-75.0); Hematocrit 25.2 % (36.0-47.0); Hemoglobin 7.9 g/dL (12.0-16.0); Mean Corpuscular HGB CONC 31.3 g/dL (32.0-36.0); Mean Corpuscular Hemoglobin 29.4 pg (27.0-31.0); Mean Corpuscular Volume 93.7 fl (78.0-98.0); Mean Platelet Volume 9.9 fL (7.4-10.4); Platelet Count 528 10x3/uL (130-400); RBC Distribution Width 22.5 % (11.5-14.5); Red Blood Cell (RBC) Count 2.69 mill/uL (4.20-5.40); White Blood Cell (WBC) Count 5.6 10x3/uL (4.8-10.8)
[2023-12-10 17:25] LABS: ALT (SGPT) 12 U/L (8-55); AST (SGOT) 21 U/L (5-34); Acetaminophen Less than 10 mcg/mL (10.0-30.0); Albumin 2.8 g/dL (3.4-4.8); Alcohol Less than 10.0 mg/dL (Less than 10); Alkaline Phosphatase 88 U/L (40-110); Anion Gap 19 mmol/L (10-20); BUN (Urea Nitrogen) 36 mg/dL (9.8-20.1); Bilirubin, Total 0.2 mg/dL (0.2-1.2); Calc. Creatinine Clearance 0 mL/min (70-130); Carbon Dioxide 18 mmol/L (23-31); Chloride 106 mmol/L (98-107); Estimated GFR 34; Globulin 3.6 g/dL (2.4-3.5); Glucose 112 mg/dL (83-110); Lipase 133 U/L (8-78); Potassium 5.3 mmol/L (3.5-5.1); Protein, Total 6.4 g/dL (5.8-8.1); Salicylate Less than 8.0 mg/dL (15.0-30.0); Sodium 138 mmol/L (136-145)
[2023-12-10 17:31] LABS: Troponin I 0.015 ng/mL (< 0.028)
[2023-12-10 17:50] LABS: Critical Call Chemistry NUR.LB19 @1750; Magnesium 0.7 mg/dL (1.6-2.6)
[2023-12-10 17:51] LABS: Calcium 6.6 mg/dL (7.8-10.44); Critical Call Chemistry NUR.LB19 @1750
[2023-12-10] MEDS ORDERED: Sodium Chloride 0.9% 100 ML ONE (18:06)
[2023-12-10] MEDS ORDERED: Magnesium 2 GM/50 ML BAG (IN WATER) ONE (18:06)
[2023-12-10] MEDS ORDERED: cefTRIAXone (ROCEPHIN) 1 GM VIAL ONE (18:06)
[2023-12-10] MEDS ORDERED: Calcium Chloride 1 GM/10 ML Abboject SYRINGE ONE (18:20)
[2023-12-10] MEDS ORDERED: Ondansetron PF 4 MG/2 ML Vial IVP PRN (18:44)
[2023-12-10] MEDS ORDERED: Ipratropium/Albuterol 3 ML NEB NEB PRN (19:26)
[2023-12-10] MEDS: Magnesium 2 GM/50 ML(in water) 2 GM in Premix 1 BAG IVPB SCH (19:28)
[2023-12-10] MEDS: Sodium Chloride 0.9% 1,000 ML IV SCH (19:28)
[2023-12-10] MEDS ORDERED: Glucagon 1 MG/ML KIT IM PRN (19:46)
[2023-12-10] MEDS ORDERED: HumaLOG 300 UNITS/3 ML VIAL SC PRN ×2 (19:46)
[2023-12-10] MEDS ORDERED: Dextrose 5% in Water 1,000 ML IV PRN (19:46)
[2023-12-10] MEDS ORDERED: Dextrose 50% Abboject 50 ML SYRINGE SLOW IVP PRN (19:46)
[2023-12-10] MEDS ORDERED: Apixaban 5 MG TAB ONE (21:30)
[2023-12-10] MEDS: Apixaban 2.5 MG TAB PO SCH (21:34)
[2023-12-10 22:00] LABS: Lactic Acid 1.2 mmol/L (0.5-2.2)
[2023-12-10 22:09] LABS: Anion Gap 17 mmol/L (10-20); BUN (Urea Nitrogen) 33 mg/dL (9.8-20.1); Calc. Creatinine Clearance 0 mL/min (70-130); Calcium 7.6 mg/dL (7.8-10.44); Carbon Dioxide 13 mmol/L (23-31); Chloride 111 mmol/L (98-107); Estimated GFR 38; Glucose 89 mg/dL (83-110); Magnesium 1.4 mg/dL (1.6-2.6); Potassium 5.4 mmol/L (3.5-5.1); Sodium 136 mmol/L (136-145)
[2023-12-11] MEDS ORDERED: Magnesium 2 GM/50 ML BAG (IN WATER) ONE (00:37)
[2023-12-11] MEDS: Magnesium 2 GM/50 ML(in water) 2 GM in Premix 1 BAG IVPB SCH (00:45)
[2023-12-11] MEDS: Dextrose 5 %-0.45 % NaCl 1,000 ML IV SCH (01:44)
[2023-12-11 05:02] LABS: #Eosinphils 0.1 thou/uL (0.0-0.7); #Monocytes 0.4 thou/uL (0.11-0.59); #Neutrophils 5.2 thou/uL (1.40-6.50); %Basophils 0.3 % (0.0-1.0); %Eosinophils 1.2 % (0.0-10.0); %Monocytes 5.9 % (0.0-10.0); %Neutrophils 76.2 % (42.0-75.0); Hematocrit 23.3 % (36.0-47.0); Hemoglobin 7.2 g/dL (12.0-16.0); Mean Corpuscular HGB CONC 30.9 g/dL (32.0-36.0); Mean Corpuscular Hemoglobin 29.8 pg (27.0-31.0); Mean Corpuscular Volume 96.3 fl (78.0-98.0); Mean Platelet Volume 9.8 fL (7.4-10.4); Platelet Count 436 10x3/uL (130-400); RBC Distribution Width 22.4 % (11.5-14.5); Red Blood Cell (RBC) Count 2.42 mill/uL (4.20-5.40); White Blood Cell (WBC) Count 6.8 10x3/uL (4.8-10.8)
[2023-12-11 05:25] LABS: ALT (SGPT) 13 U/L (8-55); AST (SGOT) 20 U/L (5-34); Albumin 2.8 g/dL (3.4-4.8); Anion Gap 15 mmol/L (10-20); BUN (Urea Nitrogen) 29 mg/dL (9.8-20.1); Bilirubin, Total 0.2 mg/dL (0.2-1.2); Calc. Creatinine Clearance 28 mL/min (70-130); Calcium 7.5 mg/dL (7.8-10.44); Carbon Dioxide 18 mmol/L (23-31); Chloride 110 mmol/L (98-107); Estimated GFR 41; Globulin 3.2 g/dL (2.4-3.5); Glucose 123 mg/dL (83-110); Lipase 69 U/L (8-78); Magnesium 1.9 mg/dL (1.6-2.6); Potassium 4.4 mmol/L (3.5-5.1); Sodium 139 mmol/L (136-145)
[2023-12-11 06:00] LABS: Alkaline Phosphatase 87 U/L (40-110)
[2023-12-11] MEDS ORDERED: levETIRAcetam 500 MG TAB ONE (06:42)
[2023-12-11] MEDS: levETIRAcetam 500 MG TAB PO SCH (07:20)
[2023-12-11] MEDS ORDERED: Linaclotide [Linzess] 72 MCG Capsule PO SCH (09:00)
[2023-12-11] MEDS ORDERED: Amlodipine 5 MG TAB ONE (09:05)
[2023-12-11] MEDS ORDERED: Folic Acid 1 MG TAB ONE (09:05)
[2023-12-11] MEDS ORDERED: DULoxetine 60 MG CAP ONE (09:06)
[2023-12-11] MEDS ORDERED: Atorvastatin Calcium 40 MG TAB ONE (09:06)
[2023-12-11] MEDS ORDERED: Carvedilol 6.25 MG TAB ONE (09:06)
[2023-12-11] MEDS ORDERED: Apixaban 5 MG TAB ONE (09:06)
[2023-12-11] MEDS: Amlodipine 5 MG TAB PO SCH (09:57)
[2023-12-11] MEDS: Folic Acid 1 MG TAB PO SCH (09:57)
[2023-12-11] MEDS: Carvedilol 3.125 MG TAB PO SCH (09:57)
[2023-12-11] MEDS: Atorvastatin Calcium 40 MG TAB PO SCH (09:58)
[2023-12-11] MEDS: DULoxetine 30 MG CAP PO SCH (09:58)
[2023-12-11 17:56] LABS: Bacteria/HPF None Seen HPF (None Seen); Bilirubin Negative (Negative); Blood, Urine Negative (Negative); CAUTI Indications for Culture Alt mental st,lethar; Clarity Clear (Clear); Glucose, Urine (Dipstick) Normal (Negative); Ketone, Urine Negative (Negative); Leukocyte 25 Leu/uL (Negative); Nitrite Negative (Negative); Protein, Urine (Dipstick) 10 mg/dL (Neg-Trace); RBC/HPF 0-3 HPF (0-3); Squamous Epithelial None Seen HPF (0-3); Urobilinogen Normal mg/dL (Less than 2); WBC/HPF 0-3 HPF (0-3); pH, Urine 5.5 (5.0-9.0)
[2023-12-11 17:58] LABS: Urine Culture Reflex No No
[2023-12-11] MEDS: Acetaminophen 325 MG TAB PO PRN (20:24)
[2023-12-11] MEDS: Albumin 25% 25 GM (100 mL) BOT IVPB SCH (23:16)
[2023-12-11] MEDS: Sodium Chloride 0.9% 1,000 ML IV SCH (23:18)
[2023-12-11] MEDS: Calcium Carbonate 500 MG ChewTAB PO PRN (23:18)
[2023-12-12 05:22] LABS: #Eosinphils 0.2 thou/uL (0.0-0.7); #Monocytes 0.3 thou/uL (0.11-0.59); #Neutrophils 2.6 thou/uL (1.40-6.50); %Basophils 0.2 % (0.0-1.0); %Eosinophils 5.1 % (0.0-10.0); %Monocytes 7.3 % (0.0-10.0); %Neutrophils 63.2 % (42.0-75.0); Hematocrit 21.1 % (36.0-47.0); Hemoglobin 6.7 g/dL (12.0-16.0); Mean Corpuscular HGB CONC 31.8 g/dL (32.0-36.0); Mean Corpuscular Hemoglobin 29.6 pg (27.0-31.0); Mean Corpuscular Volume 93.4 fl (78.0-98.0); Mean Platelet Volume 9.9 fL (7.4-10.4); Platelet Count 417 10x3/uL (130-400); RBC Distribution Width 22.4 % (11.5-14.5); Red Blood Cell (RBC) Count 2.26 mill/uL (4.20-5.40); White Blood Cell (WBC) Count 4.1 10x3/uL (4.8-10.8)
[2023-12-12 05:41] LABS: Anion Gap 11 mmol/L (10-20); BUN (Urea Nitrogen) 19 mg/dL (9.8-20.1); Calc. Creatinine Clearance 28 mL/min (70-130); Calcium 7.8 mg/dL (7.8-10.44); Carbon Dioxide 21 mmol/L (23-31); Chloride 108 mmol/L (98-107); Estimated GFR 65; Glucose 99 mg/dL (83-110); Potassium 3.8 mmol/L (3.5-5.1); Sodium 136 mmol/L (136-145)
[2023-12-12 06:00] LABS: Magnesium 1.5 mg/dL (1.6-2.6)
[2023-12-12] MEDS: Magnesium Oxide 400 MG TAB PO SCH ×2 (17:21→22:32)
[2023-12-12 17:41] LABS: Hematocrit 30.1 % (36.0-47.0); Hemoglobin 9.8 g/dL (12.0-16.0)
[2023-12-12] MEDS ORDERED: Sodium Chloride 0.9% 1,000 ML IV SCH (18:45)
[2023-12-12] MEDS: Sodium Chloride 0.9% 1,000 ML IV SCH (19:21)
[2023-12-12] MEDS: Pantoprazole 40 MG VIAL IVP SCH (23:45)
[2023-12-13] MEDS ORDERED: Electrolyte Replacement Protocol 1 EACH FS SCH (01:15)
[2023-12-13] MEDS: Magnesium 2 GM/50 ML(in water) 2 GM in Premix 1 BAG IVPB SCH ×2 (01:21→08:48)
[2023-12-13 05:26] LABS: #Eosinphils 0.2 thou/uL (0.0-0.7); #Monocytes 0.4 thou/uL (0.11-0.59); #Neutrophils 3.8 thou/uL (1.40-6.50); %Basophils 0.2 % (0.0-1.0); %Eosinophils 2.8 % (0.0-10.0); %Monocytes 7.3 % (0.0-10.0); %Neutrophils 66.4 % (42.0-75.0); Hematocrit 33.5 % (36.0-47.0); Hemoglobin 11.4 g/dL (12.0-16.0); Mean Corpuscular Hemoglobin 30.1 pg (27.0-31.0); Mean Corpuscular Volume 88.4 fl (78.0-98.0); Mean Platelet Volume 10.5 fL (7.4-10.4); Platelet Count 300 10x3/uL (130-400); RBC Distribution Width 19.4 % (11.5-14.5); Red Blood Cell (RBC) Count 3.79 mill/uL (4.20-5.40); White Blood Cell (WBC) Count 5.8 10x3/uL (4.8-10.8)
[2023-12-13 06:30] LABS: ALT (SGPT) 13 U/L (8-55); AST (SGOT) 21 U/L (5-34); Alkaline Phosphatase 98 U/L (40-110); Anion Gap 17 mmol/L (10-20); BUN (Urea Nitrogen) 14 mg/dL (9.8-20.1); Bilirubin, Total 0.4 mg/dL (0.2-1.2); Calc. Creatinine Clearance 31 mL/min (70-130); Calcium 7.9 mg/dL (7.8-10.44); Carbon Dioxide 18 mmol/L (23-31); Chloride 106 mmol/L (98-107); Estimated GFR 72; Globulin 3.2 g/dL (2.4-3.5); Glucose 108 mg/dL (83-110); Iron 156 ug/dL (50-170); Iron Binding Capacity, Total 175 mcg/dL (265-497); Magnesium 1.9 mg/dL (1.6-2.6); Potassium 4.3 mmol/L (3.5-5.1); Protein, Total 6.2 g/dL (5.8-8.1); Sodium 137 mmol/L (136-145)
[2023-12-13] MEDS: Sodium Chloride 0.9% 1,000 ML IV SCH (23:29)
[2023-12-14 05:27] LABS: #Eosinphils 0.1 thou/uL (0.0-0.7); #Monocytes 0.3 thou/uL (0.11-0.59); #Neutrophils 2.9 thou/uL (1.40-6.50); %Basophils 0.4 % (0.0-1.0); %Eosinophils 2.2 % (0.0-10.0); %Lymphocytes 27.1 % (21.0-51.0); %Monocytes 7.2 % (0.0-10.0); %Neutrophils 62.9 % (42.0-75.0); Hematocrit 35.2 % (36.0-47.0); Hemoglobin 11.7 g/dL (12.0-16.0); Mean Corpuscular HGB CONC 33.2 g/dL (32.0-36.0); Mean Corpuscular Hemoglobin 29.8 pg (27.0-31.0); Mean Corpuscular Volume 89.8 fl (78.0-98.0); Mean Platelet Volume 10.7 fL (7.4-10.4); Platelet Count 330 10x3/uL (130-400); RBC Distribution Width 20.4 % (11.5-14.5); Red Blood Cell (RBC) Count 3.92 mill/uL (4.20-5.40); White Blood Cell (WBC) Count 4.6 10x3/uL (4.8-10.8)
[2023-12-14 05:32] LABS: Phosphorus 1.8 mg/dL (2.3-4.7)
[2023-12-14 05:35] LABS: ALT (SGPT) 11 U/L (8-55); AST (SGOT) 16 U/L (5-34); Albumin 2.8 g/dL (3.4-4.8); Alkaline Phosphatase 98 U/L (40-110); Anion Gap 12 mmol/L (10-20); BUN (Urea Nitrogen) 15 mg/dL (9.8-20.1); Bilirubin, Total 0.3 mg/dL (0.2-1.2); Calc. Creatinine Clearance 33 mL/min (70-130); Calcium 7.8 mg/dL (7.8-10.44); Carbon Dioxide 21 mmol/L (23-31); Chloride 106 mmol/L (98-107); Estimated GFR 79; Globulin 3.2 g/dL (2.4-3.5); Glucose 113 mg/dL (83-110); Magnesium 2.3 mg/dL (1.6-2.6); Sodium 135 mmol/L (136-145)
[2023-12-14] MEDS: PHOS-NAK 1 PKT PACK PO SCH (09:34)
[2023-12-14] MEDS: Docusate 100 MG CAP PO PRN (12:03)
[2023-12-14] MEDS: levETIRAcetam 500 MG (5 mL) VIAL SLOW IVP SCH (18:58)
[2023-12-15 15:50] LABS: #Eosinphils 0.1 thou/uL (0.0-0.7); #Monocytes 0.4 thou/uL (0.11-0.59); #Neutrophils 3.5 thou/uL (1.40-6.50); %Basophils 0.4 % (0.0-1.0); %Eosinophils 1.4 % (0.0-10.0); %Lymphocytes 22.1 % (21.0-51.0); %Monocytes 7.4 % (0.0-10.0); %Neutrophils 68.5 % (42.0-75.0); Hemoglobin 10.5 g/dL (12.0-16.0); Mean Corpuscular HGB CONC 30.9 g/dL (32.0-36.0); Mean Corpuscular Hemoglobin 30.3 pg (27.0-31.0); Mean Platelet Volume 9.9 fL (7.4-10.4); Platelet Count 365 10x3/uL (130-400); RBC Distribution Width 21.1 % (11.5-14.5); Red Blood Cell (RBC) Count 3.47 mill/uL (4.20-5.40)
[2023-12-15 16:04] LABS: Anion Gap 12 mmol/L (10-20); BUN (Urea Nitrogen) 11 mg/dL (9.8-20.1); Calc. Creatinine Clearance 37 mL/min (70-130); Calcium 7.8 mg/dL (7.8-10.44); Carbon Dioxide 20 mmol/L (23-31); Chloride 109 mmol/L (98-107); Estimated GFR 84; Glucose 122 mg/dL (83-110); Potassium 4.5 mmol/L (3.5-5.1); Sodium 136 mmol/L (136-145)
[2023-12-16] MEDS: levETIRAcetam 500 MG TAB PO SCH (10:18)
[2023-12-16] MEDS: Furosemide 20 MG (2 mL) VIAL SLOW IVP SCH (10:18)
[2023-12-16 12:52] VITALS: BMI 17.9
[2023-12-16 19:28] VITALS: BP 144/69; TEMP 97.8
== END 2023-12-16 20:58 | disposition hospice, home (50) | DRG 640 ==
LOC: SUATTDRO 15:38 → ERS 15:38 → ERHOLD 18:44 → 2NO 12-11 11:36
PROVIDERS: ADMIT Internal Medicine; ATTEND Internal Medicine
DX: E86.0 Dehydration (principal); G93.41 Metabolic encephalopathy; N17.9 Acute kidney failure, unspecified; E78.5 Hyperlipidemia, unspecified; I25.10 Atherosclerotic heart disease of native coronary artery without angina pectoris; F03.90 Unspecified dementia, unspecified severity, without behavioral disturbance, psychotic disturbance, mood disturbance, and anxiety; E87.5 Hyperkalemia; E87.6 Hypokalemia; E83.42 Hypomagnesemia; I12.9 Hypertensive chronic kidney disease with stage 1 through stage 4 chronic kidney disease, or unspecified chronic kidney disease; E11.22 Type 2 diabetes mellitus with diabetic chronic kidney disease; J44.9 Chronic obstructive pulmonary disease, unspecified; Z66 Do not resuscitate; D64.9 Anemia, unspecified; I25.2 Old myocardial infarction; L89.101 Pressure ulcer of unspecified part of back, stage 1; N18.30 Chronic kidney disease, stage 3 unspecified; Z88.5 Allergy status to narcotic agent; Z86.711 Personal history of pulmonary embolism; Z86.73 Personal history of transient ischemic attack (TIA), and cerebral infarction without residual deficits; Z79.01 Long term (current) use of anticoagulants; Z91.041 Radiographic dye allergy status; Z91.012 Allergy to eggs; Z79.84 Long term (current) use of oral hypoglycemic drugs; Z79.51 Long term (current) use of inhaled steroids; Z79.899 Other long term (current) drug therapy
CPT/HCPCS: 36415; 36416; 36430; 70450; 71045; 80048; 80053; 80307; 81001; 82140; 82310; 82728; 83540; 83550; 83605; 83690; 83735; 83970; 84100; 84145; 84443; 84484; 85025; 86850; 86900; 86901; 87040; 93005; 96365; 96367; 96368; 97139; C9113; J0696; J1940; J1953; J3475; J3490; J7042; J7050; P9016; P9047